=== PATIENT | male | born 1945 | race American Indian/Alaskan Native ===

== ENCOUNTER 2017-03-31 10:47 | Inpatient (IN) | payer MEDICARE ==
[2017-03-31] MEDS ORDERED: NACL 0.9% 1000 ML 1,000 ML ONE ×6 (10:53→19:03)
[2017-03-31] MEDS ORDERED: NACL 0.9% 1000 ML 1,000 ML IV ONE (10:57)
[2017-03-31] MEDS ORDERED: FLAGYL 500 MG/100 ML 500 MG/100 ML BAG IV ONE (10:57)
[2017-03-31] MEDS ORDERED: LEVAQUIN 750MG/150ML 750 MG/150 ML BAG IV ONE (10:57)
[2017-03-31 11:18] LABS: Bacteria,Urine 1+ /HPF (Negative); Bilirubin,Urine NEG (Negative); Blood,Urine NEG (Negative); Ketones,Urine TR mg/dL (Negative); Leukocyte Esterase,Urine NEG (Negative); Mucus,Urine 3+ /HPF; Nitrite,Urine NEG (Negative); Urobilinogen,Urine < 2.0 mg/dL (<2.0)
[2017-03-31 11:41] LABS: Mean Corpuscular HGB Conc 31 % (32-34); Mean Corpuscular Volume 81 fl (84-94); Platelet Count 133 K/mm3 (140-440); Red Blood Count 5.05 M/mm3 (3.65-5.03); Red Cell Distribution Width 16.6 % (13.2-15.2)
[2017-03-31 11:42] LABS: Hematocrit 40.9 % (35.5-45.6); Hemoglobin 12.5 gm/dl (11.8-15.2); Mean Corpuscular Hemoglobin 25 pg (28-32)
--- NOTE | 2017-03-31 11:50 | XRay Report ---
PORTABLE CHEST AND ABDOMEN RADIOGRAPHS INDICATION: Status post intubation. Abdominal distention. COMPARISON: 05/23/2014 upper GI exam. FINDINGS: Portable, frontal chest and abdominal radiographs obtained. CHEST: Normal cardiomediastinal silhouette. Clear lungs. Pneumoperitoneum noted. Endotracheal tube tip approximately 3.8 cm above the shereen. EKG leads. Thoracic spondylosis. Cervical fusion hardware. ABDOMEN: Supine frontal abdominal radiographs demonstrate extensive pneumoperitoneum. Small bowel caliber up to 3.3 cm. Multilevel spinal spondylosis, greatest mid to lower lumbar. CONCLUSION: Extensive pneumoperitoneum, intubation and various other incidental findings, as above. I phoned the above results to Dr. Talbert in the ER, 11:40 AM, 03/31/2017. Thank you for the opportunity to participate in this patient's care.
[2017-03-31] MEDS ORDERED: fentaNYL DRIP Premix 2,000 MCG/100 ML BAG IV SCH (12:00)
[2017-03-31 12:05] LABS: INR 1.17 (0.87-1.13)
--- NOTE | 2017-03-31 12:05 | History and Physical Report ---
History of Present Illness Date of examination: 03/31/17 Chief complaint: Respiratory arrest History of present illness: 71 year old -D[place] male with past medical history significant for colon and liver mass throat the EMS to the emergency department from GI clinic after he has respiratory arrest. colonoscopy was done in the GI clinic and patient likely have Bowel perforations. Patient presented to ED intubated and on mechanical ventilation so we couldn't get much history. Per report from GI clinic the patient has caecal mass. Past History Past Medical History: cancer Past Surgical History: Other (Couldn't obtained because of intubation and sedation.) Social history: other (Couldn't obtained because of intubation and sedation.) Family history: other (Couldn't obtained because of intubation and sedation.) Medications and Allergies Allergies Allergy/AdvReac Type Severity Reaction Status Date / Time Penicillins Allergy Rash Verified 07/15/13 17:28 Home Medications Medication Instructions Recorded Confirmed Last Taken Type Dicyclomine [Bentyl] 10 mg PO QID #20 capsule 07/16/13 Unknown Rx Pantoprazole [Protonix] 40 mg PO QDAY #30 tablet 07/16/13 Unknown Rx Active Meds: Active Medications Levofloxacin/Dextrose (Levaquin 750mg/150ml) 750 mg in 150 mls @ 100 mls/hr IV ONCE ONE PRN Reason: Protocol Stop: 03/31/17 12:26 Fentanyl Citrate (Fentanyl Drip Premix) 2,000 mcg in 100 mls @ 3.6 mls/hr IV TITR WHIT; 1 MCG/KG/HR PRN Reason: Protocol Review of Systems ROS unobtainable: due to endotracheal tube (Couldn't obtained because of intubation and sedation.), due to mental status (Couldn't obtained because of intubation and sedation.) Exam - Physical Exam Narrative exam: Patient is intubated and on mechanical ventilation. The patient appeared well nourished and normally developed. Vital signs as documented. Head exam is unremarkable. No scleral icterus . Neck is without jugular venous distension, thyromegaly, or carotid bruits. Lungs are clear to auscultation. Cardiac exam reveals regular rate and Rhythm. First and second heart sounds normal. No murmurs, rubs or gallops. Abdominal exam reveals grossly distended abdomen, hard with rigidity, no bowel sounds heard. Extremities are nonedematous and both femoral and pedal pulses are normal. [employer]: Sedated. - Constitutional Vitals: Temp Pulse Resp BP Pulse Ox 92.5 F L 114 H 17 110/72 98 03/31/17 11:39 03/31/17 11:39 03/31/17 11:39 03/31/17 11:39 03/31/17 11:39 Results - Labs CBC & Chem 7: 03/31/17 11:09 03/31/17 11:09 Labs: Laboratory Last Values WBC 3.0 K/mm3 (4.5-11.0) L 03/31/17 11:09 RBC 5.05 M/mm3 (3.65-5.03) H 03/31/17 11:09 Hgb 12.5 gm/dl (11.8-15.2) 03/31/17 11:09 Hct 40.9 % (35.5-45.6) 03/31/17 11:09 MCV 81 fl (84-94) L 03/31/17 11:09 MCH 25 pg (28-32) L 03/31/17 11:09 MCHC 31 % (32-34) L 03/31/17 11:09 RDW 16.6 % (13.2-15.2) H 03/31/17 11:09 Plt Count 133 K/mm3 (140-440) L 03/31/17 11:09 POC Glucose 143 (70-105) H 03/31/17 10:49 Urine Color Carolann (Yellow) 03/31/17 11:01 Urine Turbidity Clear (Clear) 03/31/17 11:01 Urine pH 5.0 (5.0-7.0) 03/31/17 11:01 Ur Specific Latty 1.029 (1.003-1.030) 03/31/17 11:01 Urine Protein 100 mg/dl mg/dL (Negative) 03/31/17 11:01 Urine Glucose (UA) 50 mg/dL (Negative) 03/31/17 11:01 Urine Ketones Tr mg/dL (Negative) 03/31/17 11:01 Urine Blood Neg (Negative) 03/31/17 11:01 Urine Nitrite Neg (Negative) 03/31/17 11:01 Urine Bilirubin Neg (Negative) 03/31/17 11:01 Urine Urobilinogen < 2.0 mg/dL (<2.0) 03/31/17 11:01 Ur Leukocyte Esterase Neg (Negative) 03/31/17 11:01 Urine WBC (Auto) 9.0 /HPF (0.0-6.0) H 03/31/17 11:01 Urine RBC (Auto) 5.0 /HPF (0.0-6.0) 03/31/17 11:01 Urine Bacteria (Auto) 1+ /HPF (Negative) 03/31/17 11:01 Urine Mucus 3+ /HPF 03/31/17 11:01 - Imaging and Cardiology Abdominal x-ray: image reviewed (massive pneumoperitonium) Assessment and Plan Assessment and plan: Respiratory arrest - Patient is intubated and on mechanical ventilation - We will do ABG Pneumoperitoneum likely from perforated colon - Patient does colonoscopy done this morning and patient has caecal mass - Surgery was consulted for acute abdomen - GI consulted Sepsis with hypotension/peritonitis - Patient is being treated according to sepsis protocol - Patient is on IV flagyl and levaquin - Blood pressure normalized after he was given a bolus of fluid Stage IV colon cancer - Patient has sacral mass and hepatic mass - Patient need hematology oncology consult after the acute condition is resolved DVT prophylaxis - SCDs because the patient is going to have surgery soon. Disposition - After surgery is done admit to ICU. The high probability of a clinically significant, sudden or life threatening deterioration of the [GI, respiratory, neurologic] system(s) required my full and direct attention, intervention and personal management. The aggregate critical care time was [34] minutes. This time is in addition to time spent performing reported procedures but includes the following: [x] Data Review and interpretation [x] Patient assessment and monitoring of vital signs [x] Documentation [x] Medication orders and management Advance Directives: No VTE prophylaxis?: Mechanical Reason for no VTE Prophylaxis: Surgical contraindication Plan of care discussed with patient/family: No
[2017-03-31 12:17] LABS: Basophils % (Manual) 0 % (0.0-1.8); Blastocytes % (Manual) 0 %; Eosinophils % (Manual) 0 % (0.0-4.3)
[2017-03-31 12:18] LABS: Anisocytosis 1+; Diff Status Complete; Hypochromasia 1+; Platelet Estimate Cons; Schistocytes Rare
[2017-03-31 12:25] LABS: Alanine Aminotransferase 52 units/L (7-56); Albumin 3.6 g/dL (3.9-5); Albumin/Globulin Ratio 0.7 %; Alkaline Phosphatase 90 units/L (35-129); Anion Gap 22 mmol/L; BUN/Creatinine Ratio 7.77; Blood Urea Nitrogen 7 mg/dL (9-20); Calcium 9.1 mg/dL (8.4-10.2); Carbon Dioxide 16 mmol/L (22-30); Chloride 105.3 mmol/L (98-107); Glucose 117 mg/dL (75-100); Potassium 3.5 mmol/L (3.6-5.0); Sodium 140 mmol/L (137-145); Total Protein 8.6 g/dL (6.3-8.2)
[2017-03-31] MEDS ORDERED: ZEMURON IV ONE (12:30)
[2017-03-31] MEDS ORDERED: DIPRIVAN 10 MG/ML IV ONE (12:30)
--- NOTE | 2017-03-31 12:46 | Admit Criteria Form ---
Admission Criteria Documentation: INTENSIVE CARE UNIT ADMISSION Intensive Care Admission Guidelines ( Place 'X' for any and all applicable criteria): Admission to ICU may be indicated when need is demonstrated by ANY ONE of the following (1)(2)(3)(4)(5)(6)(7)(8)(9) : [ X]I. Vital sign abnormalities, including ANY ONE of the following: [ X]a) Systolic arterial pressure less than 90 mm Hg, or 20 mm Hg below the patient's usual pressure [ ]b) Diastolic arterial pressure greater than 120 mm Hg [ ]c) Mean arterial pressure less than 70 mm Hg [A] [ ]d) Pulse less than 40 or greater than 140 beats per minute (in adult) [ ]e) Respiratory rate greater than 35 or less than 8 breaths per minute [X ]II. Laboratory findings (new), including ANY ONE of the following (10): [ ]a) Saturation of arterial oxygen less than 88% or partial pressure of oxygen less than 60 mm Hg (8.0 kPa) despite oxygen supplementation [ ]b) Rising partial pressure of carbon dioxide with respiratory acidosis [X ]c) pH less than 7.2 or greater than 7.65 [ ]d) Serum glucose greater than 800 mg/dL (44.4 mmol/L) [ ]e) Serum sodium less than 110 mEq/L (mmol/L) or greater than 160 mEq/L (mmol/L) [ ]f) Serum potassium less than 2 mEq/L (mmol/L) or greater than 7 mEq /L (mmol/L) [ ]g) Serum calcium greater than 15 mg/dL (3.75 mmol/L) [ ]h) Serum phosphorus less than 1 mg/dL (0.32 mmol/L) [ ]i) Toxic drug level or poisoning causing or likely to cause neurologic or Hemodynamic instability [ ]j) Less severe laboratory abnormalities contributing to ANY ONE of the following: [ ]i) Seizure [ ]ii) Altered mental status [ ]iii) Muscle weakness [ ]iv) Arrhythmias [ ]v) Hemodynamic instability [ ]vi) Other significant clinical manifestations [ ]III. Electrocardiogram (or cardiac monitoring) findings, including ANY ONE of the following: [ ]a) Inherently unstable or life-threatening arrhythmia (eg, sustained ventricular tachycardia, ventricular fibrillation, asystole) [ ]b) Arrhythmia causing severe hypotension (eg, bradycardia, tachycardia) [ ]c) Complete heart block causing severe hypotension [ ]d) Other findings indicative of a need for intensive care (eg , OR) [X ]IV.Physical findings, including ANY ONE of the following: [ ]a) Threatened airway [ ]b) Sudden altered mental status [ ]c) Repeated or prolonged seizures [ ]d) Coma [ ]e) New-onset anuria (urine output <0.1 mL/kg/hr over 4 h) [ ]f) Cyanosis (new) [ ]g) Cardiac tamponade [X ]h) Status post respiratory or cardiac arrest [ ]i) Severe johnston (eg, partial thickness johnston over more than 10% of body surface, third-degree johnston) [ ]j) Findings consistent with abdominal emergency (eg, peritoneal signs) [ ]V.Imaging findings, such as dissecting aneurysm or ruptured viscus [ ].Specific intervention or monitoring needed, as indicated by ANY ONE of the following: [ ]a) New need for assisted ventilation, invasive or noninvasive(11) [ ]b) New need for intubation (eg, to protect airway) [ ]c) New tracheostomy (less than 48 hours old) [ ]d) Hourly vital signs or neurologic checks [ ]e) Pulmonary artery line monitoring needed [ ]f) Continuous arterial line monitoring needed [ ]g) Continuous IV vasoactive drugs [ ]h) Continuous IV antiarrhythmics [ ]i) Large volume IV fluid resuscitation (eg, greater than 6 L per day ) [ ]j) Large or rapid transfusion needs (eg, more than 6 units within 24 hours) [ ]k) High-risk IV treatment, such as bolus IV medicatns or mannitol infusion [ ]l) Acute cardiac pacing [ ]m) Intra-aortic balloon pump [ ]n) Ventricular assist device [ ]o) Cardioversion [ ]p) Pericardiocentesis [ ]q) Hemodialysis in unstable patient [ ]r) Continuous renal replacement therapy (eg, continuous veno-venous hemofiltration) [ ]s) Peritoneal dialysis initiation [ ]t) Emergency bronchoscopic therapy (eg, for hemoptysis) [ ]u) Emergency endoscopic therapy for bleeding [ ]v) Balloon tamponade for variceal bleeding [ ]w) Intracranial pressure monitoring or tissue oxygen monitoring [ ]x) Ventriculostomy monitoring [ ]y) Treatment of ongoing seizures [ ]z) Induced hypothermia or coma [ ]aa) Ongoing frequent testing and treatment for acute conditions, including ANY ONE of the following: [ ]i) Correction of severe metabolic acidosis/ alkalosis [ ]ii). Severe fluid overload [ ]iii) Cerebral edema [ ]iv) Monitoring or suctioning for respiratory insufficiency or acidosis [ ]v) Monitoring for active bleeding [ ]bb) Rapid desensitization for high-risk hypersensitivity reaction to required medication (eg, penicillin)(12) [ ]cc) Other need for treatment or monitoring not available outside the ICU [ ]VII.Cardiology diagnoses or procedures, including ANY ONE of the following (13)(14)(15)(16)(17): [ ]a) Chest pain with ANY ONE of the following: [ ]i) Hemodynamic instability [ ]ii) Suspicion of diagnoses needing ICU care (eg, aortic dissection) [ ]iii) New unstable or symptomatic arrhythmia or ECG finding (eg, ventricular tachycardia, ventricular fibrillation, advanced heart block) [ ]iv) Syncope or near-syncope [ ]v) SBP less than 100 mm Hg [ ]vi) Pulmonary edema thought to be due to ischemia [ ]vii) New or worsening mitral regurgitation murmur, S3 , or rales [ ]b) Acute OR with complications as indicated by ANY ONE of the following: [ ]i) Persistent chest pain [ ]ii) Hemodynamic instability [ ]iii) New unstable or symptomatic arrhythmia or ECG finding (eg, ventricular tachycardia, ventricular fibrillation, advanced heart block) [ ]iv) Syncope or near-syncope [ ]v) Pulmonary edema thought to be due to ischemia [ ]vi) New or worsening mitral regurgitation murmur, S3 , or rales [ ]vii) New-onset bundle branch block [ ]viii) Hemorrhagic complication (eg, intracranial or access site bleed following thrombolysis) [ ]c) Cardiac arrhythmia or conduction defect with Hemodynamic instability [ ]d) Complication of cardiac ablation, including ANY ONE of the following(18): [ ]i) Pericardial tamponade [ ]ii) Hemodynamic instability [ ]iii) Thromboembolic stroke [ ]iv) Aortic valve injury [ ]v) Vascular injuries [ ]vi) Esophageal perforation [ ]vii) Severe arrhythmia [ ]viii) Air embolism [ ]ix) Other severe complication [ ]e) Cardiogenic shock [ ]f) Hypertensive emergency, with need for ANY ONE of the following(19): [ ]i) IV antihypertensive therapy [ ]ii) Invasive hemodynamic monitoring (eg, arterial line) [ ]g) Pericardial tamponade [ ]h) Severe heart failure, with ANY ONE of the following(15): [ ]i) Respiratory failure [ ]ii) Cardiogenic shock [ ]iii) Severe arrhythmias [ ]iv) Evidence of cardiac ischemia [ ]i Myocarditis, with ANY ONE of the following [ ]i) Hemodynamic instability [ ]ii) Respiratory failure [ ]iii) Severe arrhythmias [ ]iv) Need for cardiac assist device (eg, left ventricular assist device or extracorporeal membrane oxygenator) [ ]j) Status post cardiac arrest(20) [ ]VIII. Cardiovascular Surgery diagnoses or procedures, including ANY ONE of the following.(21)(22): [ ]a) Acute aortic dissection [ ]b) Aortic surgery for ANY ONE of the following: [ ]i) Thoracic aneurysm [ ]ii) Abdominal aneurysm with ANY ONE of the following(23): [ ]1) Emergency repair [ ]2) Severe cardiopulmonary disease [ ]3) Dialysis-dependent renal failure [ ]4) Need for IV blood pressure control [ ]5) Need for ongoing ventilatory support [ ]6) Perioperative complications, including ANY ONE of the following: [ ]A. Sustained Hemodynamic instability [ ]B. Cardiac ischemia or arrhythmia [ ]C. Hypothermia (less than 35 degrees C (95 degrees F)) [ ]D. Blood transfusion greater than 3 L [ ]iii) Aortic coarctation operative excision or repair [ ]iv) Aortofemoral or aortoiliac bypass with ANY ONE of the following: [ ]1) Continued intubation [ ]2) Hemodynamic instability [ ]3) Need for IV blood pressure control [ ]4) Severe cardiopulmonary disease [ ]c) Cardiac surgery [ ]d) Carotid endarterectomy or stent placement with ANY ONE of the following: [ ]i) Blood pressure <100/60 mm Hg or >160/90 mm Hg despite 4 h of postanesthetic management [ ]ii) New or progressive neurologic defect [ ]iii) Chest pain [ ]iv) Continued intubation [ ]v) Heart failure [ ]vi) Airway compromise by hematoma or vocal cord paralysis [ ]vi) Need for IV blood pressure control [ ]e) Heart transplant [ ]f) Infrainguinal peripheral vascular surgery with ANY ONE of the following: [ ]i) Hemodynamic instability [ ]ii) Acute complications such as persistent chest pain or respiratory distress [ ]iii) Requirement for IV antiarrhythmic or vasoactive agent [ ]iv) Requirement for pulmonary artery catheter [ ]v) Severe hypertension despite 6 hours of recovery room management [ ]g) Complications of any surgery requiring ICU intervention as indicated by ANY ONE of the following(24): [ ]i) Hemodynamic instability [ ]ii) Myocardial infarction with complications (eg, severe arrhythmia, hypotension) [ ]iii) Excessive bleeding or severe coagulopathy [ ]iv) Respiratory failure [ ]v) Renal failure [ ]vi) Airway instability or obstruction [ ]vii) Neurologic deterioration [ ]viii) Infection with likelihood of sepsis syndrome or significant fluid shifts [ ]IX.Endocrinology diagnoses or procedures, including ANY ONE of the following(25)(26): [ ]a) Adrenal crisis with Hemodynamic instability(27) [ ]b) Pheochromocytoma with ANY ONE of the following(28): [ ]i) Hypertensive crisis [ ]ii) Postoperative Hemodynamic instability [ ]iii) Need for IV vasoactive therapy [ ]iv) Need for invasive arterial or central venous pressure monitoring [ ]v) Organ ischemia [ ]c) Diabetic hyperosmolar state with obtundation or coma [ ]d) Diabetic ketoacidosis with ANY ONE of the following: [ ]i) Serum pH less than 7.10 or bicarbonate level less than 10 mEq/L (mmol/L) [ ]ii) Rapidly changing electrolytes [ ]iii) Hypotension [ ]iv) Requirement for large-volume fluid resuscitation [ ]v) Respiratory insufficiency [ ]vi) Life-threatening cardiac dysrhythmias [ ]vii) Obtundation [ ]viii) Severe precipitating condition such as sepsis, stroke, or acute OR [ ]e) Severe hypoglycemia requiring continuous glucose infusion with frequent adjustment or glucagon infusion [ ]f) Hyperthyroidism associated with thyroid storm (also known as thyrotoxic crisis)(29) [ ]g) Myxedema with life-threatening neurologic, cardiovascular, electrolyte, or renal dysfunction(29) [ ]h) Diabetes insipidus that cannot be controlled with routine medication (30) [ ]X. Gastroenterology diagnoses or procedures, including ANY ONE of the following: [ ]a) Esophageal perforation(31) [ ]b) Severe caustic esophageal injury(31) [ ]c) Liver disease complications with ANY ONE of the following(32): [ ]i) Severe hepatic encephalopathy (eg, stage 3 (somnolent) or higher) [ ]ii) Type 1 hepatorenal syndrome [ ]iii) Other cirrhosis-associated causes of acute renal failure ( eg, severe hypovolemia, acute tubular necrosis, abdominal compartment syndrome) [ ]iv) Hemodynamic instability [ ]v) Respiratory insufficiency due to severe ascites [ ]vi) Sepsis due to spontaneous bacterial peritonitis [ ]d) Fulminant hepatic failure when aggressive intervention or transplant is anticipated (32) [ ]e) Gastrointestinal hemorrhage (upper or lower) with ANY ONE of the following(33)(34): [ ]i) Active ongoing bleeding [ ]ii) Transfusion requirement greater than 2 units of packed red cells [ ]iii) Bleeding ulcer or nonbleeding visible vessel seen on endoscopy [ ]iv) Bleeding ulcer, visible blood vessel, bleeding (or recently bleeding) esophageal varices seen on endoscopy [ ]v) Hypotension [ ]vi) Syncope [ ]vii) Coagulopathy [ ]viii) Hepatic cirrhosis [ ]ix) Abnormal mental status [ ]x) Unstable comorbid condition or end organ dysfunction [ ]xi) Ischemia due to poor perfusion [ ]xii) Need for hemodynamic monitoring (eg, for patients with heart failure or valvular disease) [ ]f) Severe pancreatitis indicated by ANY ONE of the following (35)(36): [ ]i) Requirement for aggressive fluid resuscitation [ ]ii) Life-threatening electrolyte abnormality [ ]iii) SBP less than 90 mm Hg [ ]iv) Persistent tachycardia greater than 120 beats per minute [ ]v) Patients at high risk of rapid deterioration, including ANY ONE of the following: [ ]1) Calculated [place] II score greater than 8 [ ]2) Age older than 55 years [ ]3) BMI greater than 30 [ ]4) Greater than 30% pancreatic necrosis on CT scan [ ]5) Admission hematocrit greater than 47% (0.47) [ ]vi) Organ failure as indicated by ANY ONE of the following: [ ]1) Serum creatinine greater than 1.9 mg/dL (168 micromoles/L) [ ]2) Requirement for mechanical ventilation [ ]3) Urine output less than 50 mL/hour [ ]4) Arterial partial pressure of oxygen less than 60 mm Hg (8.0 kPa) despite supplemental oxygen [ ]5) PiO2/FiO2 ratio less than 300 [ ]vii) Expanding pseudocyst [ ]viii) Infected pancreas [ ]ix) Pleural effusion [ ]x) Encephalopathy [ ]xi) Severe comorbidities [ ]XI. General Surgery diagnoses or procedures, including ANY ONE of the following (9)(24)(37): [ ]a) Acute abdominal catastrophe (eg, ischemic bowel, perforated viscus, abdominal compartment syndrome) [ ]b) Complications of any surgery requiring ICU intervention as indicated by ANY ONE of the following: [ ]i) Hemodynamic instability [ ]ii) OR with complications (eg, severe arrhythmia, hypotension) [ ]iii) Excessive bleeding or severe coagulopathy [ ]iv) Respiratory failure [ ]v) Renal failure [ ]vi) Airway instability or obstruction [ ]vii) Neurologic deterioration [ ]viii) Infection with likelihood of sepsis syndrome or significant fluid shifts [ ]c) Multiple trauma with complicating features as indicated by ANY ONE of the following(38): [ ]i) Impending acute respiratory failure due to lung contusion, unstable chest wall, aspiration, or hemorrhage [ ]ii) Facial or neck injury threatening airway patency [ ]iii) Cardiac contusion [ ]iv) Pericardial effusion [ ]v) Bronchial tear [ ]vi) Hemodynamic instability [ ]vii) Rhabdomyolisis requiring large volume IV fluid resuscitation [ ]viii)Other significant complicating feature [ ]d) Organ transplant(39)(40) [ ]e) Esophagectomy(31) [ ]f) Whipple procedure [ ]g) Preoperative or postoperative patients requiring ICU intervention, such as hemodynamic optimization, pulmonary artery monitoring, mechanical ventilation, or extensive nursing care [ ]h) Obesity surgery patients with ANY ONE of the following(41): [ ]i) ICU management needs for comorbid conditions, such as sleep apnea or airway management needs [ ]ii) Failed postoperative extubation [ ]iii) Intraoperative complications [ ]XII. Nephrology diagnoses or procedures, including acute, or acute on chronic renal insufficiency with ANY ONE of the following(44)(45): [ ]a) Life-threatening electrolyte or acid-base disorder [ ]b) Acute pulmonary edema [ ]c) Hypotension or significant volume depletion [ ]d) Hypertensive emergency [ ]e) Underlying critical illness contributing to renal failure (eg, septic shock, hepatorenal syndrome) [ ]f) Need for continuous renal replacement therapy [ ]XIII. Neurology diagnoses or procedures, including ANY ONE of the following (46)(47) [B] : [ ]a) Intracranial hypertension requiring ANY ONE of the following(49 ): [ ]i) Induced barbiturate coma [ ]ii) Pharmacologic paralysis or deep sedation and mechanical ventilation [ ]iii) Intracranial pressure or cerebral perfusion pressure monitoring [ ]iv) IV mannitol or hypertonic saline [ ]v) Frequent serum osmolality measurements [ ]b) Seizures with ANY ONE of the following(50): [ ]i) Status epilepticus [ ]ii) Airway compromise requiring or likely to require mechanical ventilation [ ]iii) Severe electrolyte abnormalities causing seizures [ ]c) Progressive acute neurologic dysfunction requiring or likely to require ANY ONE of the following: [ ]i) Mechanical ventilation [ ]ii) Intracranial pressure or cerebral perfusion pressure monitoring [ ]d) Meningitis with obtundation or respiratory insufficiency [C])(51 ) [ ]e) Stroke with ANY ONE of the following(52)(53): [ ]i) Need for observation after thrombolysis [ ]ii) Altered mental status [ ]iii) Need for mechanical ventilation [ ]iv) Elevated intracranial pressure [ ]v) Hypertensive emergency [ ]vi) High risk of progressive infarction or deterioration based on CT scan or MRI [ ]vii) Hemorrhage [ ]f) Acute coma [ ]g) Acute spontaneous intracranial hemorrhage(53)(54) [ ]h) Drug ingestion with ANY ONE of the following(56)(57): [ ]i) Hemodynamic instability [ ]ii) Respiratory depression (partial pressure of carbon dioxide >45 mm Hg (6.0 kPa), new) [ ]iii) Patient requires or is likely to require mechanical ventilation. [ ]iv) Arrhythmias [ ]v) Seizures [ ]vi) Altered mental status ([place] coma scale score less than 12, new) [ ]vii) Significant risk for acute deterioration (eg, toxic level of hypotension or arrhythmia-producing drug) [ ]viii) Drug-induced hypothermia or hyperthermia [ ]ix) Increasing metabolic acidosis [ ]x) Severe hypoglycemia requiring glucose infusion with frequent adjustment or glucagon administration [ ]xi) Ongoing antidote administration (eg, continuous naloxone infusion, organophosphate toxicity treatment) [ ]xii) Emergency intervention need (eg, dialysis, hemoperfusion, restraints) [ ]i) Brain with preparation for organ donation [ ]j) Traumatic brain injury with ANY ONE of the following(55): [ ]i) Altered mental status (eg, new onset [place] coma scale score less than 10) [ ]ii) Cerebral edema [ ]iii) Cerebral hemorrhage [ ]iv) Increased intracranial pressure [ ]XIV. Neurosurgery diagnoses or procedures, including ANY ONE of the following(49)(58)(59): [ ]a) Emergency craniotomy for tumor, hematoma, or trauma [ ]b) Elective craniotomy for posterior fossa tumor [ ]c) Elective craniotomy (supratentorial) for tumor with ANY ONE of the following: [ ]i) Postoperative neurologic deficit or impaired consciousness 6 hours after completion of procedure [ ]ii) SBP less than 110 mm Hg or greater than 180 mm Hg despite therapy [ ]iii) Extensive operative blood loss [ ]iv) High anesthesia risk (eg, [place] [employer] anesthesi[employer] score greater than 3 [ ]d) Craniotomy for aneurysm with ANY ONE of the following: [ ]i) Postoperative neurologic deficit or impaired consciousness 6 hours after completion of procedure [ ]ii) Preoperative Calderon-Britt grade 3 or higher [ ]iii) SBP less than 110 mm Hg or greater than 180 mm Hg despite therapy [ ]iv) Intracranial pressure monitoring [ ]e) Acute spinal cord injury [ ]f) Subarachnoid hemorrhage [ ]g) Traumatic brain injury with ANY ONE of the following: [ ]i) Acute mental status change ([place] coma scale score less than 10) [ ]ii) CT scan showing cerebral edema or hemorrhage [ ]iii) Intracranial pressure monitoring [ ]h) Complications of any surgery requiring ICU intervention as indicated by ANY ONE of the following(60): [ ]i) Hemodynamic instability [ ]ii) OR with complications (eg, severe arrhythmia, hypotension) [ ]iii) Excessive bleeding or severe coagulopathy [ ]iv) Respiratory failure [ ] v) Renal failure [ ]vi) Airway instability or obstruction [ ]vii) Neurologic deterioration [ ]viii) Infection with likelihood of sepsis syndrome or significant fluid shifts [ ]i) Preoperative or postoperative patients requiring ICU intervention, such as hemodynamic optimization, pulmonary artery monitoring, mechanical ventilation, or extensive nursing care [ ]XV.Obstetrics and Gynecology diagnoses or procedures, including ANY ONE of the ffg. (61)(62)(63): [ ]a) Severe peripartum condition as indicated by ANY ONE of the following: [ ]i) Eclampsia [ ]ii) Hypertensive emergency [ ]iii) HELLP syndrome (hemolysis, elevated liver enzymes, and low platelet count) [ ]iv) Pulmonary edema [ ]v) Respiratory failure [ ]vi) Pulmonary embolism [ ]vii) Anaphylactoid syndrome of (amniotic fluid embolus) [ ]viii) Ovarian hyperstimulation syndrome [D] [ ]ix) Acute fatty liver of (hepatic failure) [ ]x) Complications such as placental abruption or severe hemorrhage [ ]xi) Sepsis (eg, puerperal sepsis, chorioamnionitis, septic ) [ ]xii) cardiomyopathy with severe congestive heart failure (eg, respiratory failure, cardiogenic shock) [ ]b) Ruptured ectopic [ ]c) Complications of any surgery requiring ICU intervention as indicated by ANY ONE of the following: [ ]i) Hemodynamic instability [ ]ii) OR with complications (eg, severe arrhythmia, hypotension) [ ]iii) Excessive bleeding or severe coagulopathy [ ]iv) Respiratory failure [ ]v) Renal failure [ ]vi) Airway instability or obstruction [ ]vii) Neurologic deterioration [ ]viii) Infection with likelihood of sepsis syndrome or significant fluid shifts [ ]d) Preoperative or postoperative patients requiring ICU intervention , such as hemodynamic optimization, pulmonary artery monitoring, mechanical ventilation, or extensive nursing care [ ]XVI.Ophthalmology diagnoses or procedures, including ANY ONE of the following (64): [ ]a) Complications of any surgery requiring ICU intervention, such as ANY ONE of the following: [ ]i) Hemodynamic instability [ ]ii) OR with complications (eg, severe arrhythmia, hypotension) [ ]iii) Excessive bleeding or severe coagulopathy [ ]iv) Respiratory failure [ ]v) Renal failure [ ]vi) Airway instability or obstruction [ ]vii) Neurologic deterioration [ ]viii) Infection with likelihood of sepsis syndrome or significant fluid shifts [ ]b) Preoperative or postoperative patients requiring ICU intervention , such as hemodynamic optimization, pulmonary artery monitoring, mechanical ventilation, or extensive nursing care [ ]XVII.Orthopedics diagnoses or procedures, including ANY ONE of the following [phone]): [ ]a) Complications of any surgery requiring ICU intervention as indicated by ANY ONE of the following: [ ]i) Hemodynamic instability [ ]ii) OR with complications (eg, severe arrhythmia, hypotension) [ ]iii) Excessive bleeding or severe coagulopathy [ ]iv) Respiratory failure [ ]v) Renal failure [ ]vi) Airway instability or obstruction [ ] vii) Neurologic deterioration [ ]viii) Infection with likelihood of sepsis syndrome or significant fluid shifts [ ]b) Multiple trauma with complicating features as indicated by ANY ONE of the following(38): [ ]i) Impending acute respiratory failure due to lung contusion, unstable chest wall, pneumothorax, aspiration, or hemorrhage [ ]ii) Facial or neck injury threatening airway patency [ ]iii) Cardiac contusion [ ]iv) Rhabdomyolysis requiring large volume IV fluid resuscitation [ ]v) Pericardial effusion [ ]vi) Bronchial tear [ ]vii) Hemodynamic instability [ ]viii) Other significant complicating feature [ ]c) Threatened compartment syndrome [ ]d) Severe johnston with ANY ONE of the following(68)(69)(70): [ ]i) Hypotension or requirement for aggressive fluid resuscitation [ ]ii) Respiratory insufficiency with requirement for high- flow oxygen or mechanical ventilation [ ]iii) Carbon monoxide poisoning [ ]iv) Life-threatening cardiac, renal, pulmonary, or neurologic dysfunction [ ]v) High-voltage (eg, 1000 volts or more) electrical burn [ ]vi) Requirement for frequent or intensive debridement and dressing changes; examples include: [ ]1) Partial thickness johnston greater than 10% of body surface [ ]2) Johnston on face, hands, feet, genitalia, perineum , or major joints [ ]3) Third-degree johnston [ ]4) Any burn greater than 15% of body surface area [ ]vii) Inhalation lung injury [ ]viii) Concomitant trauma or other medical condition requiring ICU care [ ]e) Preoperative or postoperative patients requiring ICU intervention , such as hemodynamic optimization, pulmonary artery monitoring, mechanical ventilation, or extensive nursing care [ ]XVIII.Otolaryngology diagnoses or procedures, including ANY ONE of the following (71)(72): [ ]a) Complications of any surgery requiring ICU intervention as indicated by ANY ONE of the following: [ ]i) Hemodynamic instability [ ]ii) OR with complications (eg, severe arrhythmia, hypotension) [ ]iii) Excessive bleeding or severe coagulopathy [ ]iv) Respiratory failure [ ]v) Renal failure [ ]vi) Airway instability or obstruction [ ]vii) Neurologic deterioration [ ]viii) Infection with likelihood of sepsis syndrome or significant fluid shifts [ ]b) Airway or hemodynamic compromise that persists after 3 hours of observation in postanesthesia care unit following nasal, palate (eg, uvulopalatopharyngoplasty or palatoplasty), or tongue surgery for sleep apnea [ ]c) Preoperative or postoperative patient requiring ICU intervention, such as hemodynamic optimization, pulmonary artery monitoring, mechanical ventilation, or extensive nursing care [ ]d) Symptomatic upper airway compromise (eg, laryngeal edema, mass) [ ]e) Other airway-compromising procedure (eg, posterior nasal packing) [ ]XIX.Thoracic Surgery and Pulmonary Disease Diagnosis or procedures, including ANY ONE of the following(6): [ ]a) Asthma with ANY ONE of the following(73)(74): [ ]i) Impending or actual respiratory arrest [ ]ii) Need for mechanical ventilation [ ]iii) Peak expiratory flow rate less than 30% of predicted or personal best [ ]iv) Peak expiratory flow rate or FEV1 less than 40% predicted after 1 hour of initial treatment [ ]v) Acidosis [ ]vi) Persistent or worsening hypoxia after initial treatment [ ]vii) Hypercapnia (eg, partial pressure of carbon dioxide greater than 43 mm Hg (5.7 kPa)) [ ]viii) Severe drowsiness, confusion, or coma [ ]ix) Requiring continuous inhaled bronchodilator [ ]b) COPD with ANY ONE of the following(75): [ ]i) Need for assisted ventilation [ ]ii) Hemodynamic instability [ ]iii) Severe dyspnea unresponsive to initial treatment [ ]iv) Change in level of consciousness [ ]v) Persistent findings despite oxygen and outpatient management, including ANY ONE of the following: [ ]1) Partial pressure of oxygen less than 40 mm Hg ( 5.3 kPa) [ ]2) Partial pressure of carbon dioxide greater than 60 mm Hg (8.0 kPa) [ ]3) pH less than 7.25 [ ]4) Worsening hypoxemia or acidosis [ ]c) Cor pulmonale with ANY ONE of the following(75)(76)(77): [ ]i) Hemodynamic instability [ ]ii) Need for IV inotropic or vasoactive agent [ ]iii) Need for invasive hemodynamic monitoring (eg, central venous, pulmonary artery, or arterial catheter) [ ]iv) Hypoxemia with partial pressure of oxygen less than 40 mm Hg (5.3 kPa) [ ]v) Worsening hypoxemia or acidosis despite oxygen therapy [ ]vi) Need for assisted ventilation [ ]vii) Need for right ventricular assist device [ ]viii) Unstable atrial tachyarrhythmia [ ]ix) Need for inhaled nitric oxide [ ]d) Aspiration pneumonia with ANY ONE of the following(78): [ ]i) Acute respiratory distress syndrome (PaO2/FiO2 ratio of 300 or less) [ ]ii) Impending or actual respiratory arrest [ ]iii) Need for invasive or noninvasive mechanical ventilation [ ]e) Pneumocystis jiroveci pneumonia with ANY ONE of the following(79): [ ]i) Impending or actual respiratory arrest [ ]ii) Hypoxia (eg, PO260 mmGh (8.0 kPa) or less despite oxygen therapy) [ ]iii) Need for invasive or noninvasive mechanical ventilation [ ]f) Pneumonia with ANY ONE of the following(80)(81)(82): [ ]i) Need for invasive or noninvasive assisted ventilation [ ]ii) Hemodynamic instability [ ]iii) Severity factors as indicated by 3 or MORE of the following: [ ]1) Respiratory rate 30 breaths per minute or greater [ ]2) PaO2/FiO2 ratio of 250 or less [ ]3) Multilobed infiltrates [ ]4) Altered mental status [ ]5) BUN 20 mg/dL (7.1 mmol/L) or greater [ ]6) WBC count less than 4000/mm3 (4 x109/L) [ ]7) Platelet count <100,000/mm3 (100 x109/L) [ ]8) Temperature less than 36 degrees C (96.8 degrees F ) [ ]9) Hypotension requiring aggressive fluid resuscitation [ ]g) Pulmonary hypertension requiring initiation of parenteral pulmonary vasodilator or trial of inhaled nitric oxide (eg, need for right heart catheterization)(76) [ ]h) Impending respiratory failure as indicated by ANY ONE of the following: [ ]i) Respiratory rate greater than 30 or partial pressure of oxygen less than 60 mm Hg (8.0 kPa) on 50% oxygen or more [ ]ii) Partial pressure of carbon dioxide greater than 45 mm Hg (6.0 kPa) with pH less than 7.35 [ ]i) Respiratory failure with ANY ONE of the following (47): [ ]i) Need for invasive or noninvasive mechanical ventilation [ ]ii) High likelihood of requiring mechanical ventilation within 24 hours [ ]iii) Observation in the first several hours immediately after extubation from mechanical ventilation [ ]iv) Need for close observation and aggressive therapy, such as suctioning, chest physiotherapy, or inhalation treatments at intervals less than 1 hour [ ]v) Pharmacologic ventilatory paralysis [ ]j) Venous thromboembolism with need for systemic or catheter- directed thrombolysis (eg, for limb-threatening thrombosis, phlegmasia cerulea dolens) (83) [ ]k) Pulmonary embolus with ANY ONE of the following(83): [ ]i) Hypotension [ ]ii) Severe hypoxia [ ]iii) Dangerous arrhythmia [ ]iv) Bleeding [ ]v) Need for systemic or catheter-directed thrombolysis [ ]l) Lobectomy or other major thoracic surgery [ ]m) Lung transplant [ ]n) Symptomatic upper airway obstruction (eg, laryngeal edema, mass) [ ]o) Massive hemoptysis [ ]p) Infection or thrombosis of an intravenous device with ANY ONE of the following(6)(84): [ ]i) Hemodynamic instability [ ]ii) Requirement for frequent hemodynamic measurements [ ]iii) Shock [ ]iv) End organ dysfunction [ ] v) Acute renal failure due to missed dialysis [ ]vi) Unstable acute complication (eg, pericardial tamponade , tension pneumothorax) [ ]q) Traumatic rib fracture or fractures with ANY ONE of the following(85): [ ]i) Injury severity score of 19 or greater [ ]ii) Respiratory insufficiency [ ]iii) Flail chest [ ]iv) Sternum fracture [ ]v) Vascular injury (eg, heart or great vessels) [ ]r) Pleural effusion with ANY ONE of the following(86): [ ]i) Respiratory insufficiency [ ]ii) Hemothorax with active ongoing bleeding [ ]iii) Hemodynamic instability [ ]iv) Unstable comorbid condition (eg, sepsis or heart failure [ ]XX. Urology diagnoses or procedures, including ANY ONE of the following ( 87)(88): [ ]a) Renal transplant [ ]b) Complications of any surgery requiring ICU intervention as indicated by ANY ONE of the following: [ ]i) Hemodynamic instability [ ]ii) OR with complications (eg, severe arrhythmia, hypotension) [ ]iii) Excessive bleeding or severe coagulopathy [ ]iv) Respiratory failure [ ]v) Renal failure [ ]vi) Airway instability or obstruction [ ]vii) Neurologic deterioration [ ]viii) Infection with likelihood of sepsis syndrome or significant fluid shifts [ ]c) Preoperative or postoperative patients requiring ICU intervention , such as hemodynamic optimization, pulmonary artery monitoring, mechanical ventilation , or extensive nursing care [ ]XXI.Infectious Disease diagnoses or procedures, with ANY ONE of the following (6)(43): [ ]a) Hemodynamic instability [ ]b) Shock [ ]c) Requirement for frequent hemodynamic measurements (eg, arterial catheter, pulmonary artery catheter) [ ]d) Sepsis or suspected sepsis with end organ dysfunction (eg, acute kidney injury, acute respiratory distress syndrome) [ ]e) Necrotizing soft tissue infection [ ] XXII.Hematology - Oncology diagnoses or procedures, including chemotherapy administration with ANY ONE of the following(42): [ ]a) Hemodynamic instability [ ]b) Tumor lysis syndrome with ANY ONE of the following : [ ]1) Acute kidney injury [ ]2) Severe electrolyte abnormality [ ]3) Cardiac dysrhythmia [ ]XXIII. Systemic conditions, including ANY ONE of the following: [ ]a) Severe electrolyte or metabolic disturbance causing or likely to cause ANY ONE of the following(10)(89)(90): [ ]i) Life-threatening cardiac dysrhythmia [ ]ii) Respiratory insufficiency [ ]iii) Altered mental status [ ]iv) Seizures [ ]v) Hemodynamic instability [ ]vi) Muscular weakness [ ]b) Environmental injuries such as hypothermia, hyperthermia, electrical injuries, or near drowning(70)(91)(92) The original [employer] content created by [employer] has been revised. The portions of the content which have been revised are identified through the use of italic text or in bold, and [facility] has neither reviewed nor approved the modified material. All other unmodified content is copyright [employer]. Please see references footnoted in the original [facility] edition 2016 Admission Criteria Met: Yes
[2017-03-31] MEDS ORDERED: NACL 0.9% 500 ML 500 ML IV ONE (13:03)
--- NOTE | 2017-03-31 13:09 | Emergency Department Report ---
ED General Adult HPI - General Chief complaint: Cardiac Arrest/CPR Stated complaint: RESP ARREST Time Seen by Provider: 03/31/17 10:47 Source: EMS, RN notes reviewed, old records reviewed Mode of arrival: Stretcher Limitations: Other - History of Present Illness Initial comments: 71-year-old male presents to the emergency department via EMS from a local gastroenterology office. Patient was receiving an outpatient colonoscopy and was found to have a perforated large intestine. Dr. Alberto, gastroenterology spoke with me about this. He states that he's noticed a large mass in the cecum with ulceration. It is likely at this point that the perforation occurred. He states that the patient was initially diaphoretic with his heart rate in the 50s and systolic blood pressure in the 90s. He was being sent to the emergency department by EMS. EMS states that on their arrival, the patient was noted to be in respiratory arrest. He was intubated by the staff at the gastroenterology office. Further history is unable to be obtained from the patient due to his clinical condition. -: Sudden, This morning Location: abdomen Severity scale (0 -10): 0 - Related Data Previous Rx's Medication Instructions Recorded Last Taken Type Dicyclomine [Bentyl] 10 mg PO QID #20 capsule 07/16/13 Unknown Rx Pantoprazole [Protonix] 40 mg PO QDAY #30 tablet 07/16/13 Unknown Rx Allergies Allergy/AdvReac Type Severity Reaction Status Date / Time Penicillins Allergy Rash Verified 07/15/13 17:28 ED Review of Systems ROS: Stated complaint: RESP ARREST Other details as noted in HPI Comment: Unobtainable due to pts medical conditions ED Past Medical Hx - Past Medical History Previous Medical History?: Yes Hx Hypertension: Yes Hx Diabetes: Yes Hx of Cancer: Yes (mass liver, colon) - Surgical History Past Surgical History?: Yes Additional Surgical History: Cervical fusion - Family History Family history: no significant - Social History Smoking Status: Unknown if ever smoked - Medications Home Medications: Home Medications Medication Instructions Recorded Confirmed Last Taken Type Dicyclomine [Bentyl] 10 mg PO QID #20 capsule 07/16/13 Unknown Rx Pantoprazole [Protonix] 40 mg PO QDAY #30 tablet 07/16/13 Unknown Rx ED Physical Exam - General Limitations: Other General appearance: obtunded - Head Head exam: Present: atraumatic, normocephalic - Eye Eye exam: Present: normal appearance, PERRL, EOMI - ENT ENT exam: Present: normal exam, normal orophraynx (7.[address] secured at 24 cm at the lips), mucous membranes moist - Neck Neck exam: Present: normal inspection, full ROM - Respiratory Respiratory exam: Present: normal lung sounds bilaterally. Absent: respiratory distress - Cardiovascular Cardiovascular Exam: Present: normal rhythm, tachycardia, normal heart sounds - GI/Abdominal GI/Abdominal exam: Present: distended, rigid - Extremities Exam Extremities exam: Present: normal inspection, full ROM. Absent: tenderness - Back Exam Back exam: Present: normal inspection, full ROM. Absent: tenderness - Neurological Exam Neurological exam: Present: other (GCS 3T (E1 V1T M1)) - Skin Skin exam: Present: warm, dry, intact ED Course Vital Signs 03/31/17 03/31/17 03/31/17 10:50 10:51 11:32 Temperature Pulse Rate 117 H 117 H 98 H Respiratory 19 Rate Blood Pressure 75/30 75/30 Blood Pressure [Right] O2 Sat by Pulse 98 100 Oximetry 03/31/17 03/31/17 03/31/17 11:35 11:39 11:40 Temperature 92.5 F L Pulse Rate 114 H 114 H 111 H Respiratory 17 18 Rate Blood Pressure 122/76 Blood Pressure 110/72 [Right] O2 Sat by Pulse 100 98 Oximetry 03/31/17 03/31/17 11:50 12:00 Temperature Pulse Rate 110 H 112 H Respiratory 13 14 Rate Blood Pressure 121/97 122/76 Blood Pressure [Right] O2 Sat by Pulse 95 Oximetry ED Medical Decision Making - Lab Data Result diagrams: 03/31/17 11:09 03/31/17 11:09 - Radiology Data Radiology results: image reviewed interpreted by me: Abdominal x-ray reveals extensive pneumoperitoneum. Endotracheal tube appears in the proper position. These findings were discussed with the radiologist. - Medical Decision Making Patient was discussed with Dr. Bentley, surgery on arrival. Labs were ordered and the patient was administered IV Levaquin and IV Flagyl following collection of blood cultures. Review of documentation with the patient shows that he also has a large necrotic mass in his liver suggestive of metastatic disease. Patient is being taken to the operating room for emergent surgery. Gastroenterology has been notified. Patient is to be admitted by the hospitalist following surgery. - Differential Diagnosis bowel perforation Critical Care Time: Yes Critical care time in (mins) excluding proc time.: 60 Critical care attestation.: If time is entered above; I have spent that time in minutes in the direct care of this critically ill patient, excluding procedure time. Critical Care Time: The high probability of a clinically significant, sudden or life threatening deterioration of the respiratory system(s) required my full and direct attention , intervention and personal management. The aggregate critical care time was 60 minutes. This time is in addition to time spent performing reported procedures but includes the following: [x] Data Review and interpretation [x] Patient assessment and monitoring of vital signs [x] Documentation [x] Medication orders and management ED Disposition Clinical Impression: Perforation of colon, Respiratory arrest Disposition: 09 OP ADMIT IP TO THIS HOSP Is pt being admited?: Yes Condition: Stable Referrals: PRIMARY CARE, [Primary Care Provider] - 3-5 Days Time of Disposition: 13:17
[2017-03-31] MEDS ORDERED: ANCEF ONE (13:10)
[2017-03-31] MEDS ORDERED: SUBLIMAZE ONE (14:17)
[2017-03-31] MEDS ORDERED: NACL 0.9% IR ONE (14:17)
[2017-03-31] MEDS ORDERED: VERSED ONE ×2 (14:27→17:26)
[2017-03-31] MEDS ORDERED: PROTONIX IV SCH (15:00)
[2017-03-31 15:08] LABS: ISTAT Base Excess -28; ISTAT PCO2 11.5 (35-45); ISTAT PH 7.018 (7.35-7.45); ISTAT PO2 56 (80-105); ISTAT SO2 73; ISTAT TCO2 < 5
[2017-03-31] MEDS ORDERED: DILAUDID IV PRN (15:27)
[2017-03-31 15:40] LABS: Basophils % (Auto) 0.3 % (0.0-1.8); Eosinophils % (Auto) 0.1 % (0.0-4.3); Hematocrit 33.9 % (35.5-45.6); Hemoglobin 10.6 gm/dl (11.8-15.2); Mean Corpuscular HGB Conc 31 % (32-34); Mean Corpuscular Volume 78 fl (84-94); Platelet Count 116 K/mm3 (140-440); Red Blood Count 4.36 M/mm3 (3.65-5.03); Red Cell Distribution Width 15.8 % (13.2-15.2); White Blood Count 6.5 K/mm3 (4.5-11.0)
[2017-03-31 15:48] LABS: Mean Corpuscular Hemoglobin 24 pg (28-32)
--- NOTE | 2017-03-31 15:48 | XRay Report ---
PORTABLE CHEST INDICATION: ET tube placement. COMPARISON: 11:25 AM earlier today. FINDINGS: Portable, frontal chest radiograph, 3:23 PM, 03/31/2017 demonstrates new esophagogastric tube with its tip extending below the inferior radiographic margin. Right IJ catheter tip about the cavoatrial junction. Clear lungs. No pneumothorax. Stable ET tube, partially imaged lower cervical fusion hardware, cardiomediastinal silhouette and osseous structures. Significant interval improvement in pneumoperitoneum. CONCLUSION: Interval uncomplicated right IJ catheter and esophagogastric tube placement with improved pneumoperitoneum, as described. Thank you for the opportunity to participate in this patient's care.
[2017-03-31 15:51] LABS: ISTAT Base Excess -10; ISTAT HCO3 17.6; ISTAT PCO2 44.8 (35-45); ISTAT PH 7.202 (7.35-7.45); ISTAT PO2 292 (80-105); ISTAT SO2 100; ISTAT TCO2 19
--- NOTE | 2017-03-31 16:39 | Event Note ---
Date: 03/31/17 Patient seen and examined in the PACU. Mr Whitley is a 71 yo aam who presented for outpatient colonoscopy this morning. He was w/o complaints prior to procedure. He had no prior colonoscopies. He was noted to have a necrotic liver mass on recent imaging, and hepatitis c for which he was undergoing evaluation. During colonoscopy, pt was found to have a mass in the cecum adjacent to the appendix. There was centralized depression/ulceration within the mass ( malignant appearing). Multiple biopsies were obtained from the mass with tattoo injected distal to lesion. 2 polyps in the hepatic flexure were also removed with hot snare. Patient's abdomen was examined given episodes of bradycardia which showed a rigid/tense abd. The procedure was immediately terminated with decompression of air upon withdrawal of colonoscope. After termination of procedure, patient had HD instability with respiratory failure and was intubated in the GI lab. Vital signs stabilized with IVF's. EMS transported pt to ED, and he is now s/p surgery which showed ~2-3 mm perforation in the cecum. Right hemicolectomy was performed with ileal-colonic anastamosis. Biopsy of necrotic liver lesion was also obtained. In the PACU, patient is currently intubated with stable vital signs (not on pressors). Discussed with Dr Bentley/surgery and ICU team. Patient will remain intubated overnight. Patient's daughter has been updated throughout today's events. She is in [place], and will be arriving tomorrow. She states there is another family member from [place] who will be driving into town today. 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 Further management per ICU and surgery, appreciate assistance. pt on IV abx, await pathology results, and will need heme/onc consult once diagnosis is known.
[2017-03-31] MEDS ORDERED: VERSED IV PRN (17:34)
[2017-03-31] MEDS ORDERED: ARTIFICIAL TEARS OPHTH OINT OU PRN (17:47)
[2017-03-31] MEDS ORDERED: VASELINE LIP THERAPY TP PRN (17:47)
--- NOTE | 2017-03-31 17:51 | Consultation ---
History of Present Illness Consult date: 03/31/17 Requesting physician: YANICK MEMBRENO Reason for consult: other History of present illness: PULMONARY/CCM CONSULT NOTE (Full dictation # [id number]) Please see dictated notes for full details Past History Past Medical History: cancer Past Surgical History: Other (Couldn't obtained because of intubation and sedation.) Social history: other (Couldn't obtained because of intubation and sedation.) Family history: other (Couldn't obtained because of intubation and sedation.) Medications and Allergies Allergies Allergy/AdvReac Type Severity Reaction Status Date / Time Penicillins Allergy Rash Verified 07/15/13 17:28 Home Medications Medication Instructions Recorded Confirmed Last Taken Type Dicyclomine [Bentyl] 10 mg PO QID #20 capsule 07/16/13 Unknown Rx Pantoprazole [Protonix] 40 mg PO QDAY #30 tablet 07/16/13 Unknown Rx Active Meds: Active Medications Hydromorphone HCl (Dilaudid) 0.5 mg IV Q4H PRN PRN Reason: Pain Hydromorphone HCl (Dilaudid) 0.5 mg IV Q10MIN PRN PRN Reason: Pain , Severe (7-10) Stop: 03/31/17 23:59 Fentanyl Citrate (Fentanyl Drip Premix) 2,000 mcg in 100 mls @ 3.6 mls/hr IV TITR WHIT; 1 MCG/KG/HR PRN Reason: Protocol Last Admin: 03/31/17 12:00 Dose: 1 mcg/kg/hr, 3.6 mls/hr Levofloxacin/Dextrose (Levaquin 750mg/150ml) 750 mg in 150 mls @ 100 mls/hr IV Q24HR WHIT PRN Reason: Protocol Metronidazole (Flagyl 500 Mg/100 Ml) 500 mg in 100 mls @ 100 mls/hr IV Q8HR WHIT PRN Reason: Protocol Midazolam HCl (Versed) 2 mg IV ONCE PRN PRN Reason: Sedation Stop: 04/01/17 17:35 Physical Examination Vital signs: Vital Signs Pulse BP Pulse Ox 117 H 75/30 98 03/31/17 10:50 03/31/17 10:50 03/31/17 10:50 Results - Laboratory Findings CBC and BMP: 03/31/17 15:19 03/31/17 11:09 ABG POC ABG pH 7.202 (7.35-7.45) L 03/31/17 15:43 POC ABG pCO2 44.8 (35-45) 03/31/17 15:43 POC ABG pO2 292 (80-105) H 03/31/17 15:43 POC ABG HCO3 17.6 03/31/17 15:43 POC ABG Total CO2 19 03/31/17 15:43 POC ABG O2 Sat 100 03/31/17 15:43 PT/INR, D-dimer PT 14.8 Sec. (12.2-14.9) 03/31/17 11:09 INR 1.17 (0.87-1.13) H 03/31/17 11:09 Abnormal lab findings: Abnormal Labs 03/31/17 03/31/17 03/31/17 10:49 11:01 11:09 WBC RBC Hgb Hct MCV MCH MCHC RDW Plt Count Seg Neutrophils % Lymphocytes % (Manual) Seg Neutrophils # Man INR POC ABG pH POC ABG pCO2 POC ABG pO2 Potassium Carbon Dioxide BUN Glucose POC Glucose 143 H Lactic Acid 4.00 H* AST Total Protein Albumin Urine WBC (Auto) 9.0 H Crossmatch 03/31/17 03/31/17 03/31/17 11:09 11:09 11:09 WBC 3.0 L RBC 5.05 H Hgb Hct MCV 81 L MCH 25 L MCHC 31 L RDW 16.6 H Plt Count 133 L Seg Neutrophils % Lymphocytes % (Manual) 53.0 H Seg Neutrophils # Man 1.4 L INR 1.17 H POC ABG pH POC ABG pCO2 POC ABG pO2 Potassium 3.5 L Carbon Dioxide 16 L BUN 7 L Glucose 117 H POC Glucose Lactic Acid AST 61 H Total Protein 8.6 H Albumin 3.6 L Urine WBC (Auto) Crossmatch 03/31/17 03/31/17 03/31/17 11:35 12:55 15:19 WBC RBC Hgb 10.6 L Hct 33.9 L D MCV 78 L MCH 24 L MCHC 31 L RDW 15.8 H Plt Count 116 L Seg Neutrophils % 77.2 H Lymphocytes % (Manual) Seg Neutrophils # Man INR POC ABG pH 7.018 L POC ABG pCO2 11.5 L POC ABG pO2 56 L Potassium Carbon Dioxide BUN Glucose POC Glucose Lactic Acid AST Total Protein Albumin Urine WBC (Auto) Crossmatch See Detail 03/31/17 15:43 WBC RBC Hgb Hct MCV MCH MCHC RDW Plt Count Seg Neutrophils % Lymphocytes % (Manual) Seg Neutrophils # Man INR POC ABG pH 7.202 L POC ABG pCO2 POC ABG pO2 292 H Potassium Carbon Dioxide BUN Glucose POC Glucose Lactic Acid AST Total Protein Albumin Urine WBC (Auto) Crossmatch
[2017-03-31] MEDS ORDERED: NACL 0.9% 500 ML IV SCH (18:00)
[2017-03-31] MEDS ORDERED: DIPRIVAN 10 MG/ML 1,000 MG/100 ML BOTTLE IV SCH (18:00)
[2017-03-31] MEDS ORDERED: PEPCID IV SCH (19:00)
[2017-03-31 19:25] LABS: Basophils % (Auto) 0.2 % (0.0-1.8); Hematocrit 32.1 % (35.5-45.6); Hemoglobin 10.3 gm/dl (11.8-15.2); Mean Corpuscular HGB Conc 32 % (32-34); Mean Corpuscular Volume 77 fl (84-94); Platelet Count 157 K/mm3 (140-440); Red Blood Count 4.17 M/mm3 (3.65-5.03); Red Cell Distribution Width 15.9 % (13.2-15.2); White Blood Count 7.8 K/mm3 (4.5-11.0)
[2017-03-31 19:28] LABS: Mean Corpuscular Hemoglobin 25 pg (28-32)
[2017-03-31] MEDS: DUONEB *Not for PRN Use IH SCH (19:29)
[2017-03-31 19:39] LABS: Anion Gap 25 mmol/L; Blood Urea Nitrogen 8 mg/dL (9-20); Calcium 6.9 mg/dL (8.4-10.2); Carbon Dioxide 12 mmol/L (22-30); Chloride 109.2 mmol/L (98-107); Glucose 206 mg/dL (75-100); Potassium 3.8 mmol/L (3.6-5.0); Sodium 142 mmol/L (137-145)
[2017-03-31 19:43] LABS: Magnesium 1.3 mg/dL (1.7-2.3)
[2017-03-31] MEDS ORDERED: NACL 0.9% 1000 ML 1,000 ML IV SCH (21:00)
[2017-03-31 21:24] LABS: ISTAT Base Excess -13; ISTAT HCO3 15.7; ISTAT PCO2 46.1 (35-45); ISTAT PH 7.142 (7.35-7.45); ISTAT PO2 229 (80-105); ISTAT SO2 100; ISTAT TCO2 17
[2017-03-31] MEDS: FLAGYL 500 MG/100 ML 500 MG/100 ML BAG IV SCH ×3 (22:00→22:05)
[2017-03-31] MEDS: SODIUM BICARBONATE 150 MEQ in D5W 1,000 ML IV SCH (22:23)
[2017-03-31 23:39] LABS: ISTAT Base Excess -12; ISTAT HCO3 13.4; ISTAT PH 7.372 (7.35-7.45); ISTAT PO2 180 (80-105); ISTAT SO2 100; ISTAT TCO2 14
[2017-04-01] MEDS: SODIUM BICARBONATE 150 MEQ in D5W 1,000 ML IV SCH (03:09)
--- NOTE | 2017-04-01 03:27 | XRay Report ---
FINAL REPORT PROCEDURE: XR CHEST 1V AP TECHNIQUE: Chest radiograph anteroposterior view. CPT 08966 HISTORY: follow up respiratory failure COMPARISON: No prior studies are available for comparison. FINDINGS: The endotracheal tube is in the mid trachea. NG tube is in the stomach. There is a right-sided central venous catheter. The tip is in the superior vena cava. Heart size is normal. The lungs are clear. There are no infiltrates, effusions or pneumothoraces. The bony and soft tissue structures are normal. IMPRESSION: No acute cardiopulmonary abnormality. ET tube, NG tube and right-sided central venous catheter are in proper position.
[2017-04-01 05:33] LABS: Eosinophils % (Auto) 0.1 % (0.0-4.3); Hematocrit 22.6 % (35.5-45.6); Hemoglobin 7.3 gm/dl (11.8-15.2); Mean Corpuscular HGB Conc 32 % (32-34); Mean Corpuscular Volume 76 fl (84-94); Platelet Count 102 K/mm3 (140-440); Red Blood Count 2.97 M/mm3 (3.65-5.03); Red Cell Distribution Width 15.9 % (13.2-15.2); White Blood Count 4.8 K/mm3 (4.5-11.0)
[2017-04-01 05:52] LABS: BUN/Creatinine Ratio 13.75; Blood Urea Nitrogen 11 mg/dL (9-20); Calcium 6.9 mg/dL (8.4-10.2); Carbon Dioxide 23 mmol/L (22-30); Chloride 105.7 mmol/L (98-107); Glucose 190 mg/dL (75-100); Potassium 3.7 mmol/L (3.6-5.0); Sodium 142 mmol/L (137-145)
[2017-04-01 05:56] LABS: Anion Gap 17 mmol/L
[2017-04-01] MEDS: FLAGYL 500 MG/100 ML 500 MG/100 ML BAG IV SCH ×3 (06:00→21:36)
--- NOTE | 2017-04-01 06:07 | Operative Report ---
This was done as an emergency as per recommendation of Dr. Alberto, the electric meter tester, who asked him to evaluate this patient, apparently he had a colonoscopy that end up having ?perforation in the cecal area. Dr. Alberto saw a mass in the cecal area, requiring biopsy. When I saw the man he was intubated apparently in the Emergency Room and he had very distended abdomen, he was semi-sleep, so he was taken immediately to the operating room where he underwent exploratory laparotomy, right colon resection and I did 2 runs of biopsies in the dome of the liver, he had a very firm thickening in that area. The rest of examination did not reveal anything specific. The rest of peritoneum was clean to me. The stomach was clean to me. We had NG tube inserted. ANESTHESIA: General. BLOOD LOSS: May be about 150-200 mL. DESCRIPTION OF PROCEDURE: With the patient in supine position, prepped and draped in usual fashion. I made a midline incision from above the umbilicus to about 7 cm below the deep surface tissue over the fascia. Once I was in the abdominal cavity, I went up through a small hole in it, so I went ahead and looked for the area. I was able to dissect the cecum medially. At the tip of the cecum, I could feel a thickening there with a questionable small 2 mm defect there. I examined that under water and you can see the air coming out from that very minute opening, so I went ahead and dissected the cecum and the distal ileum and the transverse colon in the usual fashion using the LigaSure for that purpose. Then, I used the FLORESITA to transect the distal ileum about 5 cm proximal to the ileocecal valve and the transverse colon. Then, the anastomosis using the FLORESITA #75 for that purpose end-to-end using the machine as mentioned above and the TA 60. Then, the defect in the mesentery was closed using interrupted stitches of 3-0 Vicryl. After that maneuvering, I irrigated the area really well. We were well satisfied. I could feel a very thickened and firm mass in the dome of the right lobe of the liver, I could see, so blindly I took a Ulises-Cut needle biopsy x 2 from that area. We had good hemostasis using mono cautery and then I did apply some and we closed the wound using for that purpose #1 Vicryl interruptedly for the fascia through and through and the skin with rhonda. The patient was then transferred to the recovery room in good condition. JOB# [id number] WILLIAN/JAZIEL VICENTE
[2017-04-01 06:14] LABS: Mean Corpuscular Hemoglobin 25 pg (28-32)
[2017-04-01] MEDS: DILAUDID IV PRN ×3 (06:31→21:37)
[2017-04-01] MEDS ORDERED: fentaNYL DRIP Premix 2,000 MCG/100 ML BAG IV ONE (07:26)
[2017-04-01] MEDS: DUONEB *Not for PRN Use IH SCH ×3 (07:42→20:09)
[2017-04-01] MEDS: fentaNYL DRIP Premix 2,000 MCG/100 ML BAG IV SCH ×2 (08:06→08:10)
--- NOTE | 2017-04-01 08:53 | XRay Report ---
CHEST 1 VIEW INDICATION: ET tube placement. COMPARISON: 2 AM earlier today. FINDINGS: Portable, frontal chest radiograph, 8:17 AM, 04/01/2017 reveals stable cardiomediastinal silhouette, supporting devices, appearance of the lungs and osseous structures, providing for the difference in technique. CONCLUSION: Stable supporting devices and clear lungs. Thank you for the opportunity to participate in this patient's care.
[2017-04-01 09:10] LABS: ISTAT Base Excess 1; ISTAT HCO3 24.1; ISTAT PCO2 32.3 (35-45); ISTAT PO2 150 (80-105); ISTAT SO2 99; ISTAT TCO2 25
--- NOTE | 2017-04-01 09:53 | Progress Note ---
Assessment and Plan - Patient Problems (1) Acute respiratory failure Current Visit: Yes Status: Acute Qualifiers: Respiratory failure complication: R Plan to address problem: - aspiration precautions / VAP bundle addressed - continue bronchodilators and pulmonary toilet in short term - extubated - wean oxygen to kep O2 Sats > 94% - add incentive spirometry (2) Liver mass Current Visit: Yes Status: Acute Plan to address problem: - appeared cirrhotic per surgeon - follow colon biopsies (3) Perforation of colon as colonoscopy complication Current Visit: Yes Status: Acute Plan to address problem: - s/p ex-lap and repair of cecal perforation - no more free air on KUB - remains NPO - NGT to LIS (4) Lactic acidosis Current Visit: Yes Status: Acute Plan to address problem: - continue volume resuscitation - improving - continue antibiotics as ordered (5) Colonic mass Current Visit: Yes Status: Acute Plan to address problem: - await pathology reports - suspicious for malignancy (6) Discharge planning issues Current Visit: Yes Status: Acute Plan to address problem: - continue to observe in ICU ....he remains critically ill and at risk for further deterioration including ...care plan discussed at length with family in room ...30' CCT Subjective Date of service: 04/01/17 Principal diagnosis: Acute Respiratory Failure on MVS; S/P perforated Cecum; Sepsis Syndrome Interval history: Seen and examined at bedside; 24 hour events reviewed; nursing and respiratory care staff consulted; no adverse overnight events reported to me; tolerated SBT very well and given a trial of extubation; family visiting; denies acute chest pains or increased SOB; remains NPO; Alert ansd coherent; no N/V/F/C and no gross bleeding Objective Vital Signs - 12hr 03/31/17 03/31/17 03/31/17 22:00 22:10 22:20 Temperature Pulse Rate 106 H 121 H 110 H Pulse Rate [ Anterior Bilateral Throughout] Respiratory 30 H 26 H 30 H Rate Respiratory 19 Rate [Abdomen] Respiratory Rate [Anterior Bilateral Throughout] Blood Pressure 103/72 103/72 103/72 O2 Sat by Pulse 100 100 100 Oximetry 03/31/17 03/31/17 03/31/17 22:30 22:40 22:50 Temperature Pulse Rate 114 H 107 H 102 H Pulse Rate [ Anterior Bilateral Throughout] Respiratory 30 H 30 H 30 H Rate Respiratory Rate [Abdomen] Respiratory Rate [Anterior Bilateral Throughout] Blood Pressure 114/74 114/74 114/74 O2 Sat by Pulse 100 100 100 Oximetry 03/31/17 03/31/17 03/31/17 23:00 23:10 23:20 Temperature Pulse Rate 101 H 98 H 112 H Pulse Rate [ Anterior Bilateral Throughout] Respiratory 30 H 30 H 30 H Rate Respiratory Rate [Abdomen] Respiratory Rate [Anterior Bilateral Throughout] Blood Pressure 91/63 91/63 91/63 O2 Sat by Pulse 100 100 Oximetry 03/31/17 03/31/17 03/31/17 23:30 23:40 23:50 Temperature Pulse Rate 110 H 107 H 110 H Pulse Rate [ Anterior Bilateral Throughout] Respiratory 20 20 20 Rate Respiratory Rate [Abdomen] Respiratory Rate [Anterior Bilateral Throughout] Blood Pressure 119/74 119/74 119/74 O2 Sat by Pulse 100 100 100 Oximetry 04/01/17 04/01/17 04/01/17 00:00 00:02 00:09 Temperature 99.1 F Pulse Rate 112 H 101 H Pulse Rate [ Anterior Bilateral Throughout] Respiratory 21 Rate Respiratory Rate [Abdomen] Respiratory Rate [Anterior Bilateral Throughout] Blood Pressure 109/66 114/74 O2 Sat by Pulse 100 100 Oximetry 04/01/17 04/01/17 04/01/17 00:10 00:20 00:30 Temperature Pulse Rate 115 H 116 H 119 H Pulse Rate [ Anterior Bilateral Throughout] Respiratory 20 20 20 Rate Respiratory Rate [Abdomen] Respiratory Rate [Anterior Bilateral Throughout] Blood Pressure 109/66 119/74 97/76 O2 Sat by Pulse 100 100 100 Oximetry 04/01/17 04/01/17 04/01/17 00:40 00:50 01:00 Temperature Pulse Rate 118 H 117 H 115 H Pulse Rate [ Anterior Bilateral Throughout] Respiratory 20 20 20 Rate Respiratory Rate [Abdomen] Respiratory Rate [Anterior Bilateral Throughout] Blood Pressure 97/76 97/76 O2 Sat by Pulse 100 100 100 Oximetry 04/01/17 04/01/17 04/01/17 01:10 01:20 01:30 Temperature Pulse Rate 114 H 110 H 110 H Pulse Rate [ Anterior Bilateral Throughout] Respiratory 22 20 20 Rate Respiratory Rate [Abdomen] Respiratory Rate [Anterior Bilateral Throughout] Blood Pressure 105/64 82/57 O2 Sat by Pulse 100 100 Oximetry 04/01/17 04/01/17 04/01/17 01:40 01:50 02:00 Temperature Pulse Rate 113 H 142 H 116 H Pulse Rate [ Anterior Bilateral Throughout] Respiratory 20 16 20 Rate Respiratory Rate [Abdomen] Respiratory Rate [Anterior Bilateral Throughout] Blood Pressure 131/75 131/75 80/54 O2 Sat by Pulse 100 100 100 Oximetry 04/01/17 04/01/17 04/01/17 02:10 02:20 02:30 Temperature Pulse Rate 109 H 107 H 105 H Pulse Rate [ Anterior Bilateral Throughout] Respiratory 20 20 20 Rate Respiratory Rate [Abdomen] Respiratory Rate [Anterior Bilateral Throughout] Blood Pressure 80/54 100/63 78/53 O2 Sat by Pulse 100 100 Oximetry 04/01/17 04/01/17 04/01/17 02:40 02:50 03:00 Temperature Pulse Rate 120 H 109 H 114 H Pulse Rate [ Anterior Bilateral Throughout] Respiratory 20 20 20 Rate Respiratory Rate [Abdomen] Respiratory Rate [Anterior Bilateral Throughout] Blood Pressure 85/57 117/63 101/69 O2 Sat by Pulse 100 100 100 Oximetry 04/01/17 04/01/17 04/01/17 03:10 03:20 03:30 Temperature Pulse Rate 117 H 114 H 118 H Pulse Rate [ Anterior Bilateral Throughout] Respiratory 20 20 20 Rate Respiratory Rate [Abdomen] Respiratory Rate [Anterior Bilateral Throughout] Blood Pressure 101/69 91/61 131/73 O2 Sat by Pulse 100 100 100 Oximetry 04/01/17 04/01/17 04/01/17 03:40 03:41 03:50 Temperature 99 F Pulse Rate 114 H 108 H Pulse Rate [ Anterior Bilateral Throughout] Respiratory 20 20 Rate Respiratory Rate [Abdomen] Respiratory Rate [Anterior Bilateral Throughout] Blood Pressure 131/73 108/65 O2 Sat by Pulse 100 100 Oximetry 04/01/17 04/01/17 04/01/17 04:11 06:31 07:44 Temperature Pulse Rate 134 H 109 H Pulse Rate [ Anterior Bilateral Throughout] Respiratory 20 Rate Respiratory Rate [Abdomen] Respiratory Rate [Anterior Bilateral Throughout] Blood Pressure 109/62 117/69 O2 Sat by Pulse 100 100 Oximetry 04/01/17 04/01/17 04/01/17 07:49 08:00 08:30 Temperature 101 F H Pulse Rate 110 H Pulse Rate [ 110 H Anterior Bilateral Throughout] Respiratory Rate Respiratory Rate [Abdomen] Respiratory 20 Rate [Anterior Bilateral Throughout] Blood Pressure 116/68 O2 Sat by Pulse 100 Oximetry 04/01/17 04/01/17 08:47 09:20 Temperature Pulse Rate 110 H Pulse Rate [ Anterior Bilateral Throughout] Respiratory 20 Rate Respiratory Rate [Abdomen] Respiratory Rate [Anterior Bilateral Throughout] Blood Pressure 116/68 O2 Sat by Pulse 100 Oximetry Constitutional: no acute distress, alert Eyes: non-icteric ENT: oropharynx moist Neck: supple, no lymphadenopathy Effort: mildly labored Ascultation: Bilateral: clear, diminished breath sounds Cardiovascular: regular rate and rhythm Gastrointestinal: hypoactive bowel sounds, soft, non-tender, non-distended Integumentary: normal Extremities: no cyanosis, no edema, pulses normal, no ischemia or petechiae Neurologic: normal mental status, non-focal exam, pupils equal and round, motor strength normal and Psychiatric: mood appropriate, affect normal CBC and BMP: 04/01/17 09:55 04/01/17 09:55 ABG, PT/INR, D-dimer: ABG POC ABG pH 7.480 (7.35-7.45) H 04/01/17 09:01 POC ABG pCO2 32.3 (35-45) L 04/01/17 09:01 POC ABG pO2 150 (80-105) H 04/01/17 09:01 POC ABG HCO3 24.1 04/01/17 09:01 POC ABG Total CO2 25 04/01/17 09:01 POC ABG O2 Sat 99 04/01/17 09:01 PT/INR, D-dimer PT 14.8 Sec. (12.2-14.9) 03/31/17 11:09 INR 1.17 (0.87-1.13) H 03/31/17 11:09 Abnormal lab findings: Abnormal Labs 03/31/17 03/31/17 03/31/17 15:19 15:43 19:15 RBC Hgb 10.6 L 10.3 L Hct 33.9 L D 32.1 L MCV 78 L 77 L MCH 24 L 25 L MCHC 31 L RDW 15.8 H 15.9 H Plt Count 116 L Lymph % (Auto) 8.7 L Lymph # 0.7 L Seg Neutrophils % 77.2 H 86.8 H POC ABG pH 7.202 L POC ABG pCO2 POC ABG pO2 292 H Carbon Dioxide BUN Glucose Lactic Acid Calcium Magnesium 03/31/17 03/31/17 03/31/17 19:15 19:15 19:15 RBC Hgb Hct MCV MCH MCHC RDW Plt Count Lymph % (Auto) Lymph # Seg Neutrophils % POC ABG pH POC ABG pCO2 POC ABG pO2 Carbon Dioxide 12 L BUN 8 L Glucose 206 H Lactic Acid 6.90 H* Calcium 6.9 L D Magnesium 1.30 L 03/31/17 03/31/17 03/31/17 21:13 22:50 23:20 RBC Hgb Hct MCV MCH MCHC RDW Plt Count Lymph % (Auto) Lymph # Seg Neutrophils % POC ABG pH 7.142 L POC ABG pCO2 46.1 H 23.0 L POC ABG pO2 229 H 180 H Carbon Dioxide BUN Glucose Lactic Acid 5.90 H* Calcium Magnesium 04/01/17 04/01/17 04/01/17 09:01 Unknown Unknown RBC 2.97 L Hgb 7.3 L D Hct 22.6 L D MCV 76 L MCH 25 L MCHC RDW 15.9 H Plt Count 102 L Lymph % (Auto) 10.4 L Lymph # 0.5 L Seg Neutrophils % 86.8 H POC ABG pH 7.480 H POC ABG pCO2 32.3 L POC ABG pO2 150 H Carbon Dioxide BUN Glucose 190 H Lactic Acid Calcium 6.9 L Magnesium 04/01/17 Unknown RBC Hgb Hct MCV MCH MCHC RDW Plt Count Lymph % (Auto) Lymph # Seg Neutrophils % POC ABG pH POC ABG pCO2 POC ABG pO2 Carbon Dioxide BUN Glucose Lactic Acid 3.80 H* Calcium Magnesium Chest x-ray: image reviewed
[2017-04-01 10:20] LABS: Basophils % (Auto) 0.2 % (0.0-1.8); Hematocrit 26.4 % (35.5-45.6); Hemoglobin 8.5 gm/dl (11.8-15.2); Mean Corpuscular HGB Conc 32 % (32-34); Mean Corpuscular Volume 77 fl (84-94); Platelet Count 112 K/mm3 (140-440); Red Blood Count 3.45 M/mm3 (3.65-5.03); Red Cell Distribution Width 15.7 % (13.2-15.2); White Blood Count 6.6 K/mm3 (4.5-11.0)
--- NOTE | 2017-04-01 10:20 | Progress Note ---
Assessment and Plan 71 year old man with cecal mass, hep C, Jehovah witness status post colonoscopy with biopsy who had perforation during procedure requiring intubation, subsequent ex-lap and right hemicolectomy and ileocolonic anastamosis and also had 2 biopsies of a right hepatic dome mass. Acute Respiratory arrest - Patient is intubated and on mechanical ventilation - pulmonary following, could be extubated today Pneumoperitoneum likely from perforated colon - Patient does colonoscopy done on 03/31 and patient has caecal mass - Surgery was consulted for acute abdomen, s/p ex-lap and right hemicolectomy and ileocolonic anastamosis - GI following Sepsis with hypotension/peritonitis - Patient is being treated according to sepsis protocol - Patient is on IV flagyl and levaquin - Blood pressure normalized after he was given a bolus of fluid Stage IV colon cancer - Patient has sacral mass and hepatic mass - Patient need hematology oncology consult after the acute condition is resolved Anemia - H&H has decreased after surgery from 10.1 to 7.3 -> 8.5 - > 7.8. - he did have 2 biopsies of a right hepatic dome mass during surgery. - monitor for H and H now and follow hepatic enzyme - CT reviewed. There is a small to moderate amount of hemoperitoneum and a trace right subhepatic low density fluid collection. No sentinel clot sign. hepatitis C - monitor liver enzyme DVT prophylaxis - SCDs because the patient is going to have surgery soon. The high probability of a clinically significant, sudden or life threatening deterioration of the [GI, respiratory, neurologic] system(s) required my full and direct attention, intervention and personal management. The aggregate critical care time was [34] minutes. This time is in addition to time spent performing reported procedures but includes the following: [x] Data Review and interpretation [x] Patient assessment and monitoring of vital signs [x] Documentation [x] Medication orders and management Subjective Date of service: 04/01/17 Principal diagnosis: Acute Respiratory Failure on MVS; S/P perforated Cecum; Sepsis Syndrome Interval history: Patient seen and examined on vent but able to communicate discussed with family at bedside Hb dropped to 7.3 Objective - Exam Narrative Exam: General appearance: no acute distress - EENT Eyes: PERRL, EOM intact ENT: hearing intact, clear oral mucosa, no thrush, other (ETT present) - Neck Neck: supple, normal ROM - Respiratory Respiratory effort: normal Respiratory: bilateral: CTA - Cardiovascular Heart Rate: 110 Rhythm: regular Heart Sounds: Present: S1 & S2 Extremities: no ischemia, No edema - Gastrointestinal General gastrointestinal: Present: soft, non-tender, non-distended, absent bowel sounds, other (Abdominal dressing dry without blood) - Integumentary Integumentary: Present: clear, warm, dry - Neurologic Neurological: oriented to person, oriented to place, other (Able to move all extremeties on command/nonfocal) Extremities: no ischemia, No edema - Psychiatric Psychiatric: appropriate mood/affect - Constitutional Vitals: Vital Signs - 12hr 03/31/17 03/31/17 03/31/17 22:20 22:30 22:40 Temperature Pulse Rate 110 H 114 H 107 H Pulse Rate [ Anterior Bilateral Throughout] Respiratory 30 H 30 H 30 H Rate Respiratory Rate [Anterior Bilateral Throughout] Blood Pressure 103/72 114/74 114/74 O2 Sat by Pulse 100 100 100 Oximetry 03/31/17 03/31/17 03/31/17 22:50 23:00 23:10 Temperature Pulse Rate 102 H 101 H 98 H Pulse Rate [ Anterior Bilateral Throughout] Respiratory 30 H 30 H 30 H Rate Respiratory Rate [Anterior Bilateral Throughout] Blood Pressure 114/74 91/63 91/63 O2 Sat by Pulse 100 100 Oximetry 03/31/17 03/31/17 03/31/17 23:20 23:30 23:40 Temperature Pulse Rate 112 H 110 H 107 H Pulse Rate [ Anterior Bilateral Throughout] Respiratory 30 H 20 20 Rate Respiratory Rate [Anterior Bilateral Throughout] Blood Pressure 91/63 119/74 119/74 O2 Sat by Pulse 100 100 100 Oximetry 03/31/17 04/01/17 04/01/17 23:50 00:00 00:02 Temperature Pulse Rate 110 H 112 H 101 H Pulse Rate [ Anterior Bilateral Throughout] Respiratory 20 21 Rate Respiratory Rate [Anterior Bilateral Throughout] Blood Pressure 119/74 109/66 114/74 O2 Sat by Pulse 100 100 100 Oximetry 04/01/17 04/01/17 04/01/17 00:09 00:10 00:20 Temperature 99.1 F Pulse Rate 115 H 116 H Pulse Rate [ Anterior Bilateral Throughout] Respiratory 20 20 Rate Respiratory Rate [Anterior Bilateral Throughout] Blood Pressure 109/66 119/74 O2 Sat by Pulse 100 100 Oximetry 04/01/17 04/01/17 04/01/17 00:30 00:40 00:50 Temperature Pulse Rate 119 H 118 H 117 H Pulse Rate [ Anterior Bilateral Throughout] Respiratory 20 20 20 Rate Respiratory Rate [Anterior Bilateral Throughout] Blood Pressure 97/76 97/76 97/76 O2 Sat by Pulse 100 100 100 Oximetry 04/01/17 04/01/17 04/01/17 01:00 01:10 01:20 Temperature Pulse Rate 115 H 114 H 110 H Pulse Rate [ Anterior Bilateral Throughout] Respiratory 20 22 20 Rate Respiratory Rate [Anterior Bilateral Throughout] Blood Pressure 105/64 O2 Sat by Pulse 100 100 100 Oximetry 04/01/17 04/01/17 04/01/17 01:30 01:40 01:50 Temperature Pulse Rate 110 H 113 H 142 H Pulse Rate [ Anterior Bilateral Throughout] Respiratory 20 20 16 Rate Respiratory Rate [Anterior Bilateral Throughout] Blood Pressure 82/57 131/75 131/75 O2 Sat by Pulse 100 100 Oximetry 04/01/17 04/01/17 04/01/17 02:00 02:10 02:20 Temperature Pulse Rate 116 H 109 H 107 H Pulse Rate [ Anterior Bilateral Throughout] Respiratory 20 20 20 Rate Respiratory Rate [Anterior Bilateral Throughout] Blood Pressure 80/54 80/54 100/63 O2 Sat by Pulse 100 100 100 Oximetry 04/01/17 04/01/17 04/01/17 02:30 02:40 02:50 Temperature Pulse Rate 105 H 120 H 109 H Pulse Rate [ Anterior Bilateral Throughout] Respiratory 20 20 20 Rate Respiratory Rate [Anterior Bilateral Throughout] Blood Pressure 78/53 85/57 117/63 O2 Sat by Pulse 100 100 Oximetry 04/01/17 04/01/17 04/01/17 03:00 03:10 03:20 Temperature Pulse Rate 114 H 117 H 114 H Pulse Rate [ Anterior Bilateral Throughout] Respiratory 20 20 20 Rate Respiratory Rate [Anterior Bilateral Throughout] Blood Pressure 101/69 101/69 91/61 O2 Sat by Pulse 100 100 100 Oximetry 04/01/17 04/01/17 04/01/17 03:30 03:40 03:41 Temperature 99 F Pulse Rate 118 H 114 H Pulse Rate [ Anterior Bilateral Throughout] Respiratory 20 20 Rate Respiratory Rate [Anterior Bilateral Throughout] Blood Pressure 131/73 131/73 O2 Sat by Pulse 100 100 Oximetry 04/01/17 04/01/17 04/01/17 03:50 04:11 06:31 Temperature Pulse Rate 108 H 134 H Pulse Rate [ Anterior Bilateral Throughout] Respiratory 20 20 Rate Respiratory Rate [Anterior Bilateral Throughout] Blood Pressure 108/65 109/62 O2 Sat by Pulse 100 100 Oximetry 04/01/17 04/01/17 04/01/17 07:44 07:49 08:00 Temperature 101 F H Pulse Rate 109 H Pulse Rate [ 110 H Anterior Bilateral Throughout] Respiratory Rate Respiratory 20 Rate [Anterior Bilateral Throughout] Blood Pressure 117/69 O2 Sat by Pulse 100 Oximetry 04/01/17 04/01/17 04/01/17 08:30 08:47 09:20 Temperature Pulse Rate 110 H 110 H Pulse Rate [ Anterior Bilateral Throughout] Respiratory 20 Rate Respiratory Rate [Anterior Bilateral Throughout] Blood Pressure 116/68 116/68 O2 Sat by Pulse 100 100 Oximetry - Labs CBC & Chem 7: 04/02/17 04:00 04/02/17 04:00 Labs: Abnormal lab results 03/31/17 03/31/17 03/31/17 Range/Units 15:19 15:43 19:15 RBC (3.65-5.03) M/mm3 Hgb 10.6 L 10.3 L (11.8-15.2) gm/dl Hct 33.9 L D 32.1 L (35.5-45.6) % MCV 78 L 77 L (84-94) fl MCH 24 L 25 L (28-32) pg MCHC 31 L (32-34) % RDW 15.8 H 15.9 H (13.2-15.2) % Plt Count 116 L (140-440) K/mm3 Lymph % (Auto) 8.7 L (13.4-35.0) % Lymph # 0.7 L (1.2-5.4) K/mm3 Seg Neutrophils % 77.2 H 86.8 H (40.0-70.0) % POC ABG pH 7.202 L (7.35-7.45) POC ABG pCO2 (35-45) POC ABG pO2 292 H (80-105) Carbon Dioxide (22-30) mmol/L BUN (9-20) mg/dL Glucose (75-100) mg/dL Lactic Acid (0.7-2.0) mmol/L Calcium (8.4-10.2) mg/dL Magnesium (1.7-2.3) mg/dL 03/31/17 03/31/17 03/31/17 Range/Units 19:15 19:15 19:15 RBC (3.65-5.03) M/mm3 Hgb (11.8-15.2) gm/dl Hct (35.5-45.6) % MCV (84-94) fl MCH (28-32) pg MCHC (32-34) % RDW (13.2-15.2) % Plt Count (140-440) K/mm3 Lymph % (Auto) (13.4-35.0) % Lymph # (1.2-5.4) K/mm3 Seg Neutrophils % (40.0-70.0) % POC ABG pH (7.35-7.45) POC ABG pCO2 (35-45) POC ABG pO2 (80-105) Carbon Dioxide 12 L (22-30) mmol/L BUN 8 L (9-20) mg/dL Glucose 206 H (75-100) mg/dL Lactic Acid 6.90 H* (0.7-2.0) mmol/L Calcium 6.9 L D (8.4-10.2) mg/dL Magnesium 1.30 L (1.7-2.3) mg/dL 03/31/17 03/31/17 03/31/17 Range/Units 21:13 22:50 23:20 RBC (3.65-5.03) M/mm3 Hgb (11.8-15.2) gm/dl Hct (35.5-45.6) % MCV (84-94) fl MCH (28-32) pg MCHC (32-34) % RDW (13.2-15.2) % Plt Count (140-440) K/mm3 Lymph % (Auto) (13.4-35.0) % Lymph # (1.2-5.4) K/mm3 Seg Neutrophils % (40.0-70.0) % POC ABG pH 7.142 L (7.35-7.45) POC ABG pCO2 46.1 H 23.0 L (35-45) POC ABG pO2 229 H 180 H (80-105) Carbon Dioxide (22-30) mmol/L BUN (9-20) mg/dL Glucose (75-100) mg/dL Lactic Acid 5.90 H* (0.7-2.0) mmol/L Calcium (8.4-10.2) mg/dL Magnesium (1.7-2.3) mg/dL 04/01/17 04/01/17 04/01/17 Range/Units 09:01 Unknown Unknown RBC 2.97 L (3.65-5.03) M/mm3 Hgb 7.3 L D (11.8-15.2) gm/dl Hct 22.6 L D (35.5-45.6) % MCV 76 L (84-94) fl MCH 25 L (28-32) pg MCHC (32-34) % RDW 15.9 H (13.2-15.2) % Plt Count 102 L (140-440) K/mm3 Lymph % (Auto) 10.4 L (13.4-35.0) % Lymph # 0.5 L (1.2-5.4) K/mm3 Seg Neutrophils % 86.8 H (40.0-70.0) % POC ABG pH 7.480 H (7.35-7.45) POC ABG pCO2 32.3 L (35-45) POC ABG pO2 150 H (80-105) Carbon Dioxide (22-30) mmol/L BUN (9-20) mg/dL Glucose 190 H (75-100) mg/dL Lactic Acid (0.7-2.0) mmol/L Calcium 6.9 L (8.4-10.2) mg/dL Magnesium (1.7-2.3) mg/dL 04/01/17 Range/Units Unknown RBC (3.65-5.03) M/mm3 Hgb (11.8-15.2) gm/dl Hct (35.5-45.6) % MCV (84-94) fl MCH (28-32) pg MCHC (32-34) % RDW (13.2-15.2) % Plt Count (140-440) K/mm3 Lymph % (Auto) (13.4-35.0) % Lymph # (1.2-5.4) K/mm3 Seg Neutrophils % (40.0-70.0) % POC ABG pH (7.35-7.45) POC ABG pCO2 (35-45) POC ABG pO2 (80-105) Carbon Dioxide (22-30) mmol/L BUN (9-20) mg/dL Glucose (75-100) mg/dL Lactic Acid 3.80 H* (0.7-2.0) mmol/L Calcium (8.4-10.2) mg/dL Magnesium (1.7-2.3) mg/dL
[2017-04-01 10:21] LABS: Mean Corpuscular Hemoglobin 25 pg (28-32)
[2017-04-01 10:37] LABS: Anion Gap 15 mmol/L; Blood Urea Nitrogen 13 mg/dL (9-20); Calcium 6.9 mg/dL (8.4-10.2); Carbon Dioxide 25 mmol/L (22-30); Chloride 108.5 mmol/L (98-107); Glucose 110 mg/dL (75-100); Potassium 3.7 mmol/L (3.6-5.0); Sodium 145 mmol/L (137-145)
--- NOTE | 2017-04-01 10:42 | Gastroenterology Consultation ---
History of Present Illness - Reason for Consult Consult date: 04/01/17 Colon Mass/Perforation Requesting physician: DONATO CLEMENTE - History of Present Illness The patient was admitted from [facility] yesterday after perforation during a colonoscopy. He had a known solitary liver mass (dx by CT 02/2017 at PCP) and had been referred for a colonoscopy. He has biopsies done of the cecum mass lesion, but the friable tumor perforated during the procedure. He was intubated and taken emergently to the OR, where a R hemicolectomy and liver biopsy was done. A primary anastamosis was accomplished and he had no significant events overnight. Today on the Vent he is alert and responsive and able to mouth words/write questions. Events of the day were explained to him and to his children that were present. Past History Past Medical History: cancer (Colon Mass, Liver mass), hepatitis (Hepatitis C with (+) viral load), hypertension Past Surgical History: Other (R hemicolectomy and liver biopsy 03/31) Social history: denies: smoking, alcohol abuse Family history: no significant family history Medications and Allergies Allergies Allergy/AdvReac Type Severity Reaction Status Date / Time Penicillins Allergy Rash Verified 07/15/13 17:28 Home Medications Medication Instructions Recorded Confirmed Last Taken Type Dicyclomine [Bentyl] 10 mg PO QID #20 capsule 07/16/13 04/01/17 Unknown Rx Pantoprazole [Protonix] 40 mg PO QDAY #30 tablet 07/16/13 04/01/17 Unknown Rx Active Meds: Active Medications Albuterol/Ipratropium (Duoneb *Not For Prn Use*) 1 ampul IH TIDRT [facility] Last Admin: 04/01/17 07:42 Dose: 1 ampul Hydromorphone HCl (Dilaudid) 0.5 mg IV Q4H PRN PRN Reason: Pain Last Admin: 04/01/17 06:31 Dose: 0.5 mg Hydrophilic Ointment (Vaseline Lip Therapy) 1 applic TP Q2HR PRN PRN Reason: Dry Lips Levofloxacin/Dextrose (Levaquin 750mg/150ml) 750 mg in 150 mls @ 100 mls/hr IV Q24HR WHIT PRN Reason: Protocol Metronidazole (Flagyl 500 Mg/100 Ml) 500 mg in 100 mls @ 100 mls/hr IV Q8HR WHIT PRN Reason: Protocol Last Admin: 04/01/17 06:00 Dose: 100 mls/hr Propofol (Diprivan 10 Mg/Ml) 1,000 mg in 100 mls @ 2.16 mls/hr IV TITR WHIT; 5 MCG/KG/MIN PRN Reason: Protocol Last Admin: 04/01/17 08:47 Dose: 5 mcg/kg/min, 2.16 mls/hr Sodium Chloride (Nacl 0.9% 1000 Ml) 1,000 mls @ 250 mls/hr IV DIRECT WHTI Sodium Bicarbonate 150 meq/ (Dextrose) 1,150 mls @ 150 mls/hr IV DIRECT WHIT Stop: 04/03/17 05:39 Last Admin: 04/01/17 03:09 Dose: 150 mls/hr Fentanyl Citrate (Fentanyl Drip Premix) 2,000 mcg in 100 mls @ 3.6 mls/hr IV TITR WHIT; 1 MCG/KG/HR PRN Reason: Protocol Last Admin: 04/01/17 08:06 Dose: 2 mcg/kg/hr, 7.2 mls/hr Midazolam HCl (Versed) 2 mg IV ONCE PRN PRN Reason: Sedation Stop: 04/01/17 17:35 Multi-Ingred Cream/Lotion/Oil/Oint (Artificial Tears Ophth Oint) 1 applic OU Q4HR PRN PRN Reason: Dry Eye(s) Pantoprazole Sodium (Protonix) 40 mg IV QDAY WHIT Review of Systems - Review of Systems All systems: negative (as noted in the HPI. Limited due to ETT but alert and answering questions) Exam - Constitutional Vital Signs: Temp Pulse Resp BP Pulse Ox 101 F H 110 H 20 116/68 100 04/01/17 08:00 04/01/17 09:20 04/01/17 08:47 04/01/17 09:20 04/01/17 09:20 General appearance: no acute distress - EENT Eyes: PERRL, EOM intact ENT: hearing intact, clear oral mucosa, no thrush, other (ETT present) - Neck Neck: supple, normal ROM - Respiratory Respiratory effort: normal Respiratory: bilateral: CTA - Cardiovascular Heart Rate: 110 Rhythm: regular Heart Sounds: Present: S1 & S2 Extremities: no ischemia, No edema - Gastrointestinal General gastrointestinal: Present: soft, non-tender, non-distended, absent bowel sounds, other (Abdominal dressing dry without blood) - Integumentary Integumentary: Present: clear, warm, dry - Neurologic Neurological: oriented to person, oriented to place, other (Able to move all extremeties on command/nonfocal) - Labs CBC & Chem 7: 04/01/17 Unknown 04/01/17 Unknown Lab Results: Laboratory Results - last 24 hr 03/31/17 03/31/17 03/31/17 15:19 15:43 19:15 WBC 6.5 7.8 RBC 4.36 4.17 Hgb 10.6 L 10.3 L Hct 33.9 L D 32.1 L MCV 78 L 77 L MCH 24 L 25 L MCHC 31 L 32 RDW 15.8 H 15.9 H Plt Count 116 L 157 Lymph % (Auto) 17.6 8.7 L [place] % (Auto) 4.8 4.3 Eos % (Auto) 0.1 0.0 Baso % (Auto) 0.3 0.2 Lymph # 1.2 0.7 L [place] # 0.3 0.3 Eos # 0.0 0.0 Baso # 0.0 0.0 Seg Neutrophils % 77.2 H 86.8 H Seg Neutrophils # 5.1 6.8 POC ABG pH 7.202 L POC ABG pCO2 44.8 POC ABG pO2 292 H POC ABG HCO3 17.6 POC ABG Total CO2 19 POC ABG O2 Sat 100 POC ABG Base Excess -10 FiO2 60 Sodium Potassium Chloride Carbon Dioxide Anion Gap BUN Creatinine Estimated GFR BUN/Creatinine Ratio Glucose Lactic Acid Calcium Phosphorus Magnesium C-Reactive Protein 03/31/17 03/31/17 03/31/17 19:15 19:15 19:15 WBC RBC Hgb Hct MCV MCH MCHC RDW Plt Count Lymph % (Auto) [place] % (Auto) Eos % (Auto) Baso % (Auto) Lymph # [place] # Eos # Baso # Seg Neutrophils % Seg Neutrophils # POC ABG pH POC ABG pCO2 POC ABG pO2 POC ABG HCO3 POC ABG Total CO2 POC ABG O2 Sat POC ABG Base Excess FiO2 Sodium Potassium Chloride Carbon Dioxide Anion Gap BUN Creatinine Estimated GFR BUN/Creatinine Ratio Glucose Lactic Acid 6.90 H* Calcium Phosphorus 3.30 Magnesium 1.30 L C-Reactive Protein 0.00 03/31/17 03/31/17 03/31/17 19:15 21:13 22:50 WBC RBC Hgb Hct MCV MCH MCHC RDW Plt Count Lymph % (Auto) [place] % (Auto) Eos % (Auto) Baso % (Auto) Lymph # [place] # Eos # Baso # Seg Neutrophils % Seg Neutrophils # POC ABG pH 7.142 L POC ABG pCO2 46.1 H POC ABG pO2 229 H POC ABG HCO3 15.7 POC ABG Total CO2 17 POC ABG O2 Sat 100 POC ABG Base Excess -13 FiO2 50 Sodium Potassium Chloride Carbon Dioxide 12 L Anion Gap BUN 8 L Creatinine 0.8 Estimated GFR > 60 BUN/Creatinine Ratio 10.00 Glucose 206 H Lactic Acid 5.90 H* Calcium 6.9 L D Phosphorus Magnesium C-Reactive Protein 03/31/17 04/01/17 04/01/17 23:20 09:01 09:55 WBC 6.6 RBC 3.45 L Hgb 8.5 L Hct 26.4 L MCV 77 L MCH 25 L MCHC 32 RDW 15.7 H Plt Count 112 L Lymph % (Auto) 10.0 L [place] % (Auto) 4.3 Eos % (Auto) 0.0 Baso % (Auto) 0.2 Lymph # 0.7 L [place] # 0.3 Eos # 0.0 Baso # 0.0 Seg Neutrophils % 85.5 H Seg Neutrophils # 5.7 POC ABG pH 7.372 7.480 H POC ABG pCO2 23.0 L 32.3 L POC ABG pO2 180 H 150 H POC ABG HCO3 13.4 24.1 POC ABG Total CO2 14 25 POC ABG O2 Sat 100 99 POC ABG Base Excess -12 1 FiO2 35 35 Sodium Potassium Chloride Carbon Dioxide Anion Gap BUN Creatinine Estimated GFR BUN/Creatinine Ratio Glucose Lactic Acid Calcium Phosphorus Magnesium C-Reactive Protein 04/01/17 04/01/17 04/01/17 Unknown Unknown Unknown WBC 4.8 RBC 2.97 L Hgb 7.3 L D Hct 22.6 L D MCV 76 L MCH 25 L MCHC 32 RDW 15.9 H Plt Count 102 L Lymph % (Auto) 10.4 L [place] % (Auto) 2.7 Eos % (Auto) 0.1 Baso % (Auto) 0.0 Lymph # 0.5 L [place] # 0.1 Eos # 0.0 Baso # 0.0 Seg Neutrophils % 86.8 H Seg Neutrophils # 4.2 POC ABG pH POC ABG pCO2 POC ABG pO2 POC ABG HCO3 POC ABG Total CO2 POC ABG O2 Sat POC ABG Base Excess FiO2 Sodium 142 Potassium 3.7 Chloride 105.7 Carbon Dioxide 23 D Anion Gap 17 BUN 11 Creatinine 0.8 Estimated GFR > 60 BUN/Creatinine Ratio 13.75 Glucose 190 H Lactic Acid 3.80 H* Calcium 6.9 L Phosphorus Magnesium C-Reactive Protein Assessment and Plan - Patient Problems (1) Perforation of colon as colonoscopy complication Current Visit: Yes Status: Acute Plan to address problem: - Perforation of colon at site of large cecal colon mass 03/31. - R hemicolectomy 03/31 with acceptable post-operative course. - Explained post-operative care to patient/family, and that event of next 72 hours would be routine surgical care; awaiting extubation, return of bowel function, etc. - Appreciate all toy consultant's help. (2) Colonic mass Current Visit: Yes Status: Acute Plan to address problem: - New dx 03/31; pathology anticipated return on Tuesday or Tuesday. (3) Liver mass Current Visit: Yes Status: Acute Plan to address problem: - Biopsy 03/31 at surgery. - Unclear if HCC from hepatitis or metastatic colon lesion. (4) Hepatitis C Current Visit: Yes Status: Acute Qualifiers: Viral hepatitis chronicity: V Hepatic coma status: H Plan to address problem: - Positive viral load in office but no prior treatment. - Will need treatment prior to chemo for colon or liver cancer. - Suspect based on labs early cirrhosis/Child's A. (5) Refusal of blood transfusions as patient is [employer]oration[employer] Current Visit: Yes Status: Acute
[2017-04-01] MEDS: PROTONIX IV SCH (10:52)
[2017-04-01] MEDS: LEVAQUIN 750MG/150ML 750 MG/150 ML BAG IV SCH (10:53)
--- NOTE | 2017-04-01 11:47 | Progress Note ---
Subjective Narrative: talked to RN For extubation today alert and responsive Hgb 8.5 VS stable on flagyl and leviquin ,urine adequate ,BUN 11 . NG with minimal drainage ,will start clamping , Objective Vital Signs - 12hr 03/31/17 04/01/17 04/01/17 23:50 00:00 00:02 Temperature Pulse Rate 110 H 112 H 101 H Pulse Rate [ Anterior Bilateral Throughout] Respiratory 20 21 Rate Respiratory Rate [Anterior Bilateral Throughout] Blood Pressure 119/74 109/66 114/74 O2 Sat by Pulse 100 100 100 Oximetry 04/01/17 04/01/17 04/01/17 00:09 00:10 00:20 Temperature 99.1 F Pulse Rate 115 H 116 H Pulse Rate [ Anterior Bilateral Throughout] Respiratory 20 20 Rate Respiratory Rate [Anterior Bilateral Throughout] Blood Pressure 109/66 119/74 O2 Sat by Pulse 100 100 Oximetry 04/01/17 04/01/17 04/01/17 00:30 00:40 00:50 Temperature Pulse Rate 119 H 118 H 117 H Pulse Rate [ Anterior Bilateral Throughout] Respiratory 20 20 20 Rate Respiratory Rate [Anterior Bilateral Throughout] Blood Pressure 97/76 97/76 97/76 O2 Sat by Pulse 100 100 100 Oximetry 04/01/17 04/01/17 04/01/17 01:00 01:10 01:20 Temperature Pulse Rate 115 H 114 H 110 H Pulse Rate [ Anterior Bilateral Throughout] Respiratory 20 22 20 Rate Respiratory Rate [Anterior Bilateral Throughout] Blood Pressure 105/64 O2 Sat by Pulse 100 100 100 Oximetry 04/01/17 04/01/17 04/01/17 01:30 01:40 01:50 Temperature Pulse Rate 110 H 113 H 142 H Pulse Rate [ Anterior Bilateral Throughout] Respiratory 20 20 16 Rate Respiratory Rate [Anterior Bilateral Throughout] Blood Pressure 82/57 131/75 131/75 O2 Sat by Pulse 100 100 Oximetry 04/01/17 04/01/17 04/01/17 02:00 02:10 02:20 Temperature Pulse Rate 116 H 109 H 107 H Pulse Rate [ Anterior Bilateral Throughout] Respiratory 20 20 20 Rate Respiratory Rate [Anterior Bilateral Throughout] Blood Pressure 80/54 80/54 100/63 O2 Sat by Pulse 100 100 100 Oximetry 04/01/17 04/01/17 04/01/17 02:30 02:40 02:50 Temperature Pulse Rate 105 H 120 H 109 H Pulse Rate [ Anterior Bilateral Throughout] Respiratory 20 20 20 Rate Respiratory Rate [Anterior Bilateral Throughout] Blood Pressure 78/53 85/57 117/63 O2 Sat by Pulse 100 100 Oximetry 04/01/17 04/01/17 04/01/17 03:00 03:10 03:20 Temperature Pulse Rate 114 H 117 H 114 H Pulse Rate [ Anterior Bilateral Throughout] Respiratory 20 20 20 Rate Respiratory Rate [Anterior Bilateral Throughout] Blood Pressure 101/69 101/69 91/61 O2 Sat by Pulse 100 100 100 Oximetry 04/01/17 04/01/17 04/01/17 03:30 03:40 03:41 Temperature 99 F Pulse Rate 118 H 114 H Pulse Rate [ Anterior Bilateral Throughout] Respiratory 20 20 Rate Respiratory Rate [Anterior Bilateral Throughout] Blood Pressure 131/73 131/73 O2 Sat by Pulse 100 100 Oximetry 04/01/17 04/01/17 04/01/17 03:50 04:11 06:31 Temperature Pulse Rate 108 H 134 H Pulse Rate [ Anterior Bilateral Throughout] Respiratory 20 20 Rate Respiratory Rate [Anterior Bilateral Throughout] Blood Pressure 108/65 109/62 O2 Sat by Pulse 100 100 Oximetry 04/01/17 04/01/17 04/01/17 07:44 07:49 08:00 Temperature 101 F H Pulse Rate 109 H Pulse Rate [ 110 H Anterior Bilateral Throughout] Respiratory Rate Respiratory 20 Rate [Anterior Bilateral Throughout] Blood Pressure 117/69 O2 Sat by Pulse 100 Oximetry 04/01/17 04/01/17 04/01/17 08:30 08:47 09:20 Temperature Pulse Rate 110 H 110 H Pulse Rate [ Anterior Bilateral Throughout] Respiratory 20 Rate Respiratory Rate [Anterior Bilateral Throughout] Blood Pressure 116/68 116/68 O2 Sat by Pulse 100 100 Oximetry 04/01/17 11:13 Temperature Pulse Rate 113 H Pulse Rate [ Anterior Bilateral Throughout] Respiratory Rate Respiratory Rate [Anterior Bilateral Throughout] Blood Pressure 98/66 O2 Sat by Pulse 100 Oximetry - Labs 04/01/17 Unknown 04/01/17 Unknown Diabetes panel 03/31/17 04/01/17 04/01/17 Range/Units 19:15 09:55 Unknown Sodium 145 142 (137-145) mmol/L Potassium 3.7 3.7 (3.6-5.0) mmol/L Chloride 108.5 H 105.7 (98-107) mmol/L Carbon Dioxide 12 L 25 23 D (22-30) mmol/L BUN 8 L 13 11 (9-20) mg/dL Creatinine 0.8 1.0 0.8 (0.8-1.5) mg/dL Glucose 206 H 110 H 190 H (75-100) mg/dL Calcium 6.9 L D 6.9 L 6.9 L (8.4-10.2) mg/dL Calcium panel 03/31/17 03/31/17 04/01/17 Range/Units 19:15 19:15 09:55 Calcium 6.9 L D 6.9 L (8.4-10.2) mg/dL Phosphorus 3.30 (2.5-4.5) mg/dL 04/01/17 Range/Units Unknown Calcium 6.9 L (8.4-10.2) mg/dL Phosphorus (2.5-4.5) mg/dL Pituitary panel 03/31/17 04/01/17 04/01/17 Range/Units 19:15 09:55 Unknown Sodium 145 142 (137-145) mmol/L Potassium 3.7 3.7 (3.6-5.0) mmol/L Chloride 108.5 H 105.7 (98-107) mmol/L Carbon Dioxide 12 L 25 23 D (22-30) mmol/L BUN 8 L 13 11 (9-20) mg/dL Creatinine 0.8 1.0 0.8 (0.8-1.5) mg/dL Glucose 206 H 110 H 190 H (75-100) mg/dL Calcium 6.9 L D 6.9 L 6.9 L (8.4-10.2) mg/dL Adrenal panel 03/31/17 04/01/17 04/01/17 Range/Units 19:15 09:55 Unknown Sodium 145 142 (137-145) mmol/L Potassium 3.7 3.7 (3.6-5.0) mmol/L Chloride 108.5 H 105.7 (98-107) mmol/L Carbon Dioxide 12 L 25 23 D (22-30) mmol/L BUN 8 L 13 11 (9-20) mg/dL Creatinine 0.8 1.0 0.8 (0.8-1.5) mg/dL Glucose 206 H 110 H 190 H (75-100) mg/dL Calcium 6.9 L D 6.9 L 6.9 L (8.4-10.2) mg/dL
--- NOTE | 2017-04-01 13:15 | Consultation ---
CONSULTING PHYSICIAN: Dr. Bentley. REASON FOR CONSULTATION: Acute respiratory failure, on mechanical ventilatory support. Status post bowel perforation. CHIEF COMPLAINT AND HISTORY OF PRESENT ILLNESS: The patient is a 71-year-old -[place] male with past medical history significant for diagnosis of colon and liver mass who came into the Emergency Room from the GI clinic after he had a cardiopulmonary arrest. It seems like he was getting a colonoscopy done, it was presumed that decompensation was due to bowel perforations, he was brought into the Emergency Room, it is unclear if he was intubated in the ER or en route. He reportedly also had a cecal mass. The patient ultimately was taken into the OR for an exploratory laparotomy although there is a small, about 2 to 3 mm perforation was found on the cecal area and this has been repaired. We are asked to assist with management after he comes out of the OR as he remains on mechanical ventilator, intubated and also has a significant metabolic acidosis. When I stopped by to see him, he was nonresponsive mostly according to the nurse, she had given him Dilaudid for pain, but could not tell me if he was moving his extremities prior to giving him the analgesia. I do not have any history of emesis or overt aspiration. With regards to tobacco use/abuse history that is unknown. The above is as much of the history of presentation as I have. PAST MEDICAL HISTORY: Again, history of a cecal mass and history of likely liver cirrhosis based on the intraoperative findings are also a question of liver mass. PAST SURGICAL HISTORY: Unknown. MEDICATIONS: He was on at the time I stopped by to see him, according to the medication administration record included the following, fentanyl drip was just about to be started at 1 mcg per hour. He had been receiving Dilaudid 0.5 mg IV q. 4 hours p.r.n. pain. He is on Levaquin 750 mg IV daily, Flagyl 500 mg IV q.8 hours and received 2 mg of Versed IV x 1. The patient also received Ancef I believe 1 gram preoperatively. ALLERGIES: PENICILLINS. DIET: Thin gentleman, acute weight loss or gain history is unknown. FAMILY AND SOCIAL HISTORY: It seems he lives in the community; however, alcohol, tobacco, illicit drug use or abuse history is unknown. There is no family available to discuss this with. REVIEW OF SYSTEMS: Unobtainable secondary to the patient's medical and mental condition since he has been here, no gross hematochezia or melena. No gross hematuria. No hematemesis. No bloody tracheal secretions. No witnessed seizures have been reported. PHYSICAL EXAMINATION: VITAL SIGNS: At presentation, initial temperature 92.5 degrees Fahrenheit rectally, pulse was 114, respiratory rate of 17, blood pressure was 110/72, oxygen sats were 98%, inspired oxygen concentration was not recorded. Initial blood pressure at presentation was actually 75/30. HEAD, EYES, EARS, NOSE AND THROAT: Pupils are equal, round, about 2 mm, sluggishly, reactive to light. Extraocular muscle movements could not be assessed. Grossly, there were no palpable lymph nodes in the supraclavicular or submandibular lymph node chains. LUNGS: Auscultation of both lung luong unremarkable. Lungs are clear bilaterally. HEART: Heart sounds 1 and 2 are heard. They were regular in rate and rhythm at time of my evaluation. ABDOMEN: Soft, flat. Bowel sounds hypoactive at best. He is nontender, but he is sedated. EXTREMITIES: Without overt digital clubbing, cyanosis or pedal edema. NEUROLOGIC: Currently, he is mostly nonresponsive, just received some sedation. It is unclear if there were any focal deficits prior. LABORATORY DATA: From my review are as follows: Admission white cell count 3000 with hemoglobin of 12.5, hematocrit of 40.9 and platelet count of 133. No significant band forms reported. INR was 1.17. Arterial blood gas at presentation showed a pH of 7.02, pCO2 of 12, pO2 of 56,000 on 60% FiO2, ventilator settings were not recorded. Serum sodium is pending. Potassium was 3.5, chloride is 105, bicarbonate was 16, BUN was 7, creatinine 0.9 and glucose 117. Lactic acid level was 4.0. AST 61, albumin 3.6. Otherwise, liver function tests within normal limits. Urinalysis was negative for nitrites and leukocyte esterase. He did have 1+ bacteremia and 9 white cells per high power field. Repeat ABG showed a pH of 7.20, pCO2 of 45, pO2 of 292,000 on 60% FiO2, tidal volume is 500, rate of 12, PEEP of 5. He was not breathing over the set rate. Blood cultures 2 sets have been drawn they are pending. Radiographic studies have been reviewed. I have also reviewed the radiologist's interpretation. I do agree with him. Chest x-ray essentially does not show significant infiltrates. There is slight elevation of the right hemidiaphragm. There is obvious free air below the diaphragm and above the liver. Endotracheal tube is in place. The tip appears to be at the level of the clavicular heads. A repeat chest x-ray which is the most recent one shows a right IJ central line in place, tip is in the SVC right atrium junction. ET tube is at the level of the aortic knob. NG tube is seen coursing through the mediastinum and terminates below the diaphragm. No gross pneumothorax, no gross bony fracture. Abdominal views do not show any significant pneumoperitoneum. ASSESSMENT AND PLAN: We have an elderly gentleman status post iatrogenic pneumoperitoneum with sepsis syndrome. From a respiratory standpoint, we have increased the minute ventilation, increase tidal volumes or kept the tidal volumes at 500, but increased the rate to 225 to blow down CO2 and compensate for the metabolic acidosis. I am waiting the new BMP to see if bicarbonate supplementation will be in order. I will repeat the arterial blood gas down the line. Bronchodilators will be scheduled initially and then p.r.n. thereafter. Aspiration precautions will be addressed daily as well as ventilator-associated flap bundles. Oxygen will be weaned to keep sats greater than or equal to about 92 to 94%. Hopefully, we can begin weaning him shortly as early as tomorrow, hopefully. From a cardiovascular standpoint, not currently on any vasopressors. Blood pressure is fine. Mean arterial pressures are running in the 70s right now. I will continue gentle volume hydration. Cardiovascular silhouette does not suggest a significant cardiomyopathy. I will follow him clinically. From a renal standpoint, I note the metabolic acidosis. Magnesium level and phosphorus level will also be ordered. Inputs and outputs will be monitored. Electrolytes will be corrected as necessary. Potassium will be replaced. From infectious disease standpoint, he is appropriately on broad-spectrum anti-infective therapy. He has been pancultured. Lactic acid level was noted. I will repeat the lactate level and volume resuscitation will be addressed as necessary. A CRP level will also be ordered and trended as necessary through this admission. Anti-infectives will ultimately be deescalated based on results of clinical and microbiologic data. From a RESEARCH DIETITIAN standpoint, the exam was grossly nonfocal at presentation according to the GI physician ____ seen him earlier. We will follow him clinically. No acute indication for neuro imaging. From a general and hospital healthcare maintenance standpoint, he is going to be on gastrointestinal prophylaxis. I will start him on Protonix. He will be also on deep venous thrombosis prophylaxis in the form of SCDs. Flu and pneumonia vaccination will be per protocol. Thank you very much for the consult Dr. Bentley and ____ will follow along and make further recommendations as picture progresses/becomes clearer. He is critically ill on life-sustaining interventions including mechanical ventilatory support at higher risk for further deterioration including . At this point, I have spent about 35 to 40 minutes of critical care time without overlap and excluding any procedural time that may be necessary. JOB# [id number] RAHAT/JAZIEL
[2017-04-01 16:35] LABS: ISTAT Base Excess 3; ISTAT HCO3 27.4; ISTAT PCO2 43.8 (35-45); ISTAT PH 7.405 (7.35-7.45); ISTAT PO2 38 (80-105); ISTAT SO2 72; ISTAT TCO2 29
[2017-04-01 16:35] LABS: ISTAT Base Excess 3; ISTAT HCO3 27.4; ISTAT PCO2 44.7 (35-45); ISTAT PH 7.396 (7.35-7.45); ISTAT PO2 125 (80-105); ISTAT SO2 99; ISTAT TCO2 29
[2017-04-01] MEDS: NACL 0.9% 1000 ML 1,000 ML IV SCH (17:36)
[2017-04-01 18:14] LABS: Basophils % (Auto) 0.1 % (0.0-1.8); Hematocrit 24.5 % (35.5-45.6); Hemoglobin 7.8 gm/dl (11.8-15.2); Mean Corpuscular HGB Conc 32 % (32-34); Mean Corpuscular Volume 76 fl (84-94); Red Blood Count 3.21 M/mm3 (3.65-5.03); Red Cell Distribution Width 15.7 % (13.2-15.2); White Blood Count 7.2 K/mm3 (4.5-11.0)
[2017-04-01 18:28] LABS: Mean Corpuscular Hemoglobin 24 pg (28-32); Platelet Count 94 K/mm3 (140-440)
--- NOTE | 2017-04-01 18:59 | Event Note ---
Date: 04/01/17 The patient's repeat hct remains low, and down about 10 points from admit. However, patient is clinically improved and VSS without N/V/abdominal pain/ distention. Given underlying liver disease with coagulopathy and chance for delayed bleeding, will check CT A/P and also give Vit K. Will also check iron and B12, and consider Procrit/IV iron/FFP based on repeat labs.
[2017-04-01] MEDS ORDERED: VITAMIN K (ADULT ONLY) 10 MG in NACL 0.9% 50 ML IV ONE (19:30)
--- NOTE | 2017-04-01 21:41 | Cat Scan Report ---
FINAL REPORT PROCEDURE: CT ABDOMEN PELVIS WO CON TECHNIQUE: Computerized axial tomography of the abdomen and pelvis was performed without intravenous contrast. This study is performed without intravascular contrast material and its sensitivity for abdominal and pelvic pathology, including neoplasms, inflammation, abscess, free fluid, thrombosis, arterial dissection and infarction, is reduced compared with a contrast enhanced study. HISTORY: anemia post bowel surgery COMPARISON: No prior studies are available for comparison. FINDINGS: Visualized lower thorax: There are bilateral lower lobe infiltrates and small effusions.. Liver: The liver is enlarged and heterogeneous. There is a discrete mass in the anterior segment of the right lobe of the liver measuring 4.6 centimeters. Metastatic malignancy is suspected. There is a cyst in the left lobe measuring 2.8 centimeters.. Spleen: Normal size and attenuation. Gallbladder and biliary system: There is cholelithiasis.. Pancreas: Normal. Adrenals: Normal. Kidneys: Normal. GI tract: There is an NG tube in the stomach. There has been right colon surgery. There is no bowel obstruction. There is no ischemic bowel injury.. Lymph nodes and mesentery: There induration of the mesentery possibly related to recent surgery.. Vasculature: Normal. Bladder: There is a Kwong catheter in the urinary bladder.. Reproductive organs: Normal. Peritoneum: There is dense ascites. Postsurgical fluid is suspected. There is dense fluid in the left pericolic gutter which could be blood. No specific evidence of active hemorrhage is seen but clinical correlation suggested. There is pneumoperitoneum most likely related to recent surgery.. Musculoskeletal structures: No significant abnormality. Other: None. IMPRESSION: There are bilateral lower lobe infiltrates and small effusions.. The liver is enlarged and heterogeneous. There is a discrete mass in the anterior segment of the right lobe of the liver measuring 4.6 centimeters. Metastatic malignancy is suspected. There is a cyst in the left lobe measuring 2.8 centimeters.. There is cholelithiasis.. There is an NG tube in the stomach. There has been right colon surgery. There is no bowel obstruction. There is no ischemic bowel injury.. There induration of the mesentery possibly related to recent surgery.. There is dense ascites. Postsurgical fluid is suspected. There is dense fluid in the left pericolic gutter which could be blood. No specific evidence of active hemorrhage is seen but clinical correlation suggested. There is pneumoperitoneum most likely related to recent surgery.. .
--- NOTE | 2017-04-01 21:54 | Event Note ---
Date: 04/01/17 71 year old man with cecal mass, hep C, Jehovah witness status post colonoscopy with biopsy who had perforation during procedure requiring subsequent ex-lap and right hemicolectomy and ileocolonic anastamosis and also had 2 biopsies of a right hepatic dome mass. H&H has decreased after surgery from 10.1 to 7.3 -> 8.5 - > 7.8. Has been tachycardic since surgery. CT reviewed. There is a small to moderate amount of hemoperitoneum and a trace right subhepatic low density fluid collection. No sentinel clot sign. Discussed with Dr. Alberto. Suspect could have had ooze from right hepatic lobe, although not sure. Given the relative stability of the H&H, I am not sure an empiric right hepatic artery embolization will be required, but it can be considered. Will have H&H followed. If it declines further, then right hepatic embolization can be entertained further.
[2017-04-02] MEDS ORDERED: NACL 0.9% 250ML 250 ML IV ONE (00:55)
[2017-04-02] MEDS: DILAUDID IV PRN ×4 (01:28→12:28)
[2017-04-02] MEDS: NACL 0.9% 1000 ML 1,000 ML IV SCH ×2 (01:54→11:43)
[2017-04-02] MEDS: FLAGYL 500 MG/100 ML 500 MG/100 ML BAG IV SCH ×3 (05:30→21:16)
[2017-04-02 05:31] LABS: INR 1.87 (0.87-1.13)
[2017-04-02 05:40] LABS: Basophils % (Auto) 0.3 % (0.0-1.8); Hematocrit 22.8 % (35.5-45.6); Hemoglobin 7.3 gm/dl (11.8-15.2); Mean Corpuscular HGB Conc 32 % (32-34); Mean Corpuscular Volume 77 fl (84-94); Red Blood Count 2.98 M/mm3 (3.65-5.03); Red Cell Distribution Width 15.7 % (13.2-15.2)
[2017-04-02 05:49] LABS: Albumin 2.4 g/dL (3.9-5); Albumin/Globulin Ratio 0.8 %; BUN/Creatinine Ratio 12.5; Bilirubin,Total 1.4 mg/dL (0.1-1.2); Calcium 6.9 mg/dL (8.4-10.2); Chloride 106.1 mmol/L (98-107); Potassium 4.3 mmol/L (3.6-5.0); Total Protein 5.3 g/dL (6.3-8.2)
[2017-04-02 05:51] LABS: Mean Corpuscular Hemoglobin 24 pg (28-32); Platelet Count 70 K/mm3 (140-440)
[2017-04-02] MEDS ORDERED: VITAMIN K *NICU IM ONE (08:41)
[2017-04-02] MEDS: DUONEB *Not for PRN Use IH SCH ×3 (08:45→20:02)
[2017-04-02] MEDS: PROTONIX IV SCH ×2 (09:15→21:16)
--- NOTE | 2017-04-02 09:21 | Gastroenterology Progress Note ---
Assessment and Plan 1. colon mass s/p biopsy complicated by perforation - s/p right jessica-colectomy with ileo-colonic anastamosis 2. cirrhosis (per appearance during surgery) and supported by labs, with underlying hcv 3. acute on chronic liver injury - patient with significant increase in liver enzymes since admission which is consistent with ischemic hepatitis event 4. Coagulopathy - increasing INR in setting of underlying cirrhosis and acute liver injury 5. Anemia - acute blood loss anemia, hct is relatively stable. CT w/o contrast of abdomen reviewed. he likely has a slow bleeding process which could be from various sites (post surgical anastomosis, liver biopsy site). Long discussion was help with pt and patient's daughter regarding events over last couple days and current condition. I explained he has acute liver injury, and worsening coagulopathy along with thrombocytopenia. His hct is relatively stable, but given lab trends, there is a high risk that his hct will drop. Explained recommendations for FFP, platelets, and RBC's. He made his intentions very clear to me that he does not want any blood products, even in a critical situation (life saving situation). Currently, he is tachycardic, but BP stable, and abdominal exam is relatively benign (expected post-op exam and non-distended). Will give vitamin k, continue supportive care, IV abx, and IVF's. Will consult hematology for any possible recommendations given complex case and limitations. Consider nephrology consult as well given VIRAL/decreased UOP. Subjective Date of service: 04/02/17 Principal diagnosis: Acute Respiratory Failure on MVS; S/P perforated Cecum; Sepsis Syndrome Interval history: pt awake and alert, responding to questions and conversing appropriately. daughter at bedside. state pain is well controlled with pain meds. Objective - Exam Narrative Exam: Gen: NAD, awake and alert CV: tachycardic, s1 and s2 Lungs: CTAB, non labored Abd: soft, abdominal dressing in place, nd, hypoactive bs Ext: no c/c/e Neuro: oriented x 3 - Constitutional Vitals: Temp Pulse Resp BP Pulse Ox 98.3 F 113 H 15 128/68 98 04/02/17 07:38 04/02/17 06:30 04/02/17 06:30 04/02/17 06:30 04/02/17 06:30 - Labs CBC & Chem 7: 04/02/17 04:00 04/02/17 04:00 Labs: Laboratory Results - last 24 hr 04/01/17 04/01/17 04/01/17 05:00 05:00 05:00 WBC 4.8 RBC 2.97 L Hgb 7.3 L D Hct 22.6 L D MCV 76 L MCH 25 L MCHC 32 RDW 15.9 H Plt Count 102 L Lymph % (Auto) 10.4 L [place] % (Auto) 2.7 Eos % (Auto) 0.1 Baso % (Auto) 0.0 Lymph # 0.5 L [place] # 0.1 Eos # 0.0 Baso # 0.0 Seg Neutrophils % 86.8 H Seg Neutrophils # 4.2 PT INR POC ABG pH POC ABG pCO2 POC ABG pO2 POC ABG HCO3 POC ABG Total CO2 POC ABG O2 Sat POC ABG Base Excess FiO2 Sodium 142 Potassium 3.7 Chloride 105.7 Carbon Dioxide 23 D Anion Gap 17 BUN 11 Creatinine 0.8 Estimated GFR > 60 BUN/Creatinine Ratio 13.75 Glucose 190 H Lactic Acid 3.80 H* Calcium 6.9 L Iron TIBC Total Bilirubin AST ALT Alkaline Phosphatase Total Protein Albumin Albumin/Globulin Ratio Vitamin B12 04/01/17 04/01/17 04/01/17 09:01 09:55 09:55 WBC 6.6 RBC 3.45 L Hgb 8.5 L Hct 26.4 L MCV 77 L MCH 25 L MCHC 32 RDW 15.7 H Plt Count 112 L Lymph % (Auto) 10.0 L [place] % (Auto) 4.3 Eos % (Auto) 0.0 Baso % (Auto) 0.2 Lymph # 0.7 L [place] # 0.3 Eos # 0.0 Baso # 0.0 Seg Neutrophils % 85.5 H Seg Neutrophils # 5.7 PT INR POC ABG pH 7.480 H POC ABG pCO2 32.3 L POC ABG pO2 150 H POC ABG HCO3 24.1 POC ABG Total CO2 25 POC ABG O2 Sat 99 POC ABG Base Excess 1 FiO2 35 Sodium 145 Potassium 3.7 Chloride 108.5 H Carbon Dioxide 25 Anion Gap 15 BUN 13 Creatinine 1.0 Estimated GFR > 60 BUN/Creatinine Ratio 13.00 Glucose 110 H Lactic Acid Calcium 6.9 L Iron TIBC Total Bilirubin AST ALT Alkaline Phosphatase Total Protein Albumin Albumin/Globulin Ratio Vitamin B12 04/01/17 04/01/17 04/01/17 10:36 16:12 16:23 WBC RBC Hgb Hct MCV MCH MCHC RDW Plt Count Lymph % (Auto) [place] % (Auto) Eos % (Auto) Baso % (Auto) Lymph # [place] # Eos # Baso # Seg Neutrophils % Seg Neutrophils # PT INR POC ABG pH 7.405 7.396 POC ABG pCO2 43.8 44.7 POC ABG pO2 38 L 125 H POC ABG HCO3 27.4 27.4 POC ABG Total CO2 29 29 POC ABG O2 Sat 72 99 POC ABG Base Excess 3 3 FiO2 35 35 Sodium Potassium Chloride Carbon Dioxide Anion Gap BUN Creatinine Estimated GFR BUN/Creatinine Ratio Glucose Lactic Acid 2.60 H* Calcium Iron TIBC Total Bilirubin AST ALT Alkaline Phosphatase Total Protein Albumin Albumin/Globulin Ratio Vitamin B12 04/01/17 04/02/17 04/02/17 18:00 04:00 04:00 WBC 7.2 6.0 RBC 3.21 L 2.98 L Hgb 7.8 L 7.3 L Hct 24.5 L 22.8 L MCV 76 L 77 L MCH 24 L 24 L MCHC 32 32 RDW 15.7 H 15.7 H Plt Count 94 L 70 L Lymph % (Auto) 9.6 L 13.9 [place] % (Auto) 3.3 5.3 Eos % (Auto) 0.0 0.0 Baso % (Auto) 0.1 0.3 Lymph # 0.7 L 0.8 L [place] # 0.2 0.3 Eos # 0.0 0.0 Baso # 0.0 0.0 Seg Neutrophils % 87.0 H 80.5 H Seg Neutrophils # 6.2 4.8 PT INR POC ABG pH POC ABG pCO2 POC ABG pO2 POC ABG HCO3 POC ABG Total CO2 POC ABG O2 Sat POC ABG Base Excess FiO2 Sodium Potassium Chloride Carbon Dioxide Anion Gap BUN Creatinine Estimated GFR BUN/Creatinine Ratio Glucose Lactic Acid 1.50 Calcium Iron TIBC Total Bilirubin AST ALT Alkaline Phosphatase Total Protein Albumin Albumin/Globulin Ratio Vitamin B12 04/02/17 04/02/17 04/02/17 04:00 04:00 04:00 WBC RBC Hgb Hct MCV MCH MCHC RDW Plt Count Lymph % (Auto) [place] % (Auto) Eos % (Auto) Baso % (Auto) Lymph # [place] # Eos # Baso # Seg Neutrophils % Seg Neutrophils # PT 21.5 H INR 1.87 H POC ABG pH POC ABG pCO2 POC ABG pO2 POC ABG HCO3 POC ABG Total CO2 POC ABG O2 Sat POC ABG Base Excess FiO2 Sodium 142 Potassium 4.3 Chloride 106.1 Carbon Dioxide 25 Anion Gap 15 BUN 25 H Creatinine 2.0 H D Estimated GFR 40 BUN/Creatinine Ratio 12.50 Glucose 108 H Lactic Acid Calcium 6.9 L Iron 49 TIBC 184 L Total Bilirubin 1.40 H AST 4564 H ALT 2544 H Alkaline Phosphatase 64 Total Protein 5.3 L D Albumin 2.4 L Albumin/Globulin Ratio 0.8 Vitamin B12 2000 H - Imaging CT scan: report reviewed
[2017-04-02] MEDS ORDERED: VITAMIN K (ADULT ONLY) IM STA (09:32)
[2017-04-02 09:35] LABS: INR 1.77 (0.87-1.13)
--- NOTE | 2017-04-02 09:57 | Event Note ---
Date: 04/02/[address] Alberto. H&H relatively stable today at 7.3. Patient still declines blood products. Unfortunately the patient has experienced consequences of shock including shock liver and kidney/ARF. Complicated decision making as embolization will worsen shock liver and renal dysfunction if performed, but may be considered if the patient's H&H declines to prevent exsanguination. Discussed with Dr. Alberto.
[2017-04-02] MEDS ORDERED: VITAMIN K (ADULT ONLY) IM ONE (10:00)
--- NOTE | 2017-04-02 13:40 | Progress Note ---
Subjective Narrative: alert and responsive urine adequate wound clean , left exposed . abd soft , lengthy talk with family , and the need for colon resction and end to end anastomosis noted high elevation of the liver enzymes , given Vit K 20 mg , in the 4K ! will ANETA ugalde this PM .awaiting Hematology to see , Talked to Maged Alberto . Objective Vital Signs - 12hr 04/02/17 04/02/17 04/02/17 01:45 02:00 02:15 Temperature Pulse Rate 114 H 114 H 115 H Pulse Rate [ Anterior Bilateral Throughout] Pulse Rate [ From Monitor] Respiratory 9 L 12 10 L Rate Respiratory Rate [Anterior Bilateral Throughout] Blood Pressure 117/72 129/73 133/75 O2 Sat by Pulse 100 100 Oximetry 04/02/17 04/02/17 04/02/17 02:30 02:45 03:00 Temperature Pulse Rate 114 H 115 H 114 H Pulse Rate [ Anterior Bilateral Throughout] Pulse Rate [ From Monitor] Respiratory 17 11 L 11 L Rate Respiratory Rate [Anterior Bilateral Throughout] Blood Pressure 121/64 131/69 126/69 O2 Sat by Pulse 100 99 98 Oximetry 04/02/17 04/02/17 04/02/17 03:15 03:30 03:45 Temperature Pulse Rate 111 H 112 H 111 H Pulse Rate [ Anterior Bilateral Throughout] Pulse Rate [ From Monitor] Respiratory 10 L 11 L 12 Rate Respiratory Rate [Anterior Bilateral Throughout] Blood Pressure 118/65 111/71 115/72 O2 Sat by Pulse 100 100 Oximetry 04/02/17 04/02/17 04/02/17 04:00 04:02 04:15 Temperature 98.3 F Pulse Rate 109 H 112 H Pulse Rate [ Anterior Bilateral Throughout] Pulse Rate [ From Monitor] Respiratory 11 L 11 L Rate Respiratory Rate [Anterior Bilateral Throughout] Blood Pressure 122/68 119/74 O2 Sat by Pulse 100 Oximetry 04/02/17 04/02/17 04/02/17 04:30 04:45 05:00 Temperature Pulse Rate 111 H 113 H 118 H Pulse Rate [ Anterior Bilateral Throughout] Pulse Rate [ 111 H From Monitor] Respiratory 13 17 21 Rate Respiratory Rate [Anterior Bilateral Throughout] Blood Pressure 126/69 129/69 122/74 O2 Sat by Pulse 100 Oximetry 04/02/17 04/02/17 04/02/17 05:15 05:16 05:30 Temperature Pulse Rate 108 H 119 H Pulse Rate [ Anterior Bilateral Throughout] Pulse Rate [ From Monitor] Respiratory 13 20 14 Rate Respiratory Rate [Anterior Bilateral Throughout] Blood Pressure 134/65 123/65 O2 Sat by Pulse 99 98 Oximetry 04/02/17 04/02/17 04/02/17 05:45 06:00 06:15 Temperature Pulse Rate 109 H 108 H 111 H Pulse Rate [ Anterior Bilateral Throughout] Pulse Rate [ From Monitor] Respiratory 11 L 14 15 Rate Respiratory Rate [Anterior Bilateral Throughout] Blood Pressure 123/74 130/65 123/67 O2 Sat by Pulse 100 99 99 Oximetry 04/02/17 04/02/17 04/02/17 06:30 06:45 07:00 Temperature Pulse Rate 113 H 108 H 105 H Pulse Rate [ Anterior Bilateral Throughout] Pulse Rate [ From Monitor] Respiratory 15 10 L 9 L Rate Respiratory Rate [Anterior Bilateral Throughout] Blood Pressure 128/68 119/73 131/73 O2 Sat by Pulse 98 100 Oximetry 04/02/17 04/02/17 04/02/17 07:15 07:30 07:38 Temperature 98.3 F Pulse Rate 110 H 111 H Pulse Rate [ Anterior Bilateral Throughout] Pulse Rate [ From Monitor] Respiratory 12 15 Rate Respiratory Rate [Anterior Bilateral Throughout] Blood Pressure 129/71 127/72 O2 Sat by Pulse 96 99 Oximetry 04/02/17 04/02/17 04/02/17 07:45 08:00 08:01 Temperature Pulse Rate 108 H 105 H Pulse Rate [ Anterior Bilateral Throughout] Pulse Rate [ From Monitor] Respiratory 14 19 Rate Respiratory Rate [Anterior Bilateral Throughout] Blood Pressure 118/51 137/74 O2 Sat by Pulse 100 100 98 Oximetry 04/02/17 04/02/17 04/02/17 08:15 08:31 08:45 Temperature Pulse Rate 110 H 138 H 118 H Pulse Rate [ 116 H Anterior Bilateral Throughout] Pulse Rate [ From Monitor] Respiratory 15 17 17 Rate Respiratory 20 Rate [Anterior Bilateral Throughout] Blood Pressure 143/73 155/88 117/74 O2 Sat by Pulse 100 99 99 Oximetry 04/02/17 04/02/17 04/02/17 08:55 09:00 09:15 Temperature Pulse Rate 118 H 116 H Pulse Rate [ 114 H Anterior Bilateral Throughout] Pulse Rate [ From Monitor] Respiratory 25 H 16 Rate Respiratory 20 Rate [Anterior Bilateral Throughout] Blood Pressure 126/73 131/78 O2 Sat by Pulse 99 99 Oximetry 04/02/17 04/02/17 04/02/17 09:30 09:45 10:00 Temperature Pulse Rate 130 H 115 H 115 H Pulse Rate [ Anterior Bilateral Throughout] Pulse Rate [ From Monitor] Respiratory 17 18 16 Rate Respiratory Rate [Anterior Bilateral Throughout] Blood Pressure 141/89 134/74 129/68 O2 Sat by Pulse 100 99 Oximetry 04/02/17 04/02/17 10:59 11:50 Temperature 0 F L 97.8 F Pulse Rate Pulse Rate [ Anterior Bilateral Throughout] Pulse Rate [ From Monitor] Respiratory Rate Respiratory Rate [Anterior Bilateral Throughout] Blood Pressure O2 Sat by Pulse Oximetry - Labs 04/02/17 04:00 04/02/17 04:00 Diabetes panel 04/01/17 04/02/17 Range/Units 05:00 04:00 Sodium 142 142 (137-145) mmol/L Potassium 3.7 4.3 (3.6-5.0) mmol/L Chloride 105.7 106.1 (98-107) mmol/L Carbon Dioxide 23 D 25 (22-30) mmol/L BUN 11 25 H (9-20) mg/dL Creatinine 0.8 2.0 H D (0.8-1.5) mg/dL Glucose 190 H 108 H (75-100) mg/dL Calcium 6.9 L 6.9 L (8.4-10.2) mg/dL AST 4564 H (5-40) units/L ALT 2544 H (7-56) units/L Alkaline Phosphatase 64 (35-129) units/L Total Protein 5.3 L D (6.3-8.2) g/dL Albumin 2.4 L (3.9-5) g/dL Calcium panel 04/01/17 04/02/17 Range/Units 05:00 04:00 Calcium 6.9 L 6.9 L (8.4-10.2) mg/dL Albumin 2.4 L (3.9-5) g/dL Pituitary panel 04/01/17 04/02/17 Range/Units 05:00 04:00 Sodium 142 142 (137-145) mmol/L Potassium 3.7 4.3 (3.6-5.0) mmol/L Chloride 105.7 106.1 (98-107) mmol/L Carbon Dioxide 23 D 25 (22-30) mmol/L BUN 11 25 H (9-20) mg/dL Creatinine 0.8 2.0 H D (0.8-1.5) mg/dL Glucose 190 H 108 H (75-100) mg/dL Calcium 6.9 L 6.9 L (8.4-10.2) mg/dL Adrenal panel 04/01/17 04/02/17 Range/Units 05:00 04:00 Sodium 142 142 (137-145) mmol/L Potassium 3.7 4.3 (3.6-5.0) mmol/L Chloride 105.7 106.1 (98-107) mmol/L Carbon Dioxide 23 D 25 (22-30) mmol/L BUN 11 25 H (9-20) mg/dL Creatinine 0.8 2.0 H D (0.8-1.5) mg/dL Glucose 190 H 108 H (75-100) mg/dL Calcium 6.9 L 6.9 L (8.4-10.2) mg/dL Total Bilirubin 1.40 H (0.1-1.2) mg/dL AST 4564 H (5-40) units/L ALT 2544 H (7-56) units/L Alkaline Phosphatase 64 (35-129) units/L Total Protein 5.3 L D (6.3-8.2) g/dL Albumin 2.4 L (3.9-5) g/dL
--- NOTE | 2017-04-02 15:26 | Ultrasound Report ---
FINAL REPORT PROCEDURE: US ABDOMEN LIMITED TECHNIQUE: Real-time sonography was performed of the abdomen with image documentation. CPT 91482 HISTORY: acute liver injury COMPARISON: Noncontrast CT of the abdomen and pelvis 04/01/2017 FINDINGS: The study is limited due to recent abdominal surgery with fresh incision limiting acoustic window. There is sludge within the gallbladder. The gallbladder wall is not thickened. There is a mass of the anterior which would appears to be left lobe of the liver 3 x 3.3 x 3.9 centimeters. Cyst noted on CT is not visualized. The CBD is 3.6 millimeters in AP diameter. The right kidney is echogenic and lobulated 12.6 centimeters in length. No focal renal lesion is seen. There is no evident ascites. The aorta, IVC, and pancreas are normal. The pancreas was suboptimally seen. IMPRESSION: 3 x 3.3 x 3.9 centimeter mass of the superior liver suspected of the left lobe. Consider CT or MRI with and without contrast for most sensitive evaluation as well as to exclude multiplicity of lesions. Cyst noted on noncontrast CT not visualized. Gallbladder sludge. Echogenic right kidney without focal lesion.
[2017-04-02 15:32] LABS: Hematocrit 23.2 % (35.5-45.6); Hemoglobin 7.6 gm/dl (11.8-15.2); Mean Corpuscular HGB Conc 33 % (32-34); Mean Corpuscular Volume 76 fl (84-94); Red Blood Count 3.05 M/mm3 (3.65-5.03); Red Cell Distribution Width 16.2 % (13.2-15.2); White Blood Count 7.3 K/mm3 (4.5-11.0)
--- NOTE | 2017-04-02 15:36 | Hem/Onc Consultation ---
History of Present Illness - Reason for Consult Consult date: 04/02/17 coagulopathy - History of Present Illness Mr Whitley is a very pleasant 71 year old male presenting with coagulopathy. He recently had a screening colonoscopy and a cecal mass was found and biopsied. This was complicated by bowel perforation. He had respiratory insufficiency and was intubated. He was admitted to the CCU. He has a recent diagnosis of hepatitis C. In the CCU he has very elevated liver enzymes and coagulopathy. There is concern for retroperitoneal bleeding and his H/H is dropping. He has been extubated. He is [employer]'s [employer] and will not accept blood products. He denies any current pain or shortness of breath. Before admission, he drank 2 glasses of wine daily. Past History Past Medical History: cancer (Colon Mass, Liver mass), hepatitis (Hepatitis C with (+) viral load), hypertension Past Surgical History: Other (R hemicolectomy and liver biopsy 03/31) Social history: denies: smoking, alcohol abuse Family history: no significant family history Medications and Allergies Allergies Allergy/AdvReac Type Severity Reaction Status Date / Time Penicillins Allergy Rash Verified 07/15/13 17:28 Home Medications Medication Instructions Recorded Confirmed Last Taken Type Dicyclomine [Bentyl] 10 mg PO QID #20 capsule 07/16/13 04/01/17 Unknown Rx Pantoprazole [Protonix] 40 mg PO QDAY #30 tablet 07/16/13 04/01/17 Unknown Rx Active Meds: Active Medications Albuterol/Ipratropium (Duoneb *Not For Prn Use*) 1 ampul [facility] Last Admin: 04/02/17 08:45 Dose: 1 ampul Hydromorphone HCl (Dilaudid) 0.5 mg IM Q3H PRN PRN Reason: Incision pain Hydrophilic Ointment (Vaseline Lip Therapy) 1 applic TP Q2HR PRN PRN Reason: Dry Lips Metronidazole (Flagyl 500 Mg/100 Ml) 500 mg in 100 mls @ 100 mls/hr IV Q8HR WHIT PRN Reason: Protocol Last Admin: 04/02/17 05:30 Dose: 100 mls/hr Propofol (Diprivan 10 Mg/Ml) 1,000 mg in 100 mls @ 2.16 mls/hr IV TITR WHIT; 5 MCG/KG/MIN PRN Reason: Protocol Last Titration: 04/01/17 14:30 Dose: 0 mcg/kg/min, 0 mls/hr Fentanyl Citrate (Fentanyl Drip Premix) 2,000 mcg in 100 mls @ 3.6 mls/hr IV TITR WHIT; 1 MCG/KG/HR PRN Reason: Protocol Last Titration: 04/01/17 14:30 Dose: 0 mcg/kg/hr, 0 mls/hr Levofloxacin/Dextrose (Levaquin 750mg/150ml) 750 mg in 150 mls @ 100 mls/hr IV Q48HR WHIT PRN Reason: Protocol Dextrose/Sodium Chloride (D5ns) 1,000 mls @ 75 mls/hr IV DIRECT WHIT Multi-Ingred Cream/Lotion/Oil/Oint (Artificial Tears Ophth Oint) 1 applic OU Q4HR PRN PRN Reason: Dry Eye(s) Pantoprazole Sodium (Protonix) 40 mg IV QDAY WHIT Last Admin: 04/02/17 09:15 Dose: 40 mg Review of Systems Constitutional: fatigue Cardiovascular: no chest pain Respiratory: no shortness of breath Gastrointestinal: no abdominal pain Musculoskeletal: no low back pain Exam - Constitutional Vitals: Last Vital Signs Temp 97.8 F 04/02/17 11:50 Pulse 115 H 04/02/17 10:00 Resp 16 04/02/17 10:00 BP 129/68 04/02/17 10:00 Pulse Ox 99 04/02/17 10:00 General appearance: no acute distress - Neck Neck: supple - Respiratory Respiratory effort: Positive: normal Respiratory: bilateral: CTA - Cardiovascular Rhythm: regular - Gastrointestinal General gastrointestinal: Present: other (midline incision with oozing at the umbilicus) Results - Labs lab Results: Laboratory Results - last 24 hr 04/01/17 04/01/17 04/01/17 05:00 05:00 05:00 WBC 4.8 RBC 2.97 L Hgb 7.3 L D Hct 22.6 L D MCV 76 L MCH 25 L MCHC 32 RDW 15.9 H Plt Count 102 L Lymph % (Auto) 10.4 L [place] % (Auto) 2.7 Eos % (Auto) 0.1 Baso % (Auto) 0.0 Lymph # 0.5 L [place] # 0.1 Eos # 0.0 Baso # 0.0 Seg Neutrophils % 86.8 H Seg Neutrophils # 4.2 PT INR POC ABG pH POC ABG pCO2 POC ABG pO2 POC ABG HCO3 POC ABG Total CO2 POC ABG O2 Sat POC ABG Base Excess FiO2 Sodium 142 Potassium 3.7 Chloride 105.7 Carbon Dioxide 23 D Anion Gap 17 BUN 11 Creatinine 0.8 Estimated GFR > 60 BUN/Creatinine Ratio 13.75 Glucose 190 H POC Glucose Lactic Acid 3.80 H* Calcium 6.9 L Iron TIBC Total Bilirubin AST ALT Alkaline Phosphatase Total Protein Albumin Albumin/Globulin Ratio Vitamin B12 04/01/17 04/01/17 04/01/17 16:12 16:23 18:00 WBC 7.2 RBC 3.21 L Hgb 7.8 L Hct 24.5 L MCV 76 L MCH 24 L MCHC 32 RDW 15.7 H Plt Count 94 L Lymph % (Auto) 9.6 L [place] % (Auto) 3.3 Eos % (Auto) 0.0 Baso % (Auto) 0.1 Lymph # 0.7 L [place] # 0.2 Eos # 0.0 Baso # 0.0 Seg Neutrophils % 87.0 H Seg Neutrophils # 6.2 PT INR POC ABG pH 7.405 7.396 POC ABG pCO2 43.8 44.7 POC ABG pO2 38 L 125 H POC ABG HCO3 27.4 27.4 POC ABG Total CO2 29 29 POC ABG O2 Sat 72 99 POC ABG Base Excess 3 3 FiO2 35 35 Sodium Potassium Chloride Carbon Dioxide Anion Gap BUN Creatinine Estimated GFR BUN/Creatinine Ratio Glucose POC Glucose Lactic Acid Calcium Iron TIBC Total Bilirubin AST ALT Alkaline Phosphatase Total Protein Albumin Albumin/Globulin Ratio Vitamin B12 04/02/17 04/02/17 04/02/17 01:34 04:00 04:00 WBC 6.0 RBC 2.98 L Hgb 7.3 L Hct 22.8 L MCV 77 L MCH 24 L MCHC 32 RDW 15.7 H Plt Count 70 L Lymph % (Auto) 13.9 [place] % (Auto) 5.3 Eos % (Auto) 0.0 Baso % (Auto) 0.3 Lymph # 0.8 L [place] # 0.3 Eos # 0.0 Baso # 0.0 Seg Neutrophils % 80.5 H Seg Neutrophils # 4.8 PT INR POC ABG pH POC ABG pCO2 POC ABG pO2 POC ABG HCO3 POC ABG Total CO2 POC ABG O2 Sat POC ABG Base Excess FiO2 Sodium Potassium Chloride Carbon Dioxide Anion Gap BUN Creatinine Estimated GFR BUN/Creatinine Ratio Glucose POC Glucose 132 H Lactic Acid 1.50 Calcium Iron TIBC Total Bilirubin AST ALT Alkaline Phosphatase Total Protein Albumin Albumin/Globulin Ratio Vitamin B12 04/02/17 04/02/17 04/02/17 04:00 04:00 04:00 WBC RBC Hgb Hct MCV MCH MCHC RDW Plt Count Lymph % (Auto) [place] % (Auto) Eos % (Auto) Baso % (Auto) Lymph # [place] # Eos # Baso # Seg Neutrophils % Seg Neutrophils # PT 21.5 H INR 1.87 H POC ABG pH POC ABG pCO2 POC ABG pO2 POC ABG HCO3 POC ABG Total CO2 POC ABG O2 Sat POC ABG Base Excess FiO2 Sodium 142 Potassium 4.3 Chloride 106.1 Carbon Dioxide 25 Anion Gap 15 BUN 25 H Creatinine 2.0 H D Estimated GFR 40 BUN/Creatinine Ratio 12.50 Glucose 108 H POC Glucose Lactic Acid Calcium 6.9 L Iron 49 TIBC 184 L Total Bilirubin 1.40 H AST 4564 H ALT 2544 H Alkaline Phosphatase 64 Total Protein 5.3 L D Albumin 2.4 L Albumin/Globulin Ratio 0.8 Vitamin B12 2000 H 04/02/17 08:49 WBC RBC Hgb Hct MCV MCH MCHC RDW Plt Count Lymph % (Auto) [place] % (Auto) Eos % (Auto) Baso % (Auto) Lymph # [place] # Eos # Baso # Seg Neutrophils % Seg Neutrophils # PT 20.6 H INR 1.77 H POC ABG pH POC ABG pCO2 POC ABG pO2 POC ABG HCO3 POC ABG Total CO2 POC ABG O2 Sat POC ABG Base Excess FiO2 Sodium Potassium Chloride Carbon Dioxide Anion Gap BUN Creatinine Estimated GFR BUN/Creatinine Ratio Glucose POC Glucose Lactic Acid Calcium Iron TIBC Total Bilirubin AST ALT Alkaline Phosphatase Total Protein Albumin Albumin/Globulin Ratio Vitamin B12 Assessment and Plan Mr Whitley 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 1. Coagulopathy- likely due to underlying liver disease - will give KCentra 1800 units to replenish clotting factors, cont Vitamin K - DDAVP to help stop oozing of wounds 2. Anemia - due to blood loss and renal failure - will give iron sucrose - Procrit 10,000 units daily x 3 days 3. likely metastatic colon cancer - recommend MRI of the liver to eval for additional metastases as well as CT chest when patient is able. May be better to wait until renal function is improved for contrast administration. - Will await pathology results
[2017-04-02] MEDS ORDERED: DDAVP IV ONE ×2 (15:38→23:00)
[2017-04-02 15:40] LABS: Mean Corpuscular Hemoglobin 25 pg (28-32); Platelet Count 86 K/mm3 (140-440)
[2017-04-02 15:41] LABS: BUN/Creatinine Ratio 12.4; Calcium 7.4 mg/dL (8.4-10.2); Chloride 106.6 mmol/L (98-107); Potassium 4.3 mmol/L (3.6-5.0)
[2017-04-02 15:44] LABS: INR 1.56 (0.87-1.13)
[2017-04-02] MEDS ORDERED: NACL 0.9% IV ONE ×2 (16:00→23:00)
[2017-04-02] MEDS ORDERED: VENOFER IV ONE (16:00)
--- NOTE | 2017-04-02 16:41 | Progress Note ---
Assessment and Plan - Patient Problems (1) Acute respiratory failure Current Visit: Yes Status: Acute Qualifiers: Respiratory failure complication: R Plan to address problem: - extubated - aspiration precautions - continue bronchodilators and pulmonary toilet in short term - continue to wean oxygen to kep O2 Sats > 94% - added incentive spirometry (2) Liver mass Current Visit: Yes Status: Acute Plan to address problem: - appeared cirrhotic per surgeon - follow colon biopsies (3) Perforation of colon as colonoscopy complication Current Visit: Yes Status: Acute Plan to address problem: - s/p ex-lap and repair of cecal perforation - no more free air on KUB - remains NPO - NGT to LIS (4) Lactic acidosis Current Visit: Yes Status: Acute Plan to address problem: - resolved - continue gentle volume resuscitation - continue antibiotics as ordered (5) Colonic mass Current Visit: Yes Status: Acute Plan to address problem: - await pathology reports - suspicious for malignancy (6) Elevated transaminase level Current Visit: Yes Status: Acute Plan to address problem: - likely shock liver - will trend (7) Gastrointestinal blood Current Visit: Yes Status: Acute Qualifiers: GI bleed type/associated pathology: G Gastritis type: G Plan to address problem: - continue H&H - change protonix to bid (8) Discharge planning issues Current Visit: Yes Status: Acute Plan to address problem: - continue to observe in ICU ....he remains critically ill and at risk for further deterioration including ...care plan discussed at length with family in room ...30' CCT Subjective Date of service: 04/02/17 Principal diagnosis: Acute Respiratory Failure on MVS; S/P perforated Cecum; Sepsis Syndrome Interval history: Seen and examined at bedside; 24 hour events reviewed; nursing and respiratory care staff consulted; no adverse overnight events reported to me; resting peacefully in bed; on 1 LNC; denies acute chest pains or increased SOB; NGT with serosanguinous drainage but H&H stable; no BRBPR; care plan discussed at length with family and questions answered Objective Vital Signs - 12hr 04/02/17 04/02/17 04/02/17 04:45 05:00 05:15 Temperature Pulse Rate 113 H 118 H 108 H Pulse Rate [ Anterior Bilateral Throughout] Pulse Rate [ 111 H From Monitor] Respiratory 17 21 13 Rate Respiratory Rate [Anterior Bilateral Throughout] Blood Pressure 129/69 122/74 134/65 O2 Sat by Pulse 100 99 Oximetry 04/02/17 04/02/17 04/02/17 05:16 05:30 05:45 Temperature Pulse Rate 119 H 109 H Pulse Rate [ Anterior Bilateral Throughout] Pulse Rate [ From Monitor] Respiratory 20 14 11 L Rate Respiratory Rate [Anterior Bilateral Throughout] Blood Pressure 123/65 123/74 O2 Sat by Pulse 98 100 Oximetry 04/02/17 04/02/17 04/02/17 06:00 06:15 06:30 Temperature Pulse Rate 108 H 111 H 113 H Pulse Rate [ Anterior Bilateral Throughout] Pulse Rate [ From Monitor] Respiratory 14 15 15 Rate Respiratory Rate [Anterior Bilateral Throughout] Blood Pressure 130/65 123/67 128/68 O2 Sat by Pulse 99 99 98 Oximetry 04/02/17 04/02/17 04/02/17 06:45 07:00 07:15 Temperature Pulse Rate 108 H 105 H 110 H Pulse Rate [ Anterior Bilateral Throughout] Pulse Rate [ From Monitor] Respiratory 10 L 9 L 12 Rate Respiratory Rate [Anterior Bilateral Throughout] Blood Pressure 119/73 131/73 129/71 O2 Sat by Pulse 100 96 Oximetry 04/02/17 04/02/17 04/02/17 07:30 07:38 07:45 Temperature 98.3 F Pulse Rate 111 H 108 H Pulse Rate [ Anterior Bilateral Throughout] Pulse Rate [ From Monitor] Respiratory 15 14 Rate Respiratory Rate [Anterior Bilateral Throughout] Blood Pressure 127/72 118/51 O2 Sat by Pulse 99 100 Oximetry 04/02/17 04/02/17 04/02/17 08:00 08:01 08:15 Temperature Pulse Rate 105 H 110 H Pulse Rate [ Anterior Bilateral Throughout] Pulse Rate [ From Monitor] Respiratory 19 15 Rate Respiratory Rate [Anterior Bilateral Throughout] Blood Pressure 137/74 143/73 O2 Sat by Pulse 100 98 100 Oximetry 04/02/17 04/02/17 04/02/17 08:31 08:45 08:55 Temperature Pulse Rate 138 H 118 H Pulse Rate [ 116 H 114 H Anterior Bilateral Throughout] Pulse Rate [ From Monitor] Respiratory 17 17 Rate Respiratory 20 20 Rate [Anterior Bilateral Throughout] Blood Pressure 155/88 117/74 O2 Sat by Pulse 99 99 Oximetry 04/02/17 04/02/17 04/02/17 09:00 09:15 09:30 Temperature Pulse Rate 118 H 116 H 130 H Pulse Rate [ Anterior Bilateral Throughout] Pulse Rate [ From Monitor] Respiratory 25 H 16 17 Rate Respiratory Rate [Anterior Bilateral Throughout] Blood Pressure 126/73 131/78 141/89 O2 Sat by Pulse 99 99 100 Oximetry 04/02/17 04/02/17 04/02/17 09:45 10:00 10:59 Temperature 0 F L Pulse Rate 115 H 115 H Pulse Rate [ Anterior Bilateral Throughout] Pulse Rate [ From Monitor] Respiratory 18 16 Rate Respiratory Rate [Anterior Bilateral Throughout] Blood Pressure 134/74 129/68 O2 Sat by Pulse 99 Oximetry 04/02/17 04/02/17 11:50 15:51 Temperature 97.8 F 98.8 F Pulse Rate Pulse Rate [ Anterior Bilateral Throughout] Pulse Rate [ From Monitor] Respiratory Rate Respiratory Rate [Anterior Bilateral Throughout] Blood Pressure O2 Sat by Pulse Oximetry Constitutional: no acute distress, alert Eyes: non-icteric ENT: oropharynx moist Neck: supple, no lymphadenopathy Effort: mildly labored Ascultation: Bilateral: clear, diminished breath sounds (bases) Cardiovascular: regular rate and rhythm Gastrointestinal: hypoactive bowel sounds, soft, non-tender, non-distended Integumentary: normal Extremities: no cyanosis, no edema, pulses normal, no ischemia or petechiae Neurologic: normal mental status, non-focal exam, pupils equal and round, motor strength normal and Psychiatric: mood appropriate, affect normal CBC and BMP: 04/02/17 15:05 04/02/17 15:05 ABG, PT/INR, D-dimer: ABG POC ABG pH 7.396 (7.35-7.45) 04/01/17 16:23 POC ABG pCO2 44.7 (35-45) 04/01/17 16:23 POC ABG pO2 125 (80-105) H 04/01/17 16:23 POC ABG HCO3 27.4 04/01/17 16:23 POC ABG Total CO2 29 04/01/17 16:23 POC ABG O2 Sat 99 04/01/17 16:23 PT/INR, D-dimer PT 18.6 Sec. (12.2-14.9) H 04/02/17 15:05 INR 1.56 (0.87-1.13) H 04/02/17 15:05 Abnormal lab findings: Abnormal Labs 03/31/17 03/31/1703/31/17 15:19 15:43 19:15 RBC Hgb 10.6 L 10.3 L Hct 33.9 L D 32.1 L MCV 78 L 77 L MCH 24 L 25 L MCHC 31 L RDW 15.8 H 15.9 H Plt Count 116 L Lymph % (Auto) 8.7 L Lymph # 0.7 L Seg Neutrophils % 77.2 H 86.8 H PT INR APTT POC ABG pH 7.202 L POC ABG pCO2 POC ABG pO2 292 H Chloride Carbon Dioxide BUN Creatinine Glucose POC Glucose Lactic Acid Calcium Magnesium TIBC Total Bilirubin AST ALT Total Protein Albumin Vitamin B12 03/31/17 03/31/17 03/31/17 19:15 19:15 19:15 RBC Hgb Hct MCV MCH MCHC RDW Plt Count Lymph % (Auto) Lymph # Seg Neutrophils % PT INR APTT POC ABG pH POC ABG pCO2 POC ABG pO2 Chloride Carbon Dioxide 12 L BUN 8 L Creatinine Glucose 206 H POC Glucose Lactic Acid 6.90 H* Calcium 6.9 L D Magnesium 1.30 L TIBC Total Bilirubin AST ALT Total Protein Albumin Vitamin B12 03/31/17 03/31/17 03/31/17 21:13 22:50 23:20 RBC Hgb Hct MCV MCH MCHC RDW Plt Count Lymph % (Auto) Lymph # Seg Neutrophils % PT INR APTT POC ABG pH 7.142 L POC ABG pCO2 46.1 H 23.0 L POC ABG pO2 229 H 180 H Chloride Carbon Dioxide BUN Creatinine Glucose POC Glucose Lactic Acid 5.90 H* Calcium Magnesium TIBC Total Bilirubin AST ALT Total Protein Albumin Vitamin B12 04/01/17 04/01/17 04/01/17 05:00 05:00 05:00 RBC 2.97 L Hgb 7.3 L D Hct 22.6 L D MCV 76 L MCH 25 L MCHC RDW 15.9 H Plt Count 102 L Lymph % (Auto) 10.4 L Lymph # 0.5 L Seg Neutrophils % 86.8 H PT INR APTT POC ABG pH POC ABG pCO2 POC ABG pO2 Chloride Carbon Dioxide BUN Creatinine Glucose 190 H POC Glucose Lactic Acid 3.80 H* Calcium 6.9 L Magnesium TIBC Total Bilirubin AST ALT Total Protein Albumin Vitamin B12 04/01/17 04/01/17 04/01/17 09:01 09:55 09:55 RBC 3.45 L Hgb 8.5 L Hct 26.4 L MCV 77 L MCH 25 L MCHC RDW 15.7 H Plt Count 112 L Lymph % (Auto) 10.0 L Lymph # 0.7 L Seg Neutrophils % 85.5 H PT INR APTT POC ABG pH 7.480 H POC ABG pCO2 32.3 L POC ABG pO2 150 H Chloride 108.5 H Carbon Dioxide BUN Creatinine Glucose 110 H POC Glucose Lactic Acid Calcium 6.9 L Magnesium TIBC Total Bilirubin AST ALT Total Protein Albumin Vitamin B12 04/01/17 04/01/17 04/01/17 10:36 16:12 16:23 RBC Hgb Hct MCV MCH MCHC RDW Plt Count Lymph % (Auto) Lymph # Seg Neutrophils % PT INR APTT POC ABG pH POC ABG pCO2 POC ABG pO2 38 L 125 H Chloride Carbon Dioxide BUN Creatinine Glucose POC Glucose Lactic Acid 2.60 H* Calcium Magnesium TIBC Total Bilirubin AST ALT Total Protein Albumin Vitamin B12 04/01/17 04/02/17 04/02/17 18:00 01:34 04:00 RBC 3.21 L 2.98 L Hgb 7.8 L 7.3 L Hct 24.5 L 22.8 L MCV 76 L 77 L MCH 24 L 24 L MCHC RDW 15.7 H 15.7 H Plt Count 94 L 70 L Lymph % (Auto) 9.6 L Lymph # 0.7 L 0.8 L Seg Neutrophils % 87.0 H 80.5 H PT INR APTT POC ABG pH POC ABG pCO2 POC ABG pO2 Chloride Carbon Dioxide BUN Creatinine Glucose POC Glucose 132 H Lactic Acid Calcium Magnesium TIBC Total Bilirubin AST ALT Total Protein Albumin Vitamin B12 04/02/17 04/02/17 04/02/17 04:00 04:00 04:00 RBC Hgb Hct MCV MCH MCHC RDW Plt Count Lymph % (Auto) Lymph # Seg Neutrophils % PT 21.5 H INR 1.87 H APTT POC ABG pH POC ABG pCO2 POC ABG pO2 Chloride Carbon Dioxide BUN 25 H Creatinine 2.0 H D Glucose 108 H POC Glucose Lactic Acid Calcium 6.9 L Magnesium TIBC 184 L Total Bilirubin 1.40 H AST 4564 H ALT 2544 H Total Protein 5.3 L D Albumin 2.4 L Vitamin B12 2000 H 04/02/17 04/02/1704/02/17 08:49 15:05 15:05 RBC 3.05 L Hgb 7.6 L Hct 23.2 L MCV 76 L MCH 25 L MCHC RDW 16.2 H Plt Count 86 L Lymph % (Auto) Lymph # Seg Neutrophils % PT 20.6 H INR 1.77 H APTT POC ABG pH POC ABG pCO2 POC ABG pO2 Chloride Carbon Dioxide BUN 31 H Creatinine 2.5 H Glucose 105 H POC Glucose Lactic Acid Calcium 7.4 L Magnesium TIBC Total Bilirubin AST ALT Total Protein Albumin Vitamin B12 04/02/17 15:05 RBC Hgb Hct MCV MCH MCHC RDW Plt Count Lymph % (Auto) Lymph # Seg Neutrophils % PT 18.6 H INR 1.56 H APTT 37.0 H POC ABG pH POC ABG pCO2 POC ABG pO2 Chloride Carbon Dioxide BUN Creatinine Glucose POC Glucose Lactic Acid Calcium Magnesium TIBC Total Bilirubin AST ALT Total Protein Albumin Vitamin B12
--- NOTE | 2017-04-02 16:45 | Progress Note ---
Assessment and Plan 71 year old man with cecal mass, hep C, Jehovah witness status post colonoscopy with biopsy who had perforation during procedure requiring intubation, subsequent ex-lap and right hemicolectomy and ileocolonic anastamosis and also had 2 biopsies of a right hepatic dome mass. Acute Respiratory arrest - Patient is intubated and on mechanical ventilation - pulmonary following, could be extubated today Pneumoperitoneum likely from perforated colon - Patient does colonoscopy done on 03/31 and patient has caecal mass - Surgery was consulted for acute abdomen, s/p ex-lap and right hemicolectomy and ileocolonic anastamosis - GI following Sepsis with hypotension/peritonitis - Patient is being treated according to sepsis protocol - Patient is on IV flagyl and levaquin - Blood pressure normalized after he was given a bolus of fluid Stage IV colon cancer - suspected, Patient has colonic mass and hepatic mass - will follow biopsy result Anemia - H&H has decreased after surgery from 10.1 to 7.2 - he did have 2 biopsies of a right hepatic dome mass during surgery. - monitor for H and H now and follow hepatic enzyme - CT reviewed. There is a small to moderate amount of hemoperitoneum and a trace right subhepatic low density fluid collection. No sentinel clot sign. - patient refuses blood product - consulted hematology, placed on iv iron, desmopressin and erythropoitin hepatitis C with transaminitis - monitor liver enzyme - likely from shock liver VIRAL - likely vasomotor nephropathy - cont to monitor renal function, nephrology consulted DVT prophylaxis - SCDs b/o acute blood loss The high probability of a clinically significant, sudden or life threatening deterioration of the [GI, respiratory, neurologic] system(s) required my full and direct attention, intervention and personal management. The aggregate critical care time was [34] minutes. This time is in addition to time spent performing reported procedures but includes the following: [x] Data Review and interpretation [x] Patient assessment and monitoring of vital signs [x] Documentation [x] Medication orders and management Subjective Date of service: 04/02/17 Principal diagnosis: Acute Respiratory Failure on MVS; S/P perforated Cecum; Sepsis Syndrome Interval history: Patient seen and examined extubated, c/o abdominal pain discussed in length with family at bedside Hb dropped to 7.2, Cr 2.5 today family wanted to transfer the pt to [place] called the transfer center but no icu bed available Objective - Exam Narrative Exam: General appearance: no acute distress - EENT Eyes: PERRL, EOM intact ENT: hearing intact, clear oral mucosa, no thrush, - Neck Neck: supple, normal ROM - Respiratory Respiratory effort: normal Respiratory: bilateral: CTA - Cardiovascular Heart Rate: 110 Rhythm: regular Heart Sounds: Present: S1 & S2 Extremities: no ischemia, No edema - Gastrointestinal General gastrointestinal: Present: soft, tender, non-distended, absent bowel sounds, other (Abdominal sutures with oozing blood) - Integumentary Integumentary: Present: clear, warm, dry - Neurologic Neurological: oriented to person, oriented to place, other (Able to move all extremeties on command/nonfocal) Extremities: no ischemia, No edema - Psychiatric Psychiatric: appropriate mood/affect - Constitutional Vitals: Vital Signs - 12hr 04/02/17 04/02/17 04/02/17 04:45 05:00 05:15 Temperature Pulse Rate 113 H 118 H 108 H Pulse Rate [ Anterior Bilateral Throughout] Pulse Rate [ 111 H From Monitor] Respiratory 17 21 13 Rate Respiratory Rate [Anterior Bilateral Throughout] Blood Pressure 129/69 122/74 134/65 O2 Sat by Pulse 100 99 Oximetry 04/02/17 04/02/17 04/02/17 05:16 05:30 05:45 Temperature Pulse Rate 119 H 109 H Pulse Rate [ Anterior Bilateral Throughout] Pulse Rate [ From Monitor] Respiratory 20 14 11 L Rate Respiratory Rate [Anterior Bilateral Throughout] Blood Pressure 123/65 123/74 O2 Sat by Pulse 98 100 Oximetry 04/02/17 04/02/17 04/02/17 06:00 06:15 06:30 Temperature Pulse Rate 108 H 111 H 113 H Pulse Rate [ Anterior Bilateral Throughout] Pulse Rate [ From Monitor] Respiratory 14 15 15 Rate Respiratory Rate [Anterior Bilateral Throughout] Blood Pressure 130/65 123/67 128/68 O2 Sat by Pulse 99 99 98 Oximetry 04/02/17 04/02/17 04/02/17 06:45 07:00 07:15 Temperature Pulse Rate 108 H 105 H 110 H Pulse Rate [ Anterior Bilateral Throughout] Pulse Rate [ From Monitor] Respiratory 10 L 9 L 12 Rate Respiratory Rate [Anterior Bilateral Throughout] Blood Pressure 119/73 131/73 129/71 O2 Sat by Pulse 100 96 Oximetry 04/02/17 04/02/17 04/02/17 07:30 07:38 07:45 Temperature 98.3 F Pulse Rate 111 H 108 H Pulse Rate [ Anterior Bilateral Throughout] Pulse Rate [ From Monitor] Respiratory 15 14 Rate Respiratory Rate [Anterior Bilateral Throughout] Blood Pressure 127/72 118/51 O2 Sat by Pulse 99 100 Oximetry 04/02/17 04/02/17 04/02/17 08:00 08:01 08:15 Temperature Pulse Rate 105 H 110 H Pulse Rate [ Anterior Bilateral Throughout] Pulse Rate [ From Monitor] Respiratory 19 15 Rate Respiratory Rate [Anterior Bilateral Throughout] Blood Pressure 137/74 143/73 O2 Sat by Pulse 100 98 100 Oximetry 04/02/17 04/02/17 04/02/17 08:31 08:45 08:55 Temperature Pulse Rate 138 H 118 H Pulse Rate [ 116 H 114 H Anterior Bilateral Throughout] Pulse Rate [ From Monitor] Respiratory 17 17 Rate Respiratory 20 20 Rate [Anterior Bilateral Throughout] Blood Pressure 155/88 117/74 O2 Sat by Pulse 99 99 Oximetry 04/02/17 04/02/17 04/02/17 09:00 09:15 09:30 Temperature Pulse Rate 118 H 116 H 130 H Pulse Rate [ Anterior Bilateral Throughout] Pulse Rate [ From Monitor] Respiratory 25 H 16 17 Rate Respiratory Rate [Anterior Bilateral Throughout] Blood Pressure 126/73 131/78 141/89 O2 Sat by Pulse 99 99 100 Oximetry 04/02/17 04/02/17 04/02/17 09:45 10:00 10:59 Temperature 0 F L Pulse Rate 115 H 115 H Pulse Rate [ Anterior Bilateral Throughout] Pulse Rate [ From Monitor] Respiratory 18 16 Rate Respiratory Rate [Anterior Bilateral Throughout] Blood Pressure 134/74 129/68 O2 Sat by Pulse 99 Oximetry 04/02/17 04/02/17 11:50 15:51 Temperature 97.8 F 98.8 F Pulse Rate Pulse Rate [ Anterior Bilateral Throughout] Pulse Rate [ From Monitor] Respiratory Rate Respiratory Rate [Anterior Bilateral Throughout] Blood Pressure O2 Sat by Pulse Oximetry - Labs CBC & Chem 7: 04/02/17 21:54 04/02/17 15:05 Labs: Abnormal lab results 04/01/17 04/02/17 04/02/17 Range/Units 18:00 01:34 04:00 RBC 3.21 L 2.98 L (3.65-5.03) M/mm3 Hgb 7.8 L 7.3 L (11.8-15.2) gm/dl Hct 24.5 L 22.8 L (35.5-45.6) % MCV 76 L 77 L (84-94) fl MCH 24 L 24 L (28-32) pg RDW 15.7 H 15.7 H (13.2-15.2) % Plt Count 94 L 70 L (140-440) K/mm3 Lymph % (Auto) 9.6 L (13.4-35.0) % Lymph # 0.7 L 0.8 L (1.2-5.4) K/mm3 Seg Neutrophils % 87.0 H 80.5 H (40.0-70.0) % PT (12.2-14.9) Sec. INR (0.87-1.13) APTT (24.2-36.6) Sec. BUN (9-20) mg/dL Creatinine (0.8-1.5) mg/dL Glucose (75-100) mg/dL POC Glucose 132 H (70-105) Calcium (8.4-10.2) mg/dL TIBC (250-450) mcg/dL Total Bilirubin (0.1-1.2) mg/dL AST (5-40) units/L ALT (7-56) units/L Total Protein (6.3-8.2) g/dL Albumin (3.9-5) g/dL Vitamin B12 (211-911) pg/mL 04/02/17 04/02/17 04/02/17 Range/Units 04:00 04:00 04:00 RBC (3.65-5.03) M/mm3 Hgb (11.8-15.2) gm/dl Hct (35.5-45.6) % MCV (84-94) fl MCH (28-32) pg RDW (13.2-15.2) % Plt Count (140-440) K/mm3 Lymph % (Auto) (13.4-35.0) % Lymph # (1.2-5.4) K/mm3 Seg Neutrophils % (40.0-70.0) % PT 21.5 H (12.2-14.9) Sec. INR 1.87 H (0.87-1.13) APTT (24.2-36.6) Sec. BUN 25 H (9-20) mg/dL Creatinine 2.0 H D (0.8-1.5) mg/dL Glucose 108 H (75-100) mg/dL POC Glucose (70-105) Calcium 6.9 L (8.4-10.2) mg/dL TIBC 184 L (250-450) mcg/dL Total Bilirubin 1.40 H (0.1-1.2) mg/dL AST 4564 H (5-40) units/L ALT 2544 H (7-56) units/L Total Protein 5.3 L D (6.3-8.2) g/dL Albumin 2.4 L (3.9-5) g/dL Vitamin B12 2000 H (211-911) pg/mL 04/02/17 04/02/17 04/02/17 Range/Units 08:49 15:05 15:05 RBC 3.05 L (3.65-5.03) M/mm3 Hgb 7.6 L (11.8-15.2) gm/dl Hct 23.2 L (35.5-45.6) % MCV 76 L (84-94) fl MCH 25 L (28-32) pg RDW 16.2 H (13.2-15.2) % Plt Count 86 L (140-440) K/mm3 Lymph % (Auto) (13.4-35.0) % Lymph # (1.2-5.4) K/mm3 Seg Neutrophils % (40.0-70.0) % PT 20.6 H (12.2-14.9) Sec. INR 1.77 H (0.87-1.13) APTT (24.2-36.6) Sec. BUN 31 H (9-20) mg/dL Creatinine 2.5 H (0.8-1.5) mg/dL Glucose 105 H (75-100) mg/dL POC Glucose (70-105) Calcium 7.4 L (8.4-10.2) mg/dL TIBC (250-450) mcg/dL Total Bilirubin (0.1-1.2) mg/dL AST (5-40) units/L ALT (7-56) units/L Total Protein (6.3-8.2) g/dL Albumin (3.9-5) g/dL Vitamin B12 (211-911) pg/mL 04/02/17 Range/Units 15:05 RBC (3.65-5.03) M/mm3 Hgb (11.8-15.2) gm/dl Hct (35.5-45.6) % MCV (84-94) fl MCH (28-32) pg RDW (13.2-15.2) % Plt Count (140-440) K/mm3 Lymph % (Auto) (13.4-35.0) % Lymph # (1.2-5.4) K/mm3 Seg Neutrophils % (40.0-70.0) % PT 18.6 H (12.2-14.9) Sec. INR 1.56 H (0.87-1.13) APTT 37.0 H (24.2-36.6) Sec. BUN (9-20) mg/dL Creatinine (0.8-1.5) mg/dL Glucose (75-100) mg/dL POC Glucose (70-105) Calcium (8.4-10.2) mg/dL TIBC (250-450) mcg/dL Total Bilirubin (0.1-1.2) mg/dL AST (5-40) units/L ALT (7-56) units/L Total Protein (6.3-8.2) g/dL Albumin (3.9-5) g/dL Vitamin B12 (211-911) pg/mL
[2017-04-02] MEDS ORDERED: NACL 0.9% SUB-Q ONE (17:00)
[2017-04-02] MEDS ORDERED: KCENTRA (1,000 U) VIAL IV ONE (17:00)
[2017-04-02] MEDS ORDERED: DDAVP SUB-Q ONE (17:00)
--- NOTE | 2017-04-02 17:36 | Consultation ---
History of Present Illness - Reason for Consult Consult date: 04/02/17 acute renal failure - History of Present Illness Mr Whitley is a 71 yo gentleman with a PMHx of HTN, hepatitis C and liver mass who presented for outpatient colonoscopy on March 31. Per GI note, during colonoscopy, patient was noted to have a mass in the cecum. Biopsies were obtained w/ polypectomy x 2. During procedure, patient's abdomen was examined due to bradycardia and was noted be rigid. The procedure was immediately terminated and patient became hemodynamically unstable. He was intubated and transported to the ED. He was taken to the OR where a R hemicolectomy w/ primary anastamosis and liver bx were done. Post operatively, his Hb has gradually declined. In addition, LFTs are now abnormal. At admission, patient's SCr was 0.7mg/dL. However, over the past 24h , his SCr has increased to 2.5mg/dL today. Nephrology consultation has been requested by the [facility] and critical care medicine. At present, he denies SOB. He is in good spirits. He has no complaints. Family members are at bedside. Past History Past Medical History: cancer (Colon Mass, Liver mass), hepatitis (Hepatitis C with (+) viral load), hypertension Past Surgical History: Other (R hemicolectomy and liver biopsy 03/31) Social history: denies: smoking, alcohol abuse Family history: no significant family history Medications and Allergies Allergies Allergy/AdvReac Type Severity Reaction Status Date / Time Penicillins Allergy Rash Verified 07/15/13 17:28 Home Medications Medication Instructions Recorded Confirmed Last Taken Type Dicyclomine [Bentyl] 10 mg PO QID #20 capsule 07/16/13 04/01/17 Unknown Rx Pantoprazole [Protonix] 40 mg PO QDAY #30 tablet 07/16/13 04/01/17 Unknown Rx Active Meds: Active Medications Albuterol/Ipratropium (Duoneb *Not For Prn Use*) 1 ampul IH TIDRT [facility] Last Admin: 04/02/17 17:27 Dose: Not Given Epoetin Kaden (Procrit) 10,000 unit SUB-Q DAILY [facility] Stop: 04/06/17 10:01 Hydromorphone HCl (Dilaudid) 0.5 mg IM Q3H PRN PRN Reason: Incision pain Hydrophilic Ointment (Vaseline Lip Therapy) 1 applic TP Q2HR PRN PRN Reason: Dry Lips Metronidazole (Flagyl 500 Mg/100 Ml) 500 mg in 100 mls @ 100 mls/hr IV Q8HR WHIT PRN Reason: Protocol Last Admin: 04/02/17 16:33 Dose: 100 mls/hr Propofol (Diprivan 10 Mg/Ml) 1,000 mg in 100 mls @ 2.16 mls/hr IV TITR WHIT; 5 MCG/KG/MIN PRN Reason: Protocol Last Titration: 04/01/17 14:30 Dose: 0 mcg/kg/min, 0 mls/hr Fentanyl Citrate (Fentanyl Drip Premix) 2,000 mcg in 100 mls @ 3.6 mls/hr IV TITR WHIT; 1 MCG/KG/HR PRN Reason: Protocol Last Titration: 04/01/17 14:30 Dose: 0 mcg/kg/hr, 0 mls/hr Levofloxacin/Dextrose (Levaquin 750mg/150ml) 750 mg in 150 mls @ 100 mls/hr IV Q48HR WHIT PRN Reason: Protocol Dextrose/Sodium Chloride (D5ns) 1,000 mls @ 75 mls/hr IV DIRECT WHIT Desmopressin Acetate 21.6 mcg/ (Sodium Chloride) 55.4 mls @ 110.8 mls/hr IV ONCE ONE Stop: 04/02/17 23:29 Multi-Ingred Cream/Lotion/Oil/Oint (Artificial Tears Ophth Oint) 1 applic OU Q4HR PRN PRN Reason: Dry Eye(s) Pantoprazole Sodium (Protonix) 40 mg IV BID [facility] Review of Systems Constitutional: no fever Cardiovascular: no chest pain, no shortness of breath Respiratory: no shortness of breath Gastrointestinal: no abdominal pain, no nausea, no vomiting Genitourinary Male: other (wright catheter in place) Integumentary: no rash Exam - Vital Signs Vital signs: Vital Signs Pulse BP Pulse Ox 117 H 75/30 98 03/31/17 10:50 03/31/17 10:50 03/31/17 10:50 - General Appearance General appearance: well-developed, well-nourished (NAD, breathing comfortably) , other EENT: other (NGT in place) Neck: Present: Other (Supple) Heart: regular, tachycardia Gastrointestinal: Present: hypoactive bowel sounds Integumentary: no rash Neurologic: alert and oriented x3 Musculoskeletal: Present: other (no edema) Psychiatric: mood/affect appropriate, cooperative Results - Lab Results 04/02/17 15:05 04/02/17 15:05 Most recent lab results Calcium 7.4 mg/dL (8.4-10.2) L 04/02/17 15:05 Phosphorus 3.30 mg/dL (2.5-4.5) 03/31/17 19:15 Magnesium 1.30 mg/dL (1.7-2.3) L 03/31/17 19:15 Assessment and Plan Assessment: * Nonoliguric VIRAL secondary to ATN * Perforated colon as colonoscopy complication; large cecal colon mass --s/p ex-lap right hemicolectomy * Liver mass s/p intraoperative bx * Anemia secondary to ABL * Transaminitis secondary to shock liver * Acute respiratory failure - now extubated on NC oxygen * Coagulopathy secondary to shock liver * Thrombocytopenia * Metabolic acidosis secondary to lactic acidosis - resolved * Hepatitis C Plan: * Lengthy discussion with patient and patient's son and daughter who are at bedside. At present, there is no acute need for renal replacement therapy. Patient's UOP is acceptable, electrolytes are stable and oxygention is acceptable * Continue conservative management for now - IVF at current rate * Will obtain dedicated renal u/s * Obtain urine lytes * Strict monitoring of I/O * Avoid potential nephrotoxic agents * Adjust medications for renal function * Will order prn hydralazine * Epogen per heme/onc * Thank you for consult. Will follow along closely
[2017-04-02] MEDS: DILAUDID IM PRN ×2 (18:38→21:16)
[2017-04-02] MEDS: PROCRIT SUB-Q SCH (18:41)
[2017-04-02 19:25] LABS: Basophils % (Auto) 0.2 % (0.0-1.8); Eosinophils % (Auto) 0.1 % (0.0-4.3); Hematocrit 22.6 % (35.5-45.6); Hemoglobin 7.2 gm/dl (11.8-15.2); Mean Corpuscular HGB Conc 32 % (32-34); Mean Corpuscular Volume 77 fl (84-94); Red Blood Count 2.94 M/mm3 (3.65-5.03); Red Cell Distribution Width 15.7 % (13.2-15.2); White Blood Count 5.7 K/mm3 (4.5-11.0)
[2017-04-02 19:29] LABS: Mean Corpuscular Hemoglobin 24 pg (28-32); Platelet Count 73 K/mm3 (140-440)
[2017-04-02 19:34] LABS: Reticulocyte % 1.74 % (0.78-2.58)
[2017-04-02 20:12] LABS: Iron 192 ug/dL (49-181); Total Iron Binding Capacity 226 mcg/dL (250-450)
[2017-04-02 20:13] LABS: Albumin 2.5 g/dL (3.9-5); Albumin/Globulin Ratio 0.8 %; Bilirubin,Direct 1.6 mg/dL (0-0.2); Bilirubin,Indirect 0.4 mg/dL; Total Protein 5.5 g/dL (6.3-8.2)
[2017-04-02 22:17] LABS: Hematocrit 22.6 % (35.5-45.6); Hemoglobin 7.2 gm/dl (11.8-15.2)
[2017-04-02] MEDS: D5NS 1,000 ML IV SCH (22:36)
[2017-04-03] MEDS: DILAUDID IM PRN ×3 (02:14→23:38)
[2017-04-03] MEDS: FLAGYL 500 MG/100 ML 500 MG/100 ML BAG IV SCH (05:48)
[2017-04-03 06:08] LABS: Basophils % (Auto) 0.1 % (0.0-1.8); Hematocrit 22.2 % (35.5-45.6); Hemoglobin 7.1 gm/dl (11.8-15.2); Mean Corpuscular HGB Conc 32 % (32-34); Mean Corpuscular Volume 76 fl (84-94); Red Blood Count 2.91 M/mm3 (3.65-5.03); Red Cell Distribution Width 15.9 % (13.2-15.2); White Blood Count 5.7 K/mm3 (4.5-11.0)
[2017-04-03 06:09] LABS: Mean Corpuscular Hemoglobin 25 pg (28-32)
[2017-04-03 06:10] LABS: Platelet Count 71 K/mm3 (140-440)
[2017-04-03 06:19] LABS: Albumin 2.3 g/dL (3.9-5); Albumin/Globulin Ratio 0.8 %; Bilirubin,Direct 2.2 mg/dL (0-0.2); Bilirubin,Indirect 0.5 mg/dL; Bilirubin,Total 2.7 mg/dL (0.1-1.2); Total Protein 5.3 g/dL (6.3-8.2)
[2017-04-03 06:20] LABS: Albumin 2.4 g/dL (3.9-5); Albumin/Globulin Ratio 0.8 %; BUN/Creatinine Ratio 13.07; Bilirubin,Total 2.6 mg/dL (0.1-1.2); Calcium 7.1 mg/dL (8.4-10.2); Chloride 108.3 mmol/L (98-107); Potassium 4.1 mmol/L (3.6-5.0); Total Protein 5.4 g/dL (6.3-8.2)
[2017-04-03 06:28] LABS: INR 1.29 (0.87-1.13)
[2017-04-03] MEDS: DUONEB *Not for PRN Use IH SCH ×3 (09:20→20:44)
--- NOTE | 2017-04-03 10:02 | XRay Report ---
AP CHEST: HISTORY: Followup respiratory failure Minor bibasilar atelectatic changes have developed since yesterday's exam. The upper lung zones remain clear. Heart and mediastinal structures are within normal limits. The endotracheal tube has been removed. The right venous catheter and nasogastric tube remain in good position.
--- NOTE | 2017-04-03 10:18 | Progress Note ---
Assessment and Plan 71 year old man with cecal mass, hep C, Jehovah witness status post colonoscopy with biopsy who had perforation during procedure requiring intubation, subsequent ex-lap and right hemicolectomy and ileocolonic anastamosis and also had 2 biopsies of a right hepatic dome mass. Family requested transfer to [place] but no bed was available. Acute Respiratory arrest - required intubation following colonoscopy - pulmonary following, s/p extubation on 04/01/17 Pneumoperitoneum likely from perforated colon - Patient is s/p colonoscopy on 03/31 and patient has caecal mass - Surgery was consulted for acute abdomen, s/p ex-lap and right hemicolectomy and ileocolonic anastamosis on 03/31/17 - GI and GS following Sepsis with hypotension/peritonitis - Patient is being treated according to sepsis protocol - Patient is on IV flagyl and levaquin - Blood pressure normalized after he was given a bolus of fluid Stage IV colon cancer - suspected, Patient has colonic mass and hepatic mass - will follow biopsy result Anemia due to acute blood loss - H&H has decreased after surgery from 10.1 to 7.1 - he did have 2 biopsies of a right hepatic dome mass during surgery. - monitor for H and H now and follow hepatic enzyme - CT reviewed. There is a small to moderate amount of hemoperitoneum and a trace right subhepatic low density fluid collection. No sentinel clot sign. - patient refuses blood product - consulted hematology, s/p iv iron, desmopressin and erythropoitin, also given Vit K - monitor for now, If INR increased could repeat kcentra per hematology hepatitis C with transaminitis - monitor liver enzyme, improving - likely from shock liver VIRAL - likely vasomotor nephropathy - cont to monitor renal function, nephrology consulted - cont iv fluid DVT prophylaxis - SCDs b/o acute blood loss The high probability of a clinically significant, sudden or life threatening deterioration of the [GI, respiratory, neurologic] system(s) required my full and direct attention, intervention and personal management. The aggregate critical care time was [32] minutes. This time is in addition to time spent performing reported procedures but includes the following: [x] Data Review and interpretation [x] Patient assessment and monitoring of vital signs [x] Documentation [x] Medication orders and management Subjective Date of service: 04/03/17 Principal diagnosis: Acute Respiratory Failure on MVS; S/P perforated Cecum; Sepsis Syndrome Interval history: Patient seen and examined c/o abdominal pain, breathing on 2L discussed in length with family at bedside Hb 7.2-7.1, Cr 2.6 today total clara increased but LFT overall improved Objective - Exam Narrative Exam: General appearance: no acute distress - EENT Eyes: PERRL, EOM intact ENT: hearing intact, clear oral mucosa, no thrush, - Neck Neck: supple, normal ROM - Respiratory Respiratory effort: normal Respiratory: bilateral: CTA - Cardiovascular Heart Rate: 110 Rhythm: regular Heart Sounds: Present: S1 & S2 Extremities: no ischemia, No edema - Gastrointestinal General gastrointestinal: Present: soft, tender, non-distended, absent bowel sounds, other (Abdominal sutures with no oozing blood) - Integumentary Integumentary: Present: clear, warm, dry - Neurologic Neurological: oriented to person, oriented to place, other (Able to move all extremeties on command/nonfocal) Extremities: no ischemia, No edema - Psychiatric Psychiatric: appropriate mood/affect - Constitutional Vitals: Vital Signs - 12hr 04/02/17 04/02/17 04/02/17 22:30 22:45 23:00 Temperature Pulse Rate 100 H 102 H 101 H Pulse Rate [ Apical] Pulse Rate [ From Monitor] Respiratory 19 10 L 12 Rate Blood Pressure 138/82 148/78 141/84 O2 Sat by Pulse 98 96 97 Oximetry 04/02/17 04/02/17 04/02/17 23:15 23:30 23:45 Temperature Pulse Rate 100 H 99 H 111 H Pulse Rate [ Apical] Pulse Rate [ From Monitor] Respiratory 14 10 L 16 Rate Blood Pressure 148/89 140/80 137/82 O2 Sat by Pulse 98 Oximetry 04/03/17 04/03/17 04/03/17 00:00 00:15 00:30 Temperature 98.9 F Pulse Rate 103 H 102 H 103 H Pulse Rate [ 105 H Apical] Pulse Rate [ 101 H From Monitor] Respiratory 10 L 10 L 10 L Rate Blood Pressure 151/85 145/77 143/76 O2 Sat by Pulse 97 98 98 Oximetry 04/03/17 04/03/17 04/03/17 00:45 01:00 01:15 Temperature Pulse Rate 120 H 106 H 104 H Pulse Rate [ Apical] Pulse Rate [ From Monitor] Respiratory 13 16 9 L Rate Blood Pressure 148/84 142/80 146/77 O2 Sat by Pulse 100 97 97 Oximetry 04/03/17 04/03/17 04/03/17 01:30 01:45 02:00 Temperature Pulse Rate 101 H 102 H 106 H Pulse Rate [ Apical] Pulse Rate [ From Monitor] Respiratory 16 12 16 Rate Blood Pressure 149/80 143/89 142/80 O2 Sat by Pulse 98 99 Oximetry 04/03/17 04/03/17 04/03/17 02:15 02:31 02:45 Temperature Pulse Rate 101 H 127 H 102 H Pulse Rate [ Apical] Pulse Rate [ From Monitor] Respiratory 9 L 21 11 L Rate Blood Pressure 157/91 157/91 149/89 O2 Sat by Pulse 99 98 Oximetry 04/03/17 04/03/17 04/03/17 03:00 03:15 03:30 Temperature Pulse Rate 106 H 105 H 102 H Pulse Rate [ Apical] Pulse Rate [ From Monitor] Respiratory 15 15 10 L Rate Blood Pressure 156/91 149/89 156/93 O2 Sat by Pulse 97 96 Oximetry 04/03/17 04/03/17 04/03/17 03:45 04:00 04:15 Temperature 99.7 F H Pulse Rate 101 H 99 H 117 H Pulse Rate [ 104 H Apical] Pulse Rate [ 104 H From Monitor] Respiratory 12 15 18 Rate Blood Pressure 162/86 157/90 148/86 O2 Sat by Pulse 97 100 Oximetry 04/03/17 04/03/17 04/03/17 04:30 04:45 05:00 Temperature Pulse Rate 100 H 98 H 101 H Pulse Rate [ Apical] Pulse Rate [ From Monitor] Respiratory 18 14 15 Rate Blood Pressure 159/95 165/91 168/91 O2 Sat by Pulse 98 98 Oximetry 04/03/17 04/03/17 04/03/17 05:15 05:30 05:45 Temperature Pulse Rate 103 H 97 H 93 H Pulse Rate [ Apical] Pulse Rate [ From Monitor] Respiratory 21 16 16 Rate Blood Pressure 167/82 164/78 158/93 O2 Sat by Pulse 99 Oximetry 04/03/17 04/03/17 04/03/17 06:00 06:15 06:30 Temperature Pulse Rate 96 H 92 H 96 H Pulse Rate [ Apical] Pulse Rate [ From Monitor] Respiratory 15 15 16 Rate Blood Pressure 145/75 169/84 156/89 O2 Sat by Pulse 99 98 Oximetry 04/03/17 04/03/17 04/03/17 06:45 07:00 07:15 Temperature Pulse Rate 95 H 100 H 101 H Pulse Rate [ Apical] Pulse Rate [ From Monitor] Respiratory 15 17 17 Rate Blood Pressure 168/84 157/86 168/93 O2 Sat by Pulse 99 100 Oximetry 04/03/17 04/03/17 07:46 07:48 Temperature 97.6 F Pulse Rate Pulse Rate [ Apical] Pulse Rate [ From Monitor] Respiratory Rate Blood Pressure O2 Sat by Pulse 99 Oximetry - Labs CBC & Chem 7: 04/04/17 04:50 04/04/17 04:50 Labs: Abnormal lab results 04/02/17 04/02/17 04/02/17 Range/Units 01:34 15:05 15:05 RBC 3.05 L (3.65-5.03) M/mm3 Hgb 7.6 L (11.8-15.2) gm/dl Hct 23.2 L (35.5-45.6) % MCV 76 L (84-94) fl MCH 25 L (28-32) pg RDW 16.2 H (13.2-15.2) % Plt Count 86 L (140-440) K/mm3 Lymph % (Auto) (13.4-35.0) % Mcintosh % (Auto) (0.0-7.3) % Lymph # (1.2-5.4) K/mm3 Seg Neutrophils % (40.0-70.0) % PT (12.2-14.9) Sec. INR (0.87-1.13) APTT (24.2-36.6) Sec. Chloride (98-107) mmol/L BUN 31 H (9-20) mg/dL Creatinine 2.5 H (0.8-1.5) mg/dL Glucose 105 H (75-100) mg/dL POC Glucose 132 H (70-105) Calcium 7.4 L (8.4-10.2) mg/dL Iron (49-181) ug/dL TIBC (250-450) mcg/dL Ferritin (13.0-400.0) ng/mL Total Bilirubin (0.1-1.2) mg/dL Direct Bilirubin (0-0.2) mg/dL AST (5-40) units/L ALT (7-56) units/L Total Protein (6.3-8.2) g/dL Albumin (3.9-5) g/dL Vitamin B12 (211-911) pg/mL 04/02/17 04/02/17 04/02/17 Range/Units 15:05 18:50 18:50 RBC 2.94 L (3.65-5.03) M/mm3 Hgb 7.2 L (11.8-15.2) gm/dl Hct 22.6 L (35.5-45.6) % MCV 77 L (84-94) fl MCH 24 L (28-32) pg RDW 15.7 H (13.2-15.2) % Plt Count 73 L (140-440) K/mm3 Lymph % (Auto) 11.9 L (13.4-35.0) % Mcintosh % (Auto) (0.0-7.3) % Lymph # 0.7 L (1.2-5.4) K/mm3 Seg Neutrophils % 80.8 H (40.0-70.0) % PT 18.6 H (12.2-14.9) Sec. INR 1.56 H (0.87-1.13) APTT 37.0 H (24.2-36.6) Sec. Chloride (98-107) mmol/L BUN (9-20) mg/dL Creatinine (0.8-1.5) mg/dL Glucose (75-100) mg/dL POC Glucose (70-105) Calcium (8.4-10.2) mg/dL Iron 192 H (49-181) ug/dL TIBC 226 L (250-450) mcg/dL Ferritin (13.0-400.0) ng/mL Total Bilirubin (0.1-1.2) mg/dL Direct Bilirubin (0-0.2) mg/dL AST (5-40) units/L ALT (7-56) units/L Total Protein (6.3-8.2) g/dL Albumin (3.9-5) g/dL Vitamin B12 (211-911) pg/mL 04/02/17 04/02/17 04/02/17 Range/Units 18:50 18:50 18:50 RBC (3.65-5.03) M/mm3 Hgb (11.8-15.2) gm/dl Hct (35.5-45.6) % MCV (84-94) fl MCH (28-32) pg RDW (13.2-15.2) % Plt Count (140-440) K/mm3 Lymph % (Auto) (13.4-35.0) % Mcintosh % (Auto) (0.0-7.3) % Lymph # (1.2-5.4) K/mm3 Seg Neutrophils % (40.0-70.0) % PT (12.2-14.9) Sec. INR (0.87-1.13) APTT (24.2-36.6) Sec. Chloride (98-107) mmol/L BUN (9-20) mg/dL Creatinine (0.8-1.5) mg/dL Glucose (75-100) mg/dL POC Glucose (70-105) Calcium (8.4-10.2) mg/dL Iron (49-181) ug/dL TIBC (250-450) mcg/dL Ferritin 4536.0 H (13.0-400.0) ng/mL Total Bilirubin 2.00 H (0.1-1.2) mg/dL Direct Bilirubin 1.6 H (0-0.2) mg/dL AST 2581 H (5-40) units/L ALT 1873 H (7-56) units/L Total Protein 5.5 L (6.3-8.2) g/dL Albumin 2.5 L (3.9-5) g/dL Vitamin B12 > 2000 H (211-911) pg/mL 04/02/17 04/03/17 04/03/17 Range/Units 21:54 00:01 04:00 RBC 2.91 L (3.65-5.03) M/mm3 Hgb 7.2 L 7.1 L (11.8-15.2) gm/dl Hct 22.6 L 22.2 L (35.5-45.6) % MCV 76 L (84-94) fl MCH 25 L (28-32) pg RDW 15.9 H (13.2-15.2) % Plt Count 71 L (140-440) K/mm3 Lymph % (Auto) 9.9 L (13.4-35.0) % Mcintosh % (Auto) 7.5 H (0.0-7.3) % Lymph # 0.6 L (1.2-5.4) K/mm3 Seg Neutrophils % 82.5 H (40.0-70.0) % PT 16.0 H (12.2-14.9) Sec. INR 1.29 H (0.87-1.13) APTT (24.2-36.6) Sec. Chloride (98-107) mmol/L BUN (9-20) mg/dL Creatinine (0.8-1.5) mg/dL Glucose (75-100) mg/dL POC Glucose (70-105) Calcium (8.4-10.2) mg/dL Iron (49-181) ug/dL TIBC (250-450) mcg/dL Ferritin (13.0-400.0) ng/mL Total Bilirubin (0.1-1.2) mg/dL Direct Bilirubin (0-0.2) mg/dL AST (5-40) units/L ALT (7-56) units/L Total Protein (6.3-8.2) g/dL Albumin (3.9-5) g/dL Vitamin B12 (211-911) pg/mL 04/03/17 04/03/17 Range/Units 05:45 05:45 RBC (3.65-5.03) M/mm3 Hgb (11.8-15.2) gm/dl Hct (35.5-45.6) % MCV (84-94) fl MCH (28-32) pg RDW (13.2-15.2) % Plt Count (140-440) K/mm3 Lymph % (Auto) (13.4-35.0) % Mcintosh % (Auto) (0.0-7.3) % Lymph # (1.2-5.4) K/mm3 Seg Neutrophils % (40.0-70.0) % PT (12.2-14.9) Sec. INR (0.87-1.13) APTT (24.2-36.6) Sec. Chloride 108.3 H (98-107) mmol/L BUN 34 H (9-20) mg/dL Creatinine 2.6 H (0.8-1.5) mg/dL Glucose 175 H (75-100) mg/dL POC Glucose (70-105) Calcium 7.1 L (8.4-10.2) mg/dL Iron (49-181) ug/dL TIBC (250-450) mcg/dL Ferritin (13.0-400.0) ng/mL Total Bilirubin 2.70 H 2.60 H (0.1-1.2) mg/dL Direct Bilirubin 2.2 H (0-0.2) mg/dL AST 1604 H 1600 H (5-40) units/L ALT 1504 H 1486 H (7-56) units/L Total Protein 5.3 L 5.4 L (6.3-8.2) g/dL Albumin 2.3 L 2.4 L (3.9-5) g/dL Vitamin B12 (211-911) pg/mL
[2017-04-03] MEDS: LEVAQUIN 750MG/150ML 750 MG/150 ML BAG IV SCH (10:23)
[2017-04-03] MEDS: PROTONIX IV SCH ×2 (10:24→23:12)
--- NOTE | 2017-04-03 10:56 | Ultrasound Report ---
ULTRASOUND RENAL BILATERAL HISTORY: Acute renal insufficiency. TECHNIQUE: transabdominal ultrasound with color Doppler interrogation. FINDINGS: The right kidney measures 12.9cm. Right renal cortex: 1.4cm. The left kidney measures 12.2cm. Left renal cortex: 1.7cm. The kidneys are normal size, contour and position. There is increased renal parenchymal echotexture bilaterally. Corticomedullary differentiation is preserved. No evidence for cystic disease, nephrolithiasis, mass, hydronephrosis or perinephric fluid. The views of the bladder and the region of the ureters appear normal. IMPRESSION: Renal parenchymal disease.
[2017-04-03] MEDS: D5NS 1,000 ML IV SCH (14:26)
[2017-04-03 14:33] LABS: Hematocrit 22.5 % (35.5-45.6); Hemoglobin 7.2 gm/dl (11.8-15.2)
[2017-04-03 14:37] LABS: BUN/Creatinine Ratio 14.61; Calcium 7.9 mg/dL (8.4-10.2); Chloride 108.4 mmol/L (98-107); Potassium 3.9 mmol/L (3.6-5.0)
--- NOTE | 2017-04-03 15:09 | Progress Note ---
Assessment and Plan - Patient Problems (1) Acute respiratory failure Current Visit: Yes Status: Acute Qualifiers: Respiratory failure complication: R Plan to address problem: - extubated - aspiration precautions - continue bronchodilators and pulmonary toilet in short term - continue to wean oxygen to kep O2 Sats > 94% - continue incentive spirometry (2) Liver mass Current Visit: Yes Status: Acute Plan to address problem: - appeared cirrhotic per surgeon - follow colon biopsies (3) Perforation of colon as colonoscopy complication Current Visit: Yes Status: Acute Plan to address problem: - s/p ex-lap and repair of cecal perforation - no more free air on KUB - NGT pulled and tolerating ice chips (4) Lactic acidosis Current Visit: Yes Status: Acute Plan to address problem: - resolved - continue gentle volume resuscitation re: azotemia also - continue antibiotics as ordered (5) Colonic mass Current Visit: Yes Status: Acute Plan to address problem: - await pathology reports - suspicious for malignancy (6) Elevated transaminase level Current Visit: Yes Status: Acute Plan to address problem: - likely shock liver - trending down (7) Gastrointestinal blood Current Visit: Yes Status: Acute Qualifiers: GI bleed type/associated pathology: G Gastritis type: G Plan to address problem: - continue H&H - changed protonix to bid (8) Discharge planning issues Current Visit: Yes Status: Acute Plan to address problem: - observe in ICU overnight and transfer tomorrow if stable Subjective Date of service: 04/03/17 Principal diagnosis: Acute Respiratory Failure on MVS; S/P perforated Cecum; Sepsis Syndrome Interval history: Seen and examined at bedside; 24 hour events reviewed; nursing and respiratory care staff consulted; no adverse overnight events reported to me; continues to improve; denies acute chest pains or increased SOB; No gross GI bleeding and remains non-oliguric Objective Vital Signs - 12hr 04/03/17 04/03/17 04/03/17 03:15 03:30 03:45 Temperature Pulse Rate 105 H 102 H 101 H Pulse Rate [ Apical] Pulse Rate [ From Monitor] Pulse Rate [ Right Lower Lobe] Respiratory 15 10 L 12 Rate Respiratory Rate [Right Lower Lobe] Blood Pressure 149/89 156/93 162/86 O2 Sat by Pulse 96 Oximetry 04/03/17 04/03/17 04/03/17 04:00 04:15 04:30 Temperature 99.7 F H Pulse Rate 99 H 117 H 100 H Pulse Rate [ 104 H Apical] Pulse Rate [ 104 H From Monitor] Pulse Rate [ Right Lower Lobe] Respiratory 15 18 18 Rate Respiratory Rate [Right Lower Lobe] Blood Pressure 157/90 148/86 159/95 O2 Sat by Pulse 97 100 98 Oximetry 04/03/17 04/03/17 04/03/17 04:45 05:00 05:15 Temperature Pulse Rate 98 H 101 H 103 H Pulse Rate [ Apical] Pulse Rate [ From Monitor] Pulse Rate [ Right Lower Lobe] Respiratory 14 15 21 Rate Respiratory Rate [Right Lower Lobe] Blood Pressure 165/91 168/91 167/82 O2 Sat by Pulse 98 Oximetry 04/03/17 04/03/17 04/03/17 05:30 05:45 06:00 Temperature Pulse Rate 97 H 93 H 96 H Pulse Rate [ Apical] Pulse Rate [ From Monitor] Pulse Rate [ Right Lower Lobe] Respiratory 16 16 15 Rate Respiratory Rate [Right Lower Lobe] Blood Pressure 164/78 158/93 145/75 O2 Sat by Pulse 99 Oximetry 04/03/17 04/03/17 04/03/17 06:15 06:30 06:45 Temperature Pulse Rate 92 H 96 H 95 H Pulse Rate [ Apical] Pulse Rate [ From Monitor] Pulse Rate [ Right Lower Lobe] Respiratory 15 16 15 Rate Respiratory Rate [Right Lower Lobe] Blood Pressure 169/84 156/89 168/84 O2 Sat by Pulse 99 98 99 Oximetry 04/03/17 04/03/17 04/03/17 07:00 07:15 07:30 Temperature Pulse Rate 100 H 101 H 103 H Pulse Rate [ Apical] Pulse Rate [ From Monitor] Pulse Rate [ Right Lower Lobe] Respiratory 17 17 16 Rate Respiratory Rate [Right Lower Lobe] Blood Pressure 157/86 168/93 174/95 O2 Sat by Pulse 100 98 Oximetry 04/03/17 04/03/17 04/03/17 07:45 07:46 07:48 Temperature 97.6 F Pulse Rate 93 H Pulse Rate [ Apical] Pulse Rate [ From Monitor] Pulse Rate [ Right Lower Lobe] Respiratory 13 Rate Respiratory Rate [Right Lower Lobe] Blood Pressure 166/94 O2 Sat by Pulse 98 99 Oximetry 04/03/17 04/03/17 04/03/17 08:00 08:15 08:31 Temperature Pulse Rate 109 H 103 H 115 H Pulse Rate [ Apical] Pulse Rate [ From Monitor] Pulse Rate [ Right Lower Lobe] Respiratory 14 17 24 Rate Respiratory Rate [Right Lower Lobe] Blood Pressure 150/84 173/96 154/78 O2 Sat by Pulse 99 100 93 Oximetry 04/03/17 04/03/17 04/03/17 08:45 09:00 09:15 Temperature Pulse Rate 104 H 99 H 99 H Pulse Rate [ Apical] Pulse Rate [ From Monitor] Pulse Rate [ Right Lower Lobe] Respiratory 15 11 L 14 Rate Respiratory Rate [Right Lower Lobe] Blood Pressure 144/88 143/87 149/84 O2 Sat by Pulse 100 100 100 Oximetry 04/03/17 04/03/17 04/03/17 09:30 09:45 10:00 Temperature Pulse Rate 100 H 104 H 102 H Pulse Rate [ Apical] Pulse Rate [ From Monitor] Pulse Rate [ Right Lower Lobe] Respiratory 16 15 Rate Respiratory Rate [Right Lower Lobe] Blood Pressure 142/90 161/82 179/91 O2 Sat by Pulse 99 100 Oximetry 04/03/17 04/03/17 04/03/17 10:15 10:30 10:45 Temperature Pulse Rate 100 H 135 H 103 H Pulse Rate [ Apical] Pulse Rate [ From Monitor] Pulse Rate [ Right Lower Lobe] Respiratory 18 21 13 Rate Respiratory Rate [Right Lower Lobe] Blood Pressure 164/98 169/101 175/94 O2 Sat by Pulse 95 94 Oximetry 04/03/17 04/03/17 04/03/17 11:00 11:15 11:30 Temperature Pulse Rate 113 H 111 H 110 H Pulse Rate [ Apical] Pulse Rate [ From Monitor] Pulse Rate [ Right Lower Lobe] Respiratory 19 15 17 Rate Respiratory Rate [Right Lower Lobe] Blood Pressure 169/89 158/89 162/88 O2 Sat by Pulse 95 95 96 Oximetry 04/03/17 04/03/17 04/03/17 11:45 12:00 12:15 Temperature Pulse Rate 114 H 108 H 107 H Pulse Rate [ Apical] Pulse Rate [ From Monitor] Pulse Rate [ Right Lower Lobe] Respiratory 17 23 15 Rate Respiratory Rate [Right Lower Lobe] Blood Pressure 155/90 159/91 157/85 O2 Sat by Pulse 95 99 Oximetry 04/03/17 04/03/17 04/03/17 12:30 12:45 13:00 Temperature Pulse Rate 107 H 104 H 114 H Pulse Rate [ Apical] Pulse Rate [ From Monitor] Pulse Rate [ Right Lower Lobe] Respiratory 12 11 L 15 Rate Respiratory Rate [Right Lower Lobe] Blood Pressure 158/86 158/83 140/81 O2 Sat by Pulse 99 99 Oximetry 04/03/17 04/03/17 04/03/17 13:15 13:30 14:00 Temperature Pulse Rate 108 H 104 H Pulse Rate [ Apical] Pulse Rate [ From Monitor] Pulse Rate [ 99 H Right Lower Lobe] Respiratory 15 18 Rate Respiratory 13 Rate [Right Lower Lobe] Blood Pressure 149/87 154/83 O2 Sat by Pulse 100 99 Oximetry 04/03/17 14:57 Temperature Pulse Rate Pulse Rate [ Apical] Pulse Rate [ From Monitor] Pulse Rate [ 99 H Right Lower Lobe] Respiratory Rate Respiratory 14 Rate [Right Lower Lobe] Blood Pressure O2 Sat by Pulse Oximetry Constitutional: no acute distress, alert Eyes: non-icteric ENT: oropharynx moist Neck: supple, no lymphadenopathy Effort: normal Ascultation: Bilateral: clear, diminished breath sounds (bases) Cardiovascular: regular rate and rhythm Gastrointestinal: hypoactive bowel sounds, soft, non-tender, non-distended Integumentary: normal Extremities: no cyanosis, no edema, pulses normal, no ischemia or petechiae Neurologic: normal mental status, non-focal exam, pupils equal and round, motor strength normal and Psychiatric: mood appropriate, affect normal CBC and BMP: 04/04/17 04:50 04/04/17 04:50 ABG, PT/INR, D-dimer: ABG POC ABG pH 7.396 (7.35-7.45) 04/01/17 16:23 POC ABG pCO2 44.7 (35-45) 04/01/17 16:23 POC ABG pO2 125 (80-105) H 04/01/17 16:23 POC ABG HCO3 27.4 04/01/17 16:23 POC ABG Total CO2 29 04/01/17 16:23 POC ABG O2 Sat 99 04/01/17 16:23 PT/INR, D-dimer PT 16.0 Sec. (12.2-14.9) H 04/03/17 04:00 INR 1.29 (0.87-1.13) H 04/03/17 04:00 Abnormal lab findings: Abnormal Labs 07/27/17 07/27/17 07/27/17 15:19 15:43 19:15 RBC Hgb 10.6 L 10.3 L Hct 33.9 L D 32.1 L MCV 78 L 77 L MCH 24 L 25 L MCHC 31 L RDW 15.8 H 15.9 H Plt Count 116 L Lymph % (Auto) 8.7 L [place] % (Auto) Lymph # 0.7 L Seg Neutrophils % 77.2 H 86.8 H PT INR APTT POC ABG pH 7.202 L POC ABG pCO2 POC ABG pO2 292 H Sodium Chloride Carbon Dioxide BUN Creatinine Glucose POC Glucose Lactic Acid Calcium Magnesium Iron TIBC Ferritin Total Bilirubin Direct Bilirubin AST ALT Total Protein Albumin Vitamin B12 03/31/17 03/31/17 03/31/17 19:15 19:15 19:15 RBC Hgb Hct MCV MCH MCHC RDW Plt Count Lymph % (Auto) [place] % (Auto) Lymph # Seg Neutrophils % PT INR APTT POC ABG pH POC ABG pCO2 POC ABG pO2 Sodium Chloride Carbon Dioxide 12 L BUN 8 L Creatinine Glucose 206 H POC Glucose Lactic Acid 6.90 H* Calcium 6.9 L D Magnesium 1.30 L Iron TIBC Ferritin Total Bilirubin Direct Bilirubin AST ALT Total Protein Albumin Vitamin B12 03/31/17 03/31/17 03/31/17 21:13 22:50 23:20 RBC Hgb Hct MCV MCH MCHC RDW Plt Count Lymph % (Auto) [place] % (Auto) Lymph # Seg Neutrophils % PT INR APTT POC ABG pH 7.142 L POC ABG pCO2 46.1 H 23.0 L POC ABG pO2 229 H 180 H Sodium Chloride Carbon Dioxide BUN Creatinine Glucose POC Glucose Lactic Acid 5.90 H* Calcium Magnesium Iron TIBC Ferritin Total Bilirubin Direct Bilirubin AST ALT Total Protein Albumin Vitamin B12 04/01/17 04/01/17 04/01/17 05:00 05:00 05:00 RBC 2.97 L Hgb 7.3 L D Hct 22.6 L D MCV 76 L MCH 25 L MCHC RDW 15.9 H Plt Count 102 L Lymph % (Auto) 10.4 L [place] % (Auto) Lymph # 0.5 L Seg Neutrophils % 86.8 H PT INR APTT POC ABG pH POC ABG pCO2 POC ABG pO2 Sodium Chloride Carbon Dioxide BUN Creatinine Glucose 190 H POC Glucose Lactic Acid 3.80 H* Calcium 6.9 L Magnesium Iron TIBC Ferritin Total Bilirubin Direct Bilirubin AST ALT Total Protein Albumin Vitamin B12 04/01/17 04/01/17 04/01/17 09:01 09:55 09:55 RBC 3.45 L Hgb 8.5 L Hct 26.4 L MCV 77 L MCH 25 L MCHC RDW 15.7 H Plt Count 112 L Lymph % (Auto) 10.0 L [place] % (Auto) Lymph # 0.7 L Seg Neutrophils % 85.5 H PT INR APTT POC ABG pH 7.480 H POC ABG pCO2 32.3 L POC ABG pO2 150 H Sodium Chloride 108.5 H Carbon Dioxide BUN Creatinine Glucose 110 H POC Glucose Lactic Acid Calcium 6.9 L Magnesium Iron TIBC Ferritin Total Bilirubin Direct Bilirubin AST ALT Total Protein Albumin Vitamin B12 04/01/17 04/01/17 04/01/17 10:36 16:12 16:23 RBC Hgb Hct MCV MCH MCHC RDW Plt Count Lymph % (Auto) [place] % (Auto) Lymph # Seg Neutrophils % PT INR APTT POC ABG pH POC ABG pCO2 POC ABG pO2 38 L 125 H Sodium Chloride Carbon Dioxide BUN Creatinine Glucose POC Glucose Lactic Acid 2.60 H* Calcium Magnesium Iron TIBC Ferritin Total Bilirubin Direct Bilirubin AST ALT Total Protein Albumin Vitamin B12 04/01/17 04/02/17 04/02/17 18:00 01:34 04:00 RBC 3.21 L 2.98 L Hgb 7.8 L 7.3 L Hct 24.5 L 22.8 L MCV 76 L 77 L MCH 24 L 24 L MCHC RDW 15.7 H 15.7 H Plt Count 94 L 70 L Lymph % (Auto) 9.6 L [place] % (Auto) Lymph # 0.7 L 0.8 L Seg Neutrophils % 87.0 H 80.5 H PT INR APTT POC ABG pH POC ABG pCO2 POC ABG pO2 Sodium Chloride Carbon Dioxide BUN Creatinine Glucose POC Glucose 132 H Lactic Acid Calcium Magnesium Iron TIBC Ferritin Total Bilirubin Direct Bilirubin AST ALT Total Protein Albumin Vitamin B12 04/02/17 04/02/17 04/02/17 04:00 04:00 04:00 RBC Hgb Hct MCV MCH MCHC RDW Plt Count Lymph % (Auto) [place] % (Auto) Lymph # Seg Neutrophils % PT 21.5 H INR 1.87 H APTT POC ABG pH POC ABG pCO2 POC ABG pO2 Sodium Chloride Carbon Dioxide BUN 25 H Creatinine 2.0 H D Glucose 108 H POC Glucose Lactic Acid Calcium 6.9 L Magnesium Iron TIBC 184 L Ferritin Total Bilirubin 1.40 H Direct Bilirubin AST 4564 H ALT 2544 H Total Protein 5.3 L D Albumin 2.4 L Vitamin B12 2000 H 04/02/17 04/02/17 04/02/17 08:49 15:05 15:05 RBC 3.05 L Hgb 7.6 L Hct 23.2 L MCV 76 L MCH 25 L MCHC RDW 16.2 H Plt Count 86 L Lymph % (Auto) [place] % (Auto) Lymph # Seg Neutrophils % PT 20.6 H INR 1.77 H APTT POC ABG pH POC ABG pCO2 POC ABG pO2 Sodium Chloride Carbon Dioxide BUN 31 H Creatinine 2.5 H Glucose 105 H POC Glucose Lactic Acid Calcium 7.4 L Magnesium Iron TIBC Ferritin Total Bilirubin Direct Bilirubin AST ALT Total Protein Albumin Vitamin B12 04/02/17 04/02/17 04/02/17 15:05 18:50 18:50 RBC 2.94 L Hgb 7.2 L Hct 22.6 L MCV 77 L MCH 24 L MCHC RDW 15.7 H Plt Count 73 L Lymph % (Auto) 11.9 L [place] % (Auto) Lymph # 0.7 L Seg Neutrophils % 80.8 H PT 18.6 H INR 1.56 H APTT 37.0 H POC ABG pH POC ABG pCO2 POC ABG pO2 Sodium Chloride Carbon Dioxide BUN Creatinine Glucose POC Glucose Lactic Acid Calcium Magnesium Iron 192 H TIBC 226 L Ferritin Total Bilirubin Direct Bilirubin AST ALT Total Protein Albumin Vitamin B12 04/02/17 04/02/17 04/02/17 18:50 18:50 18:50 RBC Hgb Hct MCV MCH MCHC RDW Plt Count Lymph % (Auto) [place] % (Auto) Lymph # Seg Neutrophils % PT INR APTT POC ABG pH POC ABG pCO2 POC ABG pO2 Sodium Chloride Carbon Dioxide BUN Creatinine Glucose POC Glucose Lactic Acid Calcium Magnesium Iron TIBC Ferritin 4536.0 H Total Bilirubin 2.00 H Direct Bilirubin 1.6 H AST 2581 H ALT 1873 H Total Protein 5.5 L Albumin 2.5 L Vitamin B12 > 2000 H 04/02/17 04/03/17 04/03/17 21:54 00:01 04:00 RBC 2.91 L Hgb 7.2 L 7.1 L Hct 22.6 L 22.2 L MCV 76 L MCH 25 L MCHC RDW 15.9 H Plt Count 71 L Lymph % (Auto) 9.9 L [place] % (Auto) 7.5 H Lymph # 0.6 L Seg Neutrophils % 82.5 H PT 16.0 H INR 1.29 H APTT POC ABG pH POC ABG pCO2 POC ABG pO2 Sodium Chloride Carbon Dioxide BUN Creatinine Glucose POC Glucose Lactic Acid Calcium Magnesium Iron TIBC Ferritin Total Bilirubin Direct Bilirubin AST ALT Total Protein Albumin Vitamin B12 04/03/17 04/03/17 04/03/17 05:45 05:45 14:20 RBC Hgb 7.2 L Hct 22.5 L MCV MCH MCHC RDW Plt Count Lymph % (Auto) [place] % (Auto) Lymph # Seg Neutrophils % PT INR APTT POC ABG pH POC ABG pCO2 POC ABG pO2 Sodium Chloride 108.3 H Carbon Dioxide BUN 34 H Creatinine 2.6 H Glucose 175 H POC Glucose Lactic Acid Calcium 7.1 L Magnesium Iron TIBC Ferritin Total Bilirubin 2.70 H 2.60 H Direct Bilirubin 2.2 H AST 1604 H 1600 H ALT 1504 H 1486 H Total Protein 5.3 L 5.4 L Albumin 2.3 L 2.4 L Vitamin B12 04/03/17 14:20 RBC Hgb Hct MCV MCH MCHC RDW Plt Count Lymph % (Auto) [place] % (Auto) Lymph # Seg Neutrophils % PT INR APTT POC ABG pH POC ABG pCO2 POC ABG pO2 Sodium 146 H Chloride 108.4 H Carbon Dioxide BUN 38 H Creatinine 2.6 H Glucose 151 H POC Glucose Lactic Acid Calcium 7.9 L Magnesium Iron TIBC Ferritin Total Bilirubin Direct Bilirubin AST ALT Total Protein Albumin Vitamin B12
--- NOTE | 2017-04-03 15:26 | Progress Note ---
Assessment and Plan Assessment: * Nonoliguric VIRAL secondary to ATN * Perforated colon as colonoscopy complication; large cecal colon mass --s/p ex-lap right hemicolectomy * Liver mass s/p intraoperative bx * Anemia secondary to ABL - stable * Transaminitis secondary to shock liver - liver enzymes improved * Acute respiratory failure - now extubated on [place] oxygen * Coagulopathy secondary to shock liver * Thrombocytopenia * Metabolic acidosis secondary to lactic acidosis - resolved * Hepatitis C Plan: * SCr has plateaued, patient w/ good UOP and stable lytes - continue conservative management. No acute indication for WAIT STAFF * Continue IVF - change to D5 1/2 NS as Na is mildly elevated * Urine lytes pending - will discuss with RN * Strict monitoring of I/O * Avoid potential nephrotoxic agents * Adjust medications for renal function * Hydralazine prn * Epogen per heme/onc * Daughter at bedside; she states that she is "pleased" with his progress Subjective Date of service: 04/03/17 Principal diagnosis: Acute Respiratory Failure on MVS; S/P perforated Cecum; Sepsis Syndrome Interval history: Patient denies SOB. Objective - Vital Signs Vital signs: Vital Signs - 12hr 04/03/17 04/03/17 04/03/17 03:30 03:45 04:00 Temperature 99.7 F H Pulse Rate 102 H 101 H 99 H Pulse Rate [ 104 H Apical] Pulse Rate [ 104 H From Monitor] Pulse Rate [ Right Lower Lobe] Respiratory 10 L 12 15 Rate Respiratory Rate [Right Lower Lobe] Blood Pressure 156/93 162/86 157/90 O2 Sat by Pulse 96 97 Oximetry 04/03/17 04/03/17 04/03/17 04:15 04:30 04:45 Temperature Pulse Rate 117 H 100 H 98 H Pulse Rate [ Apical] Pulse Rate [ From Monitor] Pulse Rate [ Right Lower Lobe] Respiratory 18 18 14 Rate Respiratory Rate [Right Lower Lobe] Blood Pressure 148/86 159/95 165/91 O2 Sat by Pulse 100 98 Oximetry 04/03/17 04/03/17 04/03/17 05:00 05:15 05:30 Temperature Pulse Rate 101 H 103 H 97 H Pulse Rate [ Apical] Pulse Rate [ From Monitor] Pulse Rate [ Right Lower Lobe] Respiratory 15 21 16 Rate Respiratory Rate [Right Lower Lobe] Blood Pressure 168/91 167/82 164/78 O2 Sat by Pulse 98 99 Oximetry 04/03/17 04/03/17 04/03/17 05:45 06:00 06:15 Temperature Pulse Rate 93 H 96 H 92 H Pulse Rate [ Apical] Pulse Rate [ From Monitor] Pulse Rate [ Right Lower Lobe] Respiratory 16 15 15 Rate Respiratory Rate [Right Lower Lobe] Blood Pressure 158/93 145/75 169/84 O2 Sat by Pulse 99 Oximetry 04/03/17 04/03/17 04/03/17 06:30 06:45 07:00 Temperature Pulse Rate 96 H 95 H 100 H Pulse Rate [ Apical] Pulse Rate [ From Monitor] Pulse Rate [ Right Lower Lobe] Respiratory 16 15 17 Rate Respiratory Rate [Right Lower Lobe] Blood Pressure 156/89 168/84 157/86 O2 Sat by Pulse 98 99 Oximetry 04/03/17 04/03/17 04/03/17 07:15 07:30 07:45 Temperature Pulse Rate 101 H 103 H 93 H Pulse Rate [ Apical] Pulse Rate [ From Monitor] Pulse Rate [ Right Lower Lobe] Respiratory 17 16 13 Rate Respiratory Rate [Right Lower Lobe] Blood Pressure 168/93 174/95 166/94 O2 Sat by Pulse 100 98 98 Oximetry 04/03/17 04/03/17 04/03/17 07:46 07:48 08:00 Temperature 97.6 F Pulse Rate 109 H Pulse Rate [ Apical] Pulse Rate [ From Monitor] Pulse Rate [ Right Lower Lobe] Respiratory 14 Rate Respiratory Rate [Right Lower Lobe] Blood Pressure 150/84 O2 Sat by Pulse 99 99 Oximetry 04/03/17 04/03/17 04/03/17 08:15 08:31 08:45 Temperature Pulse Rate 103 H 115 H 104 H Pulse Rate [ Apical] Pulse Rate [ From Monitor] Pulse Rate [ Right Lower Lobe] Respiratory 17 24 15 Rate Respiratory Rate [Right Lower Lobe] Blood Pressure 173/96 154/78 144/88 O2 Sat by Pulse 100 93 100 Oximetry 04/03/17 04/03/17 04/03/17 09:00 09:15 09:30 Temperature Pulse Rate 99 H 99 H 100 H Pulse Rate [ Apical] Pulse Rate [ From Monitor] Pulse Rate [ Right Lower Lobe] Respiratory 11 L 14 16 Rate Respiratory Rate [Right Lower Lobe] Blood Pressure 143/87 149/84 142/90 O2 Sat by Pulse 100 100 99 Oximetry 04/03/17 04/03/17 04/03/17 09:45 10:00 10:15 Temperature Pulse Rate 104 H 102 H 100 H Pulse Rate [ Apical] Pulse Rate [ From Monitor] Pulse Rate [ Right Lower Lobe] Respiratory 15 18 Rate Respiratory Rate [Right Lower Lobe] Blood Pressure 161/82 179/91 164/98 O2 Sat by Pulse 100 95 Oximetry 04/03/17 04/03/17 04/03/17 10:30 10:45 11:00 Temperature Pulse Rate 135 H 103 H 113 H Pulse Rate [ Apical] Pulse Rate [ From Monitor] Pulse Rate [ Right Lower Lobe] Respiratory 21 13 19 Rate Respiratory Rate [Right Lower Lobe] Blood Pressure 169/101 175/94 169/89 O2 Sat by Pulse 94 95 Oximetry 04/03/17 04/03/17 04/03/17 11:15 11:30 11:45 Temperature Pulse Rate 111 H 110 H 114 H Pulse Rate [ Apical] Pulse Rate [ From Monitor] Pulse Rate [ Right Lower Lobe] Respiratory 15 17 17 Rate Respiratory Rate [Right Lower Lobe] Blood Pressure 158/89 162/88 155/90 O2 Sat by Pulse 95 96 95 Oximetry 04/03/17 04/03/17 04/03/17 12:00 12:15 12:30 Temperature Pulse Rate 108 H 107 H 107 H Pulse Rate [ Apical] Pulse Rate [ From Monitor] Pulse Rate [ Right Lower Lobe] Respiratory 23 15 12 Rate Respiratory Rate [Right Lower Lobe] Blood Pressure 159/91 157/85 158/86 O2 Sat by Pulse 99 99 Oximetry 04/03/17 04/03/17 04/03/17 12:45 13:00 13:15 Temperature Pulse Rate 104 H 114 H 108 H Pulse Rate [ Apical] Pulse Rate [ From Monitor] Pulse Rate [ Right Lower Lobe] Respiratory 11 L 15 15 Rate Respiratory Rate [Right Lower Lobe] Blood Pressure 158/83 140/81 149/87 O2 Sat by Pulse 99 100 Oximetry 04/03/17 04/03/17 04/03/17 13:30 14:00 14:57 Temperature Pulse Rate 104 H Pulse Rate [ Apical] Pulse Rate [ From Monitor] Pulse Rate [ 99 H 99 H Right Lower Lobe] Respiratory 18 Rate Respiratory 13 14 Rate [Right Lower Lobe] Blood Pressure 154/83 O2 Sat by Pulse 99 Oximetry - General Appearance General appearance: well-developed, well-nourished, other (NAD) EENT: ATNC Respiratory: Present: Clear to Ascultation Cardiology: tachycardia Gastrointestinal: normal, other (hypoactive BS) Integumentary: no rash Neurologic: alert and oriented x3 Musculoskeletal: other (no edema) Psychiatric: mood/affect appropriate, cooperative - Lab 04/03/17 14:20 04/03/17 14:20 Most recent lab results Calcium 7.9 mg/dL (8.4-10.2) L 04/03/17 14:20 Phosphorus 3.30 mg/dL (2.5-4.5) 03/31/17 19:15 Magnesium 1.30 mg/dL (1.7-2.3) L 03/31/17 19:15
--- NOTE | 2017-04-03 16:46 | Hem/Onc Progress Note ---
Assessment and Plan 1. coagulopathy- due to underlying hepatits/cirrhosis with possible component of shock liver - s/p KCentra, vitamin K and DDAVP - oozing improved, Hgb now stable x 24 h - INR improved - continue to monitor, KCentra and DDAVP may be repeated if necessary 2. anemia- due to blood loss, now with kidney insufficiency as well - Hgb stable - s/p IV iron - continue EPO - follow cbc 3. likely metastatic colon cancer - awaiting final pathology - recommend CT chest and if negative, MRI liver when pt is able Subjective Date of service: 04/03/17 Principal diagnosis: coagulopathy Interval history: denies abdominal pain. Objective - Constitutional Vitals: Last Vital Signs Temp 97.9 F 04/03/17 15:39 Pulse 123 H 04/03/17 15:30 Resp 22 04/03/17 15:30 BP 151/83 04/03/17 15:30 Pulse Ox 97 04/03/17 15:30 General appearance: no acute distress - Neck Neck: supple - Respiratory Respiratory effort: Positive: normal - Cardiovascular Rhythm: regular Extremities: No edema - Gastrointestinal General gastrointestinal: Present: other (midline incision with oozing now drying up) - Labs Lab Results: Laboratory Results - last 24 hr 04/02/17 04/02/17 04/02/17 18:50 18:50 18:50 WBC 5.7 RBC 2.94 L Hgb 7.2 L Hct 22.6 L MCV 77 L MCH 24 L MCHC 32 RDW 15.7 H Plt Count 73 L Lymph % (Auto) 11.9 L [place] % (Auto) 7.0 Eos % (Auto) 0.1 Baso % (Auto) 0.2 Lymph # 0.7 L [place] # 0.4 Eos # 0.0 Baso # 0.0 Seg Neutrophils % 80.8 H Seg Neutrophils # 4.6 Percent Retic 1.74 PT INR Sodium Potassium Chloride Carbon Dioxide Anion Gap BUN Creatinine Estimated GFR BUN/Creatinine Ratio Glucose Calcium Iron 192 H TIBC 226 L Ferritin Total Bilirubin Direct Bilirubin Indirect Bilirubin AST ALT Alkaline Phosphatase Total Protein Albumin Albumin/Globulin Ratio Triglycerides Vitamin B12 Folate 04/02/17 04/02/17 04/02/17 18:50 18:50 18:50 WBC RBC Hgb Hct MCV MCH MCHC RDW Plt Count Lymph % (Auto) [place] % (Auto) Eos % (Auto) Baso % (Auto) Lymph # [place] # Eos # Baso # Seg Neutrophils % Seg Neutrophils # Percent Retic PT INR Sodium Potassium Chloride Carbon Dioxide Anion Gap BUN Creatinine Estimated GFR BUN/Creatinine Ratio Glucose Calcium Iron TIBC Ferritin 4536.0 H Total Bilirubin Direct Bilirubin Indirect Bilirubin AST ALT Alkaline Phosphatase Total Protein Albumin Albumin/Globulin Ratio Triglycerides Vitamin B12 > 2000 H Folate 12.25 04/02/17 04/02/17 04/03/17 18:50 21:54 00:01 WBC 5.7 RBC 2.91 L Hgb 7.2 L 7.1 L Hct 22.6 L 22.2 L MCV 76 L MCH 25 L MCHC 32 RDW 15.9 H Plt Count 71 L Lymph % (Auto) 9.9 L [place] % (Auto) 7.5 H Eos % (Auto) 0.0 Baso % (Auto) 0.1 Lymph # 0.6 L [place] # 0.4 Eos # 0.0 Baso # 0.0 Seg Neutrophils % 82.5 H Seg Neutrophils # 4.7 Percent Retic PT INR Sodium Potassium Chloride Carbon Dioxide Anion Gap BUN Creatinine Estimated GFR BUN/Creatinine Ratio Glucose Calcium Iron TIBC Ferritin Total Bilirubin 2.00 H Direct Bilirubin 1.6 H Indirect Bilirubin 0.4 AST 2581 H ALT 1873 H Alkaline Phosphatase 64 Total Protein 5.5 L Albumin 2.5 L Albumin/Globulin Ratio 0.8 Triglycerides Vitamin B12 Folate 04/03/17 04/03/17 04/03/17 04:00 05:45 05:45 WBC RBC Hgb Hct MCV MCH MCHC RDW Plt Count Lymph % (Auto) [place] % (Auto) Eos % (Auto) Baso % (Auto) Lymph # [place] # Eos # Baso # Seg Neutrophils % Seg Neutrophils # Percent Retic PT 16.0 H INR 1.29 H Sodium Potassium Chloride Carbon Dioxide Anion Gap BUN Creatinine Estimated GFR BUN/Creatinine Ratio Glucose Calcium Iron TIBC Ferritin Total Bilirubin 2.70 H Direct Bilirubin 2.2 H Indirect Bilirubin 0.5 AST 1604 H ALT 1504 H Alkaline Phosphatase 61 Total Protein 5.3 L Albumin 2.3 L Albumin/Globulin Ratio 0.8 Triglycerides 66 Vitamin B12 Folate 04/03/17 04/03/17 04/03/17 05:45 14:20 14:20 WBC RBC Hgb 7.2 L Hct 22.5 L MCV MCH MCHC RDW Plt Count Lymph % (Auto) [place] % (Auto) Eos % (Auto) Baso % (Auto) Lymph # [place] # Eos # Baso # Seg Neutrophils % Seg Neutrophils # Percent Retic PT INR Sodium 142 146 H Potassium 4.1 3.9 Chloride 108.3 H 108.4 H Carbon Dioxide 22 22 Anion Gap 16 20 BUN 34 H 38 H Creatinine 2.6 H 2.6 H Estimated GFR 30 30 BUN/Creatinine Ratio 13.07 14.61 Glucose 175 H 151 H Calcium 7.1 L 7.9 L Iron TIBC Ferritin Total Bilirubin 2.60 H Direct Bilirubin Indirect Bilirubin AST 1600 H ALT 1486 H Alkaline Phosphatase 62 Total Protein 5.4 L Albumin 2.4 L Albumin/Globulin Ratio 0.8 Triglycerides Vitamin B12 Folate
[2017-04-03] MEDS: PROCRIT SUB-Q SCH (17:43)
[2017-04-03] MEDS: D5/0.45NS 1,000 ML IV SCH (17:48)
[2017-04-03] MEDS: LOPRESSOR IV SCH ×2 (18:27→23:37)
[2017-04-03] MEDS: APRESOLINE IV PRN (20:40)
--- NOTE | 2017-04-03 21:45 | Gastroenterology Progress Note ---
Assessment and Plan colon mass - s/p right jessica-colectomy emergently following cecal perforation during colonoscopy. awaiting pathology results. suspect primary source vs metastatic lesion from hepatic mass. -diet management per surgery Acute on chronic liver injury - patient with chronic hcv, likely cirrhosis with acute rise in liver enzymes. likely 2/2 ischemic hepatitis. liver enzymes trending down VIRAL - creatinine stable from yesterday, further management per renal Anemia - hct has remained stable over last 2 days. further management per heme/ onc Subjective Date of service: 04/03/17 Principal diagnosis: Acute Respiratory Failure on MVS; S/P perforated Cecum; Sepsis Syndrome Interval history: pt reports feeling better overall, denies new complaints. was able to get out of bed today. no flatus or bm's. Objective - Exam Narrative Exam: Gen: NAD, resting comfortably CV: tachycardic, s1 and s2 Lungs: CTAB, non labored Abd: mild dist, wound dressing, hypoactive bs - Constitutional Vitals: Temp Pulse Resp BP Pulse Ox 98.7 F 118 H 16 184/102 100 04/03/17 21:02 04/03/17 20:55 04/03/17 20:55 04/03/17 20:40 04/03/17 20:32 - Labs CBC & Chem 7: 04/03/17 14:20 04/03/17 14:20 Labs: Laboratory Results - last 24 hr 04/02/17 04/03/17 04/03/17 21:54 00:01 04:00 WBC 5.7 RBC 2.91 L Hgb 7.2 L 7.1 L Hct 22.6 L 22.2 L MCV 76 L MCH 25 L MCHC 32 RDW 15.9 H Plt Count 71 L Lymph % (Auto) 9.9 L [place] % (Auto) 7.5 H Eos % (Auto) 0.0 Baso % (Auto) 0.1 Lymph # 0.6 L [place] # 0.4 Eos # 0.0 Baso # 0.0 Seg Neutrophils % 82.5 H Seg Neutrophils # 4.7 PT 16.0 H INR 1.29 H Sodium Potassium Chloride Carbon Dioxide Anion Gap BUN Creatinine Estimated GFR BUN/Creatinine Ratio Glucose POC Glucose Calcium Total Bilirubin Direct Bilirubin Indirect Bilirubin AST ALT Alkaline Phosphatase Total Protein Albumin Albumin/Globulin Ratio Triglycerides Urine Creatinine Urine Sodium 04/03/17 04/03/17 04/03/17 05:45 05:45 05:45 WBC RBC Hgb Hct MCV MCH MCHC RDW Plt Count Lymph % (Auto) [place] % (Auto) Eos % (Auto) Baso % (Auto) Lymph # [place] # Eos # Baso # Seg Neutrophils % Seg Neutrophils # PT INR Sodium 142 Potassium 4.1 Chloride 108.3 H Carbon Dioxide 22 Anion Gap 16 BUN 34 H Creatinine 2.6 H Estimated GFR 30 BUN/Creatinine Ratio 13.07 Glucose 175 H POC Glucose Calcium 7.1 L Total Bilirubin 2.70 H 2.60 H Direct Bilirubin 2.2 H Indirect Bilirubin 0.5 AST 1604 H 1600 H ALT 1504 H 1486 H Alkaline Phosphatase 61 62 Total Protein 5.3 L 5.4 L Albumin 2.3 L 2.4 L Albumin/Globulin Ratio 0.8 0.8 Triglycerides 66 Urine Creatinine Urine Sodium 04/03/17 04/03/17 04/03/17 14:20 14:20 17:00 WBC RBC Hgb 7.2 L Hct 22.5 L MCV MCH MCHC RDW Plt Count Lymph % (Auto) [place] % (Auto) Eos % (Auto) Baso % (Auto) Lymph # [place] # Eos # Baso # Seg Neutrophils % Seg Neutrophils # PT INR Sodium 146 H Potassium 3.9 Chloride 108.4 H Carbon Dioxide 22 Anion Gap 20 BUN 38 H Creatinine 2.6 H Estimated GFR 30 BUN/Creatinine Ratio 14.61 Glucose 151 H POC Glucose Calcium 7.9 L Total Bilirubin Direct Bilirubin Indirect Bilirubin AST ALT Alkaline Phosphatase Total Protein Albumin Albumin/Globulin Ratio Triglycerides Urine Creatinine 68.2 H Urine Sodium 111 04/03/17 18:00 WBC RBC Hgb Hct MCV MCH MCHC RDW Plt Count Lymph % (Auto) [place] % (Auto) Eos % (Auto) Baso % (Auto) Lymph # [place] # Eos # Baso # Seg Neutrophils % Seg Neutrophils # PT INR Sodium Potassium Chloride Carbon Dioxide Anion Gap BUN Creatinine Estimated GFR BUN/Creatinine Ratio Glucose POC Glucose 117 H Calcium Total Bilirubin Direct Bilirubin Indirect Bilirubin AST ALT Alkaline Phosphatase Total Protein Albumin Albumin/Globulin Ratio Triglycerides Urine Creatinine Urine Sodium
[2017-04-03 22:07] LABS: Hematocrit 22.5 % (35.5-45.6); Hemoglobin 7.2 gm/dl (11.8-15.2)
[2017-04-04] MEDS: DILAUDID IM PRN ×4 (02:39→13:34)
[2017-04-04 05:18] LABS: Basophils % (Auto) 0.2 % (0.0-1.8); Eosinophils % (Auto) 0.1 % (0.0-4.3); Mean Corpuscular HGB Conc 32 % (32-34); Mean Corpuscular Volume 76 fl (84-94); Red Blood Count 2.88 M/mm3 (3.65-5.03); Red Cell Distribution Width 15.4 % (13.2-15.2)
[2017-04-04 05:24] LABS: Mean Corpuscular Hemoglobin 24 pg (28-32); Platelet Count 78 K/mm3 (140-440)
[2017-04-04 05:30] LABS: INR 1.3 (0.87-1.13)
[2017-04-04 05:45] LABS: Albumin 2.7 g/dL (3.9-5); Albumin/Globulin Ratio 0.8 %; BUN/Creatinine Ratio 16.08; Bilirubin,Total 3.5 mg/dL (0.1-1.2); Total Protein 5.9 g/dL (6.3-8.2)
[2017-04-04 05:46] LABS: Chloride 107.5 mmol/L (98-107); Potassium 3.6 mmol/L (3.6-5.0)
[2017-04-04] MEDS: LOPRESSOR IV SCH ×4 (06:39→23:45)
[2017-04-04] MEDS: DUONEB *Not for PRN Use IH SCH ×3 (07:54→20:36)
--- NOTE | 2017-04-04 08:38 | XRay Report ---
AP CHEST :04/04/17 02:29 CLINICAL: Followup respiratory failure. COMPARISON:The previous day. FINDINGS: The heart is normal size. The vessels are normal. Interval improvement with decreased opacification in the right lung base. Persistent subsegmental atelectasis in the left lung base. A right IJ catheter tip remains in the distal SVC. A nasogastric tube has been removed. IMPRESSION: Slight improvement with mild residual left lower lobe subsegmental atelectasis.
--- NOTE | 2017-04-04 09:12 | Hem/Onc Progress Note ---
Assessment and Plan Hemoglobin 7. Continue to monitor. If INR goes up, may be able to give another dose of kcentra. Continue Epo and iron.awaiting path Subjective Date of service: 04/04/17 Interval history: Patient feels fair. No flatus or bowel movement. No active bleeding noted. Objective - Constitutional Vitals: Last Vital Signs Temp 97.6 F 04/04/17 05:37 Pulse 105 H 04/04/17 08:15 Resp 19 04/04/17 08:15 BP 182/100 04/04/17 08:15 Pulse Ox 96 04/04/17 08:15 General appearance: no acute distress Performance status: 4-completely disabled - Neck Neck: supple - Respiratory Respiratory effort: Positive: normal Respiratory: bilateral: diminished - Cardiovascular Rhythm: regular Extremities: abnormal (SCDs present) - Gastrointestinal General gastrointestinal: Present: other (postop changes. No oozing from the incision site.) - Labs Lab Results: Laboratory Results - last 24 hr 04/03/17 04/03/17 04/03/17 14:20 14:20 17:00 WBC RBC Hgb 7.2 L Hct 22.5 L MCV MCH MCHC RDW Plt Count Lymph % (Auto) [place] % (Auto) Eos % (Auto) Baso % (Auto) Lymph # [place] # Eos # Baso # Seg Neutrophils % Seg Neutrophils # PT INR Sodium 146 H Potassium 3.9 Chloride 108.4 H Carbon Dioxide 22 Anion Gap 20 BUN 38 H Creatinine 2.6 H Estimated GFR 30 BUN/Creatinine Ratio 14.61 Glucose 151 H POC Glucose Calcium 7.9 L Total Bilirubin AST ALT Alkaline Phosphatase Total Protein Albumin Albumin/Globulin Ratio Urine Creatinine 68.2 H Urine Sodium 111 04/03/17 04/03/17 04/04/17 18:00 21:37 04:50 WBC 5.0 RBC 2.88 L Hgb 7.2 L 7.0 L Hct 22.5 L 22.0 L MCV 76 L MCH 24 L MCHC 32 RDW 15.4 H Plt Count 78 L Lymph % (Auto) 11.1 L [place] % (Auto) 10.5 H Eos % (Auto) 0.1 Baso % (Auto) 0.2 Lymph # 0.6 L [place] # 0.5 Eos # 0.0 Baso # 0.0 Seg Neutrophils % 78.1 H Seg Neutrophils # 3.9 PT INR Sodium Potassium Chloride Carbon Dioxide Anion Gap BUN Creatinine Estimated GFR BUN/Creatinine Ratio Glucose POC Glucose 117 H Calcium Total Bilirubin AST ALT Alkaline Phosphatase Total Protein Albumin Albumin/Globulin Ratio Urine Creatinine Urine Sodium 04/04/17 04/04/17 04:50 04:50 WBC RBC Hgb Hct MCV MCH MCHC RDW Plt Count Lymph % (Auto) [place] % (Auto) Eos % (Auto) Baso % (Auto) Lymph # [place] # Eos # Baso # Seg Neutrophils % Seg Neutrophils # PT 16.1 H INR 1.30 H Sodium 144 Potassium 3.6 Chloride 107.5 H Carbon Dioxide 25 Anion Gap 15 BUN 37 H Creatinine 2.3 H Estimated GFR 34 BUN/Creatinine Ratio 16.08 Glucose 158 H POC Glucose Calcium 8.0 L Total Bilirubin 3.50 H AST 649 H ALT 1092 H Alkaline Phosphatase 61 Total Protein 5.9 L Albumin 2.7 L Albumin/Globulin Ratio 0.8 Urine Creatinine Urine Sodium
[2017-04-04] MEDS: APRESOLINE IV PRN (09:21)
[2017-04-04] MEDS: PROTONIX IV SCH ×2 (09:21→21:59)
[2017-04-04] MEDS: D5/0.45NS 1,000 ML IV SCH (09:45)
--- NOTE | 2017-04-04 09:59 | Progress Note ---
Assessment and Plan 71 year old man with cecal mass, hep C, Jehovah witness status post colonoscopy with biopsy who had perforation during procedure requiring intubation, subsequent ex-lap and right hemicolectomy and ileocolonic anastamosis and also had 2 biopsies of a right hepatic dome mass. Family requested transfer to [place] but no bed was available. Acute Respiratory arrest - required intubation following colonoscopy - pulmonary following, s/p extubation on 04/01/17 Pneumoperitoneum likely from perforated colon - Patient is s/p colonoscopy on 03/31 and patient has caecal mass - Surgery was consulted for acute abdomen, s/p ex-lap and right hemicolectomy and ileocolonic anastamosis on 03/31/17 - GI and GS following - started on clear liquid today Sepsis with hypotension/peritonitis - Patient is being treated according to sepsis protocol - Patient is on IV flagyl and levaquin - Blood pressure normalized after he was given a bolus of fluid Stage IV colon cancer - suspected, Patient has colonic mass and hepatic mass - will follow biopsy result Anemia due to acute blood loss - H&H has decreased after surgery from 10.1 to 7.0 - he did have 2 biopsies of a right hepatic dome mass during surgery. - monitor for H and H now and follow hepatic enzyme - CT reviewed. There is a small to moderate amount of hemoperitoneum and a trace right subhepatic low density fluid collection. No sentinel clot sign. - patient refuses blood product - consulted hematology, s/p iv iron, desmopressin and erythropoitin, also given Vit K - monitor for now, If INR increased could repeat kcentra per hematology hepatitis C with transaminitis - monitor liver enzyme, improving - likely from shock liver VIRAL - likely vasomotor nephropathy - cont to monitor renal function, nephrology consulted - cont iv fluid DVT prophylaxis - SCDs b/o acute blood loss Disposition: transfer to floor today Subjective Date of service: 04/04/17 Principal diagnosis: Acute Respiratory Failure on MVS; S/P perforated Cecum; Sepsis Syndrome Interval history: Patient seen and examined c/o abdominal pain, breathing on 2L discussed in length with family at bedside total clara increased but LFT overall improved Hb , Cr appears stable, passing flatus started on clear liquid today Objective - Exam Narrative Exam: General appearance: no acute distress - EENT Eyes: PERRL, EOM intact ENT: hearing intact, clear oral mucosa, no thrush, - Neck Neck: supple, normal ROM - Respiratory Respiratory effort: normal Respiratory: bilateral: CTA - Cardiovascular Heart Rate: 110 Rhythm: regular Heart Sounds: Present: S1 & S2 Extremities: no ischemia, No edema - Gastrointestinal General gastrointestinal: Present: soft, tender, non-distended, absent bowel sounds, other (Abdominal sutures with no oozing blood) - Integumentary Integumentary: Present: clear, warm, dry - Neurologic Neurological: oriented to person, oriented to place, other (Able to move all extremeties on command/nonfocal) Extremities: no ischemia, No edema - Psychiatric Psychiatric: appropriate mood/affect - Constitutional Vitals: Vital Signs - 12hr 04/03/17 04/03/17 04/03/17 22:00 22:15 22:30 Temperature Pulse Rate 106 H 105 H 103 H Pulse Rate [ From Monitor] Respiratory 20 18 16 Rate Respiratory 18 Rate [Abdomen] Blood Pressure 156/86 155/86 158/83 O2 Sat by Pulse 99 100 Oximetry 04/03/17 04/03/17 04/03/17 22:45 23:00 23:15 Temperature Pulse Rate 106 H 115 H 105 H Pulse Rate [ From Monitor] Respiratory 17 25 H 21 Rate Respiratory Rate [Abdomen] Blood Pressure 152/81 162/85 163/88 O2 Sat by Pulse 100 97 Oximetry 04/03/17 04/03/17 04/03/17 23:30 23:37 23:38 Temperature Pulse Rate 103 H 99 H Pulse Rate [ From Monitor] Respiratory 21 18 Rate Respiratory Rate [Abdomen] Blood Pressure 158/89 163/88 O2 Sat by Pulse 98 Oximetry 04/03/17 04/03/17 04/04/17 23:45 23:57 00:00 Temperature Pulse Rate 97 H 98 H 101 H Pulse Rate [ 95 H From Monitor] Respiratory 17 22 21 Rate Respiratory Rate [Abdomen] Blood Pressure 142/86 142/86 148/90 O2 Sat by Pulse 99 100 99 Oximetry 04/04/17 04/04/17 04/04/17 00:08 00:15 00:30 Temperature Pulse Rate 106 H 99 H Pulse Rate [ From Monitor] Respiratory 18 18 22 Rate Respiratory Rate [Abdomen] Blood Pressure 157/89 153/88 O2 Sat by Pulse 98 99 Oximetry 04/04/17 04/04/17 04/04/17 00:39 00:40 00:45 Temperature 98.5 F Pulse Rate 103 H 99 H Pulse Rate [ From Monitor] Respiratory 22 Rate Respiratory Rate [Abdomen] Blood Pressure 144/87 O2 Sat by Pulse Oximetry 04/04/17 04/04/17 04/04/17 01:00 01:15 01:30 Temperature Pulse Rate 100 H 99 H 100 H Pulse Rate [ From Monitor] Respiratory 24 19 18 Rate Respiratory Rate [Abdomen] Blood Pressure 158/82 152/86 163/94 O2 Sat by Pulse 99 98 99 Oximetry 04/04/17 04/04/17 04/04/17 01:45 02:00 02:15 Temperature Pulse Rate 98 H 106 H 97 H Pulse Rate [ From Monitor] Respiratory 14 12 14 Rate Respiratory Rate [Abdomen] Blood Pressure 161/91 161/91 158/92 O2 Sat by Pulse 100 100 100 Oximetry 04/04/17 04/04/17 04/04/17 02:30 02:39 02:45 Temperature Pulse Rate 109 H 95 H Pulse Rate [ From Monitor] Respiratory 16 18 17 Rate Respiratory Rate [Abdomen] Blood Pressure 163/83 153/85 O2 Sat by Pulse 97 95 Oximetry 04/04/17 04/04/17 04/04/17 03:00 03:09 03:15 Temperature Pulse Rate 97 H 98 H Pulse Rate [ From Monitor] Respiratory 22 18 17 Rate Respiratory Rate [Abdomen] Blood Pressure 151/89 159/81 O2 Sat by Pulse 95 95 Oximetry 04/04/17 04/04/17 04/04/17 03:30 03:45 04:00 Temperature Pulse Rate 91 H 99 H 91 H Pulse Rate [ 93 H From Monitor] Respiratory 16 18 11 L Rate Respiratory Rate [Abdomen] Blood Pressure 162/85 159/82 145/90 O2 Sat by Pulse 100 97 95 Oximetry 04/04/17 04/04/17 04/04/17 04:15 04:30 04:45 Temperature Pulse Rate 102 H 95 H 91 H Pulse Rate [ From Monitor] Respiratory 14 16 17 Rate Respiratory Rate [Abdomen] Blood Pressure 161/87 158/85 160/93 O2 Sat by Pulse 97 96 96 Oximetry 04/04/17 04/04/17 04/04/17 05:00 05:15 05:30 Temperature Pulse Rate 91 H 88 91 H Pulse Rate [ From Monitor] Respiratory 16 14 13 Rate Respiratory Rate [Abdomen] Blood Pressure 175/92 174/96 164/95 O2 Sat by Pulse 98 98 97 Oximetry 04/04/17 04/04/17 04/04/17 05:37 05:45 06:00 Temperature 97.6 F Pulse Rate 93 H 92 H Pulse Rate [ From Monitor] Respiratory 13 16 Rate Respiratory Rate [Abdomen] Blood Pressure 169/98 169/89 O2 Sat by Pulse 99 Oximetry 04/04/17 04/04/17 04/04/17 06:15 06:30 06:39 Temperature Pulse Rate 97 H 97 H 108 H Pulse Rate [ From Monitor] Respiratory 17 20 20 Rate Respiratory Rate [Abdomen] Blood Pressure 156/90 167/93 156/90 O2 Sat by Pulse 97 98 Oximetry 04/04/17 04/04/17 04/04/17 06:45 07:00 07:15 Temperature Pulse Rate 84 87 82 Pulse Rate [ From Monitor] Respiratory 15 16 21 Rate Respiratory Rate [Abdomen] Blood Pressure 168/93 150/94 171/90 O2 Sat by Pulse 93 98 94 Oximetry 04/04/17 04/04/17 04/04/17 07:30 07:46 08:00 Temperature Pulse Rate 100 H 105 H 88 Pulse Rate [ 103 H From Monitor] Respiratory 18 20 21 Rate Respiratory Rate [Abdomen] Blood Pressure 173/90 173/90 178/91 O2 Sat by Pulse 96 84 97 Oximetry 04/04/17 04/04/17 08:15 09:21 Temperature Pulse Rate 105 H 88 Pulse Rate [ From Monitor] Respiratory 19 Rate Respiratory Rate [Abdomen] Blood Pressure 182/100 178/89 O2 Sat by Pulse 96 Oximetry - Labs CBC & Chem 7: 04/04/17 04:50 04/04/17 04:50 Labs: Abnormal lab results 04/03/17 04/03/17 04/03/17 Range/Units 14:20 14:20 17:00 RBC (3.65-5.03) M/mm3 Hgb 7.2 L (11.8-15.2) gm/dl Hct 22.5 L (35.5-45.6) % MCV (84-94) fl MCH (28-32) pg RDW (13.2-15.2) % Plt Count (140-440) K/mm3 Lymph % (Auto) (13.4-35.0) % [place] % (Auto) (0.0-7.3) % Lymph # (1.2-5.4) K/mm3 Seg Neutrophils % (40.0-70.0) % PT (12.2-14.9) Sec. INR (0.87-1.13) Sodium 146 H (137-145) mmol/L Chloride 108.4 H (98-107) mmol/L BUN 38 H (9-20) mg/dL Creatinine 2.6 H (0.8-1.5) mg/dL Glucose 151 H (75-100) mg/dL POC Glucose (70-105) Calcium 7.9 L (8.4-10.2) mg/dL Total Bilirubin (0.1-1.2) mg/dL AST (5-40) units/L ALT (7-56) units/L Total Protein (6.3-8.2) g/dL Albumin (3.9-5) g/dL Urine Creatinine 68.2 H (0.1-20.0) mg/dL 04/03/17 04/03/17 04/04/17 Range/Units 18:00 21:37 04:50 RBC 2.88 L (3.65-5.03) M/mm3 Hgb 7.2 L 7.0 L (11.8-15.2) gm/dl Hct 22.5 L 22.0 L (35.5-45.6) % MCV 76 L (84-94) fl MCH 24 L (28-32) pg RDW 15.4 H (13.2-15.2) % Plt Count 78 L (140-440) K/mm3 Lymph % (Auto) 11.1 L (13.4-35.0) % [place] % (Auto) 10.5 H (0.0-7.3) % Lymph # 0.6 L (1.2-5.4) K/mm3 Seg Neutrophils % 78.1 H (40.0-70.0) % PT (12.2-14.9) Sec. INR (0.87-1.13) Sodium (137-145) mmol/L Chloride (98-107) mmol/L BUN (9-20) mg/dL Creatinine (0.8-1.5) mg/dL Glucose (75-100) mg/dL POC Glucose 117 H (70-105) Calcium (8.4-10.2) mg/dL Total Bilirubin (0.1-1.2) mg/dL AST (5-40) units/L ALT (7-56) units/L Total Protein (6.3-8.2) g/dL Albumin (3.9-5) g/dL Urine Creatinine (0.1-20.0) mg/dL 04/04/17 04/04/17 Range/Units 04:50 04:50 RBC (3.65-5.03) M/mm3 Hgb (11.8-15.2) gm/dl Hct (35.5-45.6) % MCV (84-94) fl MCH (28-32) pg RDW (13.2-15.2) % Plt Count (140-440) K/mm3 Lymph % (Auto) (13.4-35.0) % [place] % (Auto) (0.0-7.3) % Lymph # (1.2-5.4) K/mm3 Seg Neutrophils % (40.0-70.0) % PT 16.1 H (12.2-14.9) Sec. INR 1.30 H (0.87-1.13) Sodium (137-145) mmol/L Chloride 107.5 H (98-107) mmol/L BUN 37 H (9-20) mg/dL Creatinine 2.3 H (0.8-1.5) mg/dL Glucose 158 H (75-100) mg/dL POC Glucose (70-105) Calcium 8.0 L (8.4-10.2) mg/dL Total Bilirubin 3.50 H (0.1-1.2) mg/dL AST 649 H (5-40) units/L ALT 1092 H (7-56) units/L Total Protein 5.9 L (6.3-8.2) g/dL Albumin 2.7 L (3.9-5) g/dL Urine Creatinine (0.1-20.0) mg/dL
--- NOTE | 2017-04-04 10:38 | Progress Note ---
Assessment and Plan Assessment: * Nonoliguric VIRAL secondary to ATN * Perforated colon as colonoscopy complication; large cecal colon mass --s/p ex-lap right hemicolectomy * Liver mass s/p intraoperative bx * Anemia secondary to ABL - stable * Transaminitis secondary to shock liver - liver enzymes improved * Acute respiratory failure - now extubated on NC oxygen, 2L * Coagulopathy secondary to shock liver * Thrombocytopenia * Metabolic acidosis secondary to lactic acidosis - resolved * Hepatitis C Plan: * SCr now trending down, patient w/ good UOP (per RN - 1800ml yesterday) and stable lytes - no acute indication for [employer] * Continue IVF - D5 1/2 NS * Strict monitoring of I/O * Avoid potential nephrotoxic agents * Adjust medications for renal function * Hydralazine prn * Epogen per heme/onc Subjective Date of service: 04/04/17 Principal diagnosis: Acute Respiratory Failure on MVS; S/P perforated Cecum; Sepsis Syndrome Interval history: Patient Objective - Vital Signs Vital signs: Vital Signs - 12hr 04/03/17 04/03/17 04/03/17 22:45 23:00 23:15 Temperature Pulse Rate 106 H 115 H 105 H Pulse Rate [ From Monitor] Respiratory 17 25 H 21 Rate Blood Pressure 152/81 162/85 163/88 O2 Sat by Pulse 100 97 Oximetry 04/03/17 04/03/17 04/03/17 23:30 23:37 23:38 Temperature Pulse Rate 103 H 99 H Pulse Rate [ From Monitor] Respiratory 21 18 Rate Blood Pressure 158/89 163/88 O2 Sat by Pulse 98 Oximetry 04/03/17 04/03/17 04/04/17 23:45 23:57 00:00 Temperature Pulse Rate 97 H 98 H 101 H Pulse Rate [ 95 H From Monitor] Respiratory 17 22 21 Rate Blood Pressure 142/86 142/86 148/90 O2 Sat by Pulse 99 100 99 Oximetry 04/04/17 04/04/17 04/04/17 00:08 00:15 00:30 Temperature Pulse Rate 106 H 99 H Pulse Rate [ From Monitor] Respiratory 18 18 22 Rate Blood Pressure 157/89 153/88 O2 Sat by Pulse 98 99 Oximetry 04/04/17 04/04/17 04/04/17 00:39 00:40 00:45 Temperature 98.5 F Pulse Rate 103 H 99 H Pulse Rate [ From Monitor] Respiratory 22 Rate Blood Pressure 144/87 O2 Sat by Pulse Oximetry 04/04/17 04/04/17 04/04/17 01:00 01:15 01:30 Temperature Pulse Rate 100 H 99 H 100 H Pulse Rate [ From Monitor] Respiratory 24 19 18 Rate Blood Pressure 158/82 152/86 163/94 O2 Sat by Pulse 99 98 99 Oximetry 04/04/17 04/04/17 04/04/17 01:45 02:00 02:15 Temperature Pulse Rate 98 H 106 H 97 H Pulse Rate [ From Monitor] Respiratory 14 12 14 Rate Blood Pressure 161/91 161/91 158/92 O2 Sat by Pulse 100 100 100 Oximetry 04/04/17 04/04/17 04/04/17 02:30 02:39 02:45 Temperature Pulse Rate 109 H 95 H Pulse Rate [ From Monitor] Respiratory 16 18 17 Rate Blood Pressure 163/83 153/85 O2 Sat by Pulse 97 95 Oximetry 04/04/17 04/04/17 04/04/17 03:00 03:09 03:15 Temperature Pulse Rate 97 H 98 H Pulse Rate [ From Monitor] Respiratory 22 18 17 Rate Blood Pressure 151/89 159/81 O2 Sat by Pulse 95 95 Oximetry 04/04/17 04/04/17 04/04/17 03:30 03:45 04:00 Temperature Pulse Rate 91 H 99 H 91 H Pulse Rate [ 93 H From Monitor] Respiratory 16 18 11 L Rate Blood Pressure 162/85 159/82 145/90 O2 Sat by Pulse 100 97 95 Oximetry 04/04/17 04/04/17 04/04/17 04:15 04:30 04:45 Temperature Pulse Rate 102 H 95 H 91 H Pulse Rate [ From Monitor] Respiratory 14 16 17 Rate Blood Pressure 161/87 158/85 160/93 O2 Sat by Pulse 97 96 96 Oximetry 04/04/17 04/04/17 04/04/17 05:00 05:15 05:30 Temperature Pulse Rate 91 H 88 91 H Pulse Rate [ From Monitor] Respiratory 16 14 13 Rate Blood Pressure 175/92 174/96 164/95 O2 Sat by Pulse 98 98 97 Oximetry 04/04/17 04/04/17 04/04/17 05:37 05:45 06:00 Temperature 97.6 F Pulse Rate 93 H 92 H Pulse Rate [ From Monitor] Respiratory 13 16 Rate Blood Pressure 169/98 169/89 O2 Sat by Pulse 99 Oximetry 04/04/17 04/04/17 04/04/17 06:15 06:30 06:39 Temperature Pulse Rate 97 H 97 H 108 H Pulse Rate [ From Monitor] Respiratory 17 20 20 Rate Blood Pressure 156/90 167/93 156/90 O2 Sat by Pulse 97 98 Oximetry 04/04/17 04/04/17 04/04/17 06:45 07:00 07:15 Temperature Pulse Rate 84 87 82 Pulse Rate [ From Monitor] Respiratory 15 16 21 Rate Blood Pressure 168/93 150/94 171/90 O2 Sat by Pulse 93 98 94 Oximetry 04/04/17 04/04/17 04/04/17 07:30 07:46 08:00 Temperature 98 F Pulse Rate 100 H 105 H 88 Pulse Rate [ 103 H From Monitor] Respiratory 18 20 21 Rate Blood Pressure 173/90 173/90 178/91 O2 Sat by Pulse 96 84 97 Oximetry 04/04/17 04/04/17 04/04/17 08:15 09:00 09:21 Temperature 98 F Pulse Rate 105 H 88 Pulse Rate [ From Monitor] Respiratory 19 Rate Blood Pressure 182/100 178/89 O2 Sat by Pulse 96 Oximetry - General Appearance General appearance: well-developed, well-nourished, other (NAD) EENT: ATNC Respiratory: Present: Clear to Ascultation Cardiology: regular, S1S2 Gastrointestinal: hypoactive bowel sounds Integumentary: no rash Neurologic: alert and oriented x3 Musculoskeletal: other (no edema) Psychiatric: cooperative - Lab 04/04/17 04:50 04/04/17 04:50 Most recent lab results Calcium 8.0 mg/dL (8.4-10.2) L 04/04/17 04:50 Phosphorus 3.30 mg/dL (2.5-4.5) 03/31/17 19:15 Magnesium 1.30 mg/dL (1.7-2.3) L 03/31/17 19:15 Urine Creatinine 68.2 mg/dL (0.1-20.0) H 04/03/17 17:00 Urine Sodium 111 mEq/L 04/03/17 17:00
[2017-04-04] MEDS: PROCRIT SUB-Q SCH (11:00)
--- NOTE | 2017-04-04 11:10 | Progress Note ---
Assessment and Plan - Patient Problems (1) Acute respiratory failure Current Visit: Yes Status: Acute Qualifiers: Respiratory failure complication: R Plan to address problem: - extubated - aspiration precautions - continue bronchodilators and pulmonary toilet in short term - continue to wean oxygen to kep O2 Sats > 94% - continue incentive spirometry (2) Liver mass Current Visit: Yes Status: Acute Plan to address problem: - appeared cirrhotic per surgeon - liver biopsies negative for malignancy - colon biopsies positive for cancer - oncology evaluation ongoing (3) Perforation of colon as colonoscopy complication Current Visit: Yes Status: Acute Plan to address problem: - s/p ex-lap and repair of cecal perforation - no more free air on KUB - NGT pulled and tolerating ice chips - advancing diet per surgeons recommendations (4) Lactic acidosis Current Visit: Yes Status: Acute Plan to address problem: - resolved - continue gentle volume resuscitation re: azotemia also - continue antibiotics as ordered (5) Colonic mass Current Visit: Yes Status: Acute Plan to address problem: - positive for malignancy (AdenoCA) (6) Elevated transaminase level Current Visit: Yes Status: Acute Plan to address problem: - likely shock liver - trending down (7) Gastrointestinal blood Current Visit: Yes Status: Acute Qualifiers: GI bleed type/associated pathology: G Gastritis type: G Plan to address problem: - continue trending H&H - changed protonix to bid (8) Discharge planning issues Current Visit: Yes Status: Acute Plan to address problem: - to transfer to surgical floor Subjective Date of service: 04/04/17 Principal diagnosis: Acute Respiratory Failure on MVS; S/P perforated Cecum; Sepsis Syndrome Interval history: Seen and examined at bedside; 24 hour events reviewed; nursing and respiratory care staff consulted; no adverse overnight events reported to me; resting in bed ; daughter in room; tolerating p.o. meals; no gross bleeding; denies acute chest pains or increased SOB Objective Vital Signs - 12hr 04/03/17 04/03/17 04/03/17 23:15 23:30 23:37 Temperature Pulse Rate 105 H 103 H 99 H Pulse Rate [ From Monitor] Respiratory 21 21 Rate Blood Pressure 163/88 158/89 163/88 O2 Sat by Pulse 98 Oximetry 04/03/17 04/03/17 04/03/17 23:38 23:45 23:57 Temperature Pulse Rate 97 H 98 H Pulse Rate [ From Monitor] Respiratory 18 17 22 Rate Blood Pressure 142/86 142/86 O2 Sat by Pulse 99 100 Oximetry 04/04/17 04/04/17 04/04/17 00:00 00:08 00:15 Temperature Pulse Rate 101 H 106 H Pulse Rate [ 95 H From Monitor] Respiratory 21 18 18 Rate Blood Pressure 148/90 157/89 O2 Sat by Pulse 99 98 Oximetry 04/04/17 04/04/17 04/04/17 00:30 00:39 00:40 Temperature 98.5 F Pulse Rate 99 H 103 H Pulse Rate [ From Monitor] Respiratory 22 Rate Blood Pressure 153/88 O2 Sat by Pulse 99 Oximetry 04/04/17 04/04/17 04/04/17 00:45 01:00 01:15 Temperature Pulse Rate 99 H 100 H 99 H Pulse Rate [ From Monitor] Respiratory 22 24 19 Rate Blood Pressure 144/87 158/82 152/86 O2 Sat by Pulse 99 98 Oximetry 04/04/17 04/04/17 04/04/17 01:30 01:45 02:00 Temperature Pulse Rate 100 H 98 H 106 H Pulse Rate [ From Monitor] Respiratory 18 14 12 Rate Blood Pressure 163/94 161/91 161/91 O2 Sat by Pulse 99 100 100 Oximetry 04/04/17 04/04/17 04/04/17 02:15 02:30 02:39 Temperature Pulse Rate 97 H 109 H Pulse Rate [ From Monitor] Respiratory 14 16 18 Rate Blood Pressure 158/92 163/83 O2 Sat by Pulse 100 97 Oximetry 04/04/17 04/04/17 04/04/17 02:45 03:00 03:09 Temperature Pulse Rate 95 H 97 H Pulse Rate [ From Monitor] Respiratory 17 22 18 Rate Blood Pressure 153/85 151/89 O2 Sat by Pulse 95 95 Oximetry 04/04/17 04/04/17 04/04/17 03:15 03:30 03:45 Temperature Pulse Rate 98 H 91 H 99 H Pulse Rate [ From Monitor] Respiratory 17 16 18 Rate Blood Pressure 159/81 162/85 159/82 O2 Sat by Pulse 95 100 97 Oximetry 04/04/17 04/04/17 04/04/17 04:00 04:15 04:30 Temperature Pulse Rate 91 H 102 H 95 H Pulse Rate [ 93 H From Monitor] Respiratory 11 L 14 16 Rate Blood Pressure 145/90 161/87 158/85 O2 Sat by Pulse 95 97 96 Oximetry 04/04/17 04/04/17 04/04/17 04:45 05:00 05:15 Temperature Pulse Rate 91 H 91 H 88 Pulse Rate [ From Monitor] Respiratory 17 16 14 Rate Blood Pressure 160/93 175/92 174/96 O2 Sat by Pulse 96 98 98 Oximetry 04/04/17 04/04/17 04/04/17 05:30 05:37 05:45 Temperature 97.6 F Pulse Rate 91 H 93 H Pulse Rate [ From Monitor] Respiratory 13 13 Rate Blood Pressure 164/95 169/98 O2 Sat by Pulse 97 Oximetry 04/04/17 04/04/17 04/04/17 06:00 06:15 06:30 Temperature Pulse Rate 92 H 97 H 97 H Pulse Rate [ From Monitor] Respiratory 16 17 20 Rate Blood Pressure 169/89 156/90 167/93 O2 Sat by Pulse 99 97 98 Oximetry 04/04/17 04/04/17 04/04/17 06:39 06:45 07:00 Temperature Pulse Rate 108 H 84 87 Pulse Rate [ From Monitor] Respiratory 20 15 16 Rate Blood Pressure 156/90 168/93 150/94 O2 Sat by Pulse 93 98 Oximetry 04/04/17 04/04/17 04/04/17 07:15 07:30 07:46 Temperature Pulse Rate 82 100 H 105 H Pulse Rate [ From Monitor] Respiratory 21 18 20 Rate Blood Pressure 171/90 173/90 173/90 O2 Sat by Pulse 94 96 84 Oximetry 04/04/17 04/04/17 04/04/17 08:00 08:15 09:00 Temperature 98 F 98 F Pulse Rate 88 105 H Pulse Rate [ 103 H From Monitor] Respiratory 21 19 Rate Blood Pressure 178/91 182/100 O2 Sat by Pulse 97 96 Oximetry 04/04/17 09:21 Temperature Pulse Rate 88 Pulse Rate [ From Monitor] Respiratory Rate Blood Pressure 178/89 O2 Sat by Pulse Oximetry Constitutional: no acute distress, alert Eyes: non-icteric ENT: oropharynx moist Neck: supple, no lymphadenopathy Effort: normal Ascultation: Bilateral: clear, diminished breath sounds (bases) Cardiovascular: regular rate and rhythm Gastrointestinal: hypoactive bowel sounds, soft, non-tender, non-distended Integumentary: normal Extremities: no cyanosis, no edema, pulses normal, no ischemia or petechiae Neurologic: normal mental status, non-focal exam, pupils equal and round, motor strength normal and Psychiatric: mood appropriate, affect normal CBC and BMP: 04/06/17 03:32 04/06/17 09:43 ABG, PT/INR, D-dimer: ABG POC ABG pH 7.396 (7.35-7.45) 04/01/17 16:23 POC ABG pCO2 44.7 (35-45) 04/01/17 16:23 POC ABG pO2 125 (80-105) H 04/01/17 16:23 POC ABG HCO3 27.4 04/01/17 16:23 POC ABG Total CO2 29 04/01/17 16:23 POC ABG O2 Sat 99 04/01/17 16:23 PT/INR, D-dimer PT 16.1 Sec. (12.2-14.9) H 04/04/17 04:50 INR 1.30 (0.87-1.13) H 04/04/17 04:50 Abnormal lab findings: Abnormal Labs 03/31/17 03/31/17 03/31/17 15:19 15:43 19:15 RBC Hgb 10.6 L 10.3 L Hct 33.9 L D 32.1 L MCV 78 L 77 L MCH 24 L 25 L MCHC 31 L RDW 15.8 H 15.9 H Plt Count 116 L Lymph % (Auto) 8.7 L [place] % (Auto) Lymph # 0.7 L Seg Neutrophils % 77.2 H 86.8 H PT INR APTT POC ABG pH 7.202 L POC ABG pCO2 POC ABG pO2 292 H Sodium Chloride Carbon Dioxide BUN Creatinine Glucose POC Glucose Lactic Acid Calcium Magnesium Iron TIBC Ferritin Total Bilirubin Direct Bilirubin AST ALT Total Protein Albumin Vitamin B12 Urine Creatinine 03/31/17 03/31/17 03/31/17 19:15 19:15 19:15 RBC Hgb Hct MCV MCH MCHC RDW Plt Count Lymph % (Auto) [place] % (Auto) Lymph # Seg Neutrophils % PT INR APTT POC ABG pH POC ABG pCO2 POC ABG pO2 Sodium Chloride Carbon Dioxide 12 L BUN 8 L Creatinine Glucose 206 H POC Glucose Lactic Acid 6.90 H* Calcium 6.9 L D Magnesium 1.30 L Iron TIBC Ferritin Total Bilirubin Direct Bilirubin AST ALT Total Protein Albumin Vitamin B12 Urine Creatinine 07/27/17 07/27/17 07/27/17 21:13 22:50 23:20 RBC Hgb Hct MCV MCH MCHC RDW Plt Count Lymph % (Auto) [place] % (Auto) Lymph # Seg Neutrophils % PT INR APTT POC ABG pH 7.142 L POC ABG pCO2 46.1 H 23.0 L POC ABG pO2 229 H 180 H Sodium Chloride Carbon Dioxide BUN Creatinine Glucose POC Glucose Lactic Acid 5.90 H* Calcium Magnesium Iron TIBC Ferritin Total Bilirubin Direct Bilirubin AST ALT Total Protein Albumin Vitamin B12 Urine Creatinine 04/01/17 04/01/17 04/01/17 05:00 05:00 05:00 RBC 2.97 L Hgb 7.3 L D Hct 22.6 L D MCV 76 L MCH 25 L MCHC RDW 15.9 H Plt Count 102 L Lymph % (Auto) 10.4 L [place] % (Auto) Lymph # 0.5 L Seg Neutrophils % 86.8 H PT INR APTT POC ABG pH POC ABG pCO2 POC ABG pO2 Sodium Chloride Carbon Dioxide BUN Creatinine Glucose 190 H POC Glucose Lactic Acid 3.80 H* Calcium 6.9 L Magnesium Iron TIBC Ferritin Total Bilirubin Direct Bilirubin AST ALT Total Protein Albumin Vitamin B12 Urine Creatinine 04/01/17 04/01/17 04/01/17 09:01 09:55 09:55 RBC 3.45 L Hgb 8.5 L Hct 26.4 L MCV 77 L MCH 25 L MCHC RDW 15.7 H Plt Count 112 L Lymph % (Auto) 10.0 L [place] % (Auto) Lymph # 0.7 L Seg Neutrophils % 85.5 H PT INR APTT POC ABG pH 7.480 H POC ABG pCO2 32.3 L POC ABG pO2 150 H Sodium Chloride 108.5 H Carbon Dioxide BUN Creatinine Glucose 110 H POC Glucose Lactic Acid Calcium 6.9 L Magnesium Iron TIBC Ferritin Total Bilirubin Direct Bilirubin AST ALT Total Protein Albumin Vitamin B12 Urine Creatinine 04/01/17 04/01/17 04/01/17 10:36 16:12 16:23 RBC Hgb Hct MCV MCH MCHC RDW Plt Count Lymph % (Auto) [place] % (Auto) Lymph # Seg Neutrophils % PT INR APTT POC ABG pH POC ABG pCO2 POC ABG pO2 38 L 125 H Sodium Chloride Carbon Dioxide BUN Creatinine Glucose POC Glucose Lactic Acid 2.60 H* Calcium Magnesium Iron TIBC Ferritin Total Bilirubin Direct Bilirubin AST ALT Total Protein Albumin Vitamin B12 Urine Creatinine 04/01/17 04/02/17 04/02/17 18:00 01:34 04:00 RBC 3.21 L 2.98 L Hgb 7.8 L 7.3 L Hct 24.5 L 22.8 L MCV 76 L 77 L MCH 24 L 24 L MCHC RDW 15.7 H 15.7 H Plt Count 94 L 70 L Lymph % (Auto) 9.6 L [place] % (Auto) Lymph # 0.7 L 0.8 L Seg Neutrophils % 87.0 H 80.5 H PT INR APTT POC ABG pH POC ABG pCO2 POC ABG pO2 Sodium Chloride Carbon Dioxide BUN Creatinine Glucose POC Glucose 132 H Lactic Acid Calcium Magnesium Iron TIBC Ferritin Total Bilirubin Direct Bilirubin AST ALT Total Protein Albumin Vitamin B12 Urine Creatinine 04/02/17 04/02/17 04/02/17 04:00 04:00 04:00 RBC Hgb Hct MCV MCH MCHC RDW Plt Count Lymph % (Auto) [place] % (Auto) Lymph # Seg Neutrophils % PT 21.5 H INR 1.87 H APTT POC ABG pH POC ABG pCO2 POC ABG pO2 Sodium Chloride Carbon Dioxide BUN 25 H Creatinine 2.0 H D Glucose 108 H POC Glucose Lactic Acid Calcium 6.9 L Magnesium Iron TIBC 184 L Ferritin Total Bilirubin 1.40 H Direct Bilirubin AST 4564 H ALT 2544 H Total Protein 5.3 L D Albumin 2.4 L Vitamin B12 2000 H Urine Creatinine 04/02/17 04/02/17 04/02/17 08:49 15:05 15:05 RBC 3.05 L Hgb 7.6 L Hct 23.2 L MCV 76 L MCH 25 L MCHC RDW 16.2 H Plt Count 86 L Lymph % (Auto) [place] % (Auto) Lymph # Seg Neutrophils % PT 20.6 H INR 1.77 H APTT POC ABG pH POC ABG pCO2 POC ABG pO2 Sodium Chloride Carbon Dioxide BUN 31 H Creatinine 2.5 H Glucose 105 H POC Glucose Lactic Acid Calcium 7.4 L Magnesium Iron TIBC Ferritin Total Bilirubin Direct Bilirubin AST ALT Total Protein Albumin Vitamin B12 Urine Creatinine 04/02/17 04/02/17 04/02/17 15:05 18:50 18:50 RBC 2.94 L Hgb 7.2 L Hct 22.6 L MCV 77 L MCH 24 L MCHC RDW 15.7 H Plt Count 73 L Lymph % (Auto) 11.9 L [place] % (Auto) Lymph # 0.7 L Seg Neutrophils % 80.8 H PT 18.6 H INR 1.56 H APTT 37.0 H POC ABG pH POC ABG pCO2 POC ABG pO2 Sodium Chloride Carbon Dioxide BUN Creatinine Glucose POC Glucose Lactic Acid Calcium Magnesium Iron 192 H TIBC 226 L Ferritin Total Bilirubin Direct Bilirubin AST ALT Total Protein Albumin Vitamin B12 Urine Creatinine 04/02/17 04/02/17 04/02/17 18:50 18:50 18:50 RBC Hgb Hct MCV MCH MCHC RDW Plt Count Lymph % (Auto) [place] % (Auto) Lymph # Seg Neutrophils % PT INR APTT POC ABG pH POC ABG pCO2 POC ABG pO2 Sodium Chloride Carbon Dioxide BUN Creatinine Glucose POC Glucose Lactic Acid Calcium Magnesium Iron TIBC Ferritin 4536.0 H Total Bilirubin 2.00 H Direct Bilirubin 1.6 H AST 2581 H ALT 1873 H Total Protein 5.5 L Albumin 2.5 L Vitamin B12 > 2000 H Urine Creatinine 04/02/17 04/03/17 04/03/17 21:54 00:01 04:00 RBC 2.91 L Hgb 7.2 L 7.1 L Hct 22.6 L 22.2 L MCV 76 L MCH 25 L MCHC RDW 15.9 H Plt Count 71 L Lymph % (Auto) 9.9 L [place] % (Auto) 7.5 H Lymph # 0.6 L Seg Neutrophils % 82.5 H PT 16.0 H INR 1.29 H APTT POC ABG pH POC ABG pCO2 POC ABG pO2 Sodium Chloride Carbon Dioxide BUN Creatinine Glucose POC Glucose Lactic Acid Calcium Magnesium Iron TIBC Ferritin Total Bilirubin Direct Bilirubin AST ALT Total Protein Albumin Vitamin B12 Urine Creatinine 04/03/17 04/03/17 04/03/17 05:45 05:45 14:20 RBC Hgb 7.2 L Hct 22.5 L MCV MCH MCHC RDW Plt Count Lymph % (Auto) [place] % (Auto) Lymph # Seg Neutrophils % PT INR APTT POC ABG pH POC ABG pCO2 POC ABG pO2 Sodium Chloride 108.3 H Carbon Dioxide BUN 34 H Creatinine 2.6 H Glucose 175 H POC Glucose Lactic Acid Calcium 7.1 L Magnesium Iron TIBC Ferritin Total Bilirubin 2.70 H 2.60 H Direct Bilirubin 2.2 H AST 1604 H 1600 H ALT 1504 H 1486 H Total Protein 5.3 L 5.4 L Albumin 2.3 L 2.4 L Vitamin B12 Urine Creatinine 04/03/17 04/03/17 04/03/17 14:20 17:00 18:00 RBC Hgb Hct MCV MCH MCHC RDW Plt Count Lymph % (Auto) [place] % (Auto) Lymph # Seg Neutrophils % PT INR APTT POC ABG pH POC ABG pCO2 POC ABG pO2 Sodium 146 H Chloride 108.4 H Carbon Dioxide BUN 38 H Creatinine 2.6 H Glucose 151 H POC Glucose 117 H Lactic Acid Calcium 7.9 L Magnesium Iron TIBC Ferritin Total Bilirubin Direct Bilirubin AST ALT Total Protein Albumin Vitamin B12 Urine Creatinine 68.2 H 04/03/17 04/04/17 04/04/17 21:37 04:50 04:50 RBC 2.88 L Hgb 7.2 L 7.0 L Hct 22.5 L 22.0 L MCV 76 L MCH 24 L MCHC RDW 15.4 H Plt Count 78 L Lymph % (Auto) 11.1 L [place] % (Auto) 10.5 H Lymph # 0.6 L Seg Neutrophils % 78.1 H PT 16.1 H INR 1.30 H APTT POC ABG pH POC ABG pCO2 POC ABG pO2 Sodium Chloride Carbon Dioxide BUN Creatinine Glucose POC Glucose Lactic Acid Calcium Magnesium Iron TIBC Ferritin Total Bilirubin Direct Bilirubin AST ALT Total Protein Albumin Vitamin B12 Urine Creatinine 04/04/17 04:50 RBC Hgb Hct MCV MCH MCHC RDW Plt Count Lymph % (Auto) [place] % (Auto) Lymph # Seg Neutrophils % PT INR APTT POC ABG pH POC ABG pCO2 POC ABG pO2 Sodium Chloride 107.5 H Carbon Dioxide BUN 37 H Creatinine 2.3 H Glucose 158 H POC Glucose Lactic Acid Calcium 8.0 L Magnesium Iron TIBC Ferritin Total Bilirubin 3.50 H Direct Bilirubin AST 649 H ALT 1092 H Total Protein 5.9 L Albumin 2.7 L Vitamin B12 Urine Creatinine
--- NOTE | 2017-04-04 12:03 | Progress Note ---
Subjective Patient Reports: Positive: feels better, pain is less, tolerating liquids well, flatus Narrative: progressive improvement abd soft . on ice chips PO ; will advance to cl liquids .ambulatory renal function boarderline .urine clear , would DC wright in AM .noted still high Bili will observe HGb 7 Objective Vital Signs - 12hr 04/04/17 04/04/17 04/04/17 00:00 00:08 00:15 Temperature Pulse Rate 101 H 106 H Pulse Rate [ 95 H From Monitor] Respiratory 21 18 18 Rate Blood Pressure 148/90 157/89 O2 Sat by Pulse 99 98 Oximetry 04/04/17 04/04/17 04/04/17 00:30 00:39 00:40 Temperature 98.5 F Pulse Rate 99 H 103 H Pulse Rate [ From Monitor] Respiratory 22 Rate Blood Pressure 153/88 O2 Sat by Pulse 99 Oximetry 04/04/17 04/04/17 04/04/17 00:45 01:00 01:15 Temperature Pulse Rate 99 H 100 H 99 H Pulse Rate [ From Monitor] Respiratory 22 24 19 Rate Blood Pressure 144/87 158/82 152/86 O2 Sat by Pulse 99 98 Oximetry 04/04/17 04/04/17 04/04/17 01:30 01:45 02:00 Temperature Pulse Rate 100 H 98 H 106 H Pulse Rate [ From Monitor] Respiratory 18 14 12 Rate Blood Pressure 163/94 161/91 161/91 O2 Sat by Pulse 99 100 100 Oximetry 04/04/17 04/04/17 04/04/17 02:15 02:30 02:39 Temperature Pulse Rate 97 H 109 H Pulse Rate [ From Monitor] Respiratory 14 16 18 Rate Blood Pressure 158/92 163/83 O2 Sat by Pulse 100 97 Oximetry 04/04/17 04/04/17 04/04/17 02:45 03:00 03:09 Temperature Pulse Rate 95 H 97 H Pulse Rate [ From Monitor] Respiratory 17 22 18 Rate Blood Pressure 153/85 151/89 O2 Sat by Pulse 95 95 Oximetry 04/04/17 04/04/17 04/04/17 03:15 03:30 03:45 Temperature Pulse Rate 98 H 91 H 99 H Pulse Rate [ From Monitor] Respiratory 17 16 18 Rate Blood Pressure 159/81 162/85 159/82 O2 Sat by Pulse 95 100 97 Oximetry 04/04/17 04/04/17 04/04/17 04:00 04:15 04:30 Temperature Pulse Rate 91 H 102 H 95 H Pulse Rate [ 93 H From Monitor] Respiratory 11 L 14 16 Rate Blood Pressure 145/90 161/87 158/85 O2 Sat by Pulse 95 97 96 Oximetry 04/04/17 04/04/17 04/04/17 04:45 05:00 05:15 Temperature Pulse Rate 91 H 91 H 88 Pulse Rate [ From Monitor] Respiratory 17 16 14 Rate Blood Pressure 160/93 175/92 174/96 O2 Sat by Pulse 96 98 98 Oximetry 04/04/17 04/04/17 04/04/17 05:30 05:37 05:45 Temperature 97.6 F Pulse Rate 91 H 93 H Pulse Rate [ From Monitor] Respiratory 13 13 Rate Blood Pressure 164/95 169/98 O2 Sat by Pulse 97 Oximetry 04/04/17 04/04/17 04/04/17 06:00 06:15 06:30 Temperature Pulse Rate 92 H 97 H 97 H Pulse Rate [ From Monitor] Respiratory 16 17 20 Rate Blood Pressure 169/89 156/90 167/93 O2 Sat by Pulse 99 97 98 Oximetry 04/04/17 04/04/17 04/04/17 06:39 06:45 07:00 Temperature Pulse Rate 108 H 84 87 Pulse Rate [ From Monitor] Respiratory 20 15 16 Rate Blood Pressure 156/90 168/93 150/94 O2 Sat by Pulse 93 98 Oximetry 04/04/17 04/04/17 04/04/17 07:15 07:30 07:46 Temperature Pulse Rate 82 100 H 105 H Pulse Rate [ From Monitor] Respiratory 21 18 20 Rate Blood Pressure 171/90 173/90 173/90 O2 Sat by Pulse 94 96 84 Oximetry 04/04/17 04/04/17 04/04/17 08:00 08:15 09:00 Temperature 98 F 98 F Pulse Rate 88 105 H Pulse Rate [ 103 H From Monitor] Respiratory 21 19 Rate Blood Pressure 178/91 182/100 O2 Sat by Pulse 97 96 Oximetry 04/04/17 09:21 Temperature Pulse Rate 88 Pulse Rate [ From Monitor] Respiratory Rate Blood Pressure 178/89 O2 Sat by Pulse Oximetry - Labs 04/04/17 04:50 04/04/17 04:50 Diabetes panel 04/03/17 04/04/17 Range/Units 14:20 04:50 Sodium 146 H 144 (137-145) mmol/L Potassium 3.9 3.6 (3.6-5.0) mmol/L Chloride 108.4 H 107.5 H (98-107) mmol/L Carbon Dioxide 22 25 (22-30) mmol/L BUN 38 H 37 H (9-20) mg/dL Creatinine 2.6 H 2.3 H (0.8-1.5) mg/dL Glucose 151 H 158 H (75-100) mg/dL Calcium 7.9 L 8.0 L (8.4-10.2) mg/dL AST 649 H (5-40) units/L ALT 1092 H (7-56) units/L Alkaline Phosphatase 61 (35-129) units/L Total Protein 5.9 L (6.3-8.2) g/dL Albumin 2.7 L (3.9-5) g/dL Calcium panel 04/03/17 04/04/17 Range/Units 14:20 04:50 Calcium 7.9 L 8.0 L (8.4-10.2) mg/dL Albumin 2.7 L (3.9-5) g/dL Pituitary panel 04/03/17 04/04/17 Range/Units 14:20 04:50 Sodium 146 H 144 (137-145) mmol/L Potassium 3.9 3.6 (3.6-5.0) mmol/L Chloride 108.4 H 107.5 H (98-107) mmol/L Carbon Dioxide 22 25 (22-30) mmol/L BUN 38 H 37 H (9-20) mg/dL Creatinine 2.6 H 2.3 H (0.8-1.5) mg/dL Glucose 151 H 158 H (75-100) mg/dL Calcium 7.9 L 8.0 L (8.4-10.2) mg/dL Adrenal panel 04/03/17 04/04/17 Range/Units 14:20 04:50 Sodium 146 H 144 (137-145) mmol/L Potassium 3.9 3.6 (3.6-5.0) mmol/L Chloride 108.4 H 107.5 H (98-107) mmol/L Carbon Dioxide 22 25 (22-30) mmol/L BUN 38 H 37 H (9-20) mg/dL Creatinine 2.6 H 2.3 H (0.8-1.5) mg/dL Glucose 151 H 158 H (75-100) mg/dL Calcium 7.9 L 8.0 L (8.4-10.2) mg/dL Total Bilirubin 3.50 H (0.1-1.2) mg/dL AST 649 H (5-40) units/L ALT 1092 H (7-56) units/L Alkaline Phosphatase 61 (35-129) units/L Total Protein 5.9 L (6.3-8.2) g/dL Albumin 2.7 L (3.9-5) g/dL
[2017-04-04] MEDS: FLAGYL 500 MG/100 ML 500 MG/100 ML BAG IV SCH ×4 (13:28→21:56)
[2017-04-04] MEDS: NORVASC PO SCH (14:02)
[2017-04-04] MEDS: DILAUDID IV PRN ×3 (17:29→23:33)
[2017-04-04] MEDS: XALATAN 0.005% OU SCH (18:34)
--- NOTE | 2017-04-04 20:03 | Gastroenterology Progress Note ---
Assessment and Plan colon cancer - initial path of colon mass shows invasive adenocarcinoma (per phone call from pathologist). s/p right hemicolectomy. Awaiting pathology from liver mass biopsies. Acute on chronic liver injury - patient likely with ischemic hepatitis. pattern of liver enzyme trend would be consistent with shock liver, with expected delay of increasing bilirubin. Initiate treatment for hep c as outpatient. Anemia - hct stable, heme/onc following. no obvious signs of bleeding at present time VIRAL - creatinine improving, renal following Further management per ICU team and surgery. Subjective Date of service: 04/04/17 Principal diagnosis: Acute Respiratory Failure on MVS; S/P perforated Cecum; Sepsis Syndrome Interval history: pt continues to feel better, had small bm today, + flatus, tolerating CLD, able to get out of bed today with assistance. Objective - Constitutional Vitals: Temp Pulse Resp BP Pulse Ox 98.7 F 87 14 161/88 94 04/04/17 16:00 04/04/17 18:00 04/04/17 18:00 04/04/17 18:00 04/04/17 17:15 General appearance: no acute distress - Respiratory Respiratory effort: normal Respiratory: bilateral: CTA - Cardiovascular Rhythm: regular Heart Sounds: Present: S1 & S2 - Gastrointestinal General gastrointestinal: Present: soft, non-distended, hypoactive bowel sounds - Neurologic Neurological: alert and oriented x3 - Psychiatric Psychiatric: appropriate mood/affect - Labs CBC & Chem 7: 04/04/17 04:50 04/04/17 04:50 Labs: Laboratory Results - last 24 hr 04/03/17 04/04/17 04/04/17 21:37 04:50 04:50 WBC 5.0 RBC 2.88 L Hgb 7.2 L 7.0 L Hct 22.5 L 22.0 L MCV 76 L MCH 24 L MCHC 32 RDW 15.4 H Plt Count 78 L Lymph % (Auto) 11.1 L [place] % (Auto) 10.5 H Eos % (Auto) 0.1 Baso % (Auto) 0.2 Lymph # 0.6 L [place] # 0.5 Eos # 0.0 Baso # 0.0 Seg Neutrophils % 78.1 H Seg Neutrophils # 3.9 PT 16.1 H INR 1.30 H Sodium Potassium Chloride Carbon Dioxide Anion Gap BUN Creatinine Estimated GFR BUN/Creatinine Ratio Glucose POC Glucose Calcium Total Bilirubin AST ALT Alkaline Phosphatase Total Protein Albumin Albumin/Globulin Ratio 04/04/17 04/04/17 04:50 17:22 WBC RBC Hgb Hct MCV MCH MCHC RDW Plt Count Lymph % (Auto) [place] % (Auto) Eos % (Auto) Baso % (Auto) Lymph # [place] # Eos # Baso # Seg Neutrophils % Seg Neutrophils # PT INR Sodium 144 Potassium 3.6 Chloride 107.5 H Carbon Dioxide 25 Anion Gap 15 BUN 37 H Creatinine 2.3 H Estimated GFR 34 BUN/Creatinine Ratio 16.08 Glucose 158 H POC Glucose 151 H Calcium 8.0 L Total Bilirubin 3.50 H AST 649 H ALT 1092 H Alkaline Phosphatase 61 Total Protein 5.9 L Albumin 2.7 L Albumin/Globulin Ratio 0.8
[2017-04-04] MEDS: LEVAQUIN 750MG/150ML 750 MG/150 ML BAG IV SCH (21:11)
[2017-04-05] MEDS: D5/0.45NS 1,000 ML IV SCH (03:46)
[2017-04-05] MEDS: DILAUDID IV PRN ×6 (03:56→22:11)
[2017-04-05 05:07] LABS: Basophils % (Auto) 0.1 % (0.0-1.8); Eosinophils % (Auto) 0.3 % (0.0-4.3); Hematocrit 22.2 % (35.5-45.6); Hemoglobin 7.2 gm/dl (11.8-15.2); Mean Corpuscular HGB Conc 32 % (32-34); Mean Corpuscular Volume 76 fl (84-94); Red Blood Count 2.95 M/mm3 (3.65-5.03); White Blood Count 6.1 K/mm3 (4.5-11.0)
[2017-04-05 05:11] LABS: Mean Corpuscular Hemoglobin 24 pg (28-32); Platelet Count 95 K/mm3 (140-440)
[2017-04-05 05:17] LABS: Albumin 2.5 g/dL (3.9-5); Albumin/Globulin Ratio 0.7 %; BUN/Creatinine Ratio 18.42; Bilirubin,Total 3.4 mg/dL (0.1-1.2); Calcium 7.9 mg/dL (8.4-10.2); Chloride 105.6 mmol/L (98-107); Potassium 3.2 mmol/L (3.6-5.0)
[2017-04-05] MEDS: FLAGYL 500 MG/100 ML 500 MG/100 ML BAG IV SCH ×3 (06:34→22:08)
[2017-04-05] MEDS: LOPRESSOR IV SCH (06:47)
--- NOTE | 2017-04-05 08:46 | XRay Report ---
PORTABLE CHEST INDICATION: Follow up respiratory failure. COMPARISON: Yesterday. FINDINGS: Portable, frontal chest radiograph, 7:32 AM, 04/05/2017 demonstrates stable cardiomediastinal silhouette, right IJ catheter, lower cervical fusion hardware, EKG leads and multilevel spinal spondylosis. Slight improved bibasilar atelectasis. No pleural effusions or CHF. CONCLUSION: Stable supporting devices and slightly improved atelectasis, as described. Thank you for the opportunity to participate in this patient's care.
--- NOTE | 2017-04-05 09:17 | Hem/Onc Progress Note ---
Assessment and Plan Pathology showing T2 N0 colon cancer. Liver biopsy negative for malignancy. Liver function tests improving. Patient would not need any chemotherapy for T2 N0 malignancy. Once stable we will have him follow-up with equipment lead Dr. Davis who the patient already sees. Next Will order CEA and alpha-fetoprotein next CBC stable. We will give another dose of iron. E poor to continue to tomorrow. May need to continue that for longer if needed. Subjective Date of service: 04/05/17 Interval history: Patient on clear liquid. Feels better. Ambulating in the room. Denies any active bleeding. Objective - Constitutional Vitals: Last Vital Signs Temp 98.1 F 04/05/17 07:30 Pulse 96 H 04/05/17 07:30 Resp 20 04/05/17 07:30 BP 168/83 04/05/17 07:30 Pulse Ox 97 04/05/17 07:30 General appearance: no acute distress Performance status: 2- selfcare, ambulatory - Neck Neck: supple - Respiratory Respiratory effort: Positive: normal Respiratory: bilateral: CTA - Cardiovascular Rhythm: regular Extremities: No edema - Gastrointestinal General gastrointestinal: Present: soft (postop changes. No active bleeding) - Labs Lab Results: Laboratory Results - last 24 hr 04/04/17 04/04/17 04/04/17 12:36 17:22 21:35 WBC RBC Hgb Hct MCV MCH MCHC RDW Plt Count Lymph % (Auto) [place] % (Auto) Eos % (Auto) Baso % (Auto) Lymph # [place] # Eos # Baso # Seg Neutrophils % Seg Neutrophils # Sodium Potassium Chloride Carbon Dioxide Anion Gap BUN Creatinine Estimated GFR BUN/Creatinine Ratio Glucose POC Glucose 205 H 151 H 190 H Calcium Total Bilirubin AST ALT Alkaline Phosphatase Total Protein Albumin Albumin/Globulin Ratio 04/05/17 04/05/17 04/05/17 04:38 04:38 08:54 WBC 6.1 RBC 2.95 L Hgb 7.2 L Hct 22.2 L MCV 76 L MCH 24 L MCHC 32 RDW 15.0 Plt Count 95 L Lymph % (Auto) 13.8 [place] % (Auto) 14.4 H Eos % (Auto) 0.3 Baso % (Auto) 0.1 Lymph # 0.8 L [place] # 0.9 H Eos # 0.0 Baso # 0.0 Seg Neutrophils % 71.4 H Seg Neutrophils # 4.3 Sodium 143 Potassium 3.2 L Chloride 105.6 Carbon Dioxide 24 Anion Gap 17 BUN 35 H Creatinine 1.9 H Estimated GFR 43 BUN/Creatinine Ratio 18.42 Glucose 120 H POC Glucose 153 H Calcium 7.9 L Total Bilirubin 3.40 H AST 257 H ALT 680 H Alkaline Phosphatase 61 Total Protein 6.0 L Albumin 2.5 L Albumin/Globulin Ratio 0.7
[2017-04-05] MEDS: DUONEB *Not for PRN Use IH SCH ×3 (10:55→19:50)
[2017-04-05] MEDS: LEVAQUIN 750MG/150ML 750 MG/150 ML BAG IV SCH (11:11)
[2017-04-05] MEDS: NORVASC PO SCH (11:15)
[2017-04-05] MEDS: K-DUR PO SCH (11:15)
[2017-04-05] MEDS: PROTONIX IV SCH ×2 (11:31→22:09)
--- NOTE | 2017-04-05 11:41 | Progress Note ---
Assessment and Plan Assessment and plan: Patient is 71-year-old man with a history of type 2 diabetes mellitus and hypertension who presented on 03/31/2017 with bowel perforation during colonoscopy by Dr. Cornel Albreto, GI. He was intubated and sent to the ER where he underwent bowel resection with an End-to-End anastomosis. The cecal mass pathology did show adenocarcinoma malignancy. He was seen by Dr. Purdy and diagnosed with T2 N0, stage I colon cancer. Patient is Jehovah witness and refusing blood products. -Colon cancer T2 N0 with definitive therapy already (actually not a bad thing the perforation occurred-which saves patient additional surgery): Follow up with hematology oncology -Acute hypoxic respiratory failure status post intubation and subsequent extubation: Continue to wean off oxygen, currently on 2 L -Pneumoperitoneum/bowel perforation with acute abdomen status post emergent surgery: Advance diet carefully per surgery -Hypovolemic shock, Present on admission resolved -Transaminitis suspected due to shock liver per chart, per GI -Sepsis due to bowel perforation/intra-abdominal infection/bacterial peritonitis , poa: Continue Levaquin and Flagyl, patient allergic to penicillin -Acute renal failure due to ATN, improving: continue IVF -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 Hypokalemia: Replace and recheck potassium level and magnesium level in a.m. also follow-up renal function. Patient on 2 different IV fluids will clarify. Also repeat liver function. Disposition: He'll be tolerating a diet,, possibly discharge in 1-2 days History Interval history: Patient seen and examined. Follow up bowel perforation. He is tolerating a diet today, without n/v. He does have hiccups. Sister at bedside. No cp, sob. Hospitalist Physical - Physical exam Narrative exam: GEN: WDWN, NAD, AWAKE, ALERT, ORIENTATED x 3 HEENT: NCAT, PERRL, EOMI, OP CLEAR NECK: SUPPLE, NO THYROMEGALY, NO JVD, NO LAD CVS: RRR, NORMAL S1S2 LUNGS/CHEST: CTA B, NORMAL CHEST EXPANSION B, GOOD AIR ENTRY B ABD: SOFT, rhonda in place, clean dry and intact positive bowel sounds, NO REBOUND OR GUARDING EXT/SKIN: NO SIGNIFICANT EDEMA OR RASH MSK: FROM X 4 EXTREMITIES NEURO: CN 2-12 GROSSLY INTACT, NO FOCAL DEFICITS PSY: CALM - Constitutional Vitals: Temp Pulse Resp BP Pulse Ox 98.1 F 99 H 20 178/85 97 04/05/17 07:30 04/05/17 11:15 04/05/17 07:30 04/05/17 11:15 04/05/17 07:30 Results - Labs CBC & Chem 7: 04/05/17 04:38 04/05/17 04:38 Labs: Laboratory Last Values WBC 6.1 K/mm3 (4.5-11.0) 04/05/17 04:38 RBC 2.95 M/mm3 (3.65-5.03) L 04/05/17 04:38 Hgb 7.2 gm/dl (11.8-15.2) L 04/05/17 04:38 Hct 22.2 % (35.5-45.6) L 04/05/17 04:38 MCV 76 fl (84-94) L 04/05/17 04:38 MCH 24 pg (28-32) L 04/05/17 04:38 MCHC 32 % (32-34) 04/05/17 04:38 RDW 15.0 % (13.2-15.2) 04/05/17 04:38 Plt Count 95 K/mm3 (140-440) L 04/05/17 04:38 Lymph % (Auto) 13.8 % (13.4-35.0) 04/05/17 04:38 [place] % (Auto) 14.4 % (0.0-7.3) H 04/05/17 04:38 Eos % (Auto) 0.3 % (0.0-4.3) 04/05/17 04:38 Baso % (Auto) 0.1 % (0.0-1.8) 04/05/17 04:38 Lymph # 0.8 K/mm3 (1.2-5.4) L 04/05/17 04:38 [place] # 0.9 K/mm3 (0.0-0.8) H 04/05/17 04:38 Eos # 0.0 K/mm3 (0.0-0.4) 04/05/17 04:38 Baso # 0.0 K/mm3 (0.0-0.1) 04/05/17 04:38 Add Manual Diff Complete 03/31/17 11:09 Total Counted 100 03/31/17 11:09 Seg Neutrophils % 71.4 % (40.0-70.0) H 04/05/17 04:38 Seg Neuts % (Manual) 46.0 % (40.0-70.0) 03/31/17 11:09 Band Neutrophils % 0 % 03/31/17 11:09 Lymphocytes % (Manual) 53.0 % (13.4-35.0) H 03/31/17 11:09 Reactive Lymphs % (Man) 0 % 03/31/17 11:09 Monocytes % (Manual) 1.0 % (0.0-7.3) 03/31/17 11:09 Eosinophils % (Manual) 0 % (0.0-4.3) 03/31/17 11:09 Basophils % (Manual) 0 % (0.0-1.8) 03/31/17 11:09 Metamyelocytes % 0 % 03/31/17 11:09 Myelocytes % 0 % 03/31/17 11:09 Promyelocytes % 0 % 03/31/17 11:09 Blast Cells % 0 % 03/31/17 11:09 Nucleated RBC % Not Reportable 03/31/17 11:09 Seg Neutrophils # 4.3 K/mm3 (1.8-7.7) 04/05/17 04:38 Seg Neutrophils # Man 1.4 K/mm3 (1.8-7.7) L 03/31/17 11:09 Band Neutrophils # 0.0 K/mm3 03/31/17 11:09 Lymphocytes # (Manual) 1.6 K/mm3 (1.2-5.4) 03/31/17 11:09 Abs React Lymphs (Man) 0.0 K/mm3 03/31/17 11:09 Monocytes # (Manual) 0.0 K/mm3 (0.0-0.8) 03/31/17 11:09 Eosinophils # (Manual) 0.0 K/mm3 (0.0-0.4) 03/31/17 11:09 Basophils # (Manual) 0.0 K/mm3 (0.0-0.1) 03/31/17 11:09 Metamyelocytes # 0.0 K/mm3 03/31/17 11:09 Myelocytes # 0.0 K/mm3 03/31/17 11:09 Promyelocytes # 0.0 K/mm3 03/31/17 11:09 Blast Cells # 0.0 K/mm3 03/31/17 11:09 WBC Morphology Not Reportable 03/31/17 11:09 Hypersegmented Neuts Not Reportable 03/31/17 11:09 Hyposegmented Neuts Not Reportable 03/31/17 11:09 Hypogranular Neuts Not Reportable 03/31/17 11:09 Smudge Cells Not Reportable 03/31/17 11:09 Toxic Granulation Not Reportable 03/31/17 11:09 Toxic Vacuolation Not Reportable 03/31/17 11:09 Dohle Bodies Not Reportable 03/31/17 11:09 Pelger-Huet Anomaly Not Reportable 03/31/17 11:09 [place] Rods Not Reportable 03/31/17 11:09 Platelet Estimate Cons 03/31/17 11:09 Clumped Platelets Not Reportable 03/31/17 11:09 Plt Clumps, EDTA Not Reportable 03/31/17 11:09 Large Platelets Not Reportable 03/31/17 11:09 Giant Platelets Not Reportable 03/31/17 11:09 Platelet Satelliting Not Reportable 03/31/17 11:09 Plt Morphology Comment Not Reportable 03/31/17 11:09 RBC Morphology Not Reportable 03/31/17 11:09 Dimorphic RBCs Not Reportable 03/31/17 11:09 Polychromasia Not Reportable 03/31/17 11:09 Hypochromasia 1+ 03/31/17 11:09 Poikilocytosis Not Reportable 03/31/17 11:09 Anisocytosis 1+ 03/31/17 11:09 Microcytosis Not Reportable 03/31/17 11:09 Macrocytosis Not Reportable 03/31/17 11:09 Spherocytes Not Reportable 03/31/17 11:09 Pappenheimer Bodies Not Reportable 03/31/17 11:09 Sickle Cells Not Reportable 03/31/17 11:09 Target Cells Not Reportable 03/31/17 11:09 Tear Drop Cells Not Reportable 03/31/17 11:09 Ovalocytes Not Reportable 03/31/17 11:09 Helmet Cells Not Reportable 03/31/17 11:09 [place] Bodies Not Reportable 03/31/17 11:09 [place] Rings Not Reportable 03/31/17 11:09 Betzy Cells Not Reportable 03/31/17 11:09 Bite Cells Not Reportable 03/31/17 11:09 Crenated Cell Not Reportable 03/31/17 11:09 Elliptocytes Not Reportable 03/31/17 11:09 Acanthocytes (Spur) Not Reportable 03/31/17 11:09 Rouleaux Not Reportable 03/31/17 11:09 Hemoglobin C Crystals Not Reportable 03/31/17 11:09 Schistocytes Rare 03/31/17 11:09 Malaria parasites Not Reportable 03/31/17 11:09 Percent Retic 1.74 % (0.78-2.58) 04/02/17 18:50 Abdias Bodies Not Reportable 03/31/17 11:09 Hem Pathologist Commnt No 03/31/17 11:09 PT 16.1 Sec. (12.2-14.9) H 04/04/17 04:50 INR 1.30 (0.87-1.13) H 04/04/17 04:50 APTT 37.0 Sec. (24.2-36.6) H 04/02/17 15:05 POC ABG pH 7.396 (7.35-7.45) 04/01/17 16:23 POC ABG pCO2 44.7 (35-45) 04/01/17 16:23 POC ABG pO2 125 (80-105) H 04/01/17 16:23 POC ABG HCO3 27.4 04/01/17 16:23 POC ABG Total CO2 29 04/01/17 16:23 POC ABG O2 Sat 99 04/01/17 16:23 POC ABG Base Excess 3 04/01/17 16:23 FiO2 35 % 04/01/17 16:23 Sodium 143 mmol/L (137-145) 04/05/17 04:38 Potassium 3.2 mmol/L (3.6-5.0) L 04/05/17 04:38 Chloride 105.6 mmol/L (98-107) 04/05/17 04:38 Carbon Dioxide 24 mmol/L (22-30) 04/05/17 04:38 Anion Gap 17 mmol/L 04/05/17 04:38 BUN 35 mg/dL (9-20) H 04/05/17 04:38 Creatinine 1.9 mg/dL (0.8-1.5) H 04/05/17 04:38 Estimated GFR 43 ml/min 04/05/17 04:38 BUN/Creatinine Ratio 18.42 % 04/05/17 04:38 Glucose 120 mg/dL (75-100) H 04/05/17 04:38 POC Glucose 153 (70-105) H 04/05/17 08:54 Lactic Acid 1.50 mmol/L (0.7-2.0) 04/02/17 04:00 Calcium 7.9 mg/dL (8.4-10.2) L 04/05/17 04:38 Phosphorus 3.30 mg/dL (2.5-4.5) 03/31/17 19:15 Magnesium 1.30 mg/dL (1.7-2.3) L 03/31/17 19:15 Iron 192 ug/dL (49-181) H 04/02/17 18:50 TIBC 226 mcg/dL (250-450) L 04/02/17 18:50 Ferritin 4536.0 ng/mL (13.0-400.0) H 04/02/17 18:50 Total Bilirubin 3.40 mg/dL (0.1-1.2) H 04/05/17 04:38 Direct Bilirubin 2.2 mg/dL (0-0.2) H 04/03/17 05:45 Indirect Bilirubin 0.5 mg/dL 04/03/17 05:45 AST 257 units/L (5-40) H 04/05/17 04:38 ALT 680 units/L (7-56) H 04/05/17 04:38 Alkaline Phosphatase 61 units/L (35-129) 04/05/17 04:38 C-Reactive Protein 0.00 mg/dL (0.00-1.30) 03/31/17 19:15 Total Protein 6.0 g/dL (6.3-8.2) L 04/05/17 04:38 Albumin 2.5 g/dL (3.9-5) L 04/05/17 04:38 Albumin/Globulin Ratio 0.7 % 04/05/17 04:38 Triglycerides 66 mg/dL (2-149) 04/03/17 05:45 Vitamin B12 > 2000 pg/mL (211-911) H 04/02/17 18:50 Folate 12.25 ng/mL (7.3-26.0) 04/02/17 18:50 Urine Color [place] (Yellow) 03/31/17 11:01 Urine Turbidity Clear (Clear) 03/31/17 11:01 Urine pH 5.0 (5.0-7.0) 03/31/17 11:01 Ur Specific [place] 1.029 (1.003-1.030) 03/31/17 11:01 Urine Protein 100 mg/dl mg/dL (Negative) 03/31/17 11:01 Urine Glucose (UA) 50 mg/dL (Negative) 03/31/17 11:01 Urine Ketones Tr mg/dL (Negative) 03/31/17 11:01 Urine Blood Neg (Negative) 03/31/17 11:01 Urine Nitrite Neg (Negative) 03/31/17 11:01 Urine Bilirubin Neg (Negative) 03/31/17 11:01 Urine Urobilinogen < 2.0 mg/dL (<2.0) 03/31/17 11:01 Ur Leukocyte Esterase Neg (Negative) 03/31/17 11:01 Urine WBC (Auto) 9.0 /HPF (0.0-6.0) H 03/31/17 11:01 Urine RBC (Auto) 5.0 /HPF (0.0-6.0) 03/31/17 11:01 Urine Bacteria (Auto) 1+ /HPF (Negative) 03/31/17 11:01 Urine Mucus 3+ /HPF 03/31/17 11:01 Urine Creatinine 68.2 mg/dL (0.1-20.0) H 04/03/17 17:00 Urine Sodium 111 mEq/L 04/03/17 17:00 Blood Type O POSITIVE 03/31/17 12:55 Antibody Screen TNR 03/31/17 12:55 KEL Antibody Screen Negative 03/31/17 12:55 Crossmatch See Detail 03/31/17 12:55
[2017-04-05] MEDS ORDERED: VENOFER 100 MG in NACL 0.9% 50 ML IV ONE (12:00)
--- NOTE | 2017-04-05 12:20 | Progress Note ---
Assessment and Plan Assessment: * Nonoliguric VIRAL secondary to ATN - resolving * Colon cancer * Perforated colon as colonoscopy complication; large cecal colon mass --s/p ex-lap right hemicolectomy * Liver mass s/p intraoperative bx * Anemia secondary to ABL - stable * Transaminitis secondary to shock liver - liver enzymes improved * Acute respiratory failure - now extubated on NC oxygen, 2L * Coagulopathy secondary to shock liver * Thrombocytopenia * Metabolic acidosis secondary to lactic acidosis - resolved * Hepatitis C Plan: * SCr continues to improve; patient w/ good UOP and stable lytes - 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 He is tolerating po - denies nausea/ vomiting Objective - Vital Signs Vital signs: Vital Signs - 12hr 04/05/17 04/05/17 04/05/17 02:00 05:40 06:47 Temperature 97.8 F Pulse Rate 94 H 90 87 Respiratory 18 Rate Blood Pressure 154/83 O2 Sat by Pulse 96 Oximetry 04/05/17 04/05/17 07:30 11:15 Temperature 98.1 F Pulse Rate 96 H 99 H Respiratory 20 Rate Blood Pressure 168/83 178/85 O2 Sat by Pulse 97 Oximetry - General Appearance General appearance: well-developed, well-nourished EENT: ATNC Respiratory: Present: Decreased Breath Sounds Cardiology: regular, S1S2 Gastrointestinal: hypoactive bowel sounds Integumentary: no rash Neurologic: alert and oriented x3 Musculoskeletal: other (no edema) Psychiatric: cooperative - Lab 04/05/17 04:38 04/05/17 04:38 Most recent lab results Calcium 7.9 mg/dL (8.4-10.2) L 04/05/17 04:38 Phosphorus 3.30 mg/dL (2.5-4.5) 03/31/17 19:15 Magnesium 1.30 mg/dL (1.7-2.3) L 03/31/17 19:15 Urine Creatinine 68.2 mg/dL (0.1-20.0) H 04/03/17 17:00 Urine Sodium 111 mEq/L 04/03/17 17:00
[2017-04-05] MEDS: KCL 10MEQ/100ML 10 MEQ/100 ML BAG IV SCH ×2 (15:04→15:50)
[2017-04-05] MEDS: PROCRIT SUB-Q SCH (15:10)
--- NOTE | 2017-04-05 15:43 | Magnetic Resonance Report ---
MRI ABDOMEN MRCP History: Elevated bilirubin. Findings: Compared to the right upper quadrant ultrasound performed 04/02/[address] abdomen and pelvis performed 04/01/17. Trace bilateral pleural effusions are identified at the lung bases. Normal heart size. A 4.8 cm rounded mass is identified in the anterior segment of the right hepatic lobe. The etiology of this is unclear without IV contrast. A neoplastic or metastatic process cannot be excluded. There is also a 2.9 cm left hepatic lobe cyst. No underlying parenchymal liver disease is identified. The spleen is normal size. Normal pancreas. There are several gallstones and a small amount of sludge within the gallbladder. No biliary dilatation is appreciated. The common bile duct is normal caliber measuring 4 mm. Normal pancreatic duct. The visualized bowel loops are within normal limits on MR. The aorta is normal caliber. There is no evidence for adenopathy or suspicious bony lesion. Moderate ascites outlines the liver, spleen and paracolic gutters. Impression: Cholelithiasis. No evidence for biliary dilatation. 4.9 cm indeterminate right hepatic lobe mass. Further evaluation with CT or MRI with contrast is recommended. Small bilateral pleural effusions and moderate ascites.
[2017-04-05] MEDS: XALATAN 0.005% OU SCH (18:30)
--- NOTE | 2017-04-05 19:09 | Progress Note ---
Assessment and Plan Patient Alert, awake . Resting on room air. O2 saturation 98%. No complaint of chest pain or shortness of breath. - Patient Problems (1) Acute respiratory failure Current Visit: Yes Status: Acute Qualifiers: Respiratory failure complication: R Plan to address problem: Improved. Patient resting on room air. O2 saturation 98%. (2) Hepatitis C Current Visit: Yes Status: Acute Qualifiers: Viral hepatitis chronicity: V Hepatic coma status: H Plan to address problem: Management as per primary care. (3) Lactic acidosis Current Visit: Yes Status: Acute (4) Liver mass Current Visit: Yes Status: Acute Plan to address problem: Management as per primary care [employer] and Surgery. (5) Perforation of colon Current Visit: Yes Status: Acute Plan to address problem: Management as per surgery. Patient is on antibiotics Levaquine and Metranidazole. Subjective Date of service: 04/05/17 Principal diagnosis: Acute Respiratory Failure on MVS; S/P perforated Cecum; Sepsis Syndrome Interval history: Patient Alert, awake . Resting on room air. O2 saturation 98%. No complaint of chest pain or shortness of breath. Objective Vital Signs - 12hr 04/05/17 04/05/17 04/05/17 07:30 10:45 10:55 Temperature 98.1 F Pulse Rate 96 H Pulse Rate [ 104 H Anterior Bilateral Throughout] Respiratory 20 Rate Respiratory 18 Rate [Anterior Bilateral Throughout] Blood Pressure 168/83 O2 Sat by Pulse 97 97 Oximetry 04/05/17 04/05/17 04/05/17 11:15 12:44 16:29 Temperature 98.4 F 98.0 F Pulse Rate 99 H 99 H 98 H Pulse Rate [ 108 H Anterior Bilateral Throughout] Respiratory 20 20 Rate Respiratory 18 Rate [Anterior Bilateral Throughout] Blood Pressure 178/85 178/85 151/82 O2 Sat by Pulse 98 Oximetry Constitutional: no acute distress, alert Eyes: non-icteric ENT: oropharynx moist Neck: supple, no lymphadenopathy Effort: normal Ascultation: Bilateral: diminished breath sounds (bases) Cardiovascular: regular rate and rhythm Gastrointestinal: hypoactive bowel sounds, soft, non-tender, non-distended Integumentary: normal Extremities: no cyanosis, no edema, pulses normal, no ischemia or petechiae Neurologic: normal mental status, non-focal exam, pupils equal and round, motor strength normal and Psychiatric: mood appropriate, affect normal CBC and BMP: 04/05/17 04:38 04/05/17 04:38 ABG, PT/INR, D-dimer: ABG POC ABG pH 7.396 (7.35-7.45) 04/01/17 16:23 POC ABG pCO2 44.7 (35-45) 04/01/17 16:23 POC ABG pO2 125 (80-105) H 04/01/17 16:23 POC ABG HCO3 27.4 04/01/17 16:23 POC ABG Total CO2 29 04/01/17 16:23 POC ABG O2 Sat 99 04/01/17 16:23 PT/INR, D-dimer PT 16.1 Sec. (12.2-14.9) H 04/04/17 04:50 INR 1.30 (0.87-1.13) H 04/04/17 04:50 Abnormal lab findings: Abnormal Labs 03/31/17 03/31/17 03/31/17 15:19 15:43 19:15 RBC Hgb 10.6 L 10.3 L Hct 33.9 L D 32.1 L MCV 78 L 77 L MCH 24 L 25 L MCHC 31 L RDW 15.8 H 15.9 H Plt Count 116 L Lymph % (Auto) 8.7 L [place] % (Auto) Lymph # 0.7 L [place] # Seg Neutrophils % 77.2 H 86.8 H PT INR APTT POC ABG pH 7.202 L POC ABG pCO2 POC ABG pO2 292 H Sodium Potassium Chloride Carbon Dioxide BUN Creatinine Glucose POC Glucose Lactic Acid Calcium Magnesium Iron TIBC Ferritin Total Bilirubin Direct Bilirubin AST ALT Total Protein Albumin Vitamin B12 Urine Creatinine 03/31/17 03/31/17 03/31/17 19:15 19:15 19:15 RBC Hgb Hct MCV MCH MCHC RDW Plt Count Lymph % (Auto) [place] % (Auto) Lymph # [place] # Seg Neutrophils % PT INR APTT POC ABG pH POC ABG pCO2 POC ABG pO2 Sodium Potassium Chloride Carbon Dioxide 12 L BUN 8 L Creatinine Glucose 206 H POC Glucose Lactic Acid 6.90 H* Calcium 6.9 L D Magnesium 1.30 L Iron TIBC Ferritin Total Bilirubin Direct Bilirubin AST ALT Total Protein Albumin Vitamin B12 Urine Creatinine 03/31/17 03/31/17 03/31/17 21:13 22:50 23:20 RBC Hgb Hct MCV MCH MCHC RDW Plt Count Lymph % (Auto) [place] % (Auto) Lymph # [place] # Seg Neutrophils % PT INR APTT POC ABG pH 7.142 L POC ABG pCO2 46.1 H 23.0 L POC ABG pO2 229 H 180 H Sodium Potassium Chloride Carbon Dioxide BUN Creatinine Glucose POC Glucose Lactic Acid 5.90 H* Calcium Magnesium Iron TIBC Ferritin Total Bilirubin Direct Bilirubin AST ALT Total Protein Albumin Vitamin B12 Urine Creatinine 04/01/17 04/01/17 04/01/17 05:00 05:00 05:00 RBC 2.97 L Hgb 7.3 L D Hct 22.6 L D MCV 76 L MCH 25 L MCHC RDW 15.9 H Plt Count 102 L Lymph % (Auto) 10.4 L [place] % (Auto) Lymph # 0.5 L [place] # Seg Neutrophils % 86.8 H PT INR APTT POC ABG pH POC ABG pCO2 POC ABG pO2 Sodium Potassium Chloride Carbon Dioxide BUN Creatinine Glucose 190 H POC Glucose Lactic Acid 3.80 H* Calcium 6.9 L Magnesium Iron TIBC Ferritin Total Bilirubin Direct Bilirubin AST ALT Total Protein Albumin Vitamin B12 Urine Creatinine 04/01/17 04/01/17 04/01/17 09:01 09:55 09:55 RBC 3.45 L Hgb 8.5 L Hct 26.4 L MCV 77 L MCH 25 L MCHC RDW 15.7 H Plt Count 112 L Lymph % (Auto) 10.0 L [place] % (Auto) Lymph # 0.7 L [place] # Seg Neutrophils % 85.5 H PT INR APTT POC ABG pH 7.480 H POC ABG pCO2 32.3 L POC ABG pO2 150 H Sodium Potassium Chloride 108.5 H Carbon Dioxide BUN Creatinine Glucose 110 H POC Glucose Lactic Acid Calcium 6.9 L Magnesium Iron TIBC Ferritin Total Bilirubin Direct Bilirubin AST ALT Total Protein Albumin Vitamin B12 Urine Creatinine 04/01/17 04/01/17 04/01/17 10:36 16:12 16:23 RBC Hgb Hct MCV MCH MCHC RDW Plt Count Lymph % (Auto) [place] % (Auto) Lymph # [place] # Seg Neutrophils % PT INR APTT POC ABG pH POC ABG pCO2 POC ABG pO2 38 L 125 H Sodium Potassium Chloride Carbon Dioxide BUN Creatinine Glucose POC Glucose Lactic Acid 2.60 H* Calcium Magnesium Iron TIBC Ferritin Total Bilirubin Direct Bilirubin AST ALT Total Protein Albumin Vitamin B12 Urine Creatinine 04/01/17 04/02/17 04/02/17 18:00 01:34 04:00 RBC 3.21 L 2.98 L Hgb 7.8 L 7.3 L Hct 24.5 L 22.8 L MCV 76 L 77 L MCH 24 L 24 L MCHC RDW 15.7 H 15.7 H Plt Count 94 L 70 L Lymph % (Auto) 9.6 L [place] % (Auto) Lymph # 0.7 L 0.8 L [place] # Seg Neutrophils % 87.0 H 80.5 H PT INR APTT POC ABG pH POC ABG pCO2 POC ABG pO2 Sodium Potassium Chloride Carbon Dioxide BUN Creatinine Glucose POC Glucose 132 H Lactic Acid Calcium Magnesium Iron TIBC Ferritin Total Bilirubin Direct Bilirubin AST ALT Total Protein Albumin Vitamin B12 Urine Creatinine 04/02/17 04/02/17 04/02/17 04:00 04:00 04:00 RBC Hgb Hct MCV MCH MCHC RDW Plt Count Lymph % (Auto) [place] % (Auto) Lymph # [place] # Seg Neutrophils % PT 21.5 H INR 1.87 H APTT POC ABG pH POC ABG pCO2 POC ABG pO2 Sodium Potassium Chloride Carbon Dioxide BUN 25 H Creatinine 2.0 H D Glucose 108 H POC Glucose Lactic Acid Calcium 6.9 L Magnesium Iron TIBC 184 L Ferritin Total Bilirubin 1.40 H Direct Bilirubin AST 4564 H ALT 2544 H Total Protein 5.3 L D Albumin 2.4 L Vitamin B12 2000 H Urine Creatinine 04/02/17 04/02/17 04/02/17 08:49 15:05 15:05 RBC 3.05 L Hgb 7.6 L Hct 23.2 L MCV 76 L MCH 25 L MCHC RDW 16.2 H Plt Count 86 L Lymph % (Auto) [place] % (Auto) Lymph # [place] # Seg Neutrophils % PT 20.6 H INR 1.77 H APTT POC ABG pH POC ABG pCO2 POC ABG pO2 Sodium Potassium Chloride Carbon Dioxide BUN 31 H Creatinine 2.5 H Glucose 105 H POC Glucose Lactic Acid Calcium 7.4 L Magnesium Iron TIBC Ferritin Total Bilirubin Direct Bilirubin AST ALT Total Protein Albumin Vitamin B12 Urine Creatinine 04/02/17 04/02/17 04/02/17 15:05 18:50 18:50 RBC 2.94 L Hgb 7.2 L Hct 22.6 L MCV 77 L MCH 24 L MCHC RDW 15.7 H Plt Count 73 L Lymph % (Auto) 11.9 L [place] % (Auto) Lymph # 0.7 L [place] # Seg Neutrophils % 80.8 H PT 18.6 H INR 1.56 H APTT 37.0 H POC ABG pH POC ABG pCO2 POC ABG pO2 Sodium Potassium Chloride Carbon Dioxide BUN Creatinine Glucose POC Glucose Lactic Acid Calcium Magnesium Iron 192 H TIBC 226 L Ferritin Total Bilirubin Direct Bilirubin AST ALT Total Protein Albumin Vitamin B12 Urine Creatinine 04/02/17 04/02/17 04/02/17 18:50 18:50 18:50 RBC Hgb Hct MCV MCH MCHC RDW Plt Count Lymph % (Auto) [place] % (Auto) Lymph # [place] # Seg Neutrophils % PT INR APTT POC ABG pH POC ABG pCO2 POC ABG pO2 Sodium Potassium Chloride Carbon Dioxide BUN Creatinine Glucose POC Glucose Lactic Acid Calcium Magnesium Iron TIBC Ferritin 4536.0 H Total Bilirubin 2.00 H Direct Bilirubin 1.6 H AST 2581 H ALT 1873 H Total Protein 5.5 L Albumin 2.5 L Vitamin B12 > 2000 H Urine Creatinine 04/02/17 04/03/17 04/03/17 21:54 00:01 04:00 RBC 2.91 L Hgb 7.2 L 7.1 L Hct 22.6 L 22.2 L MCV 76 L MCH 25 L MCHC RDW 15.9 H Plt Count 71 L Lymph % (Auto) 9.9 L [place] % (Auto) 7.5 H Lymph # 0.6 L [place] # Seg Neutrophils % 82.5 H PT 16.0 H INR 1.29 H APTT POC ABG pH POC ABG pCO2 POC ABG pO2 Sodium Potassium Chloride Carbon Dioxide BUN Creatinine Glucose POC Glucose Lactic Acid Calcium Magnesium Iron TIBC Ferritin Total Bilirubin Direct Bilirubin AST ALT Total Protein Albumin Vitamin B12 Urine Creatinine 04/03/17 04/03/17 04/03/17 05:45 05:45 14:20 RBC Hgb 7.2 L Hct 22.5 L MCV MCH MCHC RDW Plt Count Lymph % (Auto) [place] % (Auto) Lymph # [place] # Seg Neutrophils % PT INR APTT POC ABG pH POC ABG pCO2 POC ABG pO2 Sodium Potassium Chloride 108.3 H Carbon Dioxide BUN 34 H Creatinine 2.6 H Glucose 175 H POC Glucose Lactic Acid Calcium 7.1 L Magnesium Iron TIBC Ferritin Total Bilirubin 2.70 H 2.60 H Direct Bilirubin 2.2 H AST 1604 H 1600 H ALT 1504 H 1486 H Total Protein 5.3 L 5.4 L Albumin 2.3 L 2.4 L Vitamin B12 Urine Creatinine 04/03/17 04/03/17 04/03/17 14:20 17:00 18:00 RBC Hgb Hct MCV MCH MCHC RDW Plt Count Lymph % (Auto) [place] % (Auto) Lymph # [place] # Seg Neutrophils % PT INR APTT POC ABG pH POC ABG pCO2 POC ABG pO2 Sodium 146 H Potassium Chloride 108.4 H Carbon Dioxide BUN 38 H Creatinine 2.6 H Glucose 151 H POC Glucose 117 H Lactic Acid Calcium 7.9 L Magnesium Iron TIBC Ferritin Total Bilirubin Direct Bilirubin AST ALT Total Protein Albumin Vitamin B12 Urine Creatinine 68.2 H 04/03/17 04/04/17 04/04/17 21:37 04:50 04:50 RBC 2.88 L Hgb 7.2 L 7.0 L Hct 22.5 L 22.0 L MCV 76 L MCH 24 L MCHC RDW 15.4 H Plt Count 78 L Lymph % (Auto) 11.1 L [place] % (Auto) 10.5 H Lymph # 0.6 L [place] # Seg Neutrophils % 78.1 H PT 16.1 H INR 1.30 H APTT POC ABG pH POC ABG pCO2 POC ABG pO2 Sodium Potassium Chloride Carbon Dioxide BUN Creatinine Glucose POC Glucose Lactic Acid Calcium Magnesium Iron TIBC Ferritin Total Bilirubin Direct Bilirubin AST ALT Total Protein Albumin Vitamin B12 Urine Creatinine 04/04/17 04/04/17 04/04/17 04:50 12:36 17:22 RBC Hgb Hct MCV MCH MCHC RDW Plt Count Lymph % (Auto) [place] % (Auto) Lymph # [place] # Seg Neutrophils % PT INR APTT POC ABG pH POC ABG pCO2 POC ABG pO2 Sodium Potassium Chloride 107.5 H Carbon Dioxide BUN 37 H Creatinine 2.3 H Glucose 158 H POC Glucose 205 H 151 H Lactic Acid Calcium 8.0 L Magnesium Iron TIBC Ferritin Total Bilirubin 3.50 H Direct Bilirubin AST 649 H ALT 1092 H Total Protein 5.9 L Albumin 2.7 L Vitamin B12 Urine Creatinine 04/04/17 04/05/17 04/05/17 21:35 04:38 04:38 RBC 2.95 L Hgb 7.2 L Hct 22.2 L MCV 76 L MCH 24 L MCHC RDW Plt Count 95 L Lymph % (Auto) [place] % (Auto) 14.4 H Lymph # 0.8 L [place] # 0.9 H Seg Neutrophils % 71.4 H PT INR APTT POC ABG pH POC ABG pCO2 POC ABG pO2 Sodium Potassium 3.2 L Chloride Carbon Dioxide BUN 35 H Creatinine 1.9 H Glucose 120 H POC Glucose 190 H Lactic Acid Calcium 7.9 L Magnesium Iron TIBC Ferritin Total Bilirubin 3.40 H Direct Bilirubin AST 257 H ALT 680 H Total Protein 6.0 L Albumin 2.5 L Vitamin B12 Urine Creatinine 04/05/17 04/05/17 04/05/17 08:54 11:42 15:52 RBC Hgb Hct MCV MCH MCHC RDW Plt Count Lymph % (Auto) [place] % (Auto) Lymph # [place] # Seg Neutrophils % PT INR APTT POC ABG pH POC ABG pCO2 POC ABG pO2 Sodium Potassium Chloride Carbon Dioxide BUN Creatinine Glucose POC Glucose 153 H 140 H 117 H Lactic Acid Calcium Magnesium Iron TIBC Ferritin Total Bilirubin Direct Bilirubin AST ALT Total Protein Albumin Vitamin B12 Urine Creatinine Chest x-ray: report reviewed (Improving atelectasis.), image reviewed
--- NOTE | 2017-04-05 19:53 | Progress Note ---
Subjective Patient Reports: Positive: feels better, pain is less, flatus, bowel movement, afebrile Narrative: clinically Pt is improving , tolerating PO well ,liver enzymes as well , bilirubin elevated . did a MRCP 4.5 cm mass within the Right libe of the liver could not be biopsied , would need a CT guided Bx , Objective Vital Signs - 12hr 04/05/17 04/05/17 04/05/17 10:45 10:55 11:15 Temperature Pulse Rate 99 H Pulse Rate [ 104 H 108 H Anterior Bilateral Throughout] Respiratory Rate Respiratory 18 18 Rate [Anterior Bilateral Throughout] Blood Pressure 178/85 O2 Sat by Pulse 97 Oximetry 04/05/17 04/05/17 12:44 16:29 Temperature 98.4 F 98.0 F Pulse Rate 99 H 98 H Pulse Rate [ Anterior Bilateral Throughout] Respiratory 20 20 Rate Respiratory Rate [Anterior Bilateral Throughout] Blood Pressure 178/85 151/82 O2 Sat by Pulse 98 Oximetry - Labs 04/05/17 04:38 04/05/17 04:38 Diabetes panel 04/05/17 Range/Units 04:38 Sodium 143 (137-145) mmol/L Potassium 3.2 L (3.6-5.0) mmol/L Chloride 105.6 (98-107) mmol/L Carbon Dioxide 24 (22-30) mmol/L BUN 35 H (9-20) mg/dL Creatinine 1.9 H (0.8-1.5) mg/dL Glucose 120 H (75-100) mg/dL Calcium 7.9 L (8.4-10.2) mg/dL AST 257 H (5-40) units/L ALT 680 H (7-56) units/L Alkaline Phosphatase 61 (35-129) units/L Total Protein 6.0 L (6.3-8.2) g/dL Albumin 2.5 L (3.9-5) g/dL Calcium panel 04/05/17 Range/Units 04:38 Calcium 7.9 L (8.4-10.2) mg/dL Albumin 2.5 L (3.9-5) g/dL Pituitary panel 04/05/17 Range/Units 04:38 Sodium 143 (137-145) mmol/L Potassium 3.2 L (3.6-5.0) mmol/L Chloride 105.6 (98-107) mmol/L Carbon Dioxide 24 (22-30) mmol/L BUN 35 H (9-20) mg/dL Creatinine 1.9 H (0.8-1.5) mg/dL Glucose 120 H (75-100) mg/dL Calcium 7.9 L (8.4-10.2) mg/dL Adrenal panel 04/05/17 Range/Units 04:38 Sodium 143 (137-145) mmol/L Potassium 3.2 L (3.6-5.0) mmol/L Chloride 105.6 (98-107) mmol/L Carbon Dioxide 24 (22-30) mmol/L BUN 35 H (9-20) mg/dL Creatinine 1.9 H (0.8-1.5) mg/dL Glucose 120 H (75-100) mg/dL Calcium 7.9 L (8.4-10.2) mg/dL Total Bilirubin 3.40 H (0.1-1.2) mg/dL AST 257 H (5-40) units/L ALT 680 H (7-56) units/L Alkaline Phosphatase 61 (35-129) units/L Total Protein 6.0 L (6.3-8.2) g/dL Albumin 2.5 L (3.9-5) g/dL
[2017-04-06] MEDS: DILAUDID IV PRN ×7 (01:18→23:40)
[2017-04-06] MEDS ORDERED: PROVENTIL IH PRN (02:28)
[2017-04-06 04:43] LABS: Hemoglobin 7.3 gm/dl (11.8-15.2); Mean Corpuscular HGB Conc 33 % (32-34); Mean Corpuscular Volume 74 fl (84-94); Red Blood Count 2.97 M/mm3 (3.65-5.03); Red Cell Distribution Width 14.5 % (13.2-15.2); White Blood Count 6.7 K/mm3 (4.5-11.0)
[2017-04-06 04:46] LABS: Mean Corpuscular Hemoglobin 25 pg (28-32); Platelet Count 89 K/mm3 (140-440)
[2017-04-06 04:55] LABS: INR 1.21 (0.87-1.13); Partial Thromboplastin Time 31.4 Sec. (24.2-36.6)
[2017-04-06 04:58] LABS: Albumin 2.5 g/dL (3.9-5); Albumin/Globulin Ratio 0.7 %; BUN/Creatinine Ratio 18.23; Bilirubin,Total 3.3 mg/dL (0.1-1.2); Chloride 104.3 mmol/L (98-107); Magnesium 1.5 mg/dL (1.7-2.3); Potassium 3.2 mmol/L (3.6-5.0); Total Protein 5.9 g/dL (6.3-8.2)
[2017-04-06] MEDS: FLAGYL 500 MG/100 ML 500 MG/100 ML BAG IV SCH ×3 (05:29→22:30)
--- NOTE | 2017-04-06 08:16 | Gastroenterology Progress Note ---
Assessment and Plan colon cancer - s/p r hemicolectomy, awaiting path from liver biopsy (suspected metastatic lesion, can not r/o primary/HCC given likely underlying cirrhosis however). Further management of diet per surgery. VIRAL - improving, nephrology following Acute on chronic liver injury - liver enzymes improving, suspect ischemic hepatitis, with expected late elevation in t bilirubin with rest of liver enzymes improving Anemia - stable, no signs of bleeding, hematology following Hopefully, pt can be discharged later this week if tolerating advanced diet and continues to have improvement as above. Subjective Date of service: 04/05/17 Principal diagnosis: Acute Respiratory Failure on MVS; S/P perforated Cecum; Sepsis Syndrome Interval history: pt seen and examined 04/05. his is out of the ICU and doing well on the floor. tolerating CLD, + bm's. Denies significant pain. Objective - Exam Narrative Exam: Gen: NAD, resting comfortably CV: RRR Lungs: CTAB, non labored Abd: soft, nd, +bs - Constitutional Vitals: Temp Pulse Resp BP Pulse Ox 99.0 F 92 H 20 146/83 98 04/06/17 07:58 04/06/17 07:58 04/06/17 07:58 04/06/17 07:58 04/06/17 07:58 - Labs CBC & Chem 7: 04/06/17 03:32 04/06/17 03:32 Labs: Laboratory Results - last 24 hr 04/05/17 04/05/17 04/05/17 08:54 11:42 15:52 WBC RBC Hgb Hct MCV MCH MCHC RDW Plt Count PT INR APTT Sodium Potassium Chloride Carbon Dioxide Anion Gap BUN Creatinine Estimated GFR BUN/Creatinine Ratio Glucose POC Glucose 153 H 140 H 117 H Calcium Magnesium Total Bilirubin AST ALT Alkaline Phosphatase Total Protein Albumin Albumin/Globulin Ratio 04/05/17 04/06/17 04/06/17 21:18 03:32 03:32 WBC 6.7 RBC 2.97 L Hgb 7.3 L Hct 22.0 L MCV 74 L MCH 25 L MCHC 33 RDW 14.5 Plt Count 89 L PT 15.2 H INR 1.21 H APTT 31.4 Sodium Potassium Chloride Carbon Dioxide Anion Gap BUN Creatinine Estimated GFR BUN/Creatinine Ratio Glucose POC Glucose 157 H Calcium Magnesium Total Bilirubin AST ALT Alkaline Phosphatase Total Protein Albumin Albumin/Globulin Ratio 04/06/17 04/06/17 03:32 06:30 WBC RBC Hgb Hct MCV MCH MCHC RDW Plt Count PT INR APTT Sodium 140 Potassium 3.2 L Chloride 104.3 Carbon Dioxide 22 Anion Gap 17 BUN 31 H Creatinine 1.7 H Estimated GFR 49 BUN/Creatinine Ratio 18.23 Glucose 107 H POC Glucose 102 Calcium 8.0 L Magnesium 1.50 L Total Bilirubin 3.30 H AST 122 H ALT 467 H Alkaline Phosphatase 60 Total Protein 5.9 L Albumin 2.5 L Albumin/Globulin Ratio 0.7
--- NOTE | 2017-04-06 09:22 | XRay Report ---
AP chest x-ray. History: Followup restricted failure. Findings: Since yesterday's study, minimal discoid atelectasis has developed in the lung bases, slightly worse on the left. The upper lungs are clear. The heart and pulmonary vessels are normal. The right jugular central line is unchanged in position. Impression: Minimal bibasilar atelectasis.
[2017-04-06] MEDS: NORVASC PO SCH (09:24)
[2017-04-06] MEDS: PROTONIX PO SCH ×2 (09:24→21:46)
[2017-04-06] MEDS: K-DUR PO SCH ×2 (09:24→12:17)
--- NOTE | 2017-04-06 09:24 | Hem/Onc Progress Note ---
Assessment and Plan CBC is stable. Liver enzymes are improving. ironwas given yesterday. We will hold off today's dose to the cardiac workup is done. Procrit has been ordered for 5 more days. Subjective Date of service: 04/06/17 Interval history: Patient feels well. He according to Dr. Manzanares had a run of V. tach. Patient tolerating by mouth. He has walked around in the hallways and also in the room. Denies any active bleeding. Having bowel movements. Objective - Constitutional Vitals: Last Vital Signs Temp 99.0 F 04/06/17 07:58 Pulse 92 H 04/06/17 07:58 Resp 20 04/06/17 07:58 BP 146/83 04/06/17 07:58 Pulse Ox 98 04/06/17 07:58 General appearance: no acute distress Performance status: 2- selfcare, ambulatory - Respiratory Respiratory effort: Positive: normal Respiratory: bilateral: CTA - Cardiovascular Rhythm: regular Extremities: No edema - Gastrointestinal General gastrointestinal: Present: soft - Labs Lab Results: Laboratory Results - last 24 hr 04/03/17 04/05/17 04/05/17 11:40 11:42 15:52 WBC RBC Hgb Hct MCV MCH MCHC RDW Plt Count PT INR APTT Sodium Potassium Chloride Carbon Dioxide Anion Gap BUN Creatinine Estimated GFR BUN/Creatinine Ratio Glucose POC Glucose 140 H 117 H Calcium Magnesium Total Bilirubin AST ALT Alkaline Phosphatase Total Protein Albumin Albumin/Globulin Ratio CA 19-9 Antigen 23 04/05/17 04/06/17 04/06/17 21:18 03:32 03:32 WBC 6.7 RBC 2.97 L Hgb 7.3 L Hct 22.0 L MCV 74 L MCH 25 L MCHC 33 RDW 14.5 Plt Count 89 L PT 15.2 H INR 1.21 H APTT 31.4 Sodium Potassium Chloride Carbon Dioxide Anion Gap BUN Creatinine Estimated GFR BUN/Creatinine Ratio Glucose POC Glucose 157 H Calcium Magnesium Total Bilirubin AST ALT Alkaline Phosphatase Total Protein Albumin Albumin/Globulin Ratio CA 19-9 Antigen 04/06/17 04/06/17 03:32 06:30 WBC RBC Hgb Hct MCV MCH MCHC RDW Plt Count PT INR APTT Sodium 140 Potassium 3.2 L Chloride 104.3 Carbon Dioxide 22 Anion Gap 17 BUN 31 H Creatinine 1.7 H Estimated GFR 49 BUN/Creatinine Ratio 18.23 Glucose 107 H POC Glucose 102 Calcium 8.0 L Magnesium 1.50 L Total Bilirubin 3.30 H AST 122 H ALT 467 H Alkaline Phosphatase 60 Total Protein 5.9 L Albumin 2.5 L Albumin/Globulin Ratio 0.7 CA 19-9 Antigen
[2017-04-06] MEDS ORDERED: PROCRIT SUB-Q SCH (10:00)
[2017-04-06] MEDS ORDERED: VENOFER 100 MG in NACL 0.9% 50 ML IV ONE (10:00)
[2017-04-06 10:13] LABS: BUN/Creatinine Ratio 17.64; Calcium 7.7 mg/dL (8.4-10.2); Chloride 104.1 mmol/L (98-107); Magnesium 1.4 mg/dL (1.7-2.3); Potassium 3.3 mmol/L (3.6-5.0)
--- NOTE | 2017-04-06 10:38 | Progress Note ---
Assessment and Plan Assessment: * Nonoliguric VIRAL secondary to ATN - resolving * Colon cancer * Perforated colon as colonoscopy complication; large cecal colon mass --s/p ex-lap right hemicolectomy * Liver mass s/p intraoperative bx * Anemia secondary to ABL - stable * Transaminitis secondary to shock liver - liver enzymes improved * Acute respiratory failure - now extubated on NC oxygen, 2L * Coagulopathy secondary to shock liver * Thrombocytopenia * Metabolic acidosis secondary to lactic acidosis - resolved * Hepatitis C * electrolyte abnormalities Plan: * SCr continues stable, patient w/ good UOP - no acute indication for [employer] * replete k and mag prn * AntiHTN medications * Heme/onc recs noted * Strict monitoring of I/O * Avoid potential nephrotoxic agents * Adjust medications for renal function * Diet per surgery Subjective Date of service: 04/06/17 Principal diagnosis: Acute Respiratory Failure on MVS; S/P perforated Cecum; Sepsis Syndrome Interval history: resting in bed, no acute events noted Objective - Exam Narrative Exam: General appearance: well-developed, well-nourished EENT: ATNC Respiratory: Present: Decreased Breath Sounds Cardiology: regular, S1S2 Gastrointestinal: hypoactive bowel sounds Integumentary: no rash Neurologic: alert and oriented x3 Musculoskeletal: other (no edema) Psychiatric: cooperative - Vital Signs Vital signs: Vital Signs - 12hr 04/05/17 04/06/17 04/06/17 23:00 01:18 01:20 Temperature 98 F Pulse Rate 110 H 90 Respiratory 20 18 Rate Blood Pressure 137/75 O2 Sat by Pulse 98 Oximetry 04/06/17 07:58 Temperature 99.0 F Pulse Rate 92 H Respiratory 20 Rate Blood Pressure 146/83 O2 Sat by Pulse 98 Oximetry - Lab 04/06/17 03:32 04/06/17 09:43 Most recent lab results Calcium 7.7 mg/dL (8.4-10.2) L 04/06/17 09:43 Phosphorus 3.30 mg/dL (2.5-4.5) 03/31/17 19:15 Magnesium 1.40 mg/dL (1.7-2.3) L 04/06/17 09:43 Urine Creatinine 68.2 mg/dL (0.1-20.0) H 04/03/17 17:00 Urine Sodium 111 mEq/L 04/03/17 17:00
[2017-04-06] MEDS ORDERED: MAGNESIUM SULFATE 2GM/50ML 2 GM/50 ML BAG IV ONE ×2 (12:00→19:47)
--- NOTE | 2017-04-06 12:20 | Consultation ---
History of Present Illness Consult date: 04/06/17 Consult reason: other (NSVT) History of present illness: This is a 71yr old male whom is a Jehovah witness, reports a history of Hepatitis C. He presented for outpatient screening colonoscopy found to have a mass in cecum with multiple biopsy, polyps with removal and biopsy of necrotic liver. Colonoscopy complicated with bowel perforation requiring admission. Today, while on telemetry monitoring patient noted a brief episode on non- sustained ventricular tachycardia. Cardiac consultation requested. Patient denies prior cardiac history and cardiac workup. Patient denies chest pain, shortness of breath and palpitations. He denies dizziness. Labs today, shows a H &H 7.3/22.0, serum magnesium of 1.4. potassium of 3.3 and creatinine of 1.7. Past History Past Medical History: cancer (Colon Mass, Liver mass), hepatitis (Hepatitis C with (+) viral load), hypertension Past Surgical History: Other (R hemicolectomy and liver biopsy 03/31) Social history: denies: smoking, alcohol abuse Family history: no significant family history Medications and Allergies Allergies Allergy/AdvReac Type Severity Reaction Status Date / Time Penicillins Allergy Rash Verified 07/15/13 17:28 Home Medications Medication Instructions Recorded Confirmed Last Taken Type Dicyclomine [Bentyl] 10 mg PO QID #20 capsule 07/16/13 04/01/17 Unknown Rx Pantoprazole [Protonix] 40 mg PO QDAY #30 tablet 07/16/13 04/01/17 Unknown Rx Active Meds: Active Medications Albuterol (Proventil) 2.5 mg IH Q4HRT PRN PRN Reason: Shortness Of Breath Amlodipine Besylate (Norvasc) 10 mg PO DAILY WHIT Last Admin: 04/06/17 09:24 Dose: 10 mg Epoetin Kaden (Procrit) 10,000 unit SUB-Q DAILY WHIT Stop: 04/10/17 10:01 Hydralazine HCl (Apresoline) 10 mg IV Q4HR PRN PRN Reason: Hypertension Last Admin: 04/04/17 09:21 Dose: 10 mg Hydromorphone HCl (Dilaudid) 0.5 mg IV Q3H PRN PRN Reason: Incision pain Last Admin: 04/06/17 09:25 Dose: 0.5 mg Hydrophilic Ointment (Vaseline Lip Therapy) 1 applic TP Q2HR PRN PRN Reason: Dry Lips Metronidazole (Flagyl 500 Mg/100 Ml) 500 mg in 100 mls @ 100 mls/hr IV Q8HR WHIT PRN Reason: Protocol Last Admin: 04/06/17 05:29 Dose: 100 mls/hr Levofloxacin/Dextrose (Levaquin 750mg/150ml) 750 mg in 150 mls @ 100 mls/hr IV Q48HR WHIT PRN Reason: Protocol Last Admin: 04/05/17 11:11 Dose: 100 mls/hr Magnesium Sulfate (Magnesium Sulfate 2gm/50ml) 2 gm in 50 mls @ 25 mls/hr IV ONCE ONE Stop: 04/06/17 13:59 Insulin Human Regular (Novolin R) 0 units SUB-Q ACHS WHIT PRN Reason: Protocol Last Admin: 04/06/17 12:01 Dose: Not Given Latanoprost (Xalatan 0.005%) 1 drops OU QPM [facility] Last Admin: 04/05/17 18:30 Dose: 1 drops Multi-Ingred Cream/Lotion/Oil/Oint (Artificial Tears Ophth Oint) 1 applic OU Q4HR PRN PRN Reason: Dry Eye(s) Pantoprazole Sodium (Protonix) 40 mg PO BID [facility] Last Admin: 04/06/17 09:24 Dose: 40 mg Potassium Chloride (K-Dur) 30 meq PO QDAY [facility] Last Admin: 04/06/17 09:24 Dose: 30 meq Potassium Chloride (K-Dur) 40 meq PO Q12H [facility] Stop: 04/07/17 11:01 Physical Examination Vital Signs Pulse BP Pulse Ox 117 H 75/30 98 03/31/17 10:50 03/31/17 10:50 03/31/17 10:50 General appearance: no acute distress HEENT: Positive: PERRL Neck: Positive: trachea midline Cardiac: Positive: Reg Rate and Rhythm Results 04/06/17 03:32 04/06/17 09:43 Cardiac Enzymes 04/06/17 Range/Units 03:32 AST 122 H (5-40) units/L Coagulation 04/06/17 Range/Units 03:32 PT 15.2 H (12.2-14.9) Sec. INR 1.21 H (0.87-1.13) APTT 31.4 (24.2-36.6) Sec. CBC 04/06/17 Range/Units 03:32 WBC 6.7 (4.5-11.0) K/mm3 RBC 2.97 L (3.65-5.03) M/mm3 Hgb 7.3 L (11.8-15.2) gm/dl Hct 22.0 L (35.5-45.6) % Plt Count 89 L (140-440) K/mm3 Comprehensive Metabolic Panel 04/06/17 04/06/17 Range/Units 03:32 09:43 Sodium 140 142 (137-145) mmol/L Potassium 3.2 L 3.3 L (3.6-5.0) mmol/L Chloride 104.3 104.1 (98-107) mmol/L Carbon Dioxide 22 23 (22-30) mmol/L BUN 31 H 30 H (9-20) mg/dL Creatinine 1.7 H 1.7 H (0.8-1.5) mg/dL Glucose 107 H 145 H (75-100) mg/dL Calcium 8.0 L 7.7 L (8.4-10.2) mg/dL AST 122 H (5-40) units/L ALT 467 H (7-56) units/L Alkaline Phosphatase 60 (35-129) units/L Total Protein 5.9 L (6.3-8.2) g/dL Albumin 2.5 L (3.9-5) g/dL Assessment and Plan Sepsis s/p Bowel perforation Cecum mass seen on colonoscopy Acute renal failure Acute blood loss anemia Hypokalemia Hypomagnesemia Jehovah witness Hepatitis C NSVT on telemetry; pt remained asymptomatic Recommendations: Echocardiogram for LVEF assessment. Replete and maintain electrolyte balance.
--- NOTE | 2017-04-06 12:45 | Progress Note ---
Assessment and Plan - Patient Problems (1) Acute respiratory failure Current Visit: Yes Status: Acute Qualifiers: Respiratory failure complication: R (2) Liver mass Current Visit: Yes Status: Acute (3) Perforation of colon as colonoscopy complication Current Visit: Yes Status: Acute (4) Lactic acidosis Current Visit: Yes Status: Acute (5) Colonic mass Current Visit: Yes Status: Acute (6) Elevated transaminase level Current Visit: Yes Status: Acute (7) Gastrointestinal blood Current Visit: Yes Status: Acute Qualifiers: GI bleed type/associated pathology: G Gastritis type: G (8) Discharge planning issues Current Visit: Yes Status: Acute Subjective Date of service: 04/06/17 Principal diagnosis: Acute Respiratory Failure on MVS; S/P perforated Cecum; Sepsis Syndrome Interval history: Seen and examined at bedside; 24 hour events reviewed; nursing and respiratory care staff consulted; no adverse overnight events reported to me; Objective Vital Signs - 12hr 04/06/17 04/06/17 04/06/17 01:18 01:20 07:58 Temperature 99.0 F Pulse Rate 90 92 H Respiratory 18 20 Rate Blood Pressure 146/83 O2 Sat by Pulse 98 Oximetry Constitutional: no acute distress, alert Eyes: non-icteric ENT: oropharynx moist Neck: supple, no lymphadenopathy Effort: normal Ascultation: Bilateral: clear, diminished breath sounds (bases) Cardiovascular: regular rate and rhythm Gastrointestinal: hypoactive bowel sounds, soft, non-tender, non-distended Integumentary: normal Extremities: no cyanosis, no edema, pulses normal, no ischemia or petechiae Neurologic: normal mental status, non-focal exam, pupils equal and round, motor strength normal and Psychiatric: mood appropriate, affect normal CBC and BMP: 04/06/17 03:32 04/06/17 09:43 ABG, PT/INR, D-dimer: ABG POC ABG pH 7.396 (7.35-7.45) 04/01/17 16:23 POC ABG pCO2 44.7 (35-45) 04/01/17 16:23 POC ABG pO2 125 (80-105) H 04/01/17 16:23 POC ABG HCO3 27.4 04/01/17 16:23 POC ABG Total CO2 29 04/01/17 16:23 POC ABG O2 Sat 99 04/01/17 16:23 PT/INR, D-dimer PT 15.2 Sec. (12.2-14.9) H 04/06/17 03:32 INR 1.21 (0.87-1.13) H 04/06/17 03:32 Abnormal lab findings: Abnormal Labs 03/31/17 03/31/17 03/31/17 15:19 15:43 19:15 RBC Hgb 10.6 L 10.3 L Hct 33.9 L D 32.1 L MCV 78 L 77 L MCH 24 L 25 L MCHC 31 L RDW 15.8 H 15.9 H Plt Count 116 L Lymph % (Auto) 8.7 L Wood % (Auto) Lymph # 0.7 L Wood # Seg Neutrophils % 77.2 H 86.8 H PT INR APTT POC ABG pH 7.202 L POC ABG pCO2 POC ABG pO2 292 H Sodium Potassium Chloride Carbon Dioxide BUN Creatinine Glucose POC Glucose Lactic Acid Calcium Magnesium Iron TIBC Ferritin Total Bilirubin Direct Bilirubin AST ALT Total Protein Albumin Vitamin B12 Urine Creatinine 03/31/17 03/31/17 03/31/17 19:15 19:15 19:15 RBC Hgb Hct MCV MCH MCHC RDW Plt Count Lymph % (Auto) Wood % (Auto) Lymph # Wood # Seg Neutrophils % PT INR APTT POC ABG pH POC ABG pCO2 POC ABG pO2 Sodium Potassium Chloride Carbon Dioxide 12 L BUN 8 L Creatinine Glucose 206 H POC Glucose Lactic Acid 6.90 H* Calcium 6.9 L D Magnesium 1.30 L Iron TIBC Ferritin Total Bilirubin Direct Bilirubin AST ALT Total Protein Albumin Vitamin B12 Urine Creatinine 03/31/17 03/31/17 03/31/17 21:13 22:50 23:20 RBC Hgb Hct MCV MCH MCHC RDW Plt Count Lymph % (Auto) Wood % (Auto) Lymph # Wood # Seg Neutrophils % PT INR APTT POC ABG pH 7.142 L POC ABG pCO2 46.1 H 23.0 L POC ABG pO2 229 H 180 H Sodium Potassium Chloride Carbon Dioxide BUN Creatinine Glucose POC Glucose Lactic Acid 5.90 H* Calcium Magnesium Iron TIBC Ferritin Total Bilirubin Direct Bilirubin AST ALT Total Protein Albumin Vitamin B12 Urine Creatinine 04/01/17 04/01/17 04/01/17 05:00 05:00 05:00 RBC 2.97 L Hgb 7.3 L D Hct 22.6 L D MCV 76 L MCH 25 L MCHC RDW 15.9 H Plt Count 102 L Lymph % (Auto) 10.4 L Wood % (Auto) Lymph # 0.5 L Wood # Seg Neutrophils % 86.8 H PT INR APTT POC ABG pH POC ABG pCO2 POC ABG pO2 Sodium Potassium Chloride Carbon Dioxide BUN Creatinine Glucose 190 H POC Glucose Lactic Acid 3.80 H* Calcium 6.9 L Magnesium Iron TIBC Ferritin Total Bilirubin Direct Bilirubin AST ALT Total Protein Albumin Vitamin B12 Urine Creatinine 04/01/17 04/01/17 04/01/17 09:01 09:55 09:55 RBC 3.45 L Hgb 8.5 L Hct 26.4 L MCV 77 L MCH 25 L MCHC RDW 15.7 H Plt Count 112 L Lymph % (Auto) 10.0 L Wood % (Auto) Lymph # 0.7 L Wood # Seg Neutrophils % 85.5 H PT INR APTT POC ABG pH 7.480 H POC ABG pCO2 32.3 L POC ABG pO2 150 H Sodium Potassium Chloride 108.5 H Carbon Dioxide BUN Creatinine Glucose 110 H POC Glucose Lactic Acid Calcium 6.9 L Magnesium Iron TIBC Ferritin Total Bilirubin Direct Bilirubin AST ALT Total Protein Albumin Vitamin B12 Urine Creatinine 04/01/17 04/01/17 04/01/17 10:36 16:12 16:23 RBC Hgb Hct MCV MCH MCHC RDW Plt Count Lymph % (Auto) Wood % (Auto) Lymph # Wood # Seg Neutrophils % PT INR APTT POC ABG pH POC ABG pCO2 POC ABG pO2 38 L 125 H Sodium Potassium Chloride Carbon Dioxide BUN Creatinine Glucose POC Glucose Lactic Acid 2.60 H* Calcium Magnesium Iron TIBC Ferritin Total Bilirubin Direct Bilirubin AST ALT Total Protein Albumin Vitamin B12 Urine Creatinine 04/01/17 04/02/17 04/02/17 18:00 01:34 04:00 RBC 3.21 L 2.98 L Hgb 7.8 L 7.3 L Hct 24.5 L 22.8 L MCV 76 L 77 L MCH 24 L 24 L MCHC RDW 15.7 H 15.7 H Plt Count 94 L 70 L Lymph % (Auto) 9.6 L Wood % (Auto) Lymph # 0.7 L 0.8 L Wood # Seg Neutrophils % 87.0 H 80.5 H PT INR APTT POC ABG pH POC ABG pCO2 POC ABG pO2 Sodium Potassium Chloride Carbon Dioxide BUN Creatinine Glucose POC Glucose 132 H Lactic Acid Calcium Magnesium Iron TIBC Ferritin Total Bilirubin Direct Bilirubin AST ALT Total Protein Albumin Vitamin B12 Urine Creatinine 04/02/17 04/02/17 04/02/17 04:00 04:00 04:00 RBC Hgb Hct MCV MCH MCHC RDW Plt Count Lymph % (Auto) Wood % (Auto) Lymph # Wood # Seg Neutrophils % PT 21.5 H INR 1.87 H APTT POC ABG pH POC ABG pCO2 POC ABG pO2 Sodium Potassium Chloride Carbon Dioxide BUN 25 H Creatinine 2.0 H D Glucose 108 H POC Glucose Lactic Acid Calcium 6.9 L Magnesium Iron TIBC 184 L Ferritin Total Bilirubin 1.40 H Direct Bilirubin AST 4564 H ALT 2544 H Total Protein 5.3 L D Albumin 2.4 L Vitamin B12 2000 H Urine Creatinine 04/02/17 04/02/17 04/02/17 08:49 15:05 15:05 RBC 3.05 L Hgb 7.6 L Hct 23.2 L MCV 76 L MCH 25 L MCHC RDW 16.2 H Plt Count 86 L Lymph % (Auto) Wood % (Auto) Lymph # Wood # Seg Neutrophils % PT 20.6 H INR 1.77 H APTT POC ABG pH POC ABG pCO2 POC ABG pO2 Sodium Potassium Chloride Carbon Dioxide BUN 31 H Creatinine 2.5 H Glucose 105 H POC Glucose Lactic Acid Calcium 7.4 L Magnesium Iron TIBC Ferritin Total Bilirubin Direct Bilirubin AST ALT Total Protein Albumin Vitamin B12 Urine Creatinine 04/02/17 04/02/17 04/02/17 15:05 18:50 18:50 RBC 2.94 L Hgb 7.2 L Hct 22.6 L MCV 77 L MCH 24 L MCHC RDW 15.7 H Plt Count 73 L Lymph % (Auto) 11.9 L Wood % (Auto) Lymph # 0.7 L Wood # Seg Neutrophils % 80.8 H PT 18.6 H INR 1.56 H APTT 37.0 H POC ABG pH POC ABG pCO2 POC ABG pO2 Sodium Potassium Chloride Carbon Dioxide BUN Creatinine Glucose POC Glucose Lactic Acid Calcium Magnesium Iron 192 H TIBC 226 L Ferritin Total Bilirubin Direct Bilirubin AST ALT Total Protein Albumin Vitamin B12 Urine Creatinine 04/02/17 04/02/17 04/02/17 18:50 18:50 18:50 RBC Hgb Hct MCV MCH MCHC RDW Plt Count Lymph % (Auto) Wood % (Auto) Lymph # Wood # Seg Neutrophils % PT INR APTT POC ABG pH POC ABG pCO2 POC ABG pO2 Sodium Potassium Chloride Carbon Dioxide BUN Creatinine Glucose POC Glucose Lactic Acid Calcium Magnesium Iron TIBC Ferritin 4536.0 H Total Bilirubin 2.00 H Direct Bilirubin 1.6 H AST 2581 H ALT 1873 H Total Protein 5.5 L Albumin 2.5 L Vitamin B12 > 2000 H Urine Creatinine 04/02/17 04/03/17 04/03/17 21:54 00:01 04:00 RBC 2.91 L Hgb 7.2 L 7.1 L Hct 22.6 L 22.2 L MCV 76 L MCH 25 L MCHC RDW 15.9 H Plt Count 71 L Lymph % (Auto) 9.9 L Wood % (Auto) 7.5 H Lymph # 0.6 L Wood # Seg Neutrophils % 82.5 H PT 16.0 H INR 1.29 H APTT POC ABG pH POC ABG pCO2 POC ABG pO2 Sodium Potassium Chloride Carbon Dioxide BUN Creatinine Glucose POC Glucose Lactic Acid Calcium Magnesium Iron TIBC Ferritin Total Bilirubin Direct Bilirubin AST ALT Total Protein Albumin Vitamin B12 Urine Creatinine 04/03/17 04/03/17 04/03/17 05:45 05:45 14:20 RBC Hgb 7.2 L Hct 22.5 L MCV MCH MCHC RDW Plt Count Lymph % (Auto) Wood % (Auto) Lymph # Wood # Seg Neutrophils % PT INR APTT POC ABG pH POC ABG pCO2 POC ABG pO2 Sodium Potassium Chloride 108.3 H Carbon Dioxide BUN 34 H Creatinine 2.6 H Glucose 175 H POC Glucose Lactic Acid Calcium 7.1 L Magnesium Iron TIBC Ferritin Total Bilirubin 2.70 H 2.60 H Direct Bilirubin 2.2 H AST 1604 H 1600 H ALT 1504 H 1486 H Total Protein 5.3 L 5.4 L Albumin 2.3 L 2.4 L Vitamin B12 Urine Creatinine 04/03/17 04/03/17 04/03/17 14:20 17:00 18:00 RBC Hgb Hct MCV MCH MCHC RDW Plt Count Lymph % (Auto) Wood % (Auto) Lymph # Wood # Seg Neutrophils % PT INR APTT POC ABG pH POC ABG pCO2 POC ABG pO2 Sodium 146 H Potassium Chloride 108.4 H Carbon Dioxide BUN 38 H Creatinine 2.6 H Glucose 151 H POC Glucose 117 H Lactic Acid Calcium 7.9 L Magnesium Iron TIBC Ferritin Total Bilirubin Direct Bilirubin AST ALT Total Protein Albumin Vitamin B12 Urine Creatinine 68.2 H 04/03/17 04/04/17 04/04/17 21:37 04:50 04:50 RBC 2.88 L Hgb 7.2 L 7.0 L Hct 22.5 L 22.0 L MCV 76 L MCH 24 L MCHC RDW 15.4 H Plt Count 78 L Lymph % (Auto) 11.1 L Wood % (Auto) 10.5 H Lymph # 0.6 L Wood # Seg Neutrophils % 78.1 H PT 16.1 H INR 1.30 H APTT POC ABG pH POC ABG pCO2 POC ABG pO2 Sodium Potassium Chloride Carbon Dioxide BUN Creatinine Glucose POC Glucose Lactic Acid Calcium Magnesium Iron TIBC Ferritin Total Bilirubin Direct Bilirubin AST ALT Total Protein Albumin Vitamin B12 Urine Creatinine 04/04/17 04/04/17 04/04/17 04:50 12:36 17:22 RBC Hgb Hct MCV MCH MCHC RDW Plt Count Lymph % (Auto) Wood % (Auto) Lymph # Wood # Seg Neutrophils % PT INR APTT POC ABG pH POC ABG pCO2 POC ABG pO2 Sodium Potassium Chloride 107.5 H Carbon Dioxide BUN 37 H Creatinine 2.3 H Glucose 158 H POC Glucose 205 H 151 H Lactic Acid Calcium 8.0 L Magnesium Iron TIBC Ferritin Total Bilirubin 3.50 H Direct Bilirubin AST 649 H ALT 1092 H Total Protein 5.9 L Albumin 2.7 L Vitamin B12 Urine Creatinine 04/04/17 04/05/17 04/05/17 21:35 04:38 04:38 RBC 2.95 L Hgb 7.2 L Hct 22.2 L MCV 76 L MCH 24 L MCHC RDW Plt Count 95 L Lymph % (Auto) Wood % (Auto) 14.4 H Lymph # 0.8 L Wood # 0.9 H Seg Neutrophils % 71.4 H PT INR APTT POC ABG pH POC ABG pCO2 POC ABG pO2 Sodium Potassium 3.2 L Chloride Carbon Dioxide BUN 35 H Creatinine 1.9 H Glucose 120 H POC Glucose 190 H Lactic Acid Calcium 7.9 L Magnesium Iron TIBC Ferritin Total Bilirubin 3.40 H Direct Bilirubin AST 257 H ALT 680 H Total Protein 6.0 L Albumin 2.5 L Vitamin B12 Urine Creatinine 04/05/17 04/05/17 04/05/17 08:54 11:42 15:52 RBC Hgb Hct MCV MCH MCHC RDW Plt Count Lymph % (Auto) Wood % (Auto) Lymph # Wood # Seg Neutrophils % PT INR APTT POC ABG pH POC ABG pCO2 POC ABG pO2 Sodium Potassium Chloride Carbon Dioxide BUN Creatinine Glucose POC Glucose 153 H 140 H 117 H Lactic Acid Calcium Magnesium Iron TIBC Ferritin Total Bilirubin Direct Bilirubin AST ALT Total Protein Albumin Vitamin B12 Urine Creatinine 04/05/17 04/06/17 04/06/17 21:18 03:32 03:32 RBC 2.97 L Hgb 7.3 L Hct 22.0 L MCV 74 L MCH 25 L MCHC RDW Plt Count 89 L Lymph % (Auto) Wood % (Auto) Lymph # Wood # Seg Neutrophils % PT 15.2 H INR 1.21 H APTT POC ABG pH POC ABG pCO2 POC ABG pO2 Sodium Potassium Chloride Carbon Dioxide BUN Creatinine Glucose POC Glucose 157 H Lactic Acid Calcium Magnesium Iron TIBC Ferritin Total Bilirubin Direct Bilirubin AST ALT Total Protein Albumin Vitamin B12 Urine Creatinine 04/06/17 04/06/17 04/06/17 03:32 09:43 11:27 RBC Hgb Hct MCV MCH MCHC RDW Plt Count Lymph % (Auto) Wood % (Auto) Lymph # Wood # Seg Neutrophils % PT INR APTT POC ABG pH POC ABG pCO2 POC ABG pO2 Sodium Potassium 3.2 L 3.3 L Chloride Carbon Dioxide BUN 31 H 30 H Creatinine 1.7 H 1.7 H Glucose 107 H 145 H POC Glucose 130 H Lactic Acid Calcium 8.0 L 7.7 L Magnesium 1.50 L 1.40 L Iron TIBC Ferritin Total Bilirubin 3.30 H Direct Bilirubin AST 122 H ALT 467 H Total Protein 5.9 L Albumin 2.5 L Vitamin B12 Urine Creatinine
--- NOTE | 2017-04-06 12:46 | Progress Note ---
Assessment and Plan Assessment and plan: Patient is 71-year-old man with a history of type 2 diabetes mellitus and hypertension who presented on 03/31/2017 with bowel perforation during colonoscopy by Dr. Cornel Alberto, GI. He was intubated and sent to the ER where he underwent bowel resection with an End-to-End anastomosis. The cecal mass pathology did show adenocarcinoma malignancy. He was seen by Dr. Purdy and diagnosed with T2 N0, stage I colon cancer. Patient is Jehovah witness and refusing blood products. -Colon cancer T2 N0 with definitive therapy already (actually not a bad thing the perforation occurred-which saves patient additional surgery): Follow up with hematology oncology -Acute hypoxic respiratory failure status post intubation and subsequent extubation: Continue to wean off oxygen, currently on 2 L -Pneumoperitoneum/bowel perforation with acute abdomen status post emergent surgery: Advance diet carefully per surgery -Hypovolemic shock, Present on admission resolved -Transaminitis suspected due to shock liver per chart, per GI -Sepsis due to bowel perforation/intra-abdominal infection/bacterial peritonitis , poa: Continue Levaquin and Flagyl, patient allergic to penicillin -Acute renal failure due to ATN, improving: continue IVF -Moderate 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 Hypokalemia: Replace and recheck potassium level and magnesium level in a.m. also follow-up renal function. Patient on 2 different IV fluids will clarify. Also repeat liver function. new issue: This morning at 8:15am he had 10 beat run of nsvt. I obtained EKG and reviewed with Preparation Plant Repairer at nursing station, I ordered bmp, mag level stat , consulted cardiology. ECHO ordered. The high probability of a clinically significant, sudden or life threatening deterioration of the [neurologic,cardiac] system(s) required my full and direct attention, intervention and personal management. The aggregate critical care time was [ 40 ] minutes. This time is in addition to time spent performing reported procedures but includes the following: [x] Data Review and interpretation [x] Patient assessment and monitoring of vital signs [x] Documentation [x] Medication orders and management Mag and k+ level are low, will replace and recheck am. History Interval history: Patient seen and examined. Follow up bowel perforation. He is tolerating a diet today, without n/v. He does have hiccups. Sister at bedside. No cp, sob. This morning at 8:15am he had 10 beat run of nsvt. I obtained EKG and reviewed with Preparation Plant Repairer at nursing station, I ordered bmp, mag level stat, consulted cardiology. Hospitalist Physical - Physical exam Narrative exam: GEN: WDWN, NAD, AWAKE, ALERT, ORIENTATED x 3 HEENT: NCAT, PERRL, EOMI, OP CLEAR NECK: SUPPLE, NO THYROMEGALY, NO JVD, NO LAD CVS: RRR, NORMAL S1S2 LUNGS/CHEST: CTA B, NORMAL CHEST EXPANSION B, GOOD AIR ENTRY B ABD: SOFT, rhonda in place, clean dry and intact positive bowel sounds, NO REBOUND OR GUARDING EXT/SKIN: NO SIGNIFICANT EDEMA OR RASH MSK: FROM X 4 EXTREMITIES NEURO: CN 2-12 GROSSLY INTACT, NO FOCAL DEFICITS PSY: CALM - Constitutional Vitals: Temp Pulse Resp BP Pulse Ox 99.0 F 92 H 20 146/83 98 04/06/17 07:58 04/06/17 07:58 04/06/17 07:58 04/06/17 07:58 04/06/17 07:58 General appearance: Present: no acute distress Results - Labs CBC & Chem 7: 04/06/17 03:32 04/06/17 09:43 Labs: Laboratory Last Values WBC 6.7 K/mm3 (4.5-11.0) 04/06/17 03:32 RBC 2.97 M/mm3 (3.65-5.03) L 04/06/17 03:32 Hgb 7.3 gm/dl (11.8-15.2) L 04/06/17 03:32 Hct 22.0 % (35.5-45.6) L 04/06/17 03:32 MCV 74 fl (84-94) L 04/06/17 03:32 MCH 25 pg (28-32) L 04/06/17 03:32 MCHC 33 % (32-34) 04/06/17 03:32 RDW 14.5 % (13.2-15.2) 04/06/17 03:32 Plt Count 89 K/mm3 (140-440) L 04/06/17 03:32 Lymph % (Auto) 13.8 % (13.4-35.0) 04/05/17 04:38 [place] % (Auto) 14.4 % (0.0-7.3) H 04/05/17 04:38 Eos % (Auto) 0.3 % (0.0-4.3) 04/05/17 04:38 Baso % (Auto) 0.1 % (0.0-1.8) 04/05/17 04:38 Lymph # 0.8 K/mm3 (1.2-5.4) L 04/05/17 04:38 [place] # 0.9 K/mm3 (0.0-0.8) H 04/05/17 04:38 Eos # 0.0 K/mm3 (0.0-0.4) 04/05/17 04:38 Baso # 0.0 K/mm3 (0.0-0.1) 04/05/17 04:38 Add Manual Diff Complete 03/31/17 11:09 Total Counted 100 03/31/17 11:09 Seg Neutrophils % 71.4 % (40.0-70.0) H 04/05/17 04:38 Seg Neuts % (Manual) 46.0 % (40.0-70.0) 03/31/17 11:09 Band Neutrophils % 0 % 03/31/17 11:09 Lymphocytes % (Manual) 53.0 % (13.4-35.0) H 03/31/17 11:09 Reactive Lymphs % (Man) 0 % 03/31/17 11:09 Monocytes % (Manual) 1.0 % (0.0-7.3) 03/31/17 11:09 Eosinophils % (Manual) 0 % (0.0-4.3) 03/31/17 11:09 Basophils % (Manual) 0 % (0.0-1.8) 03/31/17 11:09 Metamyelocytes % 0 % 03/31/17 11:09 Myelocytes % 0 % 03/31/17 11:09 Promyelocytes % 0 % 03/31/17 11:09 Blast Cells % 0 % 03/31/17 11:09 Nucleated RBC % Not Reportable 03/31/17 11:09 Seg Neutrophils # 4.3 K/mm3 (1.8-7.7) 04/05/17 04:38 Seg Neutrophils # Man 1.4 K/mm3 (1.8-7.7) L 03/31/17 11:09 Band Neutrophils # 0.0 K/mm3 03/31/17 11:09 Lymphocytes # (Manual) 1.6 K/mm3 (1.2-5.4) 03/31/17 11:09 Abs React Lymphs (Man) 0.0 K/mm3 03/31/17 11:09 Monocytes # (Manual) 0.0 K/mm3 (0.0-0.8) 03/31/17 11:09 Eosinophils # (Manual) 0.0 K/mm3 (0.0-0.4) 03/31/17 11:09 Basophils # (Manual) 0.0 K/mm3 (0.0-0.1) 03/31/17 11:09 Metamyelocytes # 0.0 K/mm3 03/31/17 11:09 Myelocytes # 0.0 K/mm3 03/31/17 11:09 Promyelocytes # 0.0 K/mm3 03/31/17 11:09 Blast Cells # 0.0 K/mm3 03/31/17 11:09 WBC Morphology Not Reportable 03/31/17 11:09 Hypersegmented Neuts Not Reportable 03/31/17 11:09 Hyposegmented Neuts Not Reportable 03/31/17 11:09 Hypogranular Neuts Not Reportable 03/31/17 11:09 Smudge Cells Not Reportable 03/31/17 11:09 Toxic Granulation Not Reportable 03/31/17 11:09 Toxic Vacuolation Not Reportable 03/31/17 11:09 Dohle Bodies Not Reportable 03/31/17 11:09 Pelger-Huet Anomaly Not Reportable 03/31/17 11:09 Wesley Rods Not Reportable 03/31/17 11:09 Platelet Estimate Cons 03/31/17 11:09 Clumped Platelets Not Reportable 03/31/17 11:09 Plt Clumps, EDTA Not Reportable 03/31/17 11:09 Large Platelets Not Reportable 03/31/17 11:09 Giant Platelets Not Reportable 03/31/17 11:09 Platelet Satelliting Not Reportable 03/31/17 11:09 Plt Morphology Comment Not Reportable 03/31/17 11:09 RBC Morphology Not Reportable 03/31/17 11:09 Dimorphic RBCs Not Reportable 03/31/17 11:09 Polychromasia Not Reportable 03/31/17 11:09 Hypochromasia 1+ 03/31/17 11:09 Poikilocytosis Not Reportable 03/31/17 11:09 Anisocytosis 1+ 03/31/17 11:09 Microcytosis Not Reportable 03/31/17 11:09 Macrocytosis Not Reportable 03/31/17 11:09 Spherocytes Not Reportable 03/31/17 11:09 Pappenheimer Bodies Not Reportable 03/31/17 11:09 Sickle Cells Not Reportable 03/31/17 11:09 Target Cells Not Reportable 03/31/17 11:09 Tear Drop Cells Not Reportable 03/31/17 11:09 Ovalocytes Not Reportable 03/31/17 11:09 Helmet Cells Not Reportable 03/31/17 11:09 Black-Bertsch[place] Bodies Not Reportable 03/31/17 11:09 [place] Rings Not Reportable 03/31/17 11:09 Betzy Cells Not Reportable 03/31/17 11:09 Bite Cells Not Reportable 03/31/17 11:09 Crenated Cell Not Reportable 03/31/17 11:09 Elliptocytes Not Reportable 03/31/17 11:09 Acanthocytes (Spur) Not Reportable 03/31/17 11:09 Rouleaux Not Reportable 03/31/17 11:09 Hemoglobin C Crystals Not Reportable 03/31/17 11:09 Schistocytes Rare 03/31/17 11:09 Malaria parasites Not Reportable 03/31/17 11:09 Percent Retic 1.74 % (0.78-2.58) 04/02/17 18:50 Abdias Bodies Not Reportable 03/31/17 11:09 Hem Pathologist Commnt No 03/31/17 11:09 PT 15.2 Sec. (12.2-14.9) H 04/06/17 03:32 INR 1.21 (0.87-1.13) H 04/06/17 03:32 APTT 31.4 Sec. (24.2-36.6) 04/06/17 03:32 POC ABG pH 7.396 (7.35-7.45) 04/01/17 16:23 POC ABG pCO2 44.7 (35-45) 04/01/17 16:23 POC ABG pO2 125 (80-105) H 04/01/17 16:23 POC ABG HCO3 27.4 04/01/17 16:23 POC ABG Total CO2 29 04/01/17 16:23 POC ABG O2 Sat 99 04/01/17 16:23 POC ABG Base Excess 3 04/01/17 16:23 FiO2 35 % 04/01/17 16:23 Sodium 142 mmol/L (137-145) 04/06/17 09:43 Potassium 3.3 mmol/L (3.6-5.0) L 04/06/17 09:43 Chloride 104.1 mmol/L (98-107) 04/06/17 09:43 Carbon Dioxide 23 mmol/L (22-30) 04/06/17 09:43 Anion Gap 18 mmol/L 04/06/17 09:43 BUN 30 mg/dL (9-20) H 04/06/17 09:43 Creatinine 1.7 mg/dL (0.8-1.5) H 04/06/17 09:43 Estimated GFR 49 ml/min 04/06/17 09:43 BUN/Creatinine Ratio 17.64 % 04/06/17 09:43 Glucose 145 mg/dL (75-100) H 04/06/17 09:43 POC Glucose 130 (70-105) H 04/06/17 11:27 Lactic Acid 1.50 mmol/L (0.7-2.0) 04/02/17 04:00 Calcium 7.7 mg/dL (8.4-10.2) L 04/06/17 09:43 Phosphorus 3.30 mg/dL (2.5-4.5) 03/31/17 19:15 Magnesium 1.40 mg/dL (1.7-2.3) L 04/06/17 09:43 Iron 192 ug/dL (49-181) H 04/02/17 18:50 TIBC 226 mcg/dL (250-450) L 04/02/17 18:50 Ferritin 4536.0 ng/mL (13.0-400.0) H 04/02/17 18:50 Total Bilirubin 3.30 mg/dL (0.1-1.2) H 04/06/17 03:32 Direct Bilirubin 2.2 mg/dL (0-0.2) H 04/03/17 05:45 Indirect Bilirubin 0.5 mg/dL 04/03/17 05:45 AST 122 units/L (5-40) H 04/06/17 03:32 ALT 467 units/L (7-56) H 04/06/17 03:32 Alkaline Phosphatase 60 units/L (35-129) 04/06/17 03:32 C-Reactive Protein 0.00 mg/dL (0.00-1.30) 03/31/17 19:15 Total Protein 5.9 g/dL (6.3-8.2) L 04/06/17 03:32 Albumin 2.5 g/dL (3.9-5) L 04/06/17 03:32 Albumin/Globulin Ratio 0.7 % 04/06/17 03:32 Triglycerides 66 mg/dL (2-149) 04/03/17 05:45 CA 19-9 Antigen 23 U/mL (<34) 04/03/17 11:40 Vitamin B12 > 2000 pg/mL (211-911) H 04/02/17 18:50 Folate 12.25 ng/mL (7.3-26.0) 04/02/17 18:50 Urine Color Carolann (Yellow) 03/31/17 11:01 Urine Turbidity Clear (Clear) 03/31/17 11:01 Urine pH 5.0 (5.0-7.0) 03/31/17 11:01 Ur Specific [place] 1.029 (1.003-1.030) 03/31/17 11:01 Urine Protein 100 mg/dl mg/dL (Negative) 03/31/17 11:01 Urine Glucose (UA) 50 mg/dL (Negative) 03/31/17 11:01 Urine Ketones Tr mg/dL (Negative) 03/31/17 11:01 Urine Blood Neg (Negative) 03/31/17 11:01 Urine Nitrite Neg (Negative) 03/31/17 11:01 Urine Bilirubin Neg (Negative) 03/31/17 11:01 Urine Urobilinogen < 2.0 mg/dL (<2.0) 03/31/17 11:01 Ur Leukocyte Esterase Neg (Negative) 03/31/17 11:01 Urine WBC (Auto) 9.0 /HPF (0.0-6.0) H 03/31/17 11:01 Urine RBC (Auto) 5.0 /HPF (0.0-6.0) 03/31/17 11:01 Urine Bacteria (Auto) 1+ /HPF (Negative) 03/31/17 11:01 Urine Mucus 3+ /HPF 03/31/17 11:01 Urine Creatinine 68.2 mg/dL (0.1-20.0) H 04/03/17 17:00 Urine Sodium 111 mEq/L 04/03/17 17:00 Blood Type O POSITIVE 03/31/17 12:55 Antibody Screen TNR 03/31/17 12:55 KEL Antibody Screen Negative 03/31/17 12:55 Crossmatch See Detail 03/31/17 12:55
[2017-04-06 12:54] LABS: Creatine Kinase MB 1.5 ng/mL (0.0-4.0)
[2017-04-06 12:56] LABS: Creatine Kinase 67 units/L (55-170)
--- NOTE | 2017-04-06 16:50 | Progress Note ---
Subjective Patient Reports: Positive: feels better, flatus, bowel movement Narrative: doing fine , tolerating PO well ambulatory good BMs home today to see me in a week Objective Vital Signs - 12hr 04/06/17 04/06/17 04/06/17 07:58 12:07 16:19 Temperature 99.0 F 98.0 F 98.8 F Pulse Rate 92 H 90 96 H Respiratory 20 20 16 Rate Blood Pressure 146/83 155/80 142/76 O2 Sat by Pulse 98 97 99 Oximetry - Labs 04/06/17 03:32 04/06/17 09:43 Diabetes panel 04/06/17 04/06/17 Range/Units 03:32 09:43 Sodium 140 142 (137-145) mmol/L Potassium 3.2 L 3.3 L (3.6-5.0) mmol/L Chloride 104.3 104.1 (98-107) mmol/L Carbon Dioxide 22 23 (22-30) mmol/L BUN 31 H 30 H (9-20) mg/dL Creatinine 1.7 H 1.7 H (0.8-1.5) mg/dL Glucose 107 H 145 H (75-100) mg/dL Calcium 8.0 L 7.7 L (8.4-10.2) mg/dL AST 122 H (5-40) units/L ALT 467 H (7-56) units/L Alkaline Phosphatase 60 (35-129) units/L Total Protein 5.9 L (6.3-8.2) g/dL Albumin 2.5 L (3.9-5) g/dL Calcium panel 04/06/17 04/06/17 Range/Units 03:32 09:43 Calcium 8.0 L 7.7 L (8.4-10.2) mg/dL Albumin 2.5 L (3.9-5) g/dL Pituitary panel 04/06/17 04/06/17 Range/Units 03:32 09:43 Sodium 140 142 (137-145) mmol/L Potassium 3.2 L 3.3 L (3.6-5.0) mmol/L Chloride 104.3 104.1 (98-107) mmol/L Carbon Dioxide 22 23 (22-30) mmol/L BUN 31 H 30 H (9-20) mg/dL Creatinine 1.7 H 1.7 H (0.8-1.5) mg/dL Glucose 107 H 145 H (75-100) mg/dL Calcium 8.0 L 7.7 L (8.4-10.2) mg/dL Adrenal panel 04/06/17 04/06/17 Range/Units 03:32 09:43 Sodium 140 142 (137-145) mmol/L Potassium 3.2 L 3.3 L (3.6-5.0) mmol/L Chloride 104.3 104.1 (98-107) mmol/L Carbon Dioxide 22 23 (22-30) mmol/L BUN 31 H 30 H (9-20) mg/dL Creatinine 1.7 H 1.7 H (0.8-1.5) mg/dL Glucose 107 H 145 H (75-100) mg/dL Calcium 8.0 L 7.7 L (8.4-10.2) mg/dL Total Bilirubin 3.30 H (0.1-1.2) mg/dL AST 122 H (5-40) units/L ALT 467 H (7-56) units/L Alkaline Phosphatase 60 (35-129) units/L Total Protein 5.9 L (6.3-8.2) g/dL Albumin 2.5 L (3.9-5) g/dL
[2017-04-06] MEDS ORDERED: K-DUR PO ONE (18:00)
[2017-04-06 18:38] LABS: Creatine Kinase MB 1.5 ng/mL (0.0-4.0)
[2017-04-06 18:39] LABS: Creatine Kinase 71 units/L (55-170)
[2017-04-07] MEDS: K-DUR PO SCH ×2 (00:45→10:07)
[2017-04-07] MEDS: DILAUDID IV PRN ×2 (04:21→08:14)
[2017-04-07 04:45] LABS: Hematocrit 22.3 % (35.5-45.6); Hemoglobin 7.5 gm/dl (11.8-15.2); Mean Corpuscular HGB Conc 33 % (32-34); Mean Corpuscular Volume 76 fl (84-94); Platelet Count 109 K/mm3 (140-440); Red Blood Count 2.93 M/mm3 (3.65-5.03); Red Cell Distribution Width 14.9 % (13.2-15.2); White Blood Count 7.8 K/mm3 (4.5-11.0)
[2017-04-07 04:48] LABS: Mean Corpuscular Hemoglobin 26 pg (28-32)
[2017-04-07 05:09] LABS: Albumin 2.7 g/dL (3.9-5); Albumin/Globulin Ratio 0.8 %; BUN/Creatinine Ratio 18.75; Bilirubin,Total 3.1 mg/dL (0.1-1.2); Chloride 105.8 mmol/L (98-107); Potassium 3.8 mmol/L (3.6-5.0); Total Protein 6.3 g/dL (6.3-8.2)
[2017-04-07] MEDS: FLAGYL 500 MG/100 ML 500 MG/100 ML BAG IV SCH (05:41)
--- NOTE | 2017-04-07 07:18 | Progress Note ---
Assessment and Plan Assessment: * Nonoliguric VIRAL secondary to ATN - resolving * Colon cancer * Perforated colon as colonoscopy complication; large cecal colon mass --s/p ex-lap right hemicolectomy * Liver mass s/p intraoperative bx * Anemia secondary to ABL - stable * Transaminitis secondary to shock liver - liver enzymes improved * Acute respiratory failure - now extubated on NC oxygen, 2L * Coagulopathy secondary to shock liver * Thrombocytopenia * Metabolic acidosis secondary to lactic acidosis - resolved * Hepatitis C * electrolyte abnormalities Plan: * SCr continues stable, patient w/ good UOP - 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 * replete k and mag prn * AntiHTN medications * Heme/onc recs noted * Strict monitoring of I/O * Avoid potential nephrotoxic agents * Adjust medications for renal function * Diet per surgery Subjective Date of service: 04/07/17 Principal diagnosis: Acute Respiratory Failure on MVS; S/P perforated Cecum; Sepsis Syndrome Interval history: resting in bed, no acute events noted Objective - Exam Narrative Exam: General appearance: well-developed, well-nourished EENT: ATNC Respiratory: Present: Decreased Breath Sounds Cardiology: regular, S1S2 Gastrointestinal: hypoactive bowel sounds Integumentary: no rash Neurologic: alert and oriented x3 Musculoskeletal: other (no edema) Psychiatric: cooperative - Vital Signs Vital signs: Vital Signs - 12hr 04/06/17 04/06/17 04/07/17 21:43 22:00 04:00 Temperature 99.2 F 98.9 F Pulse Rate 113 H 95 H Pulse Rate [ 113 H Left Radial] Respiratory 20 20 18 Rate Blood Pressure 137/76 120/68 O2 Sat by Pulse 99 99 Oximetry - Lab 04/07/17 04:00 04/07/17 04:00 Most recent lab results Calcium 8.0 mg/dL (8.4-10.2) L 04/07/17 04:00 Phosphorus 3.30 mg/dL (2.5-4.5) 03/31/17 19:15 Magnesium 2.10 mg/dL (1.7-2.3) 04/07/17 05:00 Urine Creatinine 68.2 mg/dL (0.1-20.0) H 04/03/17 17:00 Urine Sodium 111 mEq/L 04/03/17 17:00
[2017-04-07 07:27] VITALS: BP 133/78
--- NOTE | 2017-04-07 08:54 | XRay Report ---
AP CHEST :04/07/17 08:21 CLINICAL: Followup respiratory failure. COMPARISON:04/06/17 FINDINGS: Normal heart and pulmonary vasculature. Bibasal subsegmental atelectasis is unchanged. No airspace disease or pleural effusion. Right IJ catheter tip is in the distal SVC. The bones and soft tissues are normal. IMPRESSION: No change. Bibasal subsegmental atelectasis.
--- NOTE | 2017-04-07 08:55 | Hem/Onc Progress Note ---
Assessment and Plan T2 N0 colon cancer. Hepatitis C. Liver biopsy showing no malignancy. Next Plan: Hemoglobin is stable. We will give him one more dose of iron. Upon discharge will follow him. He does not need any adjuvant chemotherapy. Continue Procrit until the patient is discharged Subjective Date of service: 04/07/17 Interval history: Patient feels well. Eating. Having good bowel movements. Ambulating. Objective - Constitutional Vitals: Last Vital Signs Temp 98.7 F 04/07/17 07:25 Pulse 97 H 04/07/17 07:25 Resp 18 04/07/17 07:25 BP 133/78 04/07/17 07:25 Pulse Ox 98 04/07/17 07:25 Pain Intensity (0-10): denies any pain Performance status: 1-light work, ambulatory - Neck Neck: supple - Respiratory Respiratory effort: Positive: normal Respiratory: bilateral: CTA - Cardiovascular Rhythm: regular - Gastrointestinal General gastrointestinal: Present: soft (postop changes. No active bleeding) - Labs Lab Results: Laboratory Results - last 24 hr 04/06/17 04/06/17 04/06/17 09:43 11:27 12:15 WBC RBC Hgb Hct MCV MCH MCHC RDW Plt Count Sodium 142 Potassium 3.3 L Chloride 104.1 Carbon Dioxide 23 Anion Gap 18 BUN 30 H Creatinine 1.7 H Estimated GFR 49 BUN/Creatinine Ratio 17.64 Glucose 145 H POC Glucose 130 H Calcium 7.7 L Magnesium 1.40 L Total Bilirubin AST ALT Alkaline Phosphatase Total Creatine Kinase 67 CK-MB (CK-2) 1.5 CK-MB (CK-2) Rel Index 2.2 Troponin T < 0.010 Total Protein Albumin Albumin/Globulin Ratio 04/06/17 04/06/17 04/06/17 16:42 17:49 21:16 WBC RBC Hgb Hct MCV MCH MCHC RDW Plt Count Sodium Potassium Chloride Carbon Dioxide Anion Gap BUN Creatinine Estimated GFR BUN/Creatinine Ratio Glucose POC Glucose 125 H 161 H Calcium Magnesium Total Bilirubin AST ALT Alkaline Phosphatase Total Creatine Kinase 71 CK-MB (CK-2) 1.5 CK-MB (CK-2) Rel Index 2.1 Troponin T < 0.010 Total Protein Albumin Albumin/Globulin Ratio 04/07/17 04/07/17 04/07/17 04:00 04:00 05:00 WBC 7.8 RBC 2.93 L Hgb 7.5 L Hct 22.3 L MCV 76 L MCH 26 L MCHC 33 RDW 14.9 Plt Count 109 L Sodium 142 Potassium 3.8 Chloride 105.8 Carbon Dioxide 24 Anion Gap 16 BUN 30 H Creatinine 1.6 H Estimated GFR 52 BUN/Creatinine Ratio 18.75 Glucose 125 H POC Glucose Calcium 8.0 L Magnesium 2.10 Total Bilirubin 3.10 H AST 71 H ALT 320 H Alkaline Phosphatase 69 Total Creatine Kinase CK-MB (CK-2) CK-MB (CK-2) Rel Index Troponin T Total Protein 6.3 Albumin 2.7 L Albumin/Globulin Ratio 0.8 04/07/17 06:59 WBC RBC Hgb Hct MCV MCH MCHC RDW Plt Count Sodium Potassium Chloride Carbon Dioxide Anion Gap BUN Creatinine Estimated GFR BUN/Creatinine Ratio Glucose POC Glucose 119 H Calcium Magnesium Total Bilirubin AST ALT Alkaline Phosphatase Total Creatine Kinase CK-MB (CK-2) CK-MB (CK-2) Rel Index Troponin T Total Protein Albumin Albumin/Globulin Ratio
--- NOTE | 2017-04-07 09:11 | Progress Note ---
Assessment and Plan Sepsis s/p Bowel perforation Cecum mass seen on colonoscopy Liver mass Elevated liver enzymes Acute renal failure Acute blood loss anemia Hypokalemia -replaced Hypomagnesemia -replaced Jehovah witness Hepatitis C NSVT -no reoccurrence Recommendations: Echocardiogram for LVEF assessment. If LVEF is normal then no further work-up is needed. Subjective Date of service: 04/07/17 Principal diagnosis: Acute Respiratory Failure on MVS; S/P perforated Cecum; Sepsis Syndrome Interval history: Patient denies chest pain, shortness of breath and palpitations. No reported events on telemetry overnight. Objective Vital Signs Temp Pulse Pulse Resp BP Pulse Ox 04/07/17 07:25 98.7 F 97 H 18 133/78 98 04/07/17 04:00 98.9 F 95 H 18 120/68 04/06/17 22:00 113 H 20 99 04/06/17 21:43 99.2 F 113 H 20 137/76 99 04/06/17 16:19 98.8 F 96 H 16 142/76 99 04/06/17 12:07 98.0 F 90 20 155/80 97 04/06/17 10:00 98 - Physical Examination General: No Apparent Distress HEENT: Positive: PERRL Neck: Positive: trachea midline Cardiac: Positive: Reg Rate and Rhythm Lungs: Positive: Decreased Breath Sounds - Labs and Meds Cardiac Enzymes 04/06/17 04/06/17 04/07/17 Range/Units 12:15 17:49 04:00 AST 71 H (5-40) units/L CK-MB (CK-2) 1.5 1.5 (0.0-4.0) ng/mL CBC 04/07/17 Range/Units 04:00 WBC 7.8 (4.5-11.0) K/mm3 RBC 2.93 L (3.65-5.03) M/mm3 Hgb 7.5 L (11.8-15.2) gm/dl Hct 22.3 L (35.5-45.6) % Plt Count 109 L (140-440) K/mm3 Comprehensive Metabolic Panel 04/06/17 04/07/17 Range/Units 09:43 04:00 Sodium 142 142 (137-145) mmol/L Potassium 3.3 L 3.8 (3.6-5.0) mmol/L Chloride 104.1 105.8 (98-107) mmol/L Carbon Dioxide 23 24 (22-30) mmol/L BUN 30 H 30 H (9-20) mg/dL Creatinine 1.7 H 1.6 H (0.8-1.5) mg/dL Glucose 145 H 125 H (75-100) mg/dL Calcium 7.7 L 8.0 L (8.4-10.2) mg/dL AST 71 H (5-40) units/L ALT 320 H (7-56) units/L Alkaline Phosphatase 69 (35-129) units/L Total Protein 6.3 (6.3-8.2) g/dL Albumin 2.7 L (3.9-5) g/dL
[2017-04-07] MEDS ORDERED: LEVAQUIN PO SCH (10:00)
[2017-04-07] MEDS: NORVASC PO SCH (10:08)
[2017-04-07] MEDS: PROTONIX PO SCH (10:09)
--- NOTE | 2017-04-07 11:18 | Discharge Summary ---
Providers - Providers Date of Admission: 03/31/17 13:31 Date of discharge: 04/07/17 Attending physician: ANA MACHUCA 03/31/17 15:50 Consult to Physician [CONS] Stat Consulting Provider: CEASAR MCBRIDE Reason For Exam: VENT MANAGEMENT Place consult to:: RAE Notified:: YES 03/31/17 17:48 Consult to Dietitian/Nutrition [CONS] Routine Physician Instructions: Reason For Exam: Reason for Consult: Poor oral intake 04/01/17 23:49 Consult to Physician [CONS] Routine Consulting Provider: VON GARG Reason For Exam: GI follow up Place consult to:: Dr. Grag Notified:: yes Phone number called:: [phone] Was contact made?: Yes If yes, spoke with:: Veronica Time called:: 23:55 Comment:: Dr. Garg notes and orders noted in chart 04/02/17 14:08 Consult to Physician [CONS] Stat Consulting Provider: RICARDO BARAJAS Reason For Exam: anemia Place consult to:: Dr Ricardo Barajas Notified:: Ms Sharma Was contact made?: Yes If yes, spoke with:: DR Barajas Time called:: 15:00 04/02/17 16:12 Consult to Physician [CONS] Routine Consulting Provider: MANOLO CENTENO Reason For Exam: tommy Place consult to:: communications station manager nephrology Notified:: yes Was contact made?: Yes If yes, spoke with:: Rossy 04/06/17 08:49 Consult to Physician [CONS] Routine Consulting Provider: NAZIA JOSPEH Reason For Exam: NSVT Place consult to:: Preethi KING Notified:: overhead page Phone number called:: overhead page Was contact made?: Yes If yes, spoke with:: roney Time called:: 09:52 04/06/17 11:06 Physical Therapy Evaluation and Treat [CONS] Routine Comment: Reason For Exam: deconditioning 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 Cornel Alberto GI. He was intubated and sent to the ER where he underwent bowel resection with an End-to-End anastomosis. The cecal mass pathology did show adenocarcinoma malignancy, liver biospy done, results with Dr. Membreno. He was seen by Dr. Catalan and diagnosed with T2 N0, stage I colon cancer. Patient is Jehovah witness and refusing blood products. -Colon cancer T2 N0 with definitive therapy already (actually not a bad thing the perforation occurred-which saves patient additional surgery): Follow up with hematology oncology, and surgeon to remove rhonda -Acute hypoxic respiratory failure status post intubation and subsequent extubation: Continue to wean off oxygen, currently on 2 L -Pneumoperitoneum/bowel perforation with acute abdomen status post emergent surgery: Advance diet carefully per surgery -Hypovolemic shock, Present on admission resolved -Transaminitis suspected due to shock liver/ischemic hepatitis, poa per chart, per GI, much improved -Sepsis due to bowel perforation/intra-abdominal infection/bacterial peritonitis , poa: Continue Levaquin and Flagyl, patient allergic to penicillin -Acute renal failure due to ATN, improving: continue IVF, Cr is now 1.6 -Moderate malnutrition, 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 Hypokalemia: Replace and recheck potassium level and magnesium level in a.m. also follow-up renal function. Patient on 2 different IV fluids will clarify. Also repeat liver function. 04/06/17 at 8:15am he had 10 beat run of nsvt. I obtained EKG and reviewed with Chemical Analyst at nursing station, I ordered bmp, mag level stat, consulted cardiology. ECHO ordered. 04/07/17, tolerated diet, positive bowel movement, Mag and k+ level normal today and no more NSVT, TTE with normal EF per Cardiology Disposition: DC-01 TO HOME OR SELFCARE Time spent for discharge: 34 minutes Core Measure Documentation - Palliative Care Palliative Care/ Comfort Measures: Not Applicable - Core Measures Any of the following diagnoses?: none - VTE Discharge Requirements Deep Vein Thrombosis/Pulmonary Embolism Present on Admission: No Has pt received <5 days of overlap therapy or INR<2.0: No Anticoagulant overlap therapy prescribed at discharge: No Contraindication No Overlap Therapy order at DC: Not Indicated Exam - Physical Exam Narrative exam: GEN: WDWN, NAD, AWAKE, ALERT, ORIENTATED x 3 HEENT: NCAT, PERRL, EOMI, OP CLEAR NECK: SUPPLE, NO THYROMEGALY, NO JVD, NO LAD CVS: RRR, NORMAL S1S2 LUNGS/CHEST: CTA B, NORMAL CHEST EXPANSION B, GOOD AIR ENTRY B ABD: SOFT, rhonda in place, clean dry and intact positive bowel sounds, NO REBOUND OR GUARDING EXT/SKIN: NO SIGNIFICANT EDEMA OR RASH MSK: FROM X 4 EXTREMITIES NEURO: CN 2-12 GROSSLY INTACT, NO FOCAL DEFICITS PSY: CALM - Constitutional Vitals: Temp Pulse Resp BP Pulse Ox 98.7 F 97 H 18 133/78 98 04/07/17 07:25 04/07/17 10:08 04/07/17 07:25 04/07/17 10:08 04/07/17 10:01 Plan Activity: other (no strenous activites until cleared by PCP. ) Diet: clear liquids (and advance as tolerate ) Wound: per your surgeon's advice Additional Instructions: Call Dr. Membreno immediately if you have vomiting, no BM in 1-2 days, worsening abd. pains, fevers Follow up with: PRIMARY CAREMD [Primary Care Provider] - 3-5 Days YANICK MEMBRENO MD [Staff Physician] - 7 Days CORNEL ALBERTO MD [Staff Physician] - 10 Days ROSANNE CATALAN MD [Staff Physician] - 7 Days Prescriptions: amLODIPine [Norvasc] 10 mg PO DAILY #30 tablet Insulin Aspart [NovoLOG Flexpen] 1 dose SQ AC #1 pen metroNIDAZOLE [Flagyl TAB] 500 mg PO Q8HR #21 tablet Ondansetron [Zofran Oral Liq] 4 mg PO Q4HR PRN #60 ml PRN Reason: Nausea Levofloxacin [Levaquin TAB] 750 mg PO Q48HR #7 tablet
[2017-04-07] MEDS ORDERED: VENOFER 100 MG in NACL 0.9% 50 ML IV ONE (12:00)
--- NOTE | 2017-04-07 12:52 | Progress Note ---
Assessment and Plan - Patient Problems (1) Acute respiratory failure Current Visit: Yes Status: Acute Qualifiers: Respiratory failure complication: R (2) Liver mass Current Visit: Yes Status: Acute (3) Perforation of colon as colonoscopy complication Current Visit: Yes Status: Acute (4) Lactic acidosis Current Visit: Yes Status: Acute (5) Colonic mass Current Visit: Yes Status: Acute (6) Elevated transaminase level Current Visit: Yes Status: Acute (7) Gastrointestinal blood Current Visit: Yes Status: Acute Qualifiers: GI bleed type/associated pathology: G Gastritis type: G (8) Discharge planning issues Current Visit: Yes Status: Acute Subjective Date of service: 04/07/17 Principal diagnosis: Acute Respiratory Failure on MVS; S/P perforated Cecum; Sepsis Syndrome Interval history: Seen and examined at bedside; 24 hour events reviewed; nursing and respiratory care staff consulted; no adverse overnight events reported to me; Objective Vital Signs - 12hr 04/07/17 04/07/17 04/07/17 04:00 07:25 10:01 Temperature 98.9 F 98.7 F Pulse Rate 95 H 97 H Respiratory 18 18 Rate Blood Pressure 120/68 133/78 O2 Sat by Pulse 98 98 Oximetry 04/07/17 10:08 Temperature Pulse Rate 97 H Respiratory Rate Blood Pressure 133/78 O2 Sat by Pulse Oximetry Constitutional: no acute distress, alert Eyes: non-icteric ENT: oropharynx moist Neck: supple, no lymphadenopathy Effort: normal Ascultation: Bilateral: clear, diminished breath sounds (bases) Cardiovascular: regular rate and rhythm Gastrointestinal: hypoactive bowel sounds, soft, non-tender, non-distended Integumentary: normal Extremities: no cyanosis, no edema, pulses normal, no ischemia or petechiae Neurologic: normal mental status, non-focal exam, pupils equal and round, motor strength normal and Psychiatric: mood appropriate, affect normal CBC and BMP: 04/07/17 04:00 04/07/17 04:00 ABG, PT/INR, D-dimer: ABG POC ABG pH 7.396 (7.35-7.45) 04/01/17 16:23 POC ABG pCO2 44.7 (35-45) 04/01/17 16:23 POC ABG pO2 125 (80-105) H 04/01/17 16:23 POC ABG HCO3 27.4 04/01/17 16:23 POC ABG Total CO2 29 04/01/17 16:23 POC ABG O2 Sat 99 04/01/17 16:23 PT/INR, D-dimer PT 15.2 Sec. (12.2-14.9) H 04/06/17 03:32 INR 1.21 (0.87-1.13) H 04/06/17 03:32 Abnormal lab findings: Abnormal Labs 03/31/17 03/31/17 03/31/17 15:19 15:43 19:15 RBC Hgb 10.6 L 10.3 L Hct 33.9 L D 32.1 L MCV 78 L 77 L MCH 24 L 25 L MCHC 31 L RDW 15.8 H 15.9 H Plt Count 116 L Lymph % (Auto) 8.7 L [place] % (Auto) Lymph # 0.7 L [place] # Seg Neutrophils % 77.2 H 86.8 H PT INR APTT POC ABG pH 7.202 L POC ABG pCO2 POC ABG pO2 292 H Sodium Potassium Chloride Carbon Dioxide BUN Creatinine Glucose POC Glucose Lactic Acid Calcium Magnesium Iron TIBC Ferritin Total Bilirubin Direct Bilirubin AST ALT Total Protein Albumin Vitamin B12 Urine Creatinine 03/31/17 03/31/17 03/31/17 19:15 19:15 19:15 RBC Hgb Hct MCV MCH MCHC RDW Plt Count Lymph % (Auto) [place] % (Auto) Lymph # [place] # Seg Neutrophils % PT INR APTT POC ABG pH POC ABG pCO2 POC ABG pO2 Sodium Potassium Chloride Carbon Dioxide 12 L BUN 8 L Creatinine Glucose 206 H POC Glucose Lactic Acid 6.90 H* Calcium 6.9 L D Magnesium 1.30 L Iron TIBC Ferritin Total Bilirubin Direct Bilirubin AST ALT Total Protein Albumin Vitamin B12 Urine Creatinine 03/31/17 03/31/17 03/31/17 21:13 22:50 23:20 RBC Hgb Hct MCV MCH MCHC RDW Plt Count Lymph % (Auto) [place] % (Auto) Lymph # [place] # Seg Neutrophils % PT INR APTT POC ABG pH 7.142 L POC ABG pCO2 46.1 H 23.0 L POC ABG pO2 229 H 180 H Sodium Potassium Chloride Carbon Dioxide BUN Creatinine Glucose POC Glucose Lactic Acid 5.90 H* Calcium Magnesium Iron TIBC Ferritin Total Bilirubin Direct Bilirubin AST ALT Total Protein Albumin Vitamin B12 Urine Creatinine 04/01/17 04/01/17 04/01/17 05:00 05:00 05:00 RBC 2.97 L Hgb 7.3 L D Hct 22.6 L D MCV 76 L MCH 25 L MCHC RDW 15.9 H Plt Count 102 L Lymph % (Auto) 10.4 L [place] % (Auto) Lymph # 0.5 L [place] # Seg Neutrophils % 86.8 H PT INR APTT POC ABG pH POC ABG pCO2 POC ABG pO2 Sodium Potassium Chloride Carbon Dioxide BUN Creatinine Glucose 190 H POC Glucose Lactic Acid 3.80 H* Calcium 6.9 L Magnesium Iron TIBC Ferritin Total Bilirubin Direct Bilirubin AST ALT Total Protein Albumin Vitamin B12 Urine Creatinine 04/01/17 04/01/17 04/01/17 09:01 09:55 09:55 RBC 3.45 L Hgb 8.5 L Hct 26.4 L MCV 77 L MCH 25 L MCHC RDW 15.7 H Plt Count 112 L Lymph % (Auto) 10.0 L [place] % (Auto) Lymph # 0.7 L [place] # Seg Neutrophils % 85.5 H PT INR APTT POC ABG pH 7.480 H POC ABG pCO2 32.3 L POC ABG pO2 150 H Sodium Potassium Chloride 108.5 H Carbon Dioxide BUN Creatinine Glucose 110 H POC Glucose Lactic Acid Calcium 6.9 L Magnesium Iron TIBC Ferritin Total Bilirubin Direct Bilirubin AST ALT Total Protein Albumin Vitamin B12 Urine Creatinine 04/01/17 04/01/17 04/01/17 10:36 16:12 16:23 RBC Hgb Hct MCV MCH MCHC RDW Plt Count Lymph % (Auto) [place] % (Auto) Lymph # [place] # Seg Neutrophils % PT INR APTT POC ABG pH POC ABG pCO2 POC ABG pO2 38 L 125 H Sodium Potassium Chloride Carbon Dioxide BUN Creatinine Glucose POC Glucose Lactic Acid 2.60 H* Calcium Magnesium Iron TIBC Ferritin Total Bilirubin Direct Bilirubin AST ALT Total Protein Albumin Vitamin B12 Urine Creatinine 04/01/17 04/02/17 04/02/17 18:00 01:34 04:00 RBC 3.21 L 2.98 L Hgb 7.8 L 7.3 L Hct 24.5 L 22.8 L MCV 76 L 77 L MCH 24 L 24 L MCHC RDW 15.7 H 15.7 H Plt Count 94 L 70 L Lymph % (Auto) 9.6 L [place] % (Auto) Lymph # 0.7 L 0.8 L [place] # Seg Neutrophils % 87.0 H 80.5 H PT INR APTT POC ABG pH POC ABG pCO2 POC ABG pO2 Sodium Potassium Chloride Carbon Dioxide BUN Creatinine Glucose POC Glucose 132 H Lactic Acid Calcium Magnesium Iron TIBC Ferritin Total Bilirubin Direct Bilirubin AST ALT Total Protein Albumin Vitamin B12 Urine Creatinine 04/02/17 04/02/17 04/02/17 04:00 04:00 04:00 RBC Hgb Hct MCV MCH MCHC RDW Plt Count Lymph % (Auto) [place] % (Auto) Lymph # [place] # Seg Neutrophils % PT 21.5 H INR 1.87 H APTT POC ABG pH POC ABG pCO2 POC ABG pO2 Sodium Potassium Chloride Carbon Dioxide BUN 25 H Creatinine 2.0 H D Glucose 108 H POC Glucose Lactic Acid Calcium 6.9 L Magnesium Iron TIBC 184 L Ferritin Total Bilirubin 1.40 H Direct Bilirubin AST 4564 H ALT 2544 H Total Protein 5.3 L D Albumin 2.4 L Vitamin B12 2000 H Urine Creatinine 04/02/17 04/02/17 04/02/17 08:49 15:05 15:05 RBC 3.05 L Hgb 7.6 L Hct 23.2 L MCV 76 L MCH 25 L MCHC RDW 16.2 H Plt Count 86 L Lymph % (Auto) [place] % (Auto) Lymph # [place] # Seg Neutrophils % PT 20.6 H INR 1.77 H APTT POC ABG pH POC ABG pCO2 POC ABG pO2 Sodium Potassium Chloride Carbon Dioxide BUN 31 H Creatinine 2.5 H Glucose 105 H POC Glucose Lactic Acid Calcium 7.4 L Magnesium Iron TIBC Ferritin Total Bilirubin Direct Bilirubin AST ALT Total Protein Albumin Vitamin B12 Urine Creatinine 04/02/17 04/02/17 04/02/17 15:05 18:50 18:50 RBC 2.94 L Hgb 7.2 L Hct 22.6 L MCV 77 L MCH 24 L MCHC RDW 15.7 H Plt Count 73 L Lymph % (Auto) 11.9 L [place] % (Auto) Lymph # 0.7 L [place] # Seg Neutrophils % 80.8 H PT 18.6 H INR 1.56 H APTT 37.0 H POC ABG pH POC ABG pCO2 POC ABG pO2 Sodium Potassium Chloride Carbon Dioxide BUN Creatinine Glucose POC Glucose Lactic Acid Calcium Magnesium Iron 192 H TIBC 226 L Ferritin Total Bilirubin Direct Bilirubin AST ALT Total Protein Albumin Vitamin B12 Urine Creatinine 04/02/17 04/02/17 04/02/17 18:50 18:50 18:50 RBC Hgb Hct MCV MCH MCHC RDW Plt Count Lymph % (Auto) [place] % (Auto) Lymph # [place] # Seg Neutrophils % PT INR APTT POC ABG pH POC ABG pCO2 POC ABG pO2 Sodium Potassium Chloride Carbon Dioxide BUN Creatinine Glucose POC Glucose Lactic Acid Calcium Magnesium Iron TIBC Ferritin 4536.0 H Total Bilirubin 2.00 H Direct Bilirubin 1.6 H AST 2581 H ALT 1873 H Total Protein 5.5 L Albumin 2.5 L Vitamin B12 > 2000 H Urine Creatinine 04/02/17 04/03/17 04/03/17 21:54 00:01 04:00 RBC 2.91 L Hgb 7.2 L 7.1 L Hct 22.6 L 22.2 L MCV 76 L MCH 25 L MCHC RDW 15.9 H Plt Count 71 L Lymph % (Auto) 9.9 L [place] % (Auto) 7.5 H Lymph # 0.6 L [place] # Seg Neutrophils % 82.5 H PT 16.0 H INR 1.29 H APTT POC ABG pH POC ABG pCO2 POC ABG pO2 Sodium Potassium Chloride Carbon Dioxide BUN Creatinine Glucose POC Glucose Lactic Acid Calcium Magnesium Iron TIBC Ferritin Total Bilirubin Direct Bilirubin AST ALT Total Protein Albumin Vitamin B12 Urine Creatinine 04/03/17 04/03/17 04/03/17 05:45 05:45 14:20 RBC Hgb 7.2 L Hct 22.5 L MCV MCH MCHC RDW Plt Count Lymph % (Auto) [place] % (Auto) Lymph # [place] # Seg Neutrophils % PT INR APTT POC ABG pH POC ABG pCO2 POC ABG pO2 Sodium Potassium Chloride 108.3 H Carbon Dioxide BUN 34 H Creatinine 2.6 H Glucose 175 H POC Glucose Lactic Acid Calcium 7.1 L Magnesium Iron TIBC Ferritin Total Bilirubin 2.70 H 2.60 H Direct Bilirubin 2.2 H AST 1604 H 1600 H ALT 1504 H 1486 H Total Protein 5.3 L 5.4 L Albumin 2.3 L 2.4 L Vitamin B12 Urine Creatinine 04/03/17 04/03/17 04/03/17 14:20 17:00 18:00 RBC Hgb Hct MCV MCH MCHC RDW Plt Count Lymph % (Auto) [place] % (Auto) Lymph # [place] # Seg Neutrophils % PT INR APTT POC ABG pH POC ABG pCO2 POC ABG pO2 Sodium 146 H Potassium Chloride 108.4 H Carbon Dioxide BUN 38 H Creatinine 2.6 H Glucose 151 H POC Glucose 117 H Lactic Acid Calcium 7.9 L Magnesium Iron TIBC Ferritin Total Bilirubin Direct Bilirubin AST ALT Total Protein Albumin Vitamin B12 Urine Creatinine 68.2 H 04/03/17 04/04/17 04/04/17 21:37 04:50 04:50 RBC 2.88 L Hgb 7.2 L 7.0 L Hct 22.5 L 22.0 L MCV 76 L MCH 24 L MCHC RDW 15.4 H Plt Count 78 L Lymph % (Auto) 11.1 L [place] % (Auto) 10.5 H Lymph # 0.6 L [place] # Seg Neutrophils % 78.1 H PT 16.1 H INR 1.30 H APTT POC ABG pH POC ABG pCO2 POC ABG pO2 Sodium Potassium Chloride Carbon Dioxide BUN Creatinine Glucose POC Glucose Lactic Acid Calcium Magnesium Iron TIBC Ferritin Total Bilirubin Direct Bilirubin AST ALT Total Protein Albumin Vitamin B12 Urine Creatinine 04/04/17 04/04/17 04/04/17 04:50 12:36 17:22 RBC Hgb Hct MCV MCH MCHC RDW Plt Count Lymph % (Auto) [place] % (Auto) Lymph # [place] # Seg Neutrophils % PT INR APTT POC ABG pH POC ABG pCO2 POC ABG pO2 Sodium Potassium Chloride 107.5 H Carbon Dioxide BUN 37 H Creatinine 2.3 H Glucose 158 H POC Glucose 205 H 151 H Lactic Acid Calcium 8.0 L Magnesium Iron TIBC Ferritin Total Bilirubin 3.50 H Direct Bilirubin AST 649 H ALT 1092 H Total Protein 5.9 L Albumin 2.7 L Vitamin B12 Urine Creatinine 04/04/17 04/05/17 04/05/17 21:35 04:38 04:38 RBC 2.95 L Hgb 7.2 L Hct 22.2 L MCV 76 L MCH 24 L MCHC RDW Plt Count 95 L Lymph % (Auto) [place] % (Auto) 14.4 H Lymph # 0.8 L [place] # 0.9 H Seg Neutrophils % 71.4 H PT INR APTT POC ABG pH POC ABG pCO2 POC ABG pO2 Sodium Potassium 3.2 L Chloride Carbon Dioxide BUN 35 H Creatinine 1.9 H Glucose 120 H POC Glucose 190 H Lactic Acid Calcium 7.9 L Magnesium Iron TIBC Ferritin Total Bilirubin 3.40 H Direct Bilirubin AST 257 H ALT 680 H Total Protein 6.0 L Albumin 2.5 L Vitamin B12 Urine Creatinine 04/05/17 04/05/17 04/05/17 08:54 11:42 15:52 RBC Hgb Hct MCV MCH MCHC RDW Plt Count Lymph % (Auto) [place] % (Auto) Lymph # [place] # Seg Neutrophils % PT INR APTT POC ABG pH POC ABG pCO2 POC ABG pO2 Sodium Potassium Chloride Carbon Dioxide BUN Creatinine Glucose POC Glucose 153 H 140 H 117 H Lactic Acid Calcium Magnesium Iron TIBC Ferritin Total Bilirubin Direct Bilirubin AST ALT Total Protein Albumin Vitamin B12 Urine Creatinine 04/05/17 04/06/17 04/06/17 21:18 03:32 03:32 RBC 2.97 L Hgb 7.3 L Hct 22.0 L MCV 74 L MCH 25 L MCHC RDW Plt Count 89 L Lymph % (Auto) [place] % (Auto) Lymph # [place] # Seg Neutrophils % PT 15.2 H INR 1.21 H APTT POC ABG pH POC ABG pCO2 POC ABG pO2 Sodium Potassium Chloride Carbon Dioxide BUN Creatinine Glucose POC Glucose 157 H Lactic Acid Calcium Magnesium Iron TIBC Ferritin Total Bilirubin Direct Bilirubin AST ALT Total Protein Albumin Vitamin B12 Urine Creatinine 04/06/17 04/06/17 04/06/17 03:32 09:43 11:27 RBC Hgb Hct MCV MCH MCHC RDW Plt Count Lymph % (Auto) [place] % (Auto) Lymph # [place] # Seg Neutrophils % PT INR APTT POC ABG pH POC ABG pCO2 POC ABG pO2 Sodium Potassium 3.2 L 3.3 L Chloride Carbon Dioxide BUN 31 H 30 H Creatinine 1.7 H 1.7 H Glucose 107 H 145 H POC Glucose 130 H Lactic Acid Calcium 8.0 L 7.7 L Magnesium 1.50 L 1.40 L Iron TIBC Ferritin Total Bilirubin 3.30 H Direct Bilirubin AST 122 H ALT 467 H Total Protein 5.9 L Albumin 2.5 L Vitamin B12 Urine Creatinine 04/06/17 04/06/17 04/07/17 16:42 21:16 04:00 RBC 2.93 L Hgb 7.5 L Hct 22.3 L MCV 76 L MCH 26 L MCHC RDW Plt Count 109 L Lymph % (Auto) [place] % (Auto) Lymph # [place] # Seg Neutrophils % PT INR APTT POC ABG pH POC ABG pCO2 POC ABG pO2 Sodium Potassium Chloride Carbon Dioxide BUN Creatinine Glucose POC Glucose 125 H 161 H Lactic Acid Calcium Magnesium Iron TIBC Ferritin Total Bilirubin Direct Bilirubin AST ALT Total Protein Albumin Vitamin B12 Urine Creatinine 04/07/17 04/07/17 04/07/17 04:00 06:59 11:00 RBC Hgb Hct MCV MCH MCHC RDW Plt Count Lymph % (Auto) [place] % (Auto) Lymph # [place] # Seg Neutrophils % PT INR APTT POC ABG pH POC ABG pCO2 POC ABG pO2 Sodium Potassium Chloride Carbon Dioxide BUN 30 H Creatinine 1.6 H Glucose 125 H POC Glucose 119 H 186 H Lactic Acid Calcium 8.0 L Magnesium Iron TIBC Ferritin Total Bilirubin 3.10 H Direct Bilirubin AST 71 H ALT 320 H Total Protein Albumin 2.7 L Vitamin B12 Urine Creatinine
[2017-04-07] MEDS ORDERED: FLAGYL PO SCH (14:00)
--- NOTE | 2017-04-07 14:00 | Progress Note ---
Subjective Patient Reports: Positive: feels better, tolerating liquids well, tolerating a regular diet, flatus, bowel movement Narrative: doing fine tolerating po well , Mag normal home today , Talked with Dr Don , will see next week . Objective Vital Signs - 12hr 04/07/17 04/07/17 04/07/17 04:00 07:25 10:01 Temperature 98.9 F 98.7 F Pulse Rate 95 H 97 H Respiratory 18 18 Rate Blood Pressure 120/68 133/78 O2 Sat by Pulse 98 98 Oximetry 04/07/17 10:08 Temperature Pulse Rate 97 H Respiratory Rate Blood Pressure 133/78 O2 Sat by Pulse Oximetry - Labs 04/07/17 04:00 04/07/17 04:00 Diabetes panel 04/07/17 Range/Units 04:00 Sodium 142 (137-145) mmol/L Potassium 3.8 (3.6-5.0) mmol/L Chloride 105.8 (98-107) mmol/L Carbon Dioxide 24 (22-30) mmol/L BUN 30 H (9-20) mg/dL Creatinine 1.6 H (0.8-1.5) mg/dL Glucose 125 H (75-100) mg/dL Calcium 8.0 L (8.4-10.2) mg/dL AST 71 H (5-40) units/L ALT 320 H (7-56) units/L Alkaline Phosphatase 69 (35-129) units/L Total Protein 6.3 (6.3-8.2) g/dL Albumin 2.7 L (3.9-5) g/dL Calcium panel 04/07/17 Range/Units 04:00 Calcium 8.0 L (8.4-10.2) mg/dL Albumin 2.7 L (3.9-5) g/dL Pituitary panel 04/07/17 Range/Units 04:00 Sodium 142 (137-145) mmol/L Potassium 3.8 (3.6-5.0) mmol/L Chloride 105.8 (98-107) mmol/L Carbon Dioxide 24 (22-30) mmol/L BUN 30 H (9-20) mg/dL Creatinine 1.6 H (0.8-1.5) mg/dL Glucose 125 H (75-100) mg/dL Calcium 8.0 L (8.4-10.2) mg/dL Adrenal panel 04/07/17 Range/Units 04:00 Sodium 142 (137-145) mmol/L Potassium 3.8 (3.6-5.0) mmol/L Chloride 105.8 (98-107) mmol/L Carbon Dioxide 24 (22-30) mmol/L BUN 30 H (9-20) mg/dL Creatinine 1.6 H (0.8-1.5) mg/dL Glucose 125 H (75-100) mg/dL Calcium 8.0 L (8.4-10.2) mg/dL Total Bilirubin 3.10 H (0.1-1.2) mg/dL AST 71 H (5-40) units/L ALT 320 H (7-56) units/L Alkaline Phosphatase 69 (35-129) units/L Total Protein 6.3 (6.3-8.2) g/dL Albumin 2.7 L (3.9-5) g/dL
== END 2017-04-07 13:00 | disposition home health service (06) | DRG 853 ==
LOC: ED 10:47 → CC1 13:31 → 3A 04-04 23:00
PROVIDERS: ADMIT Internal Medicine; ATTEND Internal Medicine
PROC: 0FB10ZX Excision of Right Lobe Liver, Open Approach, Diagnostic (ICD-10-PCS; principal; 2017-03-31)
PROC: 0DBH0ZX Excision of Cecum, Open Approach, Diagnostic (ICD-10-PCS; 2017-03-31)
PROC: 4A033R1 Measurement of Arterial Saturation, Peripheral, Percutaneous Approach (ICD-10-PCS; 2017-03-31)
PROC: 5A1945Z Respiratory Ventilation, 24-96 Consecutive Hours (ICD-10-PCS; 2017-03-31)
PROC: 0DBB0ZZ Excision of Ileum, Open Approach (ICD-10-PCS; 2017-03-31)
PROC: 0BH17EZ Insertion of Endotracheal Airway into Trachea, Via Natural or Artificial Opening (ICD-10-PCS; 2017-03-31)
DX: A41.9 Sepsis, unspecified organism (principal); K72.00 Acute and subacute hepatic failure without coma; N17.0 Acute kidney failure with tubular necrosis; K63.1 Perforation of intestine (nontraumatic); J96.01 Acute respiratory failure with hypoxia; R57.1 Hypovolemic shock; K65.8 Other peritonitis; C18.9 Malignant neoplasm of colon, unspecified; D68.9 Coagulation defect, unspecified; E87.2 Acidosis; K92.2 Gastrointestinal hemorrhage, unspecified; D62 Acute posthemorrhagic anemia; E44.0 Moderate protein-calorie malnutrition; B19.20 Unspecified viral hepatitis C without hepatic coma; D69.6 Thrombocytopenia, unspecified; E11.9 Type 2 diabetes mellitus without complications; I10 Essential (primary) hypertension; Z53.29 Procedure and treatment not carried out because of patient's decision for other reasons; K74.60 Unspecified cirrhosis of liver; R74.0 Nonspecific elevation of levels of transaminase and lactic acid dehydrogenase [LDH]; E87.6 Hypokalemia; E83.42 Hypomagnesemia; E87.8 Other disorders of electrolyte and fluid balance, not elsewhere classified; Z88.0 Allergy status to penicillin; Z68.27 Body mass index [BMI] 27.0-27.9, adult; B96.89 Other specified bacterial agents as the cause of diseases classified elsewhere
CPT/HCPCS: 36415; 36600; 71010; 74000; 74176; 74181; 76705; 76770; 80048; 80053; 80074; 81001; 82106; 82140; 82378; 82550; 82553; 82570; 82607; 82728; 82747; 82803; 82962; 83550; 83735; 84100; 84300; 84478; 84484; 85007; 85014; 85018; 85025; 85027; 85045; 85610; 85730; 86140; 86301; 86850; 86900; 86901; 86920; 87040; 87070; 87076; 87186; 87205; 88307; 88309; 88313; 88341; 88342; 93005; 93010; 93306; 94002; 94003; 94640; 94760; 99285; C9113; J0360; J0690; J0885; J1170; J1756; J1815; J1956; J2250; J2597; J2704; J3010; J3430; J3475; J3480; J7030; J7042; J7050; J7070; J7195